=== PATIENT | male | born 1955 | race Caucasian/White ===

== ENCOUNTER 2021-04-20 19:16 | Observation (INO) ==
[2021-04-20] MEDS ORDERED: SODIUM CHLORIDE 0.9% 1000ML 1,000 ML IV ONE (20:37)
--- NOTE | 2021-04-20 20:42 | Emergency Department Note ---
History of Present Illness General Chief complaint: Fever Stated complaint: FEVER, COUGH, COVID + Time Seen by Provider: 04/20/21 20:06 Source: patient Mode of arrival: ambulatory Limitations: no limitations History of Present Illness Provider complaint: Cough, fever, Covid Onset (ago): week(s) 1 Maximum Pain Intensity: 4 Associated symptoms: + denies other symptoms Treatments prior to arrival: NSAID This is a 66-year-old male presents the emergency department with concern for fever in the setting of Covid. Patient states he was diagnosed with Covid 6 days ago. Patient states he came into contact with sick family members not so he acquired it. Patient states he has noticed a cough, some fatigue, intermittent headaches, nasal congestion. Patient states he knows he does feel short of breath with exertion. He denies nausea, vomiting, diarrhea, leg swelling, rash or sores. Patient states he has not lost his sense of taste or smell. He states he has had some fevers which she was concerned about and this is why he presented to the emergency department although he states he did not use any Tylenol or ibuprofen for this. No prior history of asthma or COPD. Patient was noticed to be 90% on room air. Pt seen during a time of high acuity and national emergency pandemic while wearing PPE. Home Medications Medication Instructions Recorded Confirmed Type No Known Home Medications 04/20/21 04/20/21 History Allergies Allergy/AdvReac Type Severity Reaction Status Date / Time No Known Allergies Allergy Unverified 04/20/21 22:40 Past Med/Surg History Medical History No significant past medical history Surgical History No significant past surgical history Family History Other No significant family history Social History Smoking Status: Never smoker Hx Alcohol Use: Yes Alcohol type: beer Alcohol Intake Frequency: Monthly or Less Hx Substance Use: No Feels Safe at Home: Yes Review of Systems A total of 10 systems reviewed and were otherwise negative All systems reviewed & are unremarkable except as noted in HPI & below Physical Exam Vital Signs Vital Signs - 24 hr 04/20/21 19:22 04/20/21 21:15 Temperature 36.4 C L Temperature Source Temporal Artery Scan Pulse Rate 72 Pulse Rate [Apical] 59 L Pulse Rhythm [Apical] Regular Pulse Strength [Apical] Normal Respiratory Rate 18 18 Respiratory Effort / Characteristics Non-Labored Spontaneous Non-Labored Spontaneous Respiratory Depth Normal Normal Respiratory Pattern Regular Regular Blood Pressure 116/76 Blood Pressure [Right Arm] 117/72 Blood Pressure Mean 89 Blood Pressure Mean [Right Arm] 87 Blood Pressure Position Sitting Pulse Oximetry 90 92 Oxygen Delivery Method Room Air Nasal Cannula Oxygen Flow Rate 2 Sepsis Recent Fever Within 48 Hours No Sepsis New/Unexplained Change in Mental Status No Sepsis Action Taken by Nursing No Action Required GENERAL: alert, well appearing, well nourished, no distress, non-toxic EYE EXAM: normal conjunctiva, PERRL and EOM's grossly intact OROPHARYNX: no exudate, no erythema, lips, buccal mucosa, and tongue normal and mucous membranes are moist NECK: supple, no nuchal rigidity, no adenopathy, non-tender LUNGS: Clear to auscultation. Normal chest wall mechanics, no w/r/r HEART: no murmurs, S1 normal and S2 normal ABDOMEN: abdomen soft, non-tender, normo-active bowel sounds, no masses, no rebound or guarding. BACK: Back is symmetrical on inspection and there is no deformity, no midline tenderness, no CVA tenderness. SKIN: no rashes and no bruising UPPER EXTREMITIES: upper extremities are grossly normal. FROM, nml pulses b/l. LOWER EXTREMITIES: No pitting edema. FROM, nml pulses b/l. NEURO EXAM: Normal sensorium, cranial nerves II-XII grossly intact, normal speech, no gross weakness of arms, no gross weakness of legs. Gross sensation intact. Course Course 2336: Discussed with patient, options for disposition. Discussed concern given relative hypoxia at rest of 90%. 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 2320: Case discussed with Dr. Gonzalez. Administered Medications Discontinued Medications Dexamethasone Sodium Phosphate (DexamethasonePf 10 Mg/Ml Vial) 6 mg IV NOW ONE Stop: 04/20/21 23:06 Last Admin: 04/20/21 23:20 Dose: 6 mg Documented by: [id number] Sodium Chloride (Nss 1000ml) 1,000 mls @ 999 mls/hr IV .Q1H1M ONE Stop: 04/20/21 21:37 Last Admin: 04/20/21 21:24 Dose: 999 mls/hr Documented by: [id number] Dexamethasone 6 mg/ Syringe 1.5 mls @ 1 mls/min IV ONE ONE Stop: 04/20/21 22:34 Last Admin: 04/20/21 23:23 Dose: Not Given Documented by: [id number] Potassium Chloride (Potassium Chloride Crtab 20 Meq Tabcr) 40 meq PO NOW STA Stop: 04/20/21 22:34 Last Admin: 04/20/21 23:20 Dose: 40 meq Documented by: [id number] Potassium Chloride (Potassium Chloride Crtab 20 Meq Tabcr) 40 meq PO NOW STA Stop: 04/20/21 23:46 Last Admin: 04/20/21 23:53 Dose: 40 meq Documented by: [id number] Medical Decision Making Differential Diagnosis Differential diagnosis: Etiologies such as viral syndrome, otitis, pharyngitis, pneumonia, influenza, meningitis, urinary tract infection, sepsis, bacteremia, as well as others were entertained. Medical Records Attestation: I reviewed the patient's medical records. Home Medications Current Medication List: was personally reviewed by me Laboratory Data Attestation: I reviewed the patient's lab results. Result diagrams: 04/20/21 21:26 04/20/21 21:26 Lab Results 04/20/21 04/20/21 Range/Units 21:26 21:26 WBC 5.93 (4.8-10.8) K/uL RBC 4.92 (4.7-6.1) M/uL Hgb 16.0 (14.0-18.0) g/dL Hct 45.6 (42-52) % MCV 92.7 (80-100) fL MCH 32.5 (25-34) pg MCHC 35.1 (32-36) g/dL RDW Std Deviation 44.3 (36.4-46.3) fL RDW Coeff of Elvin 12.9 (11.5-14.5) % Plt Count 110 L (130-400) K/uL MPV 10.3 (7.4-10.4) fL Immature Gran % (Auto) 0.2 % Neut % (Auto) 74.7 % Lymph % (Auto) 15.5 % [place] % (Auto) 9.4 % Eos % (Auto) 0.0 % Baso % (Auto) 0.2 % Neut # (Auto) 4.43 (1.4-6.5) K/uL Lymph # (Auto) 0.92 L (1.2-3.4) K/uL [place] # (Auto) 0.56 (0.11-0.59) K/uL Eos # (Auto) 0.00 (0-0.5) K/uL Baso # (Auto) 0.01 (0-0.2) K/uL Immature Gran # (Auto) 0.01 (0.00-0.02) K/uL Sodium 134 L (136-145) mmol/L Potassium 3.0 L (3.5-5.1) mmol/L Chloride 100 (98-107) mmol/L Carbon Dioxide 23 (21-32) mmol/L Anion Gap 12.0 H (3-11) BUN 25 H (7-18) mg/dl Creatinine 1.45 H (0.6-1.4) mg/dl Est Cr Clr Drug Dosing 52.6 ml/min Est GFR ( Amer) 57.7 ml/min Est GFR (Non-Af Amer) 49.8 ml/min BUN/Creatinine Ratio 17.2 (10-20) Glucose 116 H (70-99) mg/dl Calcium 7.9 L (8.5-10.1) mg/dl Magnesium 2.5 H (1.8-2.4) mg/dl Total Bilirubin 0.6 (0.2-1) mg/dl AST 44 H (15-37) U/L ALT 35 (12-78) U/L Alkaline Phosphatase 37 L (45-117) U/L Troponin I 0.032 (0-0.045) ng/ml NT-Pro-B Natriuret Pep 111 (0-900) pg/ml Total Protein 7.1 (6.4-8.2) gm/dl Albumin 3.2 L (3.4-5.0) gm/dl Globulin 3.9 (2.5-4.0) gm/dl Albumin/Globulin Ratio 0.8 L (0.9-2) TSH 0.917 (0.300-4.500) uIu/ml Imaging Data My Impression: X-ray: I interpreted the following studies. Chest: A single view study of the chest was reviewed and was negative for cardiomegaly, focal infiltr ate, effusion, pulmonary edema, or wide mediastinum. ECG Data Attestation: I personally reviewed and interpreted this ECG as follows: Indication: + other Rate (beats per minute): 59 Rhythm: + normal sinus ECG Intervals/blocks: + Normal QRS and + Normal QT ECG [place]: + Normal ECG ST segments: + Normal ST segments MDM Narrative This is a 66-year-old male presents emergency department with concern for fever in the setting of known coronavirus. Patient found to have mild hypoxia on room air at 90%. No other prior pulmonary history. Chest x-ray and labs reassuring. Due to holiday weekend and time of day, no ability to set up outpatient home oxygen and close follow-up. Case discussed with hospitalist for additional close observation and continued oxygen via nasal cannula. I do not suspect secondary bacterial infection or PE, pericarditis/myocarditis, meningitis/encephalitis, bacteremia or sepsis. An order was placed for continuous cardiac monitoring. The monitor shows a rate of _61__ with _normal sinus_ rhythm. Impression & Plan COVID-19, Hypokalemia, Hypoxia Discharge Plan Visit Data Chief Complaint: Fever Stated Complaint: FEVER, COUGH, COVID + ED Provider: Lolita Poe Discharge Problem: COVID-19, Hypokalemia, Hypoxia Patient Disposition: Being Evaluated by Hospitalist Condition: Good Discharge Instructions Interventions: ED Discharge Assessment Last Done: 04/21/21 00:30 Forms Stand Alone Forms: My [facility] Prescriptions Prescriptions: No Action No Known Home Medications RF: 0 Referrals Referrals: PCP,NO [Primary Care Provider] -
[2021-04-20 21:38] LABS: Basophils # (auto) 0.01 K/uL (0-0.2); Basophils % (auto) 0.2 %; Hematocrit (blood only) 45.6 % (42-52); Immature Granulocytes # (auto) 0.01 K/uL (0.00-0.02); Immature Granulocytes % (auto) 0.2 %; Lymphocytes # (auto) 0.92 K/uL (1.2-3.4); Lymphocytes % (auto) 15.5 %; Mean Corpuscular Hemoglobin 32.5 pg (25-34); Mean Corpuscular Hgb Conc 35.1 g/dL (32-36); Mean Corpuscular Volume 92.7 fL (80-100); Mean Platelet Volume 10.3 fL (7.4-10.4); Monocytes # (auto) 0.56 K/uL (0.11-0.59); Monocytes % (auto) 9.4 %; Neutrophils # (auto) 4.43 K/uL (1.4-6.5); Neutrophils % (auto) 74.7 %; Platelet Count 110 K/uL (130-400); RDW Coefficient of Variation 12.9 % (11.5-14.5); RDW Standard Deviation 44.3 fL (36.4-46.3); Red Blood Count 4.92 M/uL (4.7-6.1); White Blood Count 5.93 K/uL (4.8-10.8)
[2021-04-20 22:06] LABS: Albumin Level 3.2 gm/dl (3.4-5.0); BUN Creatinine Ratio 17.2 (10-20); Calcium 7.9 mg/dl (8.5-10.1); Creatinine Clr Calc Pharmacy 52.6 ml/min; Est GFR (African American) 57.7 ml/min; Est GFR (Non-African American) 49.8 ml/min; Magnesium 2.5 mg/dl (1.8-2.4)
[2021-04-20 22:17] LABS: Albumin Globulin Ratio 0.8 (0.9-2); Bilirubin,Total 0.6 mg/dl (0.2-1); Globulin 3.9 gm/dl (2.5-4.0); Thyroid Stimulating Hormone 0.917 uIu/ml (0.300-4.500); Total Protein 7.1 gm/dl (6.4-8.2); Troponin I 0.032 ng/ml (0-0.045)
[2021-04-20] MEDS ORDERED: dexAMETHasone 6 MG in SYRINGE 0 ML IV ONE (22:33)
[2021-04-20] MEDS ORDERED: POTASSIUM CHLORIDE CRTAB 20 MEQ TABCR PO STA ×2 (22:33→23:45)
[2021-04-20] MEDS ORDERED: dexAMETHasone**PF** 10 MG/ML VIAL IV ONE (23:05)
--- NOTE | 2021-04-21 00:02 | History & Physical Report ---
Date of Service April 20, 2021 Assessment & Plan (1) COVID-19: Plan: 66yo male with no significant past medical or surgical history presenting with known Covid-19 infection, worsening shortness of breath. Mild hypoxemia at 90% on room air in the ER at rest. Patient placed on supplemental O2 and administered Dexamethasone 6mg IV x 1 dose. Will need to have home O2 arranged prior to discharge, most likely tomorrow. Patient is afebrile, HD stable, no respiratory distress. Adequate oxygenation on 2L by NC. -Observation to medical -Continue supplemental O2 as needed -Dexamethasone 6mg IV daily -Lovenox 40mg IV BID for DVT prophylaxis -Detectable troponin with non-specific EKG changes. Patient denies chest pain, palpitations. No known cardiac history. Will repeat troponin with AM labs (2) Hypokalemia: Plan: K=3. He was administered 40mEq in the ER. Will give additional 40mEq. -Repeat chemistry in AM Plan: F/E/N - Heplock. K repletion as above. Regular diet as tolerated Ppx - Lovenox 40mg BID Code - DNR/DNI per discussion with patient Dispo - Observation to medical floor History of Present Illness Chief Complaint: Covid-19 infection Primary Care Provider: NO PCP Artur Luu is a 66yo male with no significant past medical or surgical history presenting with Covid-19 infection. Patient began developing slight cough, loss of taste and smell, headache and subjective fevers appx 8 days ago. He tested positive for Covid-19 in the outpatient setting 6 days ago. He is not vaccinated against Covid. He did have a positive family contact. Presently with no chest pain, shortness of breath, dizziness. He denies additional complaints at this time. Saturations in the ER 90% at rest ER Course: Dexamethasone 6mg IV, Potassium 40mEq, NSS x 1 L Allergies Allergy/AdvReac Type Severity Reaction Status Date / Time No Known Allergies Allergy Unverified 04/20/21 22:40 Home Medications Medication Instructions Recorded Confirmed Type No Known Home Medications 04/20/21 04/20/21 History Past Med/Surg History Medical History No significant past medical history Surgical History No significant past surgical history Family History (Updated 04/20/21 @ 23:53 by Natividad Gonzalez DO) Other No significant family history Social History (Updated 04/20/21 @ 23:53 by Natividad Gonzalez DO) Smoking Status: Never smoker Hx Alcohol Use: Yes Alcohol type: beer Alcohol Intake Frequency: Monthly or Less Hx Substance Use: No Feels Safe at Home: Yes Review of Systems Review of Systems: All systems reviewed & are unremarkable except as noted in HPI & below Physical Exam Physical Exam: General: patient resting comfortably, NAD, non-toxic in appearance, AA&O x 4 Skin: warm, dry, intact, no rashes or lesions HEENT: NC/AT, PERRL, EOMI, anicteric sclera, conjunctiva without injection, external ear normal to inspection and nontender, nares patent, moist mucus membranes, dentition intact, no oropharyngeal lesions, neck supple, trachea midline, no LAD, no thyromegaly, no JVD Heart: +S1/S2, regular, no m/r/g Lungs: equal air entry bilaterally, no rales/rhonchi/wheezes Abd: +BS, soft, NT/ND, no masses/organomegaly/ascites Ext: warm, 2+ pulses in UE/LE bilaterally, no clubbing/cyanosis or edema Neuro: nonfocal, patient AA&O x 4, speech intact, no facial droop, moving all extremities on command with equal strength 5/5 Results & Data Results & Data ([facility]) Vital Signs (Past 12 Hours) Vital Signs Temp Pulse Pulse Resp BP BP Pulse Ox 04/20/21 21:15 59 L 18 117/72 92 04/20/21 19:22 36.4 C L 72 18 116/76 90 Laboratory Results Laboratory Results WBC 5.93 K/uL (4.8-10.8) 04/20/21 21:26 RBC 4.92 M/uL (4.7-6.1) 04/20/21 21:26 Hgb 16.0 g/dL (14.0-18.0) 04/20/21 21:26 Hct 45.6 % (42-52) 04/20/21 21:26 MCV 92.7 fL (80-100) 04/20/21 21:26 MCH 32.5 pg (25-34) 04/20/21: MCHC 35.1 g/dL (32-36) 04/20/21: RDW Std Deviation 44.3 fL (36.4-46.3) 04/20/21 21: RDW Coeff of Elvin 12.9 % (11.5-14.5) 04/20/21: Plt Count 110 K/uL (130-400) L 04/20/21 21: MPV 10.3 fL (7.4-10.4) 04/20/21: Immature Gran % (Auto) 0.2 % 04/20/21 21: Neut % (Auto) 74.7 % 04/20/21: Lymph % (Auto) 15.5 % 04/20/21: [place] % (Auto) 9.4 % 04/20/21: Eos % (Auto) 0.0 % 04/20/21: Baso % (Auto) 0.2 % 04/20/21: Neut # (Auto) 4.43 K/uL (1.4-6.5) 04/20/21: Lymph # (Auto) 0.92 K/uL (1.2-3.4) L 04/20/21: [place] # (Auto) 0.56 K/uL (0.11-0.59) 04/20/21: Eos # (Auto) 0.00 K/uL (0-0.5) 04/20/21: Baso # (Auto) 0.01 K/uL (0-0.2) 04/20/21: Immature Gran # (Auto) 0.01 K/uL (0.00-0.02) 04/20/21: Sodium 134 mmol/L (136-145) L 04/20/21 21: Potassium 3.0 mmol/L (3.5-5.1) L 04/20/21: Chloride 100 mmol/L (98-107) 04/20/21: Carbon Dioxide 23 mmol/L (21-32) 04/20/21 21: Anion Gap 12.0 (3-11) H 04/20/21 21:26 BUN 25 mg/dl (7-18) H 04/20/21 21: Creatinine 1.45 mg/dl (0.6-1.4) H 04/20/21: Est Cr Clr Drug Dosing 52.6 ml/min 04/20/21 21: Est GFR ( Amer) 57.7 ml/min 04/20/21: Est GFR (Non-Af Amer) 49.8 ml/min 04/20/21 21: BUN/Creatinine Ratio 17.2 (10-20) 04/20/21 21: Glucose 116 mg/dl (70-99) H 04/20/21 21: Calcium 7.9 mg/dl (8.5-10.1) L 04/20/21: Magnesium 2.5 mg/dl (1.8-2.4) H 04/20/21: Total Bilirubin 0.6 mg/dl (0.2-1) 04/20/21: AST 44 U/L (15-37) H 04/20/21: ALT 35 U/L (12-78) 04/20/21: Alkaline Phosphatase 37 U/L (45-117) L 04/20/21: Troponin I 0.032 ng/ml (0-0.045) 04/20/21: NT-Pro-B Natriuret Pep 111 pg/ml (0-900) 04/20/21: Total Protein 7.1 gm/dl (6.4-8.2) 04/20/21: Albumin 3.2 gm/dl (3.4-5.0) L 04/20/21: Globulin 3.9 gm/dl (2.5-4.0) 04/20/21: Albumin/Globulin Ratio 0.8 (0.9-2) L 04/20/21: TSH 0.917 uIu/ml (0.300-4.500) 04/20/21 21:26 Diagnostic Findings CXR - by my interpretation - trachea midline, cardiac shadow within normal limits, no infiltrates, no prior study for comparison ECG Additional Comments: SB at 59, NM=596, QRS=86, RFb=515, nonspecific ST changes, no STEMI Code Status & VTE Plan VTE Prophylaxis Plan VTE Prophylaxis will be ordered: Yes PG Care Time/CCT Total # of Minutes Spent Total Time Spent with Patient: Total time spent is greater than 50% in coordination of care (as documented) at patient's floor/unit and/or counseling patient: Coding Level of Care Code 94352 Initial Inpt Care Lvl 2 Diagnoses COVID-19 U07.1 Hypokalemia E87.6
[2021-04-21] MEDS ORDERED: ACETAMINOPHEN 325 MG TAB PO PRN (00:59)
[2021-04-21] MEDS ORDERED: ONDANSETRON INJ 2 MG/ML 2 ML VIAL IV PRN (00:59)
[2021-04-21] MEDS: ENOXAPARIN INJ 40 MG/0.4 ML SYR SQ SCH ×2 (06:23→17:47)
[2021-04-21 07:11] LABS: Basophils # (auto) 0.01 K/uL (0-0.2); Basophils % (auto) 0.2 %; Hematocrit (blood only) 48.6 % (42-52); Hemoglobin 16.9 g/dL (14.0-18.0); Immature Granulocytes # (auto) 0.01 K/uL (0.00-0.02); Immature Granulocytes % (auto) 0.2 %; Lymphocytes # (auto) 0.99 K/uL (1.2-3.4); Lymphocytes % (auto) 21.6 %; Mean Corpuscular Hemoglobin 32.4 pg (25-34); Mean Corpuscular Hgb Conc 34.8 g/dL (32-36); Mean Corpuscular Volume 93.3 fL (80-100); Monocytes # (auto) 0.19 K/uL (0.11-0.59); Monocytes % (auto) 4.1 %; Neutrophils # (auto) 3.38 K/uL (1.4-6.5); Neutrophils % (auto) 73.9 %; Platelet Count 111 K/uL (130-400); RDW Coefficient of Variation 12.9 % (11.5-14.5); RDW Standard Deviation 44.7 fL (36.4-46.3); Red Blood Count 5.21 M/uL (4.7-6.1); White Blood Count 4.58 K/uL (4.8-10.8)
--- NOTE | 2021-04-21 07:18 | XRay Report ---
XR chest 1V portable CLINICAL HISTORY: cough, covid COMPARISON STUDY: No previous studies for comparison. FINDINGS: No pneumothorax. No pleural effusion. Reticular opacities are seen at bilateral lower lungs, most prominent at the left retrocardiac region where few air bronchograms are seen. Cardiomediastinal silhouette is within normal limits in size. Pulmonary vasculature is indistinct. Aorta is tortuous.. Osseous structures: unremarkable IMPRESSION: 1. Reticular opacities at bilateral lower lungs, most prominent on the left. Air bronchograms within left retrocardiac region likely represent atelectasis or infiltrates. 2. Possible pulmonary edema. ACT 112: Negative or not required by law. The above report was generated using voice recognition software. It may contain grammatical, syntax o r spelling errors. Electronically signed by: Lydia Jones DO 04/21/2021 7:16 AM
[2021-04-21 07:50] LABS: BUN Creatinine Ratio 16.9 (10-20); Calcium 8.4 mg/dl (8.5-10.1); Creatinine Clr Calc Pharmacy 54.2 ml/min; Est GFR (African American) 60.3 ml/min; Potassium 3.6 mmol/L (3.5-5.1); Troponin I 0.019 ng/ml (0-0.045)
--- NOTE | 2021-04-21 08:38 | Electrocardiogram Report ---
Test Reason : Blood Pressure : / mmHG Vent. Rate : 059 BPM Atrial Rate : 059 BPM P-R Int : 132 ms QRS Dur : 086 ms QT Int : 450 ms P-R-T Axes : 028 -06 -15 degrees QTc Int : 445 ms Sinus bradycardia Minimal voltage criteria for LVH, may be normal variant Nonspecific ST and T wave abnormality Abnormal ECG No previous ECGs available Confirmed by Mark Sherman ([id number]) on 04/21/2021 8:38:21 AM Referred By: REFERRED SELF Confirmed By:Mark Sherman
--- NOTE | 2021-04-21 08:44 | Hospitalist Progress Note ---
Date of Service April 21, 2021 Assessment & Plan (1) COVID-19: Plan: 66yo male with no significant past medical or surgical history presenting with known Covid-19 infection, worsening shortness of breath. Mild hypoxemia at 90% on room air in the ER at rest. Patient placed on supplemental O2 and administered Dexamethasone 6mg IV x 1 dose. Will need to have home O2 arranged prior to discharge, most likely tomorrow. Patient is afebrile, HD stable, no respiratory distress. Adequate oxygenation on 2L by NC. -Observation to medical -Continue supplemental O2 as needed -Dexamethasone 6mg IV daily -Lovenox 40mg IV BID for DVT prophylaxis -Detectable troponin with non-specific EKG changes. Patient denies chest pain, palpitations. No known cardiac history. Will repeat troponin with AM labs (2) Hypokalemia: Plan: K=3. He was administered 40mEq in the ER. Will give additional 40mEq. -Repeat chemistry in AM Plan: F/E/N - Heplock. K repletion as above. Regular diet as tolerated Ppx - Lovenox 40mg BID Code - DNR/DNI per discussion with patient Dispo - Observation to medical floor Admission and Anticipated Discharge Date Admission Date: April 20, 2021 Results & Data Results & Data ([facility]) Vital Signs (Past 12 Hours) Vital Signs Temp Pulse Pulse Resp BP Pulse Ox 04/21/21 00:50 99.3 F 64 16 133/80 92 04/20/21 21:15 59 L 18 117/72 92 PG Care Time/CCT Total # of Minutes Spent Total Time Spent with Patient: Total time spent is greater than 50% in coordination of care (as documented) at patient's floor/unit and/or counseling patient: Coding Diagnoses COVID-19 U07.1 Hypokalemia E87.6
[2021-04-21] MEDS ORDERED: dexAMETHasone 6 MG in SYRINGE 0 ML IV SCH (09:00)
--- NOTE | 2021-04-21 18:11 | Discharge Summary ---
Date of Service April 21, 2021 Admission HPI Per Admitting Provider Artur Luu is a 66yo male with no significant past medical or surgical history presenting with Covid-19 infection. Patient began developing slight cough, loss of taste and smell, headache and subjective fevers appx 8 days ago. He tested positive for Covid-19 in the outpatient setting 6 days ago. He is not vaccinated against Covid. He did have a positive family contact. Presently with no chest pain, shortness of breath, dizziness. He denies additional complaints at this time. Saturations in the ER 90% at rest ER Course: Dexamethasone 6mg IV, Potassium 40mEq, NSS x 1 L Principal Diagnosis covid pneumonia acute hypoxic respiratory failure Discharge Exam The patient appeared stable Vital signs as documented. Lungs are with scant basilar rales but effort appears unlabored Cardiac exam, Rhythm is regular.. No murmurs, rubs or gallops. Abdominal exam reveals normal bowel sounds, soft non tender, no masses Extremities are nonedematous and both pedal pulses are normal. Neurologic exam is alert and oriented, no focal loss of strength or sensation Skin is without bruises or rashes Psychologically is without concerns for anxiety or depression. Discharge Data Allergies Allergy/AdvReac Type Severity Reaction Status Date / Time No Known Allergies Allergy Unverified 04/20/21 22:40 Consultations 04/20/21 23:20 ED Decision to Admit Stat Hospital Course (1) COVID-19: 66yo male with no significant past medical or surgical history presenting with known Covid-19 infection, worsening shortness of breath. Mild hypoxemia at 90% on room air in the ER at rest. Patient placed on supplemental O2 and administered Dexamethasone 6mg IV x 1 dose. Will need to have home O2 arranged prior to discharge, most likely tomorrow. Patient is afebrile, HD stable, no respiratory distress. Adequate oxygenation on 2L by NC. -Continue supplemental O2 2 liters at home -Dexamethasone 6mg po daily We did veronica discussion about the possibility that the patient might return if Covid does worsen and likely has time would be over the next 4 to 5 days. He is willing to go home at this time -Detectable troponin with non-specific EKG changes. repeat not elevated Patient denies chest pain, palpitations. No known cardiac history. (2) Hypokalemia: replete Code - DNR/DNI per discussion with patient D Total Time Total Time Spent Total Time Spent (In Minutes): It required greater than 30 minutes to prepare this patient for discharge Discharge Plan Discharge Items Patient Disposition: Home - Self-Care Reason For Visit: COVID-19, HYPOXIA Discharge Diagnosis: covid pneumonia hypoxia Condition on Discharge: Good Activity: Per Instructions section Activity Comment: rest and recover Non-emergency contact: Primary Care Provider Call non-emergency contact if: your symptoms worsen and your rectal temperature is above 100.4 Follow-up/Referrals: Boone Taylor DO [Outside Practitioners] - 04/27/21 3:40 pm (virtual visit due to COVID; then will set up another appt to establish care as PCP) Diet: Regular Addtl Attending Provider Instructions: you have been diagnosed with covid pneumonia and wlll be sent home on oxygen, you will follow up with Handy Cody for a primary care visit to follow along your progress. Please finish all of your medicines and wear oxygen at all times until you are told not to by your doctor Expect to have symptoms of up to 10 additional days and stay on home isolation until you are free of symptoms, please wear a mask in your home if you are around other people who do not have covid infection. Home Isolation COVID-19 Instructions The following information about Home Isolation is from the CDC Website: https://www.cdc.gov/coronavirus/2019-ncov/hcp/lhjphaia-aadrmgo-xbtxtf.html Stay home except to get medical care People who are mildly ill with COVID-19 are able to isolate at home during their illness. You should restrict activities outside your home, except for getting medical care. Do not go to work, school, or public areas. Avoid using public transportation, ride-sharing, or taxis. Separate yourself from other people and animals in your home People: As much as possible, you should stay in a specific room and away from other people in your home. Also, you should use a separate bathroom, if available. Animals: You should restrict contact with pets and other animals while you are sick with COVID-19, just like you would around other people. Although there have not been reports of pets or other animals becoming sick with COVID-19, it is still recommended that people sick with COVID-19 limit contact with animals until more information is known about the virus. When possible, have another member of your household care for your animals while you are sick. If you are sick with COVID-19, avoid contact with your pet, including petting, snuggling, being kissed or licked, and sharing food. If you must care for your pet or be around animals while you are sick, wash your hands before and after you interact with pets and wear a face mask. Call ahead before visiting your doctor If you have a medical appointment, call the healthcare provider and tell them that you have or may have COVID-19. This will help the healthcare providers office take steps to keep other people from getting infected or exposed. Wear a face mask You should wear a face mask when you are around other people (e.g., sharing a room or vehicle) or pets and before you enter a healthcare providers office. If you are not able to wear a face mask (for example, because it causes trouble breathing), then people who live with you should not stay in the same room with you, or they should wear a face mask if they enter your room. Cover your coughs and sneezes Cover your mouth and nose with a tissue when you cough or sneeze. Throw used tissues in a lined trash can. Immediately wash your hands with soap and water for at least 20 seconds or, if soap and water are not available, clean your hands with an alcohol-based hand superior court clerk that contains at least 60% alcohol. Clean your hands often Wash your hands often with soap and water for at least 20 seconds, especially after blowing your nose, coughing, or sneezing; going to the bathroom; and before eating or preparing food. If soap and water are not readily available, use an alcohol-based hand superior court clerk with at least 60% alcohol, covering all surfaces of your hands and rubbing them together until they feel dry. Soap and water are the best option if hands are visibly dirty. Avoid touching your eyes, nose, and mouth with unwashed hands. Avoid sharing personal household items You should not share dishes, drinking glasses, cups, eating utensils, towels, or bedding with other people or pets in your home. After using these items, they should be washed thoroughly with soap and water. Clean all high-touch surfaces everyday High touch surfaces include counters, tabletops, doorknobs, bathroom fixtures, toilets, phones, keyboards, tablets, and bedside tables. Also, clean any surfaces that may have blood, stool, or body fluids on them. Use a household cleaning spray or wipe, according to the label instructions. Labels contain instructions for safe and effective use of the cleaning product including precautions you should take when applying the product, such as wearing gloves and making sure you have good ventilation during use of the product. Monitor your symptoms Seek prompt medical attention if your illness is worsening (e.g., difficulty breathing).Beforeseeking care, call your healthcare provider and tell them that you have, or are being evaluated for, COVID-19. Put on a face mask before you enter the facility. These steps will help the healthcare providers office to keep other people in the office or waiting room from getting infected or exposed. Ask your healthcare provider to call the local or [facility] health department. Persons who are placed under active monitoring or facilitated self- monitoring should follow instructions provided by their local health department or occupational health professionals, as appropriate. When working with your local health department check their available hours. If you have a medical emergency and need to call 911, notify the dispatch personnel that you have, or are being evaluated for COVID-19. If possible, put on a face mask before emergency medical services arrive. Discontinuing home isolation Patients with confirmed COVID-19 should remain under home isolation precautions until the risk of secondary transmission to others is thought to be low. The decision to discontinue home isolation precautions should be made on a [id number] basis, in consultation with healthcare providers and state and local health departments. Pending Studies at Discharge: No Stand-Alone Forms: My [facility] Medications and DC Order Prescriptions: New dexamethasone [Decadron] 6 mg tablet 6 mg PO DAILY Qty: 9 RF: 0 codeine-guaifenesin 10-100 mg/5 mL liquid 10 ml PO Q6H PRN (Reason: cough) Qty: 120 RF: 0 (DME) Oxygen Home Liters Per Minute See Rx Instructions .ROUTE Qty: 2 RF: 0 Discharge Orders: Discharge Order (Routine); Ordered 04/21/21 Ordered By: Conor Brandon/Other Patient Handouts: Disinfecting Your Home of COVID-19, COVID-19 Home Care, Using Oxygen Safely, Traveling with Oxygen, Using an Oxygen Tank at Home, If Oxygen Is Prescribed Admission Data Admit Date/Time: 04/20/21 23:45 Attending Provider: Conor Noel Admit Provider: Natividad Gonzalez Primary Care Provider: PCP,NO Other Providers: Natividad Gonzalez Other Interventions: Discharge Summary Assessment (RN) Last Done: 04/21/21 13:06 Coding Level of Care Code D/C DAY MANAGEMENT >30 MINS Diagnoses COVID-19 U07.1 Hypokalemia E87.6
== END 2021-04-21 19:30 | disposition home or self-care (01) ==
LOC: ED 19:16 → 3N 19:16 → SUATTDRO 23:45 → 3N 04-21 00:30

== ENCOUNTER 2021-04-22 23:33 | Inpatient (IN) ==
[2021-04-23] MEDS ORDERED: ACETAMINOPHEN 1,000 MG/100 ML VIAL IV STA (00:38)
[2021-04-23] MEDS ORDERED: SODIUM CHLORIDE 0.9% 1000ML 1,000 ML IV SCH (00:45)
[2021-04-23 01:11] LABS: Hematocrit (blood only) 42.5 % (42-52); Hemoglobin 15.1 g/dL (14.0-18.0); Immature Granulocytes # (auto) 0.03 K/uL (0.00-0.02); Immature Granulocytes % (auto) 0.3 %; Lymphocytes # (auto) 0.71 K/uL (1.2-3.4); Lymphocytes % (auto) 7.9 %; Mean Corpuscular Hemoglobin 32.3 pg (25-34); Mean Corpuscular Hgb Conc 35.5 g/dL (32-36); Mean Platelet Volume 10.2 fL (7.4-10.4); Monocytes % (auto) 8.9 %; Neutrophils # (auto) 7.43 K/uL (1.4-6.5); Neutrophils % (auto) 82.9 %; Platelet Count 148 K/uL (130-400); RDW Coefficient of Variation 13.1 % (11.5-14.5); Red Blood Count 4.67 M/uL (4.7-6.1); White Blood Count 8.97 K/uL (4.8-10.8)
[2021-04-23 01:22] LABS: Base Excess ABG -0.4 mEq/L (-9-1.8); HCO3 ABG 22 mmol/L (19-24); Oxygen Saturation ABG 96.6 % (90-95); PCO2 ABG 30 mmHg (35-46); PO2 ABG 78 mmHg (80-95); pH ABG 7.48 (7.35-7.45)
[2021-04-23 01:24] LABS: Allen Test Pos (Pos)
[2021-04-23 01:30] LABS: Albumin Level 2.8 gm/dl (3.4-5.0); BUN Creatinine Ratio 18.4 (10-20); Calcium 7.4 mg/dl (8.5-10.1); Creatinine Clr Calc Pharmacy 60.2 ml/min; Est GFR (African American) 66.5 ml/min; Est GFR (Non-African American) 57.4 ml/min; Magnesium 2.6 mg/dl (1.8-2.4); Potassium 3.4 mmol/L (3.5-5.1)
[2021-04-23 01:34] LABS: Albumin Globulin Ratio 0.7 (0.9-2); Bilirubin,Total 0.8 mg/dl (0.2-1); Total Protein 6.8 gm/dl (6.4-8.2); Troponin I 0.027 ng/ml (0-0.045)
--- NOTE | 2021-04-23 02:15 | Emergency Department Note ---
History of Present Illness General Chief complaint: Shortness of Breath/Dyspnea Stated complaint: +COVID - SHORT OF BREATH (SPO2 82%15LNRB) Time Seen by Provider: 04/23/21 00:32 Source: patient Mode of arrival: ambulatory Limitations: no limitations History of Present Illness Provider complaint: shortness of breath Associated symptoms: + cough, + fever/chills, + headaches, + loss of appetite, + malaise and + shortness of breath Treatments prior to arrival: other This is a 66-year-old male presents emergency department due to worsening shortness of breath and COVID-19. Patient states he has had symptoms now for a total of approximately 9 days, was diagnosed with Covid about 6 days ago. Patient was hospitalized and just discharged 2 days ago with home oxygen. Patient has been taking dexamethasone, and using other OTC meds to treat his symptoms. Patient states his cough is intermittently productive, denies headaches, chest pain, abdominal pain. Patient states he has had accompanying diarrhea. He denies rash, swelling, or vomiting. Patient states he has had a decreased appetite, has not lost his sense of taste or smell. Patient states he 2 L/min of nasal cannula he was wearing at home did not seem to be helping him when he was spot checking with his pulse oximeter he noticed he was still in the 80s. Given he continued to feel worse, patient presented to the emergency room. Patient was found to be hypoxic on initial presentation, nursing staff began to slowly titrate up his oxygen, patient was then converted to a nonrebreather mask at 15 L/min and was still hypoxic at 80 to 89%. I was contacted at this point to immediately come and see the patient due to concern for his abnormal vitals. Pt seen during a time of high acuity and national emergency pandemic while wearing PPE. Home Medications Medication Instructions Recorded Confirmed Type Oxygen Home #2 ea 04/21/21 Rx codeine 10 mg-guaifenesin 100 mg/5 10 ml PO Q6H PRN #120 ml 04/21/21 04/23/21 Rx mL oral liquid dexamethasone 2 mg tablet 4 mg PO DAILY 04/23/21 04/23/21 History Allergies Allergy/AdvReac Type Severity Reaction Status Date / Time No Known Allergies Allergy Verified 04/23/21 00:29 Past Med/Surg History Medical History No significant past medical history Surgical History No significant past surgical history Family History Other No significant family history Social History Smoking Status: Never smoker Second Hand Exposure: No; Hx Alcohol Use: Yes Alcohol type: beer Alcohol Intake Frequency: Monthly or Less Hx Substance Use: No Preferred Language: Croatian Communication Ability: Effective Neurology Stroke Physician Required: No Beliefs That Will Affect Care: None marital status: Current Living Situation: Spouse and Family Current Living Situation Comment: Pt lives with spouse, daughter, and son-in-law, grandchildrean Feels Safe at Home: Yes Assistive Devices: Glasses Review of Systems A total of 10 systems reviewed and were otherwise negative All systems reviewed & are unremarkable except as noted in HPI & below Physical Exam Vital Signs Vital Signs - 24 hr 04/22/21 23:42 04/22/21 23:52 04/22/21 23:56 Temperature 38.1 C H Temperature Source Oral Pulse Rate 74 Pulse Rate [Finger] 66 Respiratory Rate 20 20 Respiratory Effort / Characteristics Short of Breath Short of Breath Respiratory Depth Normal Blood Pressure 139/79 Blood Pressure [Right Arm] 139/79 Blood Pressure Mean 99 Blood Pressure Mean [Right Arm] 99 Pulse Oximetry 86 L 91 Oxygen Delivery Method Non-rebreather Non-rebreather Non-rebreather Oxygen Flow Rate 15 15 15 Fraction of Inspired Oxygen Sepsis Recent Fever Within 48 Hours No Sepsis New/Unexplained Change in Mental Status No Sepsis Action Taken by Nursing No Action Required 04/23/21 00:55 04/23/21 01:36 Temperature 37.0 C Temperature Source Oral Pulse Rate Pulse Rate [Finger] 72 66 Respiratory Rate 28 H 18 Respiratory Effort / Characteristics Spontaneous Labored Short of Breath Non-Labored Spontaneous Respiratory Depth Normal Blood Pressure Blood Pressure [Right Arm] 121/73 Blood Pressure Mean Blood Pressure Mean [Right Arm] 89 Pulse Oximetry 92 94 Oxygen Delivery Method High Flow Nasal Cannula High Flow Nasal Cannula Oxygen Flow Rate 40 40 Fraction of Inspired Oxygen 100 Sepsis Recent Fever Within 48 Hours Sepsis New/Unexplained Change in Mental Status Sepsis Action Taken by Nursing GENERAL: alert, ill appearing, well nourished, no distress, non-toxic EYE EXAM: normal conjunctiva, PERRL and EOM's grossly intact OROPHARYNX: no exudate, no erythema, lips, buccal mucosa, and tongue normal and mucous membranes are moist NECK: supple, no nuchal rigidity, no adenopathy, non-tender LUNGS: Diminished bilaterally to auscultation. Normal chest wall mechanics, no w/r/r HEART: no murmurs, S1 normal and S2 normal ABDOMEN: abdomen soft, non-tender, normo-active bowel sounds, no masses, no rebound or guarding. BACK: Back is symmetrical on inspection and there is no deformity, no midline tenderness, no CVA tenderness. SKIN: no rashes and no bruising UPPER EXTREMITIES: upper extremities are grossly normal. FROM, nml pulses b/l. LOWER EXTREMITIES: No pitting edema. FROM, nml pulses b/l. NEURO EXAM: Normal sensorium, cranial nerves II-XII grossly intact, normal speech, no gross weakness of arms, no gross weakness of legs. Gross sensation intact. Course Administered Medications Enoxaparin Sodium (Enoxaparin 100 Mg/1ml Syr) 90 mg SQ Q12 SHIRLEY Stop: 05/23/21 20:59 Last Admin: 04/24/21 08:13 Dose: 90 mg Documented by: [id number] Admin: 04/23/21 20:06 Dose: 90 mg Documented by: [id number] Guaifenesin/Codeine Phosphate (Guaifenesin/Codeine 200mg/20mg 10ml Udc) 10 ml PO Q6H PRN PRN Reason: cough Stop: 05/23/21 06:24 Last Admin: 04/23/21 10:21 Dose: 10 ml Documented by: [id number] Dexamethasone 6 mg/ Syringe 1.5 mls @ 1 mls/min IV DAILY SHIRLEY Stop: 05/23/21 06:44 Last Admin: 04/24/21 08:13 Dose: 1 mls/min Documented by: [id number] Admin: 04/23/21 07:50 Dose: 1 mls/min Documented by: [id number] Lorazepam (Ativan) 0.5 mg in 1 mls @ 1 mls/min IV Q4H PRN PRN Reason: Agitation Stop: 05/23/21 08:53 Last Admin: 04/23/21 20:24 Dose: 1 mls/min Documented by: [id number] Admin: 04/23/21 10:22 Dose: 1 mls/min Documented by: [id number] Potassium Chloride (K Maximiliano / Wtr) 10 meq in 100 mls @ 100 mls/hr IV Q1H SHIRLEY Stop: 04/24/21 09:29 Last Admin: 04/24/21 08:13 Dose: 100 mls/hr Documented by: [id number] Infusion: 04/24/21 08:12 Dose: 0 mls/hr Documented by: [id number] Admin: 04/24/21 06:28 Dose: 100 mls/hr Documented by: [id number] Discontinued Medications Enoxaparin Sodium (Enoxaparin Inj 40 Mg/0.4 Ml Syr) 40 mg SQ Q12 SHIRLEY Stop: 05/23/21 06:44 Last Admin: 04/23/21 07:50 Dose: 40 mg Documented by: [id number] Sodium Chloride (Nss 1000ml) 1,000 mls @ 125 mls/hr IV .Q8H SHIRLEY Stop: 05/23/21 00:44 Last Infusion: 04/23/21 06:39 Dose: 0 mls/hr Documented by: [id number] Admin: 04/23/21 00:51 Dose: 125 mls/hr Documented by: [id number] Acetaminophen (Ofirmev) 1,000 mg in 100 mls @ 400 mls/hr IV NOW STA Stop: 04/23/21 00:52 Last Infusion: 04/23/21 01:36 Dose: 0 mls/hr Documented by: [id number] Admin: 04/23/21 00:54 Dose: 400 mls/hr Documented by: [id number] Azithromycin 500 mg/ Dextrose 255 mls @ 127.5 mls/hr IV NOW STA Stop: 04/23/21 06:12 Last Infusion: 04/23/21 06:39 Dose: 0 mls/hr Documented by: [id number] Admin: 04/23/21 04:39 Dose: 127.5 mls/hr Documented by: [id number] Furosemide 40 mg/ Syringe 4 mls @ 4 mls/min IV ONE ONE Stop: 04/23/21 09:16 Last Admin: 04/23/21 09:57 Dose: 4 mls/min Documented by: [id number] Potassium Chloride (K Maximiliano / Wtr) 10 meq in 100 mls @ 100 mls/hr IV Q1H SHIRLEY Stop: 04/23/21 18:29 Last Admin: 04/23/21 18:33 Dose: Not Given Documented by: [id number] Infusion: 04/23/21 18:33 Dose: 0 mls/hr Documented by: [id number] Admin: 04/23/21 17:21 Dose: 100 mls/hr Documented by: [id number] Infusion: 04/23/21 17:20 Dose: 0 mls/hr Documented by: [id number] Admin: 04/23/21 15:40 Dose: 100 mls/hr Documented by: [id number] Infusion: 04/23/21 15:34 Dose: 0 mls/hr Documented by: [id number] Admin: 04/23/21 15:33 Dose: 100 mls/hr Documented by: [id number] Tocilizumab 400 mg/Tocilizumab 200 mg/Tocilizumab 80 mg/ Sodium Chloride 100 mls @ 100 mls/hr IV NOW ONE Stop: 04/23/21 16:59 Last Infusion: 04/23/21 17:00 Dose: 0 mls/hr Documented by: [id number] Cosigned by: [id number] Admin: 04/23/21 16:34 Dose: 100 mls/hr Documented by: [id number] Cosigned by: [id number] Tocilizumab 400 mg/ Sodium (Chloride) 100 mls @ 100 mls/hr IV NOW ONE Stop: 04/23/21 18:44 Last Infusion: 04/23/21 21:48 Dose: 0 mls/hr Documented by: [id number] Admin: 04/23/21 18:05 Dose: 100 mls/hr Documented by: [id number] Pneumococcal Polyvalent Vaccine (Pneumococcal Polysaccharides 25 Mcg/0.5 Ml Vial/Syr) 25 mcg IM .ONCE ONE Stop: 04/23/21 06:39 Last Admin: 04/23/21 07:55 Dose: Not Given Documented by: [id number] Medical Decision Making Differential Diagnosis Differential diagnoses includes but is not limited to pneumonia, bronchitis, COPD/Asthma exacerbation, pneumothorax, pulmonary embolism, congestive heart failure, acute coronary syndrome Medical Records Attestation: I reviewed the patient's medical records. Home Medications Current Medication List: was personally reviewed by me Laboratory Data Attestation: I reviewed the patient's lab results. Result diagrams: 04/24/21 05:11 04/24/21 05:11 Lab Results 04/23/21 04/23/21 04/23/21 Range/Units 00:20 00:20 01:13 WBC 8.97 (4.8-10.8) K/uL RBC 4.67 L (4.7-6.1) M/uL Hgb 15.1 (14.0-18.0) g/dL Hct 42.5 (42-52) % MCV 91.0 (80-100) fL MCH 32.3 (25-34) pg MCHC 35.5 (32-36) g/dL RDW Std Deviation 43.0 (36.4-46.3) fL RDW Coeff of Elvin 13.1 (11.5-14.5) % Plt Count 148 (130-400) K/uL MPV 10.2 (7.4-10.4) fL Immature Gran % (Auto) 0.3 % Neut % (Auto) 82.9 % Lymph % (Auto) 7.9 % [place] % (Auto) 8.9 % Eos % (Auto) 0.0 % Baso % (Auto) 0.0 % Neut # (Auto) 7.43 H (1.4-6.5) K/uL Lymph # (Auto) 0.71 L (1.2-3.4) K/uL [place] # (Auto) 0.80 H (0.11-0.59) K/uL Eos # (Auto) 0.00 (0-0.5) K/uL Baso # (Auto) 0.00 (0-0.2) K/uL Immature Gran # (Auto) 0.03 H (0.00-0.02) K/uL ABG pH 7.48 H (7.35-7.45) ABG pCO2 30 L (35-46) mmHg ABG pO2 78 L (80-95) mmHg ABG HCO3 22 (19-24) mmol/L ABG O2 Saturation 96.6 H (90-95) % ABG Base Excess -0.4 (-9-1.8) mEq/L Nikolas Test Pos (Pos) Oxygen Given 15L Sodium 132 L (136-145) mmol/L Potassium 3.4 L (3.5-5.1) mmol/L Chloride 102 (98-107) mmol/L Carbon Dioxide 24 (21-32) mmol/L Anion Gap 6.0 (3-11) BUN 24 H (7-18) mg/dl Creatinine 1.29 (0.6-1.4) mg/dl Est Cr Clr Drug Dosing 60.2 ml/min Est GFR ( Amer) 66.5 ml/min Est GFR (Non-Af Amer) 57.4 ml/min BUN/Creatinine Ratio 18.4 (10-20) Glucose 122 H (70-99) mg/dl Calcium 7.4 L (8.5-10.1) mg/dl Magnesium 2.6 H (1.8-2.4) mg/dl Total Bilirubin 0.8 (0.2-1) mg/dl AST 57 H (15-37) U/L ALT 35 (12-78) U/L Alkaline Phosphatase 38 L (45-117) U/L Troponin I 0.027 (0-0.045) ng/ml Total Protein 6.8 (6.4-8.2) gm/dl Albumin 2.8 L (3.4-5.0) gm/dl Globulin 4.0 (2.5-4.0) gm/dl Albumin/Globulin Ratio 0.7 L (0.9-2) Imaging Data My Impression: X-ray: I interpreted the following studies. Chest: A single view study of the chest was reviewed and was negative for cardiomegaly, or wide mediastinum. Chest x-ray appears worse compared to prior with increased bilateral infiltrates and edema. No obvious pleural effusion. ECG Data Attestation: I personally reviewed and interpreted this ECG as follows: Indication: + SOB/dyspnea Rate (beats per minute): 74 Rhythm: + normal sinus ECG Intervals/blocks: + Normal QRS and + Normal QT ECG [place]: + Normal ECG ST segments: + Normal ST segments MDM Narrative This is an ill-appearing 66-year-old male presents due to worsening shortness of breath and hypoxia despite home oxygen therapy. Patient with known coronavirus, recently admitted, and discharged with supplemental oxygen. Patient returns today increased sense of dyspnea and hypoxia on home pulse oximeter. Patient found to be hypoxic here on arrival, placed on a nonrebreather which was turned up to 15 L/min and was still hypoxic. I was called to the room and while patie nt did not appear significantly tachypneic or working to breathe, his oxygen levels remain low despite the nonrebreather. I called for RT to start the patient on high flow nasal cannula with possible need for BiPAP therapy. Patient did feel improved and sats came up with the high flow nasal cannula. Chest x-ray did appear slightly worse compared to prior. Labs otherwise reassuring. Case discussed with hospitalist for additional evaluation and management. Patient already taking dexamethasone. An order was placed for continuous cardiac monitoring. The monitor shows a rate of _62__ with __normal sinus_ rhythm. Impression & Plan Acute respiratory failure with hypoxia, COVID-19 Discharge Plan Visit Data Chief Complaint: Shortness of Breath/Dyspnea Stated Complaint: +COVID - SHORT OF BREATH (SPO2 82%15LNRB) ED Provider: Lolita Poe Discharge Problem: Acute respiratory failure with hypoxia, COVID-19 Patient Disposition: Admitted As Inpatient Condition: Fair Discharge Instructions Interventions: ED Discharge Assessment Last Done: 04/23/21 05:37
--- NOTE | 2021-04-23 02:54 | History & Physical Report ---
Date of Service April 23, 2021 Assessment & Plan (1) COVID-19: Plan: 66yo C male presenting with worsening Covid-19 PNA. He was recently admitted for the same and discharged [place] on 04/22/21 with PO Dexamethasone and home O2. Returns with worsening hypoxia - SpO2 at home reported to be 75%. Presently he is on HFNC 100% FiO2 at 40L/min. Appears comfortable. -Admit to medical, Covid unit -Maintain isolation precautions -Check BNP and Procalcitonin -Continue Dexamethasone 6mg IV daily -Encourage proning -Supplemental O2 as needed to maintain saturation goal of 94% -Azithromycin -Codeine-Guaifenesin, Tylenol, Albuterol PRN -Lovenox 40mg BID F/E/N- [place]. Electrolytes WNL. Regular diet as tolerated Ppx - Lovenox 40mg BID Code - DNR/DNI Dispo - Admit to medical/Covid unit History of Present Illness Chief Complaint: Worsening hypoxia in setting of Covid-19 infection Primary Care Provider: NO PCP Artur Luu is a 66-year-old male with no significant past medical or surgical history presenting with worsening COVID-19 infection. Patient was admitted to [facility] from 04/20 through 04/21/2021 with complaints of shortness of breath and hypoxia, saturations of 90% on room air at that time. He was admitted to the Covid unit and treated with dexamethasone IV. He was discharged home on 04/21/2021 with oral dexamethasone and supplemental oxygen, 2 L by nasal cannula to be worn at home. Patient states that he has been monitoring his oxygen with a home monitor. He has been wearing his oxygen as prescribed. He reports that his oxygen level got as low as 75% today. He reports persistent shortness of breath. No additional complaints at this time. Patient hypoxic on arrival. Was placed on 15 L nonrebreather and still saturating 86 to 91%. He was started on high flow nasal cannula and is now saturating 92% on 40 L/min, FiO2 =100% Allergies Allergy/AdvReac Type Severity Reaction Status Date / Time No Known Allergies Allergy Verified 04/23/21 00:29 Home Medications Medication Instructions Recorded Confirmed Type Oxygen Home #2 ea 04/21/21 Rx codeine 10 mg-guaifenesin 100 mg/5 10 ml PO Q6H PRN #120 ml 04/21/21 04/23/21 Rx mL oral liquid dexamethasone 2 mg tablet 4 mg PO DAILY 04/23/21 04/23/21 History Past Med/Surg History Medical History No significant past medical history Surgical History No significant past surgical history Family History Other No significant family history Social History Smoking Status: Never smoker Second Hand Exposure: No; Hx Alcohol Use: Yes Alcohol type: beer Alcohol Intake Frequency: Monthly or Less Hx Substance Use: No Preferred Language: Mohawk Communication Ability: Effective Milling/Polishing Operator Required: No Beliefs That Will Affect Care: None marital status: Current Living Situation: Spouse Feels Safe at Home: Yes Assistive Devices: None Review of Systems Review of Systems: All systems reviewed & are unremarkable except as noted in HPI & below Physical Exam Physical Exam: General: patient resting comfortably, NAD, non-toxic in appearance, AA&O x 4 Skin: warm, dry, intact, no rashes or lesions HEENT: NC/AT, PERRL, EOMI, anicteric sclera, conjunctiva without injection, external ear normal to inspection and nontender, nares patent, moist mucus membranes, dentition intact, no oropharyngeal lesions, neck supple, trachea midline, no LAD, no thyromegaly, no JVD Heart: +S1/S2, regular, no m/r/g Lungs: equal air entry bilaterally, no rales/rhonchi/wheezes Abd: +BS, soft, NT/ND, no masses/organomegaly/ascites Ext: warm, 2+ pulses in UE/LE bilaterally, no clubbing/cyanosis or edema Neuro: nonfocal, patient AA&O x 4, speech intact, no facial droop, moving all extremities on command with equal strength 5/5 Results & Data Results & Data ([facility]) Vital Signs (Past 12 Hours) Vital Signs Temp Pulse Pulse Resp BP BP Pulse Ox 04/23/21 02:00 67 18 116/72 92 04/23/21 01:38 37.0 C 04/23/21 01:36 37.0 C 66 18 121/73 94 04/23/21 01:00 70 18 131/76 92 04/23/21 00:55 72 28 H 92 04/23/21 00:00 81 20 131/78 90 04/22/21 23:56 66 20 139/79 91 04/22/21 23:42 38.1 C H 74 20 139/79 86 L 04/22/21 23:40 72 20 139/79 87 L Laboratory Results Laboratory Results WBC 8.97 K/uL (4.8-10.8) 04/23/21 00:20 RBC 4.67 M/uL (4.7-6.1) L 04/23/21 00:20 Hgb 15.1 g/dL (14.0-18.0) 04/23/21 00:20 Hct 42.5 % (42-52) 04/23/21 00:20 MCV 91.0 fL (80-100) 04/23/21 00:20 MCH 32.3 pg (25-34) 04/23/21 00:20 MCHC 35.5 g/dL (32-36) 04/23/21 00:20 RDW Std Deviation 43.0 fL (36.4-46.3) 04/23/21 00:20 RDW Coeff of Elvin 13.1 % (11.5-14.5) 04/23/21 00:20 Plt Count 148 K/uL (130-400) 04/23/21 00:20 MPV 10.2 fL (7.4-10.4) 04/23/21 00:20 Immature Gran % (Auto) 0.3 % 04/23/21 00:20 Neut % (Auto) 82.9 % 04/23/21 00:20 Lymph % (Auto) 7.9 % 04/23/21 00:20 [place] % (Auto) 8.9 % 04/23/21 00:20 Eos % (Auto) 0.0 % 04/23/21 00:20 Baso % (Auto) 0.0 % 04/23/21 00:20 Neut # (Auto) 7.43 K/uL (1.4-6.5) H 04/23/21 00:20 Lymph # (Auto) 0.71 K/uL (1.2-3.4) L 04/23/21 00:20 [place] # (Auto) 0.80 K/uL (0.11-0.59) H 04/23/21 00:20 Eos # (Auto) 0.00 K/uL (0-0.5) 04/23/21 00:20 Baso # (Auto) 0.00 K/uL (0-0.2) 04/23/21 00:20 Immature Gran # (Auto) 0.03 K/uL (0.00-0.02) H 04/23/21 00:20 ABG pH 7.48 (7.35-7.45) H 04/23/21 01:13 ABG pCO2 30 mmHg (35-46) L 04/23/21 01:13 ABG pO2 78 mmHg (80-95) L 04/23/21 01:13 ABG HCO3 22 mmol/L (19-24) 04/23/21 01:13 ABG O2 Saturation 96.6 % (90-95) H 04/23/21 01:13 ABG Base Excess -0.4 mEq/L (-9-1.8) 04/23/21 01:13 Nikolas Test Pos (Pos) 04/23/21 01:13 Oxygen Given 15L 04/23/21 01:13 Sodium 132 mmol/L (136-145) L 04/23/21 00:20 Potassium 3.4 mmol/L (3.5-5.1) L 04/23/21 00:20 Chloride 102 mmol/L (98-107) 04/23/21 00:20 Carbon Dioxide 24 mmol/L (21-32) 04/23/21 00:20 Anion Gap 6.0 (3-11) 04/23/21 00:20 BUN 24 mg/dl (7-18) H 04/23/21 00:20 Creatinine 1.29 mg/dl (0.6-1.4) 04/23/21 00:20 Est Cr Clr Drug Dosing 60.2 ml/min 04/23/21 00:20 Est GFR ( Amer) 66.5 ml/min 04/23/21 00:20 Est GFR (Non-Af Amer) 57.4 ml/min 04/23/21 00:20 BUN/Creatinine Ratio 18.4 (10-20) 04/23/21 00:20 Glucose 122 mg/dl (70-99) H 04/23/21 00:20 Calcium 7.4 mg/dl (8.5-10.1) L 04/23/21 00:20 Magnesium 2.6 mg/dl (1.8-2.4) H 04/23/21 00:20 Total Bilirubin 0.8 mg/dl (0.2-1) 04/23/21 00:20 AST 57 U/L (15-37) H 04/23/21 00:20 ALT 35 U/L (12-78) 04/23/21 00:20 Alkaline Phosphatase 38 U/L (45-117) L 04/23/21 00:20 Troponin I 0.027 ng/ml (0-0.045) 04/23/21 00:20 Total Protein 6.8 gm/dl (6.4-8.2) 04/23/21 00:20 Albumin 2.8 gm/dl (3.4-5.0) L 04/23/21 00:20 Globulin 4.0 gm/dl (2.5-4.0) 04/23/21 00:20 Albumin/Globulin Ratio 0.7 (0.9-2) L 04/23/21 00:20 Diagnostic Findings EKG - worsening bilateral airspace disease when compared with prior Code Status & VTE Plan VTE Prophylaxis Plan VTE Prophylaxis will be ordered: Yes PG Care Time/CCT Total # of Minutes Spent Total Time Spent with Patient: Total time spent is greater than 50% in coordination of care (as documented) at patient's floor/unit and/or counseling patient: Coding Level of Care Code 98500 Initial Inpt Care Lvl 2 Diagnoses COVID-19 U07.1
[2021-04-23] MEDS ORDERED: AZITHROMYCIN 500 MG in DEXTROSE 5% 250 ML IV STA (04:13)
[2021-04-23] MEDS ORDERED: ONDANSETRON INJ 2 MG/ML 2 ML VIAL IV PRN (06:25)
[2021-04-23] MEDS ORDERED: ALBUTEROL HFA 8 GM INHALER INH PRN (06:25)
[2021-04-23] MEDS ORDERED: PNEUMOCOCCAL POLYSACCHARIDES 25 MCG/0.5 ML VIAL/SYR IM ONE (06:38)
[2021-04-23] MEDS ORDERED: ENOXAPARIN INJ 40 MG/0.4 ML SYR SQ SCH ×2 (06:45→21:00)
[2021-04-23] MEDS: dexAMETHasone 6 MG in SYRINGE 0 ML IV SCH (07:50)
--- NOTE | 2021-04-23 08:47 | XRay Report ---
SINGLE VIEW CHEST CLINICAL HISTORY: Dyspnea. Covid pneumonia FINDINGS: An AP, portable, upright chest radiograph is compared to study dated 04/20/2021. The examinat ion is degraded by portable technique and patient rotation. The heart appears enlarged. Multifocal a irspace consolidation is seen throughout both lungs. This has significantly progressed as compared to 04/20/2021. No large pleural effusion or pneumothorax is seen. The bony thorax is grossly intact. IMPRESSION: Multifocal airspace consolidation is consistent with the reported history of a viral pneu monia. This has significantly progressed as compared to 04/20/2021. Radiographic follow-up to resolutio n is recommended. ACT 112: Negative or not required by law. Electronically signed by: Peter Quiroga M.D. 04/23/2021 8:46 AM
[2021-04-23] MEDS ORDERED: LORazepam 1 MG/2 ML VIAL IV PRN (08:55)
[2021-04-23] MEDS ORDERED: HALOPERIDOL LACTATE 5 MG/ML 1 ML VIAL IV PRN (08:56)
[2021-04-23] MEDS ORDERED: FUROSEMIDE 40 MG in SYRINGE 0 ML IV ONE (09:15)
[2021-04-23] MEDS: LORazepam 0.5 MG/1 ML VIAL IV PRN ×2 (10:22→20:24)
[2021-04-23 11:26] LABS: BUN Creatinine Ratio 16.8 (10-20); C Reactive Protein 11.2 mg/dl (0-0.29); Calcium 7.6 mg/dl (8.5-10.1); Creatinine Clr Calc Pharmacy 59.4 ml/min; Est GFR (African American) 67.1 ml/min; Est GFR (Non-African American) 57.9 ml/min; Magnesium 2.9 mg/dl (1.8-2.4); Potassium 3.1 mmol/L (3.5-5.1)
[2021-04-23] MEDS ORDERED: POTASSIUM CHLORIDE 10 MEQ / 100ML WTR IV STA (14:57)
[2021-04-23] MEDS: POTASSIUM CHLORIDE / WTR 10 MEQ/100 ML PLCT IV SCH ×4 (15:33→18:33)
[2021-04-23] MEDS ORDERED: TOCILIZUMAB 400 MG, TOCILIZUMAB 200 MG, TOCILIZUMAB 80 MG in 0.9 % SODIUM CHLORIDE 66 ML IV ONE (16:00)
--- NOTE | 2021-04-23 16:23 | Hospitalist Progress Note ---
Date of Service April 23, 2021 Assessment & Plan (1) COVID-19: Plan: 66yo C male presenting with worsening Covid-19 PNA. He was recently admitted for the same and discharged [place] on 04/22/21 with PO Dexamethasone and home O2. Returns with worsening hypoxia - SpO2 at home reported to be 75%. Presently he is on BiPAP with 90% FiO2 and ventilation 14 L with hypoxia 88 to 90% Transfer to ICU CODE STATUS now full code Covid airborne precautions Significantly elevated CRP. Patient will be given tocilizumab 600 mg. -Continue Dexamethasone 6mg IV daily -Encourage proning -Supplemental O2 as needed to maintain saturation goal of 94% -Azithromycin -Codeine-Guaifenesin, Tylenol, Albuterol PRN Because of profound decline over the last 18 hours with significant hypoxia and patient's condition not stable enough to proceed with CT angiography patient will be given Lovenox 1 mg/kg subcu every 12 Hypokalemia is once again present this will be repleted intravenously Patient's CODE STATUS is changed to full code after discussion with Dr. Noel in the afternoon of 04/23/2021 As for level of care to ICU airborne precaution Patient did give permission to speak to his daughter Leia Villarreal her numbers [phone] (2) Acute respiratory failure with hypoxia: Admission and Anticipated Discharge Date Admission Date: April 23, 2021 Subjective this pt is intermittently hypoxic, he is now changing his mind to want to be a full code, he is tachypneic and has non productive coughing paroxysms. He does not have diarrhea. He was given iv lasix with robust urine output. Review of Systems Review of Systems: moderate to severe distress and fatigue no headache, no visual changes no speech or swallowing issues no chest pain, pressure or palpitations shortness of breath and non productive cough no abdominal pain, nausea or vomiting, diarrhea or constipation no dysuria, hematuria or frequency no focal joint pain or swelling no back pain, CVA tenderness or radicular pain no bruising, bleeding or rashes no focal signs of weakness or numbness lethargic Physical Exam Physical Exam: The patient appeared in mild to moderate distress Vital signs as documented. slighlty hypoxic on 90% Fio2 via bipap Head exam is normocephalic atraumatic Neck is without JVD, thyromegaly, or carotid bruits. Lungs are coarse b/l Cardiac exam, Rhythm is regular.. No murmurs, rubs or gallops. Abdominal exam reveals normal bowel sounds, soft non tender, no masses Extremities are nonedematous and both pedal pulses are present Neurologic exam is alert and oriented, can be alert and discuss his decisions Skin is without bruises or rashes Results & Data Results & Data ([facility]) Vital Signs (Past 12 Hours) Vital Signs Temp Pulse Pulse Resp BP BP Pulse Ox 04/23/21 15:59 99.1 F 67 34 H 138/76 88 L 04/23/21 15:38 65 40 H 90 04/23/21 11:41 65 39 H 93 04/23/21 08:24 97.3 F L 70 40 H 149/87 H 91 04/23/21 07:44 73 40 H 98 04/23/21 06:55 80 38 H 91 04/23/21 06:25 99.1 F 67 30 H 126/86 88 L 04/23/21 06:15 76 28 H 87 L 04/23/21 04:24 58 L 28 H 104/73 92 PG Care Time/CCT Total # of Minutes Spent Total Time Spent with Patient: Total time spent is greater than 50% in coordination of care (as documented) at patient's floor/unit and/or counseling patient: Coding Level of Care Code None Diagnoses COVID-19 U07.1 Acute respiratory failure with hypoxia J96.01 Time Spent (min) 65 Comment This patient was admitted after midnight additional time was spent during today coordinati
[2021-04-23] MEDS ORDERED: ICU PROTOCOL FOR HYPERGLYCEMIA PRN (16:54)
[2021-04-23] MEDS ORDERED: TOCILIZUMAB 400 MG in 0.9 % SODIUM CHLORIDE 80 ML IV ONE (17:45)
--- NOTE | 2021-04-23 18:02 | Critical Care Consultation ---
Date of Consultation April 23, 2021 Assessment & Plan (1) COVID-19: Reason critically ill: 66 yo M with no significant PMHx admitted with acute respiratory failure with hypoxia secondary to COVID-19 pneumonia admitted to ICU requiring close monitoring given tenuous respiratory status. NEURO: Awake and alert. No current concerns. CARDIAC/VASCULAR: No history of cardiac disease. Monitor on telemetry. RESPIRATORY: Acute hypoxic respiratory distress secondary to COVID-19 pneumonia - Patient received IV dexamethasone while admitted 04/20-04/21 and was discharged home on dexamethasone 4mg po daily - Received 1 dose of Azithromycin on admission - Continue dexamethasone IV 6mg daily while admitted - Currently requiring BiPAP. - Patient is anxious and did receive 0.5 mg Ativan - Encourage to prone - IS and flutter valve as able - Continue with noninvasive ventilatory techniques -- currently on BiPAP 15/5, 100% FiO2 - If symptoms worsen, intubation may be necessary - Receiving tocilizumab therapy - CRP significantly elevated at 11.2 GI/NUTRITION: Diet as tolerated. NPO while on BiPAP/CPAP. RENAL/LYTES: Hypokalemia - K of 3.1 - Replete per ICU electrolyte replacement protocol - Monitor closely and replace appropriately GENITOURINARY: No acute concerns. Strict Is/Os. ENDO: No history of diabetes or thyroid disease. - TSH wnl at 0.917 BSGs per unit protocol: ISS --> gtt per unit policy. HEME: Stable H&H ID: COVID-19 pneumonia - Received initial dose of azithromycin - Procalcitonin wnl at 0.48 -- defer continued abx therapy at this time Lines/IV Access: PIV DVT Prophylaxis: Lovenox 90mg SQ q12h GI Prophylaxis: Pantoprazole CODE STATUS: FULL CODE (2) Admitted to intensive care unit: (3) Acute respiratory failure with hypoxia: (4) Hypokalemia: Supervising Physician Co-Signing Physician Notes Dr. Serrano was resident physician during care of patient. I separately evaluated patient for gonzales portions of the history and the exam. I was present during the critical portion of medical decision making, and I discussed the case with the resident. I generally agree with the findings and plan. Patient critically ill due to acute hypoxic respiratory failure secondary to COVID-19 pneumonia. Continue noninvasive ventilation will proceed with intubation should he worsen he is certainly at risk for endotracheal intubation mechanical ventilation. I have personally spent 45 minutes of critical care time in the direct management of this patient. This is a life/limb threatening event. This includes time spent evaluating patient, direct bedside care, chart review, placing orders, interpretation of diagnostic studies, discussion with consultants, patient, and/or family members regarding treatment decisions, as well as other required patient management activities. This time is exclusive of all separately billable procedures, and teaching time and separate from and in addition to any other critical care service time. History of Present Illness Reason for Consultation: COVID-19 Pneumonia, hypoxia Requesting Physician: Conor Noel MD Attending Physician: Conor Noel MD History of Present Illness Artur Luu is a 66 yo male with no reported significant PMHx who was recently admitted 04/20 04/21 due to diagnosis of COVID-19 pneumonia. He was initially diagnosed with COVID 6 days prior to initial presentation to the hospital on 04/20. He was discharged home on 04/21 with po dexamethasone and home oxygen, 2L NC. Per records, patient returned to the ER early this morning due to worsening hypoxia (reported to be as low as 75% at home) and worsening/persistent shortness of breath. Patient was ultimately titrated up to high flow nasal cannula, 40 L/min with an FiO2 of 100% and saturating 92%. He was admitted to the COVID unit. Throughout the day today, patient has had a continued decline with significant hypoxia. His CODE STATUS is changed to full code after discussion with Dr. Noel, hospitalist, this afternoon (04/23). For that reason, he was transferred to the ICU for further monitoring and intubation if needed. At time of arrival to the ICU, patient is on BiPAP with settings 15/5, FiO2 100%. Allergies Allergy/AdvReac Type Severity Reaction Status Date / Time No Known Allergies Allergy Verified 04/23/21 00:29 Home Medications Medication Instructions Recorded Confirmed Type Oxygen Home #2 ea 04/21/21 Rx codeine 10 mg-guaifenesin 100 mg/5 10 ml PO Q6H PRN #120 ml 04/21/21 04/23/21 Rx mL oral liquid dexamethasone 2 mg tablet 4 mg PO DAILY 04/23/21 04/23/21 History Patient History Medical History No significant past medical history Surgical History No significant past surgical history Family History Other No significant family history Social History Smoking Status: Never smoker Second Hand Exposure: No; Hx Alcohol Use: Yes Alcohol type: beer Alcohol Intake Frequency: Monthly or Less Hx Substance Use: No Preferred Language: Yi Communication Ability: Effective Wagon Washer Required: No Beliefs That Will Affect Care: None marital status: Current Living Situation: Spouse and Family Current Living Situation Comment: Pt lives with spouse, daughter, and son-in-law, grandchildrean Feels Safe at Home: Yes Assistive Devices: Glasses Review of Systems 2 Review of Systems: Unobtainable due to clinical condition Physical Exam Physical Exam: Patient observed through window due to COVID-19 precautions. Please see attending attestation. Awake and alert. On BiPAP. Results & Data Results & Data ([facility]) Vital Signs (Past 12 Hours) Vital Signs Temp Pulse Pulse Resp BP BP Pulse Ox 04/23/21 17:01 37.3 C 81 38 H 130/82 92 04/23/21 17:00 74 36 H 91 04/23/21 15:59 37.3 C 67 34 H 138/76 88 L 04/23/21 15:38 65 40 H 90 04/23/21 11:41 65 39 H 93 04/23/21 08:24 36.3 C L 70 40 H 149/87 H 91 04/23/21 07:44 73 40 H 98 04/23/21 06:55 80 38 H 91 04/23/21 06:25 37.3 C 67 30 H 126/86 88 L 04/23/21 06:15 76 28 H 87 L Laboratory Results 04/23/21 04/23/21 04/23/21 Range/Units 17:17 10:49 07:24 WBC (4.8-10.8) K/uL RBC (4.7-6.1) M/uL Hgb (14.0-18.0) g/dL Hct (42-52) % MCV (80-100) fL MCH (25-34) pg MCHC (32-36) g/dL RDW Std Deviation (36.4-46.3) fL RDW Coeff of Elvin (11.5-14.5) % Plt Count (130-400) K/uL MPV (7.4-10.4) fL Immature Gran % (Auto) % Neut % (Auto) % Lymph % (Auto) % [place] % (Auto) % Eos % (Auto) % Baso % (Auto) % Neut # (Auto) (1.4-6.5) K/uL Lymph # (Auto) (1.2-3.4) K/uL [place] # (Auto) (0.11-0.59) K/uL Eos # (Auto) (0-0.5) K/uL Baso # (Auto) (0-0.2) K/uL Immature Gran # (Auto) (0.00-0.02) K/uL ABG pH (7.35-7.45) ABG pCO2 (35-46) mmHg ABG pO2 (80-95) mmHg ABG HCO3 (19-24) mmol/L ABG O2 Saturation (90-95) % ABG Base Excess (-9-1.8) mEq/L Nikolas Test (Pos) Oxygen Given Sodium 135 L (136-145) mmol/L Potassium 3.1 L (3.5-5.1) mmol/L Chloride 102 (98-107) mmol/L Carbon Dioxide 25 (21-32) mmol/L Anion Gap 8.0 (3-11) BUN 22 H (7-18) mg/dl Creatinine 1.28 (0.6-1.4) mg/dl Est Cr Clr Drug Dosing 59.4 ml/min Est GFR ( Amer) 67.1 ml/min Est GFR (Non-Af Amer) 57.9 ml/min BUN/Creatinine Ratio 16.8 (10-20) Glucose 138 H (70-99) mg/dl POC Glucose 151 H (70-99) mg/dl Calcium 7.6 L (8.5-10.1) mg/dl Magnesium 2.9 H (1.8-2.4) mg/dl Total Bilirubin (0.2-1) mg/dl AST (15-37) U/L ALT (12-78) U/L Alkaline Phosphatase (45-117) U/L Troponin I (0-0.045) ng/ml C-Reactive Protein 11.20 H (0-0.29) mg/dl NT-Pro-B Natriuret Pep (0-900) pg/ml Total Protein (6.4-8.2) gm/dl Albumin (3.4-5.0) gm/dl Globulin (2.5-4.0) gm/dl Albumin/Globulin Ratio (0.9-2) Procalcitonin 0.48 (0-0.5) ng/ml 04/23/21 04/23/21 04/23/21 Range/Units 07:24 01:13 00:20 WBC (4.8-10.8) K/uL RBC (4.7-6.1) M/uL Hgb (14.0-18.0) g/dL Hct (42-52) % MCV (80-100) fL MCH (25-34) pg MCHC (32-36) g/dL RDW Std Deviation (36.4-46.3) fL RDW Coeff of Elvin (11.5-14.5) % Plt Count (130-400) K/uL MPV (7.4-10.4) fL Immature Gran % (Auto) % Neut % (Auto) % Lymph % (Auto) % [place] % (Auto) % Eos % (Auto) % Baso % (Auto) % Neut # (Auto) (1.4-6.5) K/uL Lymph # (Auto) (1.2-3.4) K/uL [place] # (Auto) (0.11-0.59) K/uL Eos # (Auto) (0-0.5) K/uL Baso # (Auto) (0-0.2) K/uL Immature Gran # (Auto) (0.00-0.02) K/uL ABG pH 7.48 H (7.35-7.45) ABG pCO2 30 L (35-46) mmHg ABG pO2 78 L (80-95) mmHg ABG HCO3 22 (19-24) mmol/L ABG O2 Saturation 96.6 H (90-95) % ABG Base Excess -0.4 (-9-1.8) mEq/L Nikolas Test Pos (Pos) Oxygen Given 15L Sodium 132 L (136-145) mmol/L Potassium 3.4 L (3.5-5.1) mmol/L Chloride 102 (98-107) mmol/L Carbon Dioxide 24 (21-32) mmol/L Anion Gap 6.0 (3-11) BUN 24 H (7-18) mg/dl Creatinine 1.29 (0.6-1.4) mg/dl Est Cr Clr Drug Dosing 60.2 ml/min Est GFR ( Amer) 66.5 ml/min Est GFR (Non-Af Amer) 57.4 ml/min BUN/Creatinine Ratio 18.4 (10-20) Glucose 122 H (70-99) mg/dl POC Glucose (70-99) mg/dl Calcium 7.4 L (8.5-10.1) mg/dl Magnesium 2.6 H (1.8-2.4) mg/dl Total Bilirubin 0.8 (0.2-1) mg/dl AST 57 H (15-37) U/L ALT 35 (12-78) U/L Alkaline Phosphatase 38 L (45-117) U/L Troponin I 0.027 (0-0.045) ng/ml C-Reactive Protein (0-0.29) mg/dl NT-Pro-B Natriuret Pep 572 (0-900) pg/ml Total Protein 6.8 (6.4-8.2) gm/dl Albumin 2.8 L (3.4-5.0) gm/dl Globulin 4.0 (2.5-4.0) gm/dl Albumin/Globulin Ratio 0.7 L (0.9-2) Procalcitonin (0-0.5) ng/ml 04/23/21 Range/Units 00:20 WBC 8.97 (4.8-10.8) K/uL RBC 4.67 L (4.7-6.1) M/uL Hgb 15.1 (14.0-18.0) g/dL Hct 42.5 (42-52) % MCV 91.0 (80-100) fL MCH 32.3 (25-34) pg MCHC 35.5 (32-36) g/dL RDW Std Deviation 43.0 (36.4-46.3) fL RDW Coeff of Elvin 13.1 (11.5-14.5) % Plt Count 148 (130-400) K/uL MPV 10.2 (7.4-10.4) fL Immature Gran % (Auto) 0.3 % Neut % (Auto) 82.9 % Lymph % (Auto) 7.9 % [place] % (Auto) 8.9 % Eos % (Auto) 0.0 % Baso % (Auto) 0.0 % Neut # (Auto) 7.43 H (1.4-6.5) K/uL Lymph # (Auto) 0.71 L (1.2-3.4) K/uL [place] # (Auto) 0.80 H (0.11-0.59) K/uL Eos # (Auto) 0.00 (0-0.5) K/uL Baso # (Auto) 0.00 (0-0.2) K/uL Immature Gran # (Auto) 0.03 H (0.00-0.02) K/uL ABG pH (7.35-7.45) ABG pCO2 (35-46) mmHg ABG pO2 (80-95) mmHg ABG HCO3 (19-24) mmol/L ABG O2 Saturation (90-95) % ABG Base Excess (-9-1.8) mEq/L Nikolas Test (Pos) Oxygen Given Sodium (136-145) mmol/L Potassium (3.5-5.1) mmol/L Chloride (98-107) mmol/L Carbon Dioxide (21-32) mmol/L Anion Gap (3-11) BUN (7-18) mg/dl Creatinine (0.6-1.4) mg/dl Est Cr Clr Drug Dosing ml/min Est GFR ( Amer) ml/min Est GFR (Non-Af Amer) ml/min BUN/Creatinine Ratio (10-20) Glucose (70-99) mg/dl POC Glucose (70-99) mg/dl Calcium (8.5-10.1) mg/dl Magnesium (1.8-2.4) mg/dl Total Bilirubin (0.2-1) mg/dl AST (15-37) U/L ALT (12-78) U/L Alkaline Phosphatase (45-117) U/L Troponin I (0-0.045) ng/ml C-Reactive Protein (0-0.29) mg/dl NT-Pro-B Natriuret Pep (0-900) pg/ml Total Protein (6.4-8.2) gm/dl Albumin (3.4-5.0) gm/dl Globulin (2.5-4.0) gm/dl Albumin/Globulin Ratio (0.9-2) Procalcitonin (0-0.5) ng/ml Diagnostic Findings Chest XR 04/23/21 SINGLE VIEW CHEST CLINICAL HISTORY: Dyspnea. Covid pneumonia FINDINGS: An AP, portable, upright chest radiograph is compared to study dated 04/20/2021. The examination is degraded by portable technique and patient rotation. The heart appears enlarged. Multifocal airspace consolidation is seen throughout both lungs. This has significantly progressed as compared to 04/20/2021 . No large pleural effusion or pneumothorax is seen. The bony thorax is grossly intact. IMPRESSION: Multifocal airspace consolidation is consistent with the reported history of a viral pneumonia. This has significantly progressed as compared to 04/20/2021. Radiographic follow-up to resolution is recommended. ACT 112: Negative or not required by law. Electronically signed by: Peter Quiroga M.D. 04/23/2021 8:46 AM Dictated: 04/[id number]/[id number]: [id number] Resident Activity Tracking Resident Involvement: Resident Care Provided Care Provided: Adult Hospital Medicine
--- NOTE | 2021-04-23 18:26 | Electrocardiogram Report ---
Test Reason : Blood Pressure : / mmHG Vent. Rate : 074 BPM Atrial Rate : 074 BPM P-R Int : 122 ms QRS Dur : 084 ms QT Int : 374 ms P-R-T Axes : 032 -01 -02 degrees QTc Int : 415 ms Normal sinus rhythm Possible Left atrial enlargement Nonspecific ST abnormality Abnormal ECG When compared with ECG of 20-APR-2021 21:15, Nonspecific T wave abnormality no longer evident in Anterolateral leads Confirmed by Daniele Escamilla ([id number]) on 04/23/2021 6:25:51 PM Referred By: REFERRED SELF Confirmed By:Yimi Escamilla
[2021-04-23] MEDS: ENOXAPARIN 100 MG/1ML SYR SQ SCH (20:06)
[2021-04-24 05:28] LABS: Hematocrit (blood only) 41.1 % (42-52); Hemoglobin 14.7 g/dL (14.0-18.0); Immature Granulocytes # (auto) 0.02 K/uL (0.00-0.02); Immature Granulocytes % (auto) 0.3 %; Mean Corpuscular Hemoglobin 32.7 pg (25-34); Mean Corpuscular Hgb Conc 35.8 g/dL (32-36); Mean Corpuscular Volume 91.3 fL (80-100); Mean Platelet Volume 9.7 fL (7.4-10.4); Monocytes # (auto) 0.38 K/uL (0.11-0.59); Neutrophils # (auto) 5.28 K/uL (1.4-6.5); Neutrophils % (auto) 82.7 %; Platelet Count 181 K/uL (130-400); RDW Coefficient of Variation 12.9 % (11.5-14.5); RDW Standard Deviation 43.5 fL (36.4-46.3); White Blood Count 6.38 K/uL (4.8-10.8)
[2021-04-24 06:02] LABS: BUN Creatinine Ratio 26.4 (10-20); Calcium 7.9 mg/dl (8.5-10.1); Creatinine Clr Calc Pharmacy 78.1 ml/min; Est GFR (African American) 93.9 ml/min; Magnesium 3.2 mg/dl (1.8-2.4); Phosphorus 3.2 mg/dl (2.5-4.9); Potassium 3.5 mmol/L (3.5-5.1)
[2021-04-24] MEDS: POTASSIUM CHLORIDE / WTR 10 MEQ/100 ML PLCT IV SCH ×3 (06:28→09:23)
--- NOTE | 2021-04-24 06:43 | Critical Care Progress Note ---
Date of Service April 24, 2021 Assessment & Plan (1) COVID-19: Plan: Reason critically ill: 66 yo M with no significant PMHx admitted with acute respiratory failure with hypoxia secondary to COVID-19 pneumonia admitted to ICU requiring close monitoring given tenuous respiratory status. NEURO: CAM ICU Negative CARDIAC/VASCULAR: No history of cardiac disease. Monitor on telemetry. RESPIRATORY: Acute hypoxic respiratory distress secondary to COVID-19 pneumonia - Patient received IV dexamethasone while admitted 04/20-04/21 and was discharged home on dexamethasone 4mg po daily - Received 1 dose of Azithromycin on admission - Continue dexamethasone IV 6mg daily while admitted -- last dose to stop 04/30 (total of 10 days of treatment) - Due to continued ventilatory failure, patient intubated 04/24 (see associated procedure notes) - S/p tocilizumab therapy 04/23 - Will consider to prone as indicated GI/NUTRITION: - Start tube feeds - Nutrition consulted RENAL/LYTES: Hypokalemia, resolved Continue to replete electrolytes per ICU electrolyte replacement protocol - Monitor closely and replace appropriately GENITOURINARY: Valadez placed. Strict Is/Os. ENDO: No history of diabetes or thyroid disease. - TSH wnl at 0.917 BSGs per unit protocol: ISS --> gtt per unit policy. HEME: Stable H&H ID: COVID-19 pneumonia - Received initial dose of azithromycin - Procalcitonin wnl at 0.48 -- defer continued abx therapy at this time Lines/IV Access: PIV DVT Prophylaxis: Lovenox 90mg SQ q12h GI Prophylaxis: Pantoprazole CODE STATUS: FULL CODE (2) Admitted to intensive care unit: (3) Acute respiratory failure with hypoxia: (4) Hypokalemia: Admission and Anticipated Discharge Date Admission Date: April 23, 2021 Supervising Physician Co-Signing Physician Notes Dr. Serrano was resident physician during care of patient. I separately evaluated patient for gonzales portions of the history and the exam. I was present during the critical portion of medical decision making, and I discussed the case with the resident. I generally agree with the findings and plan. Patient desaturated into the low to mid 80s requiring intubation please refer to those procedures. Subsequently patient improved without proning, will strongly consider neuromuscular brayden for 24 to 48 hours if the patient decompensates operate on high PEEP low FiO2 table. Patient critically ill due to acute hyp oxic respiratory failure in the setting of COVID-19 pneumonia. Holding antibiotics at this time pro-Asad elevated but suspect that this is secondary to Covid white count is within normal limits. Subjective Continued on BiPap throughout the night and reportedly maintained O2 sats > 88%. However, today, patient has had continued difficulty with BiPap and he did have sats down into the 70s; maintaining O2 desaturation in low to mid 80s. He reported difficulty with proning. Review of Systems Review of Systems: Unobtainable due to clinical condition Physical Exam Physical Exam: See attending attestation. Results & Data Results & Data ([facility]) Vital Signs (Past 12 Hours) Vital Signs Temp Pulse Resp BP Pulse Ox 04/24/21 06:10 56 L 34 H 120/82 89 L 04/24/21 05:11 60 36 H 122/106 H 90 04/24/21 04:10 54 L 28 H 124/80 91 04/24/21 03:10 57 L 32 H 144/92 H 91 04/24/21 02:58 55 L 35 H 91 04/24/21 02:12 63 19 92 04/24/21 01:11 56 L 33 H 90 04/24/21 00:20 57 L 04/24/21 00:18 36.7 C 04/24/21 00:10 57 L 36 H 141/87 H 87 L 04/24/21 00:00 65 04/23/21 23:11 64 20 129/78 95 04/23/21 22:10 66 37 H 134/88 95 04/23/21 21:54 37.1 C 04/23/21 21:11 65 26 H 133/93 97 04/23/21 20:10 66 26 H 132/87 91 04/23/21 20:09 68 35 H 88 L 04/23/21 19:12 65 43 H 91 Laboratory Results 04/24/21 04/24/21 04/24/21 Range/Units 05:17 05:11 05:11 WBC 6.38 (4.8-10.8) K/uL RBC 4.50 L (4.7-6.1) M/uL Hgb 14.7 (14.0-18.0) g/dL Hct 41.1 L (42-52) % MCV 91.3 (80-100) fL MCH 32.7 (25-34) pg MCHC 35.8 (32-36) g/dL RDW Std Deviation 43.5 (36.4-46.3) fL RDW Coeff of Elvin 12.9 (11.5-14.5) % Plt Count 181 (130-400) K/uL MPV 9.7 (7.4-10.4) fL Immature Gran % (Auto) 0.3 % Neut % (Auto) 82.7 % Lymph % (Auto) 11.0 % [place] % (Auto) 6.0 % Eos % (Auto) 0.0 % Baso % (Auto) 0.0 % Neut # (Auto) 5.28 (1.4-6.5) K/uL Lymph # (Auto) 0.70 L (1.2-3.4) K/uL [place] # (Auto) 0.38 (0.11-0.59) K/uL Eos # (Auto) 0.00 (0-0.5) K/uL Baso # (Auto) 0.00 (0-0.2) K/uL Immature Gran # (Auto) 0.02 (0.00-0.02) K/uL Sodium 135 L (136-145) mmol/L Potassium 3.5 (3.5-5.1) mmol/L Chloride 104 (98-107) mmol/L Carbon Dioxide 25 (21-32) mmol/L Anion Gap 6.0 (3-11) BUN 25 H (7-18) mg/dl Creatinine 0.97 D (0.6-1.4) mg/dl Est Cr Clr Drug Dosing 78.1 ml/min Est GFR ( Amer) 93.9 ml/min Est GFR (Non-Af Amer) 81.0 ml/min BUN/Creatinine Ratio 26.4 H (10-20) Glucose 122 H (70-99) mg/dl POC Glucose 118 H (70-99) mg/dl Calcium 7.9 L (8.5-10.1) mg/dl Phosphorus 3.2 (2.5-4.9) mg/dl Magnesium 3.2 H (1.8-2.4) mg/dl Nasal Screen MRSA (PCR) (Negative) 04/24/21 04/23/21 04/23/21 Range/Units 00:28 17:17 17:07 WBC (4.8-10.8) K/uL RBC (4.7-6.1) M/uL Hgb (14.0-18.0) g/dL Hct (42-52) % MCV (80-100) fL MCH (25-34) pg MCHC (32-36) g/dL RDW Std Deviation (36.4-46.3) fL RDW Coeff of Elvin (11.5-14.5) % Plt Count (130-400) K/uL MPV (7.4-10.4) fL Immature Gran % (Auto) % Neut % (Auto) % Lymph % (Auto) % [place] % (Auto) % Eos % (Auto) % Baso % (Auto) % Neut # (Auto) (1.4-6.5) K/uL Lymph # (Auto) (1.2-3.4) K/uL [place] # (Auto) (0.11-0.59) K/uL Eos # (Auto) (0-0.5) K/uL Baso # (Auto) (0-0.2) K/uL Immature Gran # (Auto) (0.00-0.02) K/uL Sodium (136-145) mmol/L Potassium (3.5-5.1) mmol/L Chloride (98-107) mmol/L Carbon Dioxide (21-32) mmol/L Anion Gap (3-11) BUN (7-18) mg/dl Creatinine (0.6-1.4) mg/dl Est Cr Clr Drug Dosing ml/min Est GFR ( Amer) ml/min Est GFR (Non-Af Amer) ml/min BUN/Creatinine Ratio (10-20) Glucose (70-99) mg/dl POC Glucose 125 H 151 H (70-99) mg/dl Calcium (8.5-10.1) mg/dl Phosphorus (2.5-4.9) mg/dl Magnesium (1.8-2.4) mg/dl Nasal Screen MRSA (PCR) Negative (Negative) Diagnostic Findings XR chest 1V portable 04/24/21 at 0700 INDICATION: MN ^ADS ^Resp failure . TECHNIQUE: Single frontal radiograph of the chest was obtained. Comparison: Comparison is made to Chest 1 view 04/23/2021 FINDINGS: No lines and tubes are seen. The cardiomediastinal silhouette is normal. Interval increase in prominence and indistinctness of the vasculature with suggestion of Chanell B lines noted and worsened bilateral central predominant airspace opacities concerning for alveolar edema. No evidence of pleural effusion or pneumothorax. IMPRESSION: Likely pulmonary edema, increased from prior exam. Superimposed airspace disease such as aspiration, atelectasis, and/or pneumonia cannot be excluded in this patient with history of viral pneumonia. ACT 112: Negative or not required by law. Electronically signed by: Tyrone Johnson M.D. 04/24/2021 7:06 AM Dictated: 04/24/21 0703Transcribed: 04/24/21 0703 XR chest 1V portable 04/24/21 at 1022 HISTORY: 66 years-old Male s/p intubation acute respiratory failure COMPARISON: Chest radiograph of same day at 6:31 AM TECHNIQUE: Portable AP supine view the chest FINDINGS: Sagittal post placement of an endotracheal tube which terminates 7 mm superior to the smitha. A right subclavian Pxrriy-x-Xasy catheter has also been placed with distal tip terminating in the expected location of the inferior SVC. An enteric tube is present with distal tip overlying the gastric fundus. No pneumothorax. Cardiac mediastinal and hilar silhouettes are unchanged. Unchanged extensive bilateral mixed interstitial and alveolar opacities with probable trace right pleural effusion. IMPRESSION: 1. Lines and tubes as above. No pneumothorax. 2. Extensive bilateral pulmonary opacities are unchanged. 3. Probable trace right pleural effusion. ACT 112: Negative or not required by law. The above report was generated using voice recognition software. It may contain grammatical, syntax or spelling errors. Electronically signed by: Jamal Cowart M.D. 04/24/2021 10:58 AM Dictated: 04/24/21 1057Transcribed: 04/24/21 105 Critical Care Time I have personally spent 55 minutes of critical care time in the direct managem ent of this patient. This is a life/limb threatening event. This includes time spent evaluating patient, direct bedside care, chart review, placing orders, interpretation of diagnostic studies, discussion with consultants, patient, and/or family members regarding treatment decisions, as well as other required patient management activities. This time is exclusive of all separately billable procedures, and teaching time and separate from and in addition to any other critical care service time. Resident Activity Tracking Resident Involvement: Resident Care Provided Care Provided: Adult [facility]
[2021-04-24] MEDS ORDERED: AZITHROMYCIN 250 MG in DEXTROSE 5% 250 ML IV SCH (07:00)
--- NOTE | 2021-04-24 07:07 | XRay Report ---
XR chest 1V portable INDICATION: MN ^ADS ^Resp failure . TECHNIQUE: Single frontal radiograph of the chest was obtained. Comparison: Comparison is made to Chest 1 view 04/23/2021 FINDINGS: No lines and tubes are seen. The cardiomediastinal silhouette is normal. Interval increase in promine nce and indistinctness of the vasculature with suggestion of Chanell B lines noted and worsened bilate ral central predominant airspace opacities concerning for alveolar edema. No evidence of pleural effu gian or pneumothorax. IMPRESSION: Likely pulmonary edema, increased from prior exam. Superimposed airspace disease such as aspiration, atelectasis, and/or pneumonia cannot be excluded in this patient with history of viral pneumonia. ACT 112: Negative or not required by law. Electronically signed by: Tyrone Johnson M.D. 04/24/2021 7:06 AM
[2021-04-24] MEDS: ENOXAPARIN 100 MG/1ML SYR SQ SCH ×2 (08:13→20:10)
[2021-04-24] MEDS: dexAMETHasone 6 MG in SYRINGE 0 ML IV SCH (08:13)
--- NOTE | 2021-04-24 08:31 | Billing Data ---
Date of Service April 23, 2021 Coding Level of Care Code Critical Care 1st - mins
[2021-04-24] MEDS ORDERED: STAT IV Infusion **Titration per Protocol STA ×2 (08:54→11:21)
[2021-04-24] MEDS ORDERED: DEXMEDETOMIDINE HCL 200 MCG in SODIUM CHLORIDE 0.9% 48 ML IV SCH (09:00)
--- NOTE | 2021-04-24 09:10 | Billing Data ---
Date of Service April 24, 2021 Coding Level of Care Code Critical Care 1st - mins
[2021-04-24] MEDS ORDERED: RAPID SEQUENCE INDUCTION BAG ONE (09:42)
[2021-04-24] MEDS ORDERED: VECURONIUM BROMIDE 10 MG VIAL IV ONE ×2 (09:43→14:32)
[2021-04-24] MEDS ORDERED: PROPOFOL IV EMULSION 10 MG/ML 100 ML VIAL IV ONE (09:49)
[2021-04-24] MEDS ORDERED: MIDAZOLAM HCL 125MG/250ML D5W ONE (09:50)
[2021-04-24] MEDS: MIDAZOLAM HCL 125 MG/250 ML BAG IV SCH (10:30)
[2021-04-24] MEDS: fentaNYL DRIP 1,250 MCG/250 ML BAG IV SCH ×2 (10:30→18:29)
--- NOTE | 2021-04-24 10:44 | Hospitalist Progress Note ---
Date of Service April 24, 2021 Assessment & Plan (1) COVID-19: Plan: 66yo C male presenting with worsening Covid-19 PNA. He was recently admitted for the same and discharged home on 04/22/21 with PO Dexamethasone and home O2. Returns with worsening hypoxia - SpO2 at home reported to be 75%. Was placed on BiPAP and maxed out settings Pulse ox could not be maintained above mid 70s on the morning of 04/24 and he was intubated, sedated, paralyzed and proned Significantly elevated CRP. 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 -Azithromycin given upon admission was now discontinued -Because of profound decline over the last 18 hours prior to admission with significant hypoxia and patient's condition not stable enough to proceed with CT angiography patient will be given Lovenox 1 mg/kg subcu every 12 hours -Sedation with Versed and pain control with fentanyl -Follow chest x-ray -Follow CBC, CMP, CRP, magnesium, phosphorus (2) Acute respiratory failure with hypoxia: Plan: As above Secondary to COVID-19 pneumonia (3) Hyperglycemia: Plan: With some hyperglycemia likely secondary to corticosteroids Follow and start supplemental insulin if has persistent glucose greater than 180 (4) Hyponatremia: Plan: This borderline low sodium at 135 Follow BMP (5) Hypokalemia: Plan: Replaced on admission and now improved Follow BMP (6) Pneumonia due to COVID-19 virus: Plan: As above (7) Transaminitis: Plan: Mildly elevated AST Likely secondary to Covid-19 Follow LFTs Plan: DVT prophylaxis-therapeutic Lovenox GI prophylaxis-IV Protonix FEN-starting trickle tube feeds, giving multivitamin via NG tube Disposition-continued stay in the ICU Admission and Anticipated Discharge Date Admission Date: April 23, 2021 Subjective Currently being intubated and getting central line when I came to see him this AM for worsening resp failure. Was on BiPAP since yesterday and sats in the 70s as per nursing this AM. Review of Systems Review of Systems: Unobtainable due to cognitive status Physical Exam Physical Exam: Could not assess through window with surgical/sterile drapes in place during procedures Results & Data Results & Data ([facility]) Vital Signs (Past 12 Hours) Vital Signs Temp Pulse Resp BP Pulse Ox 04/24/21 06:10 56 L 34 H 120/82 89 L 04/24/21 05:11 60 36 H 122/106 H 90 04/24/21 04:10 54 L 28 H 124/80 91 04/24/21 03:10 57 L 32 H 144/92 H 91 04/24/21 02:58 55 L 35 H 91 04/24/21 02:12 63 19 92 04/24/21 01:11 56 L 33 H 90 04/24/21 00:20 57 L 04/24/21 00:18 36.7 C 04/24/21 00:10 57 L 36 H 141/87 H 87 L 04/24/21 00:00 65 04/23/21 23:11 64 20 129/78 95 Laboratory Results 04/24/21 04/24/21 04/24/21 Range/Units 18:06 17:53 13:32 WBC (4.8-10.8) K/uL RBC (4.7-6.1) M/uL Hgb (14.0-18.0) g/dL Hct (42-52) % MCV (80-100) fL MCH (25-34) pg MCHC (32-36) g/dL RDW Std Deviation (36.4-46.3) fL RDW Coeff of Elvin (11.5-14.5) % Plt Count (130-400) K/uL MPV (7.4-10.4) fL Immature Gran % (Auto) % Neut % (Auto) % Lymph % (Auto) % Morris % (Auto) % Eos % (Auto) % Baso % (Auto) % Neut # (Auto) (1.4-6.5) K/uL Lymph # (Auto) (1.2-3.4) K/uL Morris # (Auto) (0.11-0.59) K/uL Eos # (Auto) (0-0.5) K/uL Baso # (Auto) (0-0.2) K/uL Immature Gran # (Auto) (0.00-0.02) K/uL Sample Site Art Line POC pH 7.36 (7.35-7.45) POC pCO2 47 H (35-46) mmHg POC pO2 84 (80-95) mmHg POC HCO3 27 H (19-24) adrianne/L POC Total CO2 28 (24-31) mmol/L POC Base Excess 1.0 (-9-1.8) adrianne/L POC ABG O2 Sat 96.0 H (90-95) % Nikolas Test NA O2 Delivery Device Ventilator POC O2 Rate 15 POC FiO2 50 % Tidal Volume 500 PEEP 18 Sodium (136-145) mmol/L Potassium (3.5-5.1) mmol/L Chloride (98-107) mmol/L Carbon Dioxide (21-32) mmol/L Anion Gap (3-11) BUN (7-18) mg/dl Creatinine (0.6-1.4) mg/dl Est Cr Clr Drug Dosing ml/min Est GFR ( Amer) ml/min Est GFR (Non-Af Amer) ml/min BUN/Creatinine Ratio (10-20) Glucose (70-99) mg/dl POC Glucose 137 H 166 H (70-99) mg/dl Calcium (8.5-10.1) mg/dl Phosphorus (2.5-4.9) mg/dl Magnesium (1.8-2.4) mg/dl Nasal Screen MRSA (PCR) (Negative) 04/24/21 04/24/21 04/24/21 Range/Units 05:17 05:11 05:11 WBC 6.38 (4.8-10.8) K/uL RBC 4.50 L (4.7-6.1) M/uL Hgb 14.7 (14.0-18.0) g/dL Hct 41.1 L (42-52) % MCV 91.3 (80-100) fL MCH 32.7 (25-34) pg MCHC 35.8 (32-36) g/dL RDW Std Deviation 43.5 (36.4-46.3) fL RDW Coeff of Elvin 12.9 (11.5-14.5) % Plt Count 181 (130-400) K/uL MPV 9.7 (7.4-10.4) fL Immature Gran % (Auto) 0.3 % Neut % (Auto) 82.7 % Lymph % (Auto) 11.0 % Morris % (Auto) 6.0 % Eos % (Auto) 0.0 % Baso % (Auto) 0.0 % Neut # (Auto) 5.28 (1.4-6.5) K/uL Lymph # (Auto) 0.70 L (1.2-3.4) K/uL Morris # (Auto) 0.38 (0.11-0.59) K/uL Eos # (Auto) 0.00 (0-0.5) K/uL Baso # (Auto) 0.00 (0-0.2) K/uL Immature Gran # (Auto) 0.02 (0.00-0.02) K/uL Sample Site POC pH (7.35-7.45) POC pCO2 (35-46) mmHg POC pO2 (80-95) mmHg POC HCO3 (19-24) adrianne/L POC Total CO2 (24-31) mmol/L POC Base Excess (-9-1.8) adrianne/L POC ABG O2 Sat (90-95) % Nikolas Test O2 Delivery Device POC O2 Rate POC FiO2 % Tidal Volume PEEP Sodium 135 L (136-145) mmol/L Potassium 3.5 (3.5-5.1) mmol/L Chloride 104 (98-107) mmol/L Carbon Dioxide 25 (21-32) mmol/L Anion Gap 6.0 (3-11) BUN 25 H (7-18) mg/dl Creatinine 0.97 D (0.6-1.4) mg/dl Est Cr Clr Drug Dosing 78.1 ml/min Est GFR ( Amer) 93.9 ml/min Est GFR (Non-Af Amer) 81.0 ml/min BUN/Creatinine Ratio 26.4 H (10-20) Glucose 122 H (70-99) mg/dl POC Glucose 118 H (70-99) mg/dl Calcium 7.9 L (8.5-10.1) mg/dl Phosphorus 3.2 (2.5-4.9) mg/dl Magnesium 3.2 H (1.8-2.4) mg/dl Nasal Screen MRSA (PCR) (Negative) 04/24/21 04/23/21 Range/Units 00:28 17:07 WBC (4.8-10.8) K/uL RBC (4.7-6.1) M/uL Hgb (14.0-18.0) g/dL Hct (42-52) % MCV (80-100) fL MCH (25-34) pg MCHC (32-36) g/dL RDW Std Deviation (36.4-46.3) fL RDW Coeff of Elvin (11.5-14.5) % Plt Count (130-400) K/uL MPV (7.4-10.4) fL Immature Gran % (Auto) % Neut % (Auto) % Lymph % (Auto) % Morris % (Auto) % Eos % (Auto) % Baso % (Auto) % Neut # (Auto) (1.4-6.5) K/uL Lymph # (Auto) (1.2-3.4) K/uL Morris # (Auto) (0.11-0.59) K/uL Eos # (Auto) (0-0.5) K/uL Baso # (Auto) (0-0.2) K/uL Immature Gran # (Auto) (0.00-0.02) K/uL Sample Site POC pH (7.35-7.45) POC pCO2 (35-46) mmHg POC pO2 (80-95) mmHg POC HCO3 (19-24) adrianne/L POC Total CO2 (24-31) mmol/L POC Base Excess (-9-1.8) adrianne/L POC ABG O2 Sat (90-95) % Nikolas Test O2 Delivery Device POC O2 Rate POC FiO2 % Tidal Volume PEEP Sodium (136-145) mmol/L Potassium (3.5-5.1) mmol/L Chloride (98-107) mmol/L Carbon Dioxide (21-32) mmol/L Anion Gap (3-11) BUN (7-18) mg/dl Creatinine (0.6-1.4) mg/dl Est Cr Clr Drug Dosing ml/min Est GFR ( Amer) ml/min Est GFR (Non-Af Amer) ml/min BUN/Creatinine Ratio (10-20) Glucose (70-99) mg/dl POC Glucose 125 H (70-99) mg/dl Calcium (8.5-10.1) mg/dl Phosphorus (2.5-4.9) mg/dl Magnesium (1.8-2.4) mg/dl Nasal Screen MRSA (PCR) Negative (Negative) PG Care Time/CCT Total # of Minutes Spent Total Time Spent with Patient: Total time spent is greater than 50% in coordination of care (as documented) at patient's floor/unit and/or counseling patient: Coding Level of Care Code 76724 Subseq Hosp Care Lvl 2 Diagnoses COVID-19 U07.1 Acute respiratory failure with hypoxia J96.01 Hyperglycemia R73.9 Hyponatremia E87.1 Hypokalemia E87.6 Pneumonia due to COVID-19 virus U07.1; J12.82 Transaminitis R74.01
--- NOTE | 2021-04-24 11:00 | XRay Report ---
XR chest 1V portable HISTORY: 66 years-old Male s/p intubation acute respiratory failure COMPARISON: Chest radiograph of same day at 6:31 AM TECHNIQUE: Portable AP supine view the chest FINDINGS: Sagittal post placement of an endotracheal tube which terminates 7 mm superior to the smitha. A right subclavian Rkxbdi-m-Booj catheter has also been placed with distal tip terminating in the expected l ocation of the inferior SVC. An enteric tube is present with distal tip overlying the gastric fundus. No pneumothorax. Cardiac mediastinal and hilar silhouettes are unchanged. Unchanged extensive bilateral mixed intersti tial and alveolar opacities with probable trace right pleural effusion. IMPRESSION: 1. Lines and tubes as above. No pneumothorax. 2. Extensive bilateral pulmonary opacities are unchanged. 3. Probable trace right pleural effusion. ACT 112: Negative or not required by law. The above report was generated using voice recognition software. It may contain grammatical, syntax o r spelling errors. Electronically signed by: Jamal Cowart M.D. 04/24/2021 10:58 AM
[2021-04-24] MEDS: PANTOprazole 40 MG in SYRINGE 0 ML IV SCH (11:03)
--- NOTE | 2021-04-24 11:15 | Procedure Note ---
Procedure Note Date of Service April 24, 2021 Note Procedure Date: Noted above Procedure: Endotracheal intubation Pre-procedure Diagnosis: Acute hypoxic respiratory failure secondary to COVID-19 pneumonia Post-procedure Diagnosis: same as above Prior to Procedure: Informed Consent: emergent Attending Staff: Rena Cabrera DO The identity of the patient was confirmed and a bedside time out was performed. Description of Procedure: Patient was evaluated and required intubation for impending respiratory failure. The patient was prepared in the usual fashion. A Noriega 2 laryngoscope was used. A 8 mm inner diameter endotrachial tube was placed endotracheally to 23 cm at the teeth. A grade 1 view was obtained. The endotracheal tube was noted to pass through the vocal cords. Chest rise was bilateral. Bilateral breath sounds were heard without air sounds in the abdomen. Mist was noted in the endotracheal tube. End-tidal CO2 measurement was positive. Chest x-ray shows proper endotracheal tube placement. Complications: None Findings: Not applicable Specimens: Not applicable Estimated blood loss: Zero Coding CPT Codes Resuscitation - Resuscitation: 84020 Endotracheal Intubation, emergency ([id number]) [facility] Procedure Codes (Charges) Resuscitation Resuscitation: 18525 Endotracheal Intubation, emergency
--- NOTE | 2021-04-24 11:16 | Procedure Note ---
Procedure Note Date of Service April 24, 2021 Note Procedure date: Noted above Procedure: Central venous access Pre-procedure indication: Need for vasoactive medication administration Post-procedure Diagnosis: same as above Prior to Procedure: Informed Consent: The risks, benefits, indications, potential complications, and alternatives were explained to the patient and informed consent obtained verbally due to COVID-19 restrictions. Attending Staff: Rena Cabrera DO Resident/APC: Not applicable Skin Prep: Chlorhexidine Anesthesia: 4 mL 1% lidocaine without epinephrine The identity of the patient was confirmed and a bedside time out was performed. Description of Procedure: After sterile prep and sterile drape utilizing standard sterile technique the superficial skin of the right subclavian area was anesthetized. The target vessel was identified and entered with an 18-gauge needle. Dark venous blood return was noted. A guidewire was inserted through the needle and into the vessel. The needle was withdrawn and a skin juana was made. A tissue dilator was advanced via Seldinger technique and removed. A triple lumen catheter was inserted via Seldinger technique and the guidewire removed. All ports jose and flushed easily. A Biopatch was placed, and the cat heter was secured via silk suture. A sterile dressing was then applied. Complications: None Estimated blood loss: Trace Patient tolerated the procedure well. Coding CPT Codes Tubes, Drains, and Vasc Access - Tubes, Drains, and Vasc Access: [id number] Insertion Of Non-tunneled Catheter Age 5 Yrs> ([id number]) [facility] [place] Procedure Codes (Charges) Tubes, Drains, and Vasc Access Procedure 1: Tubes, Drains, and Vasc Access: [id number] Insertion Of Non-tunneled Catheter Age 5 Yrs>
--- NOTE | 2021-04-24 11:18 | Procedure Note ---
Procedure Note Date of Service April 24, 2021 Note Procedure date: Noted above Procedure: Radial artery cannulation Pre-procedure Diagnosis: Need for invasive monitoring frequent blood draws Post-procedure Diagnosis: same as above Prior to Procedure: Informed Consent: The risks, benefits, indications, potential complications, and alternatives were explained to the patient and informed consent obtained verbally. Attending Staff: Rena Cabrera DO Skin Prep: Chlorhexidine Anesthesia: 3 mL 1% lidocaine without epinephrine The identity of the patient was confirmed and a bedside time out was performed. Description of Procedure: After sterile prep and sterile drape utilizing s tandard sterile technique the superficial skin of the right radial artery was anesthetized. The target artery was identified via dynamic ultrasound guidance and entered with a 20-gauge arrow Angiocath. Pulsatile bright red blood return was noted. Via modified Seldinger technique the self-contained guidewire was advanced and the Angiocath advanced over the guidewire. The guidewire was removed and brisk arterial blood return was noted. The pressure monitor was connected, and the arterial line was secured via commercial securement device. A sterile dressing was then applied. Complications: None Estimated blood loss: Trace Patient tolerated the procedure well. Coding CPT Codes Tubes, Drains, and Vasc Access - Tubes, Drains, and Vasc Access: [id number] Place Catheter In Artery ([id number]) [facility] [place] Procedure Codes (Charges) Tubes, Drains, and Vasc Access Procedure 1: Tubes, Drains, and Vasc Access: [id number] Place Catheter In Artery
[2021-04-24] MEDS: MIDAZOLAM BOLUS FROM BAG IV PRN ×2 (12:03→13:04)
[2021-04-24] MEDS: CISATRACURIUM BESYLATE 40 MG in 0.9 % SODIUM CHLORIDE 80 ML IV SCH ×2 (13:00→18:32)
[2021-04-24] MEDS ORDERED: fentaNYL citrate 100 MCG/2 ML VIAL IV ONE (14:32)
[2021-04-24] MEDS ORDERED: ETOMIDATE 2 MG/ML 20 ML VIAL IV ONE (14:32)
[2021-04-24] MEDS: TUBE FEEDING WATER FLUSH OG SCH ×3 (15:34→22:11)
[2021-04-24] MEDS: PEPTAMEN INTENSE VHP 1.0 CAL 1,000 ML BAG OG SCH (17:36)
[2021-04-24 18:21] LABS: iSTAT Arterial Blood Gas HCO3 27 meg/L (19-24); iSTAT Arterial Blood Gas pCO2 47 mmHg (35-46); iSTAT Arterial Blood Gas pH 7.36 (7.35-7.45); iSTAT Arterial Blood Gas pO2 84 mmHg (80-95); iSTAT Carbon Dioxide 28 mmol/L (24-31); iSTAT FiO2 50 %; iSTAT Site Art Line
[2021-04-24] MEDS ORDERED: NURSING DECISION MEDICATION ONE (18:22)
[2021-04-24] MEDS ORDERED: ARTIFICIAL TEARS OP OINT 3.5 GM TUBE OP PRN (18:27)
[2021-04-25] MEDS: CISATRACURIUM BESYLATE 40 MG in 0.9 % SODIUM CHLORIDE 80 ML IV SCH ×9 (01:43→23:58)
[2021-04-25] MEDS: fentaNYL DRIP 1,250 MCG/250 ML BAG IV SCH ×3 (03:46→23:57)
[2021-04-25 05:25] LABS: iSTAT Arterial Blood Gas HCO3 28 meg/L (19-24); iSTAT Arterial Blood Gas pCO2 49 mmHg (35-46); iSTAT Arterial Blood Gas pH 7.36 (7.35-7.45); iSTAT Arterial Blood Gas pO2 88 mmHg (80-95); iSTAT Carbon Dioxide 29 mmol/L (24-31); iSTAT FiO2 50 %; iSTAT Site Art Line
[2021-04-25 05:31] LABS: Basophils # (auto) 0.01 K/uL (0-0.2); Basophils % (auto) 0.1 %; Hemoglobin 14.6 g/dL (14.0-18.0); Immature Granulocytes # (auto) 0.04 K/uL (0.00-0.02); Immature Granulocytes % (auto) 0.4 %; Lymphocytes # (auto) 0.64 K/uL (1.2-3.4); Lymphocytes % (auto) 7.1 %; Mean Corpuscular Hemoglobin 32.2 pg (25-34); Mean Corpuscular Hgb Conc 34.8 g/dL (32-36); Mean Corpuscular Volume 92.7 fL (80-100); Mean Platelet Volume 9.7 fL (7.4-10.4); Monocytes # (auto) 0.34 K/uL (0.11-0.59); Monocytes % (auto) 3.8 %; Neutrophils # (auto) 7.99 K/uL (1.4-6.5); Neutrophils % (auto) 88.6 %; Platelet Count 236 K/uL (130-400); RDW Coefficient of Variation 13.1 % (11.5-14.5); RDW Standard Deviation 44.5 fL (36.4-46.3); Red Blood Count 4.53 M/uL (4.7-6.1); White Blood Count 9.02 K/uL (4.8-10.8)
[2021-04-25 05:52] LABS: BUN Creatinine Ratio 29.5 (10-20); Calcium 7.9 mg/dl (8.5-10.1); Est GFR (African American) 103.7 ml/min; Est GFR (Non-African American) 89.5 ml/min; Magnesium 3.3 mg/dl (1.8-2.4); Potassium 3.9 mmol/L (3.5-5.1)
[2021-04-25 05:54] LABS: Phosphorus 4.1 mg/dl (2.5-4.9)
[2021-04-25] MEDS ORDERED: POTASSIUM CHLORIDE / WTR 10 MEQ/100 ML PLCT IV ONE (06:09)
[2021-04-25] MEDS: TUBE FEEDING WATER FLUSH OG SCH ×6 (06:17→23:59)
--- NOTE | 2021-04-25 07:34 | Critical Care Progress Note ---
Date of Service April 25, 2021 Assessment & Plan (1) COVID-19: Plan: Reason critically ill: 66 yo M with no significant PMHx admitted with acute respiratory failure with hypoxia secondary to COVID-19 pneumonia admitted to ICU requiring close monitoring given tenuous respiratory status. NEURO: Undergoing neuromuscular blockade -Versed and fentanyl for sedation CARDIAC/VASCULAR: No history of cardiac disease. Monitor on telemetry. RESPIRATORY: Acute hypoxic respiratory distress secondary to COVID-19 pneumonia - Patient received IV dexamethasone while admitted 04/20-04/21 and was discharged home on dexamethasone 4mg po daily - Continue dexamethasone IV 6mg daily while admitted -Intubated 04/24: Day 2 -High PEEP low FiO2 table - Receiving tocilizumab therapy - CRP significantly elevated at 11.2 GI/NUTRITION: -Tube feedings RENAL/LYTES: Hypokalemia: Resolved - Replete per ICU electrolyte replacement protocol GENITOURINARY: No acute concerns. Strict Is/Os. ENDO: No history of diabetes or thyroid disease. - TSH wnl at 0.917 BSGs per unit protocol: ISS --> gtt per unit policy. HEME: Stable H&H ID: COVID-19 pneumonia Lines/IV Access: PIV DVT Prophylaxis: Lovenox 90mg SQ q12h GI Prophylaxis: Pantoprazole CODE STATUS: FULL CODE Patient remains critically ill (2) Admitted to intensive care unit: (3) Acute respiratory failure with hypoxia: (4) Hypokalemia: Admission and Anticipated Discharge Date Admission Date: April 23, 2021 Supervising Physician Co-Signing Physician Notes I have personally spent 45 minutes of critical care time in the direct management of this patient. This is a life/limb threatening event. This includes time spent evaluating patient, direct bedside care, chart review, placing orders, interpretation of diagnostic studies, discussion with consul tants, patient, and/or family members regarding treatment decisions, as well as other required patient management activities. This time is exclusive of all separately billable procedures, and teaching time and separate from and in addition to any other critical care service time. Subjective No overnight events patient was returned to supine position at 5 AM Physical Exam Physical Exam: General: GCS: 3 TP. Skin: Warm, dry, Head: Atraumatic Ears, nose, mouth and throat: airway obscured by endotracheal tube Cardiovascular: Normal peripheral perfusion Respiratory: Coarse breath sounds Gastrointestinal: Non distended Musculoskeletal: No deformity Results & Data Results & Data ([facility]) Vital Signs (Past 12 Hours) Vital Signs Temp Pulse Resp BP Pulse Ox 04/25/21 05:18 52 L 15 91 04/25/21 05:11 36.2 C L 55 L 137/85 89 L 04/25/21 04:20 36.2 C L 50 L 110/72 95 04/25/21 04:00 52 L 04/25/21 03:20 36.2 C L 51 L 115/73 95 04/25/21 02:20 36.2 C L 52 L 122/73 95 04/25/21 01:20 36.3 C L 51 L 112/72 94 04/25/21 00:35 51 L 15 93 04/25/21 00:20 36.4 C L 51 L 104/70 96 04/25/21 00:00 52 L 04/24/21 23:20 36.4 C L 52 L 112/69 96 04/24/21 22:20 36.3 C L 51 L 111/71 96 04/24/21 21:20 36.1 C L 48 L 108/70 96 04/24/21 21:04 46 L 15 96 04/24/21 20:20 36.0 C L 46 L 109/63 96 04/24/21 20:00 51 L Laboratory Results 04/25/21 04/25/21 04/25/21 Range/Units 05:17 05:17 05:17 WBC 9.02 (4.8-10.8) K/uL RBC 4.53 L (4.7-6.1) M/uL Hgb 14.6 (14.0-18.0) g/dL Hct 42.0 (42-52) % MCV 92.7 (80-100) fL MCH 32.2 (25-34) pg MCHC 34.8 (32-36) g/dL RDW Std Deviation 44.5 (36.4-46.3) fL RDW Coeff of Elvin 13.1 (11.5-14.5) % Plt Count 236 (130-400) K/uL MPV 9.7 (7.4-10.4) fL Immature Gran % (Auto) 0.4 % Neut % (Auto) 88.6 % Lymph % (Auto) 7.1 % Grundy % (Auto) 3.8 % Eos % (Auto) 0.0 % Baso % (Auto) 0.1 % Neut # (Auto) 7.99 H (1.4-6.5) K/uL Lymph # (Auto) 0.64 L (1.2-3.4) K/uL Grundy # (Auto) 0.34 (0.11-0.59) K/uL Eos # (Auto) 0.00 (0-0.5) K/uL Baso # (Auto) 0.01 (0-0.2) K/uL Immature Gran # (Auto) 0.04 H (0.00-0.02) K/uL Sample Site POC pH (7.35-7.45) POC pCO2 (35-46) mmHg POC pO2 (80-95) mmHg POC HCO3 (19-24) adrianne/L POC Total CO2 (24-31) mmol/L POC Base Excess (-9-1.8) adrianne/L POC ABG O2 Sat (90-95) % Nikolas Test O2 Delivery Device POC O2 Rate POC FiO2 % Tidal Volume PEEP Sodium 139 (136-145) mmol/L Potassium 3.9 (3.5-5.1) mmol/L Chloride 107 (98-107) mmol/L Carbon Dioxide 26 (21-32) mmol/L Anion Gap 6.0 (3-11) BUN 26 H (7-18) mg/dl Creatinine 0.88 (0.6-1.4) mg/dl Est Cr Clr Drug Dosing 86.0 ml/min Est GFR ( Amer) 103.7 ml/min Est GFR (Non-Af Amer) 89.5 ml/min BUN/Creatinine Ratio 29.5 H (10-20) Glucose 123 H (70-99) mg/dl POC Glucose 108 H (70-99) mg/dl Calcium 7.9 L (8.5-10.1) mg/dl Phosphorus 4.1 (2.5-4.9) mg/dl Magnesium 3.3 H (1.8-2.4) mg/dl 04/25/21 04/24/21 04/24/21 Range/Units 04:57 23:59 18:06 WBC (4.8-10.8) K/uL RBC (4.7-6.1) M/uL Hgb (14.0-18.0) g/dL Hct (42-52) % MCV (80-100) fL MCH (25-34) pg MCHC (32-36) g/dL RDW Std Deviation (36.4-46.3) fL RDW Coeff of Elvin (11.5-14.5) % Plt Count (130-400) K/uL MPV (7.4-10.4) fL Immature Gran % (Auto) % Neut % (Auto) % Lymph % (Auto) % Grundy % (Auto) % Eos % (Auto) % Baso % (Auto) % Neut # (Auto) (1.4-6.5) K/uL Lymph # (Auto) (1.2-3.4) K/uL Grundy # (Auto) (0.11-0.59) K/uL Eos # (Auto) (0-0.5) K/uL Baso # (Auto) (0-0.2) K/uL Immature Gran # (Auto) (0.00-0.02) K/uL Sample Site Art Line Art Line POC pH 7.36 7.36 (7.35-7.45) POC pCO2 49 H 47 H (35-46) mmHg POC pO2 88 84 (80-95) mmHg POC HCO3 28 H 27 H (19-24) adrianne/L POC Total CO2 29 28 (24-31) mmol/L POC Base Excess 2.0 H 1.0 (-9-1.8) adrianne/L POC ABG O2 Sat 96.0 H 96.0 H (90-95) % Nikolas Test NA NA O2 Delivery Device Ventilator Ventilator POC O2 Rate 15 15 POC FiO2 50 50 % Tidal Volume 500 500 PEEP 14 18 Sodium (136-145) mmol/L Potassium (3.5-5.1) mmol/L Chloride (98-107) mmol/L Carbon Dioxide (21-32) mmol/L Anion Gap (3-11) BUN (7-18) mg/dl Creatinine (0.6-1.4) mg/dl Est Cr Clr Drug Dosing ml/min Est GFR ( Amer) ml/min Est GFR (Non-Af Amer) ml/min BUN/Creatinine Ratio (10-20) Glucose (70-99) mg/dl POC Glucose 127 H (70-99) mg/dl Calcium (8.5-10.1) mg/dl Phosphorus (2.5-4.9) mg/dl Magnesium (1.8-2.4) mg/dl 04/24/21 04/24/21 Range/Units 17:53 13:32 WBC (4.8-10.8) K/uL RBC (4.7-6.1) M/uL Hgb (14.0-18.0) g/dL Hct (42-52) % MCV (80-100) fL MCH (25-34) pg MCHC (32-36) g/dL RDW Std Deviation (36.4-46.3) fL RDW Coeff of Elvin (11.5-14.5) % Plt Count (130-400) K/uL MPV (7.4-10.4) fL Immature Gran % (Auto) % Neut % (Auto) % Lymph % (Auto) % Grundy % (Auto) % Eos % (Auto) % Baso % (Auto) % Neut # (Auto) (1.4-6.5) K/uL Lymph # (Auto) (1.2-3.4) K/uL Grundy # (Auto) (0.11-0.59) K/uL Eos # (Auto) (0-0.5) K/uL Baso # (Auto) (0-0.2) K/uL Immature Gran # (Auto) (0.00-0.02) K/uL Sample Site POC pH (7.35-7.45) POC pCO2 (35-46) mmHg POC pO2 (80-95) mmHg POC HCO3 (19-24) adrianne/L POC Total CO2 (24-31) mmol/L POC Base Excess (-9-1.8) adrianne/L POC ABG O2 Sat (90-95) % Nikolas Test O2 Delivery Device POC O2 Rate POC FiO2 % Tidal Volume PEEP Sodium (136-145) mmol/L Potassium (3.5-5.1) mmol/L Chloride (98-107) mmol/L Carbon Dioxide (21-32) mmol/L Anion Gap (3-11) BUN (7-18) mg/dl Creatinine (0.6-1.4) mg/dl Est Cr Clr Drug Dosing ml/min Est GFR ( Amer) ml/min Est GFR (Non-Af Amer) ml/min BUN/Creatinine Ratio (10-20) Glucose (70-99) mg/dl POC Glucose 137 H 166 H (70-99) mg/dl Calcium (8.5-10.1) mg/dl Phosphorus (2.5-4.9) mg/dl Magnesium (1.8-2.4) mg/dl Coding Level of Care Code Critical Care 1st 30-74 mins Diagnoses COVID-19 U07.1 Admitted to intensive care unit Z78.9 Acute respiratory failure with hypoxia J96.01 Hypokalemia E87.6
[2021-04-25] MEDS: ENOXAPARIN 100 MG/1ML SYR SQ SCH ×2 (08:25→20:33)
[2021-04-25] MEDS: MULTI VIT W/MINERALS LIQUID 15 ML UDP NG SCH (08:25)
[2021-04-25] MEDS: dexAMETHasone 6 MG in SYRINGE 0 ML IV SCH (08:28)
[2021-04-25] MEDS ORDERED: LACTATED RINGER'S 500 ML IV ONE (08:45)
[2021-04-25] MEDS ORDERED: LACTATED RINGER'S 1,000 ML IV SCH (11:15)
[2021-04-25] MEDS ORDERED: STAT IV Infusion **Titration per Protocol STA (11:56)
[2021-04-25] MEDS: MIDAZOLAM HCL 125 MG/250 ML BAG IV SCH (12:08)
[2021-04-25] MEDS: NOREPINEPHRINE/D5W 8 MG/508 ML BAG IV SCH (12:08)
[2021-04-25] MEDS: PANTOprazole 40 MG in SYRINGE 0 ML IV SCH ×2 (12:14→12:50)
--- NOTE | 2021-04-25 16:48 | Hospitalist Progress Note ---
Date of Service April 25, 2021 Assessment & Plan (1) COVID-19: Plan: 66yo C male presenting with worsening Covid-19 PNA. He was recently admitted for the same and discharged home on 04/22/21 with PO Dexamethasone and home O2. Returns with worsening hypoxia - SpO2 at home reported to be 75%. Was placed on BiPAP and maxed out settings Pulse ox could not be maintained above mid 70s on the morning of 04/24 and he was intubated, sedated, paralyzed and proned Significantly elevated CRP. He was given tocilizumab 600 mg x1 dose on 04/24 Oxygenation requirement is improving today, remains on AC rate 15, TV 500, PEEP 12, FiO2 50 -Continue Dexamethasone 6mg IV daily x10-day course -Appreciate composite layup worker management of ventilator -Azithromycin given upon admission x1 dose was now discontinued -Because of profound decline over the last 18 hours prior to admission with significant hypoxia and patient's condition not stable enough to proceed with CT angiography patient will be given Lovenox 1 mg/kg subcu every 12 hours -Sedation with Versed and pain control with fentanyl -Follow chest x-ray -Follow CBC, CMP, CRP, magnesium, phosphorus, ABG -Continue sedation, Levophed for sedation related hypotension (2) Acute respiratory failure with hypoxia: Plan: As above Secondary to COVID-19 pneumonia (3) Hyperglycemia: Plan: With some hyperglycemia likely secondary to corticosteroids Follow and start supplemental insulin if has persistent glucose greater than 180 (4) Hyponatremia: Plan: borderline low sodium at 135 now improved to 139 Follow BMP (5) Hypokalemia: Plan: Replaced on admission and now improved Follow BMP (6) Pneumonia due to COVID-19 virus: Plan: As above (7) Transaminitis: Plan: Mildly elevated AST Likely secondary to Covid-19 Follow LFTs Plan: DVT prophylaxis-therapeutic Lovenox GI prophylaxis-IV Protonix FEN-continue tube feeds at 10 mL's per hour, giving multivitamin via NG tube Disposition-continued stay in the ICU Updated his by phone Admission and Anticipated Discharge Date Admission Date: April 23, 2021 Subjective Pt remains intubated and sedated, paralyzed. Now on low dose levophed for hypotension likely from sedation. Is supine today and O2 requirement is going down. Having some bradycardia related to paralytic and this was turned down a bit Review of Systems Review of Systems: Unobtainable due to cognitive status and Unobtainable due to endotracheal tube Physical Exam Constitutional: well developed and + mechanically ventilated Results & Data Results & Data ([facility]) Vital Signs (Past 12 Hours) Vital Signs Temp Pulse Resp BP Pulse Ox 04/25/21 15:38 46 L 15 94 04/25/21 14:11 36.3 C L 56 L 152/83 H 93 04/25/21 13:11 36.2 C L 45 L 135/71 94 04/25/21 12:11 36.3 C L 42 L 91/56 L 93 04/25/21 11:30 42 L 15 93 04/25/21 11:11 36.3 C L 42 L 90/57 L 93 04/25/21 10:11 36.2 C L 44 L 90/56 L 94 04/25/21 09:11 36.1 C L 43 L 83/55 L 96 04/25/21 08:11 36.2 C L 42 L 83/56 L 95 04/25/21 07:40 45 L 15 92 04/25/21 07:11 36.2 C L 43 L 91/64 L 93 04/25/21 05:18 52 L 15 91 04/25/21 05:11 36.2 C L 55 L 137/85 89 L Laboratory Results 04/25/21 04/25/21 04/25/21 Range/Units 12:38 05:17 05:17 WBC (4.8-10.8) K/uL RBC (4.7-6.1) M/uL Hgb (14.0-18.0) g/dL Hct (42-52) % MCV (80-100) fL MCH (25-34) pg MCHC (32-36) g/dL RDW Std Deviation (36.4-46.3) fL RDW Coeff of Elvin (11.5-14.5) % Plt Count (130-400) K/uL MPV (7.4-10.4) fL Immature Gran % (Auto) % Neut % (Auto) % Lymph % (Auto) % Yell % (Auto) % Eos % (Auto) % Baso % (Auto) % Neut # (Auto) (1.4-6.5) K/uL Lymph # (Auto) (1.2-3.4) K/uL Yell # (Auto) (0.11-0.59) K/uL Eos # (Auto) (0-0.5) K/uL Baso # (Auto) (0-0.2) K/uL Immature Gran # (Auto) (0.00-0.02) K/uL Sample Site POC pH (7.35-7.45) POC pCO2 (35-46) mmHg POC pO2 (80-95) mmHg POC HCO3 (19-24) adrianne/L POC Total CO2 (24-31) mmol/L POC Base Excess (-9-1.8) adrianne/L POC ABG O2 Sat (90-95) % Nikolas Test O2 Delivery Device POC O2 Rate POC FiO2 % Tidal Volume PEEP Sodium 139 (136-145) mmol/L Potassium 3.9 (3.5-5.1) mmol/L Chloride 107 (98-107) mmol/L Carbon Dioxide 26 (21-32) mmol/L Anion Gap 6.0 (3-11) BUN 26 H (7-18) mg/dl Creatinine 0.88 (0.6-1.4) mg/dl Est Cr Clr Drug Dosing 86.0 ml/min Est GFR ( Amer) 103.7 ml/min Est GFR (Non-Af Amer) 89.5 ml/min BUN/Creatinine Ratio 29.5 H (10-20) Glucose 123 H (70-99) mg/dl POC Glucose 133 H 108 H (70-99) mg/dl Calcium 7.9 L (8.5-10.1) mg/dl Phosphorus 4.1 (2.5-4.9) mg/dl Magnesium 3.3 H (1.8-2.4) mg/dl 04/25/21 04/25/21 04/24/21 Range/Units 05:17 04:57 23:59 WBC 9.02 (4.8-10.8) K/uL RBC 4.53 L (4.7-6.1) M/uL Hgb 14.6 (14.0-18.0) g/dL Hct 42.0 (42-52) % MCV 92.7 (80-100) fL MCH 32.2 (25-34) pg MCHC 34.8 (32-36) g/dL RDW Std Deviation 44.5 (36.4-46.3) fL RDW Coeff of Elvin 13.1 (11.5-14.5) % Plt Count 236 (130-400) K/uL MPV 9.7 (7.4-10.4) fL Immature Gran % (Auto) 0.4 % Neut % (Auto) 88.6 % Lymph % (Auto) 7.1 % Yell % (Auto) 3.8 % Eos % (Auto) 0.0 % Baso % (Auto) 0.1 % Neut # (Auto) 7.99 H (1.4-6.5) K/uL Lymph # (Auto) 0.64 L (1.2-3.4) K/uL Yell # (Auto) 0.34 (0.11-0.59) K/uL Eos # (Auto) 0.00 (0-0.5) K/uL Baso # (Auto) 0.01 (0-0.2) K/uL Immature Gran # (Auto) 0.04 H (0.00-0.02) K/uL Sample Site Art Line POC pH 7.36 (7.35-7.45) POC pCO2 49 H (35-46) mmHg POC pO2 88 (80-95) mmHg POC HCO3 28 H (19-24) adrianne/L POC Total CO2 29 (24-31) mmol/L POC Base Excess 2.0 H (-9-1.8) adrianne/L POC ABG O2 Sat 96.0 H (90-95) % Nikolas Test NA O2 Delivery Device Ventilator POC O2 Rate 15 POC FiO2 50 % Tidal Volume 500 PEEP 14 Sodium (136-145) mmol/L Potassium (3.5-5.1) mmol/L Chloride (98-107) mmol/L Carbon Dioxide (21-32) mmol/L Anion Gap (3-11) BUN (7-18) mg/dl Creatinine (0.6-1.4) mg/dl Est Cr Clr Drug Dosing ml/min Est GFR ( Amer) ml/min Est GFR (Non-Af Amer) ml/min BUN/Creatinine Ratio (10-20) Glucose (70-99) mg/dl POC Glucose 127 H (70-99) mg/dl Calcium (8.5-10.1) mg/dl Phosphorus (2.5-4.9) mg/dl Magnesium (1.8-2.4) mg/dl PG Care Time/CCT Total # of Minutes Spent Total Time Spent with Patient: Total time spent is greater than 50% in coordination of care (as documented) at patient's floor/unit and/or counseling patient: Coding Level of Care Code 57327 Subseq Hosp Care Lvl 2 Diagnoses COVID-19 U07.1 Acute respiratory failure with hypoxia J96.01 Hyperglycemia R73.9 Hyponatremia E87.1 Hypokalemia E87.6 Pneumonia due to COVID-19 virus U07.1; J12.82 Transaminitis R74.01
[2021-04-26] MEDS: NOREPINEPHRINE/D5W 8 MG/508 ML BAG IV SCH ×2 (00:29→23:07)
[2021-04-26] MEDS: TUBE FEEDING WATER FLUSH OG SCH ×6 (01:33→23:09)
[2021-04-26 05:01] LABS: iSTAT Art Bld Gas pCO2 Correct 44 mmHg (35-46); iSTAT Art Bld Gas pH Corrected 7.393 (7.35-7.45); iSTAT Arterial Blood Gas HCO3 27 meg/L (19-24); iSTAT Arterial Blood Gas pCO2 44 mmHg (35-46); iSTAT Arterial Blood Gas pH 7.39 (7.35-7.45); iSTAT Arterial Blood Gas pO2 72 mmHg (80-95); iSTAT Arterial Blood Gas pO2 C 72; iSTAT Carbon Dioxide 28 mmol/L (24-31); iSTAT FiO2 50 %; iSTAT Hematocrit 41 % (42-52); iSTAT Hemoglobin 13.9 g/dl (14.0-18.0); iSTAT Potassium 3.8 mmol/L (3.3-5.0); iSTAT Site Art Line; iSTAT Sodium 141 mmol/L (135-144)
[2021-04-26 05:37] LABS: Basophils # (auto) 0.01 K/uL (0-0.2); Basophils % (auto) 0.1 %; Eosinophils # (auto) 0.01 K/uL (0-0.5); Eosinophils % (auto) 0.1 %; Hematocrit (blood only) 41.8 % (42-52); Hemoglobin 14.3 g/dL (14.0-18.0); Immature Granulocytes # (auto) 0.05 K/uL (0.00-0.02); Immature Granulocytes % (auto) 0.5 %; Lymphocytes # (auto) 0.74 K/uL (1.2-3.4); Lymphocytes % (auto) 7.8 %; Mean Corpuscular Hemoglobin 31.8 pg (25-34); Mean Corpuscular Hgb Conc 34.2 g/dL (32-36); Mean Corpuscular Volume 93.1 fL (80-100); Mean Platelet Volume 9.5 fL (7.4-10.4); Monocytes # (auto) 0.64 K/uL (0.11-0.59); Monocytes % (auto) 6.7 %; Neutrophils # (auto) 8.06 K/uL (1.4-6.5); Neutrophils % (auto) 84.8 %; Platelet Count 311 K/uL (130-400); RDW Coefficient of Variation 13.1 % (11.5-14.5); RDW Standard Deviation 44.3 fL (36.4-46.3); Red Blood Count 4.49 M/uL (4.7-6.1); White Blood Count 9.51 K/uL (4.8-10.8)
[2021-04-26 06:05] LABS: BUN Creatinine Ratio 28.1 (10-20); Calcium 7.6 mg/dl (8.5-10.1); Creatinine Clr Calc Pharmacy 88.4 ml/min; Est GFR (African American) 105.2 ml/min; Est GFR (Non-African American) 90.8 ml/min; Magnesium 2.7 mg/dl (1.8-2.4); Potassium 3.7 mmol/L (3.5-5.1)
[2021-04-26] MEDS ORDERED: POTASSIUM CHLORIDE / WTR 20 MEQ/100 ML PLCT IV ONE (06:45)
--- NOTE | 2021-04-26 07:09 | Critical Care Progress Note ---
Date of Service April 26, 2021 Assessment & Plan (1) COVID-19: Plan: Reason critically ill: 66 yo M with no significant PMHx admitted with acute respiratory failure with hypoxia secondary to COVID-19 pneumonia admitted to ICU requiring close monitoring given tenuous respiratory status. NEURO: Undergoing neuromuscular blockade -Versed and fentanyl for sedation CARDIAC/VASCULAR: No history of cardiac disease. Hypotension -Improved on Levophed -Trend troponins -Complete echocardiogram -On dexamethasone no role of random cortisol Bradycardia -Asymptomatic RESPIRATORY: Acute hypoxic respiratory distress secondary to COVID-19 pneumonia - Patient received IV dexamethasone while admitted 04/20-04/21 and was discharged home on dexamethasone 4mg po daily - Continue dexamethasone IV 6mg daily while admitted -Intubated 04/24: Day 3 -High PEEP low FiO2 table PEEP 12 FiO2 50% - Received tocilizumab therapy GI/NUTRITION: -Tube feedings RENAL/LYTES: Hypokalemia: Resolved - Replete per ICU electrolyte replacement protocol -Volume expansion with 50 g albumin GENITOURINARY: No acute concerns. Strict Is/Os. ENDO: No history of diabetes or thyroid disease. - TSH wnl at 0.917 BSGs per unit protocol: ISS --> gtt per unit policy. HEME: Stable H&H ID: COVID-19 pneumonia Lines/IV Access: PIV DVT Prophylaxis: Lovenox 90mg SQ q12h GI Prophylaxis: Pantoprazole CODE STATUS: FULL CODE Patient remains critically ill (2) Admitted to intensive care unit: (3) Acute respiratory failure with hypoxia: (4) Hypokalemia: Admission and Anticipated Discharge Date Admission Date: April 23, 2021 Subjective No overnight events, decreasing ventilator requirements Physical Exam Physical Exam: General: Sedated. nontoxic. Skin: Warm, dry, Head: Atraumatic Ears, nose, mouth and throat: airway obscured by endotracheal tube Cardiovascular: Normal peripheral perfusion Respiratory: Coarse sounds, ventilator settings reviewed Gastrointestinal: Non distended Musculoskeletal: No deformity Results & Data Results & Data ([facility]) Vital Signs (Past 12 Hours) Vital Signs Temp Pulse Resp BP Pulse Ox 04/26/21 05:38 43 L 126/58 L 04/26/21 05:11 36.3 C L 41 L 131/70 92 04/26/21 04:53 43 L 15 90 04/26/21 04:11 36.4 C L 40 L 133/71 94 04/26/21 04:00 43 L 04/26/21 03:11 36.5 C 41 L 119/67 93 04/26/21 02:11 36.4 C L 65 149/83 H 88 L 04/26/21 02:00 45 L 99/62 L 04/26/21 01:11 36.4 C L 41 L 127/73 93 04/26/21 00:11 36.5 C 45 L 99/62 L 92 04/26/21 00:00 45 L 99/62 L 04/25/21 23:37 42 L 15 91 04/25/21 23:11 36.3 C L 45 L 114/68 93 04/25/21 22:11 36.3 C L 42 L 114/68 93 04/25/21 22:00 43 L 04/25/21 21:11 36.2 C L 41 L 115/66 93 04/25/21 20:41 43 L 15 92 04/25/21 20:11 36.1 C L 48 L 126/79 91 04/25/21 20:00 43 L 120/55 L 04/25/21 19:11 36.2 C L 42 L 122/67 94 Laboratory Results 04/26/21 04/26/21 04/26/21 Range/Units 05:15 05:15 04:35 WBC 9.51 (4.8-10.8) K/uL RBC 4.49 L (4.7-6.1) M/uL Hgb 14.3 (14.0-18.0) g/dL POC Hgb 13.9 L (14.0-18.0) g/dl Hct 41.8 L (42-52) % POC Hct 41 L (42-52) % MCV 93.1 (80-100) fL MCH 31.8 (25-34) pg MCHC 34.2 (32-36) g/dL RDW Std Deviation 44.3 (36.4-46.3) fL RDW Coeff of Elvin 13.1 (11.5-14.5) % Plt Count 311 (130-400) K/uL MPV 9.5 (7.4-10.4) fL Immature Gran % (Auto) 0.5 % Neut % (Auto) 84.8 % Lymph % (Auto) 7.8 % Ballard % (Auto) 6.7 % Eos % (Auto) 0.1 % Baso % (Auto) 0.1 % Neut # (Auto) 8.06 H (1.4-6.5) K/uL Lymph # (Auto) 0.74 L (1.2-3.4) K/uL Ballard # (Auto) 0.64 H (0.11-0.59) K/uL Eos # (Auto) 0.01 (0-0.5) K/uL Baso # (Auto) 0.01 (0-0.2) K/uL Immature Gran # (Auto) 0.05 H (0.00-0.02) K/uL Sample Site Art Line POC pH 7.39 (7.35-7.45) POC pCO2 44 (35-46) mmHg POC pO2 72 L (80-95) mmHg POC HCO3 27 H (19-24) adrianne/L POC Total CO2 28 (24-31) mmol/L POC Base Excess 2.0 H (-9-1.8) adrianne/L ABG pH (Temp Correct) 7.393 (7.35-7.45) ABG pCO2 (Temp Corrct 44 (35-46) mmHg POC ABG pO2 at Pt Temp 72 POC ABG O2 Sat 94.0 (90-95) % Nikolas Test NA O2 Delivery Device Ventilator POC O2 Rate 15 POC FiO2 50 % Tidal Volume 500 PEEP 12 POC Sodium 141 (135-144) mmol/L Sodium 140 (136-145) mmol/L POC Potassium 3.8 (3.3-5.0) mmol/L Potassium 3.7 (3.5-5.1) mmol/L Chloride 108 H (98-107) mmol/L Carbon Dioxide 27 (21-32) mmol/L Anion Gap 5.0 (3-11) BUN 24 H (7-18) mg/dl Creatinine 0.85 (0.6-1.4) mg/dl Est Cr Clr Drug Dosing 88.4 ml/min Est GFR ( Amer) 105.2 ml/min Est GFR (Non-Af Amer) 90.8 ml/min BUN/Creatinine Ratio 28.1 H (10-20) Glucose 123 H (70-99) mg/dl POC Glucose (70-99) mg/dl POC Glucose (other) (70-99) mg/dl Calcium 7.6 L (8.5-10.1) mg/dl Phosphorus 3.0 D (2.5-4.9) mg/dl Magnesium 2.7 H (1.8-2.4) mg/dl 04/25/21 04/25/21 04/25/21 Range/Units 23:55 18:21 12:38 WBC (4.8-10.8) K/uL RBC (4.7-6.1) M/uL Hgb (14.0-18.0) g/dL POC Hgb (14.0-18.0) g/dl Hct (42-52) % POC Hct (42-52) % MCV (80-100) fL MCH (25-34) pg MCHC (32-36) g/dL RDW Std Deviation (36.4-46.3) fL RDW Coeff of Elvin (11.5-14.5) % Plt Count (130-400) K/uL MPV (7.4-10.4) fL Immature Gran % (Auto) % Neut % (Auto) % Lymph % (Auto) % Ballard % (Auto) % Eos % (Auto) % Baso % (Auto) % Neut # (Auto) (1.4-6.5) K/uL Lymph # (Auto) (1.2-3.4) K/uL Ballard # (Auto) (0.11-0.59) K/uL Eos # (Auto) (0-0.5) K/uL Baso # (Auto) (0-0.2) K/uL Immature Gran # (Auto) (0.00-0.02) K/uL Sample Site POC pH (7.35-7.45) POC pCO2 (35-46) mmHg POC pO2 (80-95) mmHg POC HCO3 (19-24) adrianne/L POC Total CO2 (24-31) mmol/L POC Base Excess (-9-1.8) adrianne/L ABG pH (Temp Correct) (7.35-7.45) ABG pCO2 (Temp Corrct (35-46) mmHg POC ABG pO2 at Pt Temp POC ABG O2 Sat (90-95) % Nikolas Test O2 Delivery Device POC O2 Rate POC FiO2 % Tidal Volume PEEP POC Sodium (135-144) mmol/L Sodium (136-145) mmol/L POC Potassium (3.3-5.0) mmol/L Potassium (3.5-5.1) mmol/L Chloride (98-107) mmol/L Carbon Dioxide (21-32) mmol/L Anion Gap (3-11) BUN (7-18) mg/dl Creatinine (0.6-1.4) mg/dl Est Cr Clr Drug Dosing ml/min Est GFR ( Amer) ml/min Est GFR (Non-Af Amer) ml/min BUN/Creatinine Ratio (10-20) Glucose (70-99) mg/dl POC Glucose 123 H 133 H (70-99) mg/dl POC Glucose (other) 170 H (70-99) mg/dl Calcium (8.5-10.1) mg/dl Phosphorus (2.5-4.9) mg/dl Magnesium (1.8-2.4) mg/dl Coding Level of Care Code Critical Care 1st 30-74 mins Diagnoses COVID-19 U07.1 Admitted to intensive care unit Z78.9 Acute respiratory failure with hypoxia J96.01 Hypokalemia E87.6
[2021-04-26] MEDS: ENOXAPARIN 100 MG/1ML SYR SQ SCH ×2 (08:34→21:04)
[2021-04-26] MEDS: dexAMETHasone 6 MG in SYRINGE 0 ML IV SCH (08:34)
[2021-04-26] MEDS: ALBUMIN 25% 12.5 GM/50 ML VIAL IV SCH ×4 (08:34→11:26)
[2021-04-26] MEDS: MULTI VIT W/MINERALS LIQUID 15 ML UDP NG SCH (08:35)
[2021-04-26] MEDS: CISATRACURIUM BESYLATE 40 MG in 0.9 % SODIUM CHLORIDE 80 ML IV SCH ×2 (08:43→23:54)
[2021-04-26] MEDS: fentaNYL DRIP 1,250 MCG/250 ML BAG IV SCH ×2 (09:39→23:06)
--- NOTE | 2021-04-26 09:43 | XRay Report ---
XR chest 1V portable HISTORY: Respiratory failure. COMPARISON: Chest 04/24/2021. FINDINGS: The endotracheal tube is been pulled back and now resides approximately 5.8 cm from the car rina. This should be advanced by approximately 2 cm. Nasogastric tube terminates in the stomach. Right subclavian central venous catheter terminates at the distal SVC. Bilateral airspace opacities have s lightly improved. There is a trace right pleural effusion, unchanged. The heart remains mildly enlarg ed. IMPRESSION: 1. Slight improvement in the bilateral airspace opacities consistent with a pneumonia. 2. The endotracheal tube terminates 5.8 cm from the smitha. This should be advanced by approximately 2 cm. ACT 112: Negative or not required by law. Electronically signed by: Anuj Chavira M.D. 04/26/2021 9:42 AM
--- NOTE | 2021-04-26 16:26 | Hospitalist Progress Note ---
Date of Service April 26, 2021 Assessment & Plan (1) COVID-19: Plan: 66yo C male presenting with worsening Covid-19 PNA. He was recently admitted for the same and discharged home on 04/22/21 with PO Dexamethasone and home O2. Returns with worsening hypoxia - SpO2 at home reported to be 75%. Was placed on BiPAP and maxed out settings Pulse ox could not be maintained above mid 70s on the morning of 04/24 and he was intubated, sedated, paralyzed and proned Significantly elevated CRP. He was given tocilizumab 600 mg x1 dose on 04/24 Oxygenation requirement is stable today, remains on AC rate 15, TV 500, PEEP 12, FiO2 50 but increased to 70% later in the day -Remains on low-dose of Nimbex -Continue Dexamethasone 6mg IV daily x10-day course -Appreciate summons server management of ventilator -Azithromycin given upon admission x1 dose was now discontinued -Because of profound decline over the last 18 hours prior to admission with significant hypoxia and patient's condition not stable enough to proceed with CT angiography patient will be given Lovenox 1 mg/kg subcu every 12 hours -Sedation with Versed and pain control with fentanyl-causing some bradycardia, but asymptomatic and blood pressure stable-could consider decreasing fentanyl dose -Follow chest x-ray-with ET tube tip 5.7 cm above smitha today-defer to summons server as to whether to advance ET tube or not -Follow CBC, CMP, CRP, magnesium, phosphorus, ABG and replace electrolytes as needed -Continue sedation, low-dose Levophed for sedation related hypotension (2) Acute respiratory failure with hypoxia: Plan: As above Secondary to COVID-19 pneumonia (3) Hyperglycemia: Plan: With some hyperglycemia likely secondary to corticosteroids Follow and start supplemental insulin if has persistent glucose greater than 180 (4) Hyponatremia: Plan: borderline low sodium at 135 now back to normal Follow BMP (5) Hypokalemia: Plan: Replaced again today with 20 mEq potassium chloride IV Follow BMP, magnesium (6) Pneumonia due to COVID-19 virus: Plan: As above (7) Transaminitis: Plan: Mildly elevated AST Likely secondary to Covid-19 Follow LFTs periodically Plan: DVT prophylaxis-therapeutic Lovenox GI prophylaxis-IV Protonix FEN-continue tube feeds at 10 mL's per hour, giving multivitamin via NG tube Disposition-continued stay in the ICU Admission and Anticipated Discharge Date Admission Date: April 23, 2021 Subjective Patient with persistent bradycardia in the 30s and 40s, blood pressure stable on low-dose of Levophed. Was requiring 50% FiO2 earlier in the day but has been bumped up to 70% for some occasional hypoxia this afternoon. Review of Systems Review of Systems: Unobtainable due to cognitive status and Unobtainable due to endotracheal tube Physical Exam Constitutional: well developed and + mechanically ventilated Results & Data Results & Data ([facility]) Vital Signs (Past 12 Hours) Vital Signs Temp Pulse Resp BP Pulse Ox 04/26/21 16:00 44 L 04/26/21 15:36 38 L 15 95 04/26/21 11:11 36.4 C L 51 L 123/75 87 L 04/26/21 10:24 55 L 17 90 04/26/21 10:11 36.4 C L 56 L 135/81 89 L 04/26/21 09:11 36.4 C L 41 L 112/69 92 04/26/21 08:11 36.4 C L 42 L 125/69 93 04/26/21 07:35 42 L 15 92 04/26/21 07:11 36.3 C L 41 L 120/69 93 04/26/21 05:38 43 L 126/58 L 04/26/21 05:11 36.3 C L 41 L 131/70 92 04/26/21 04:53 43 L 15 90 Laboratory Results 04/26/21 04/26/21 04/26/21 Range/Units 13:54 05:15 05:15 WBC 9.51 (4.8-10.8) K/uL RBC 4.49 L (4.7-6.1) M/uL Hgb 14.3 (14.0-18.0) g/dL POC Hgb (14.0-18.0) g/dl Hct 41.8 L (42-52) % POC Hct (42-52) % MCV 93.1 (80-100) fL MCH 31.8 (25-34) pg MCHC 34.2 (32-36) g/dL RDW Std Deviation 44.3 (36.4-46.3) fL RDW Coeff of Elvin 13.1 (11.5-14.5) % Plt Count 311 (130-400) K/uL MPV 9.5 (7.4-10.4) fL Immature Gran % (Auto) 0.5 % Neut % (Auto) 84.8 % Lymph % (Auto) 7.8 % Carson % (Auto) 6.7 % Eos % (Auto) 0.1 % Baso % (Auto) 0.1 % Neut # (Auto) 8.06 H (1.4-6.5) K/uL Lymph # (Auto) 0.74 L (1.2-3.4) K/uL Carson # (Auto) 0.64 H (0.11-0.59) K/uL Eos # (Auto) 0.01 (0-0.5) K/uL Baso # (Auto) 0.01 (0-0.2) K/uL Immature Gran # (Auto) 0.05 H (0.00-0.02) K/uL Sample Site POC pH (7.35-7.45) POC pCO2 (35-46) mmHg POC pO2 (80-95) mmHg POC HCO3 (19-24) adrianne/L POC Total CO2 (24-31) mmol/L POC Base Excess (-9-1.8) adrianne/L ABG pH (Temp Correct) (7.35-7.45) ABG pCO2 (Temp Corrct (35-46) mmHg POC ABG pO2 at Pt Temp POC ABG O2 Sat (90-95) % Nikolas Test O2 Delivery Device POC O2 Rate POC FiO2 % Tidal Volume PEEP POC Sodium (135-144) mmol/L Sodium 140 (136-145) mmol/L POC Potassium (3.3-5.0) mmol/L Potassium 3.7 (3.5-5.1) mmol/L Chloride 108 H (98-107) mmol/L Carbon Dioxide 27 (21-32) mmol/L Anion Gap 5.0 (3-11) BUN 24 H (7-18) mg/dl Creatinine 0.85 (0.6-1.4) mg/dl Est Cr Clr Drug Dosing 88.4 ml/min Est GFR ( Amer) 105.2 ml/min Est GFR (Non-Af Amer) 90.8 ml/min BUN/Creatinine Ratio 28.1 H (10-20) Glucose 123 H (70-99) mg/dl POC Glucose 148 H (70-99) mg/dl POC Glucose (other) (70-99) mg/dl Calcium 7.6 L (8.5-10.1) mg/dl Phosphorus 3.0 D (2.5-4.9) mg/dl Magnesium 2.7 H (1.8-2.4) mg/dl 04/26/21 04/25/21 04/25/21 Range/Units 04:35 23:55 18:21 WBC (4.8-10.8) K/uL RBC (4.7-6.1) M/uL Hgb (14.0-18.0) g/dL POC Hgb 13.9 L (14.0-18.0) g/dl Hct (42-52) % POC Hct 41 L (42-52) % MCV (80-100) fL MCH (25-34) pg MCHC (32-36) g/dL RDW Std Deviation (36.4-46.3) fL RDW Coeff of Elvin (11.5-14.5) % Plt Count (130-400) K/uL MPV (7.4-10.4) fL Immature Gran % (Auto) % Neut % (Auto) % Lymph % (Auto) % Carson % (Auto) % Eos % (Auto) % Baso % (Auto) % Neut # (Auto) (1.4-6.5) K/uL Lymph # (Auto) (1.2-3.4) K/uL Carson # (Auto) (0.11-0.59) K/uL Eos # (Auto) (0-0.5) K/uL Baso # (Auto) (0-0.2) K/uL Immature Gran # (Auto) (0.00-0.02) K/uL Sample Site Art Line POC pH 7.39 (7.35-7.45) POC pCO2 44 (35-46) mmHg POC pO2 72 L (80-95) mmHg POC HCO3 27 H (19-24) adrianne/L POC Total CO2 28 (24-31) mmol/L POC Base Excess 2.0 H (-9-1.8) adrianne/L ABG pH (Temp Correct) 7.393 (7.35-7.45) ABG pCO2 (Temp Corrct 44 (35-46) mmHg POC ABG pO2 at Pt Temp 72 POC ABG O2 Sat 94.0 (90-95) % Nikolas Test NA O2 Delivery Device Ventilator POC O2 Rate 15 POC FiO2 50 % Tidal Volume 500 PEEP 12 POC Sodium 141 (135-144) mmol/L Sodium (136-145) mmol/L POC Potassium 3.8 (3.3-5.0) mmol/L Potassium (3.5-5.1) mmol/L Chloride (98-107) mmol/L Carbon Dioxide (21-32) mmol/L Anion Gap (3-11) BUN (7-18) mg/dl Creatinine (0.6-1.4) mg/dl Est Cr Clr Drug Dosing ml/min Est GFR ( Amer) ml/min Est GFR (Non-Af Amer) ml/min BUN/Creatinine Ratio (10-20) Glucose (70-99) mg/dl POC Glucose 123 H (70-99) mg/dl POC Glucose (other) 170 H (70-99) mg/dl Calcium (8.5-10.1) mg/dl Phosphorus (2.5-4.9) mg/dl Magnesium (1.8-2.4) mg/dl Diagnostic Findings Chest X-Ray 04/26/21 07:00 XR chest 1V portable HISTORY: Respiratory failure. COMPARISON: Chest 04/24/2021. FINDINGS: The endotracheal tube is been pulled back and now resides approximately 5.8 cm from the smitha. This should be advanced by approximately 2 cm. Nasogastric tube terminates in the stomach. Right subclavian central venous catheter terminates at the distal SVC. Bilateral airspace opacities have slightly improved. There is a trace right pleural effusion, unchanged. The heart remains mildly enlarged. IMPRESSION: 1. Slight improvement in the bilateral airspace opacities consistent with a pneumonia. 2. The endotracheal tube terminates 5.8 cm from the smitha. This should be advanced by approximately 2 cm. ACT 112: Negative or not required by law. Electronically signed by: Anuj Chavira M.D. 04/26/2021 9:42 AM PG Care Time/CCT Total # of Minutes Spent Total Time Spent with Patient: Total time spent is greater than 50% in coordination of care (as documented) at patient's floor/unit and/or counseling patient: Coding Level of Care Code 13513 Subseq Hosp Care Lvl 2 Diagnoses COVID-19 U07.1 Acute respiratory failure with hypoxia J96.01 Hyperglycemia R73.9 Hyponatremia E87.1 Hypokalemia E87.6 Pneumonia due to COVID-19 virus U07.1; J12.82 Transaminitis R74.01
[2021-04-26] MEDS ORDERED: VECURONIUM BROMIDE 10 MG VIAL IV ONE (19:26)
[2021-04-26] MEDS ORDERED: VECURONIUM BROMIDE 10 MG VIAL IV STA ×3 (19:33→23:33)
[2021-04-26] MEDS: MIDAZOLAM HCL 125 MG/250 ML BAG IV SCH (22:26)
[2021-04-26] MEDS ORDERED: FUROSEMIDE 40 MG in SYRINGE 0 ML IV ONE (23:34)
[2021-04-26] MEDS ORDERED: STAT IV Infusion **Titration per Protocol STA (23:38)
[2021-04-26] MEDS ORDERED: FUROSEMIDE 40 MG/4 ML VIAL IV ONE (23:45)
[2021-04-26] MEDS: ARTIFICIAL TEARS OP OINT 3.5 GM TUBE OP SCH (23:57)
[2021-04-27] MEDS: TUBE FEEDING WATER FLUSH OG SCH ×6 (01:50→23:12)
[2021-04-27 04:38] LABS: iSTAT Art Bld Gas pCO2 Correct 43 mmHg (35-46); iSTAT Art Bld Gas pH Corrected 7.414 (7.35-7.45); iSTAT Arterial Blood Gas HCO3 28 meg/L (19-24); iSTAT Arterial Blood Gas pCO2 45 mmHg (35-46); iSTAT Arterial Blood Gas pO2 76 mmHg (80-95); iSTAT Arterial Blood Gas pO2 C 71; iSTAT Carbon Dioxide 29 mmol/L (24-31); iSTAT FiO2 40 %; iSTAT Hematocrit 35 % (42-52); iSTAT Hemoglobin 11.9 g/dl (14.0-18.0); iSTAT Potassium 4.1 mmol/L (3.3-5.0); iSTAT Site Art Line; iSTAT Sodium 141 mmol/L (135-144)
[2021-04-27] MEDS: CISATRACURIUM BESYLATE 40 MG in 0.9 % SODIUM CHLORIDE 80 ML IV SCH ×3 (05:09→23:13)
[2021-04-27 05:27] LABS: Eosinophils # (auto) 0.02 K/uL (0-0.5); Eosinophils % (auto) 0.3 %; Hematocrit (blood only) 38.9 % (42-52); Hemoglobin 13.1 g/dL (14.0-18.0); Immature Granulocytes # (auto) 0.09 K/uL (0.00-0.02); Immature Granulocytes % (auto) 1.2 %; Lymphocytes # (auto) 0.84 K/uL (1.2-3.4); Lymphocytes % (auto) 11.2 %; Mean Corpuscular Hemoglobin 31.8 pg (25-34); Mean Corpuscular Hgb Conc 33.7 g/dL (32-36); Mean Corpuscular Volume 94.4 fL (80-100); Mean Platelet Volume 9.4 fL (7.4-10.4); Monocytes # (auto) 0.41 K/uL (0.11-0.59); Monocytes % (auto) 5.5 %; Neutrophils # (auto) 6.13 K/uL (1.4-6.5); Neutrophils % (auto) 81.8 %; Platelet Count 259 K/uL (130-400); RDW Coefficient of Variation 13.1 % (11.5-14.5); RDW Standard Deviation 45.3 fL (36.4-46.3); Red Blood Count 4.12 M/uL (4.7-6.1); White Blood Count 7.49 K/uL (4.8-10.8)
[2021-04-27] MEDS: ARTIFICIAL TEARS OP OINT 3.5 GM TUBE OP SCH ×6 (05:30→23:13)
[2021-04-27 05:51] LABS: Albumin Level 2.8 gm/dl (3.4-5.0); Calcium 7.9 mg/dl (8.5-10.1); Creatinine Clr Calc Pharmacy 107.3 ml/min; Est GFR (Non-African American) 98.3 ml/min; Magnesium 2.7 mg/dl (1.8-2.4); Potassium 3.9 mmol/L (3.5-5.1)
[2021-04-27 05:53] LABS: Albumin Globulin Ratio 0.9 (0.9-2); Bilirubin,Total 0.7 mg/dl (0.2-1); C Reactive Protein 1.42 mg/dl (0-0.29); Globulin 3.1 gm/dl (2.5-4.0); Phosphorus 2.8 mg/dl (2.5-4.9); Total Protein 5.9 gm/dl (6.4-8.2)
[2021-04-27] MEDS: fentaNYL DRIP 1,250 MCG/250 ML BAG IV SCH ×3 (06:19→21:48)
[2021-04-27] MEDS: dexAMETHasone 6 MG in SYRINGE 0 ML IV SCH (08:45)
[2021-04-27] MEDS: MULTI VIT W/MINERALS LIQUID 15 ML UDP NG SCH (08:46)
[2021-04-27] MEDS: ENOXAPARIN 100 MG/1ML SYR SQ SCH ×2 (08:46→20:13)
--- NOTE | 2021-04-27 09:30 | XRay Report ---
XR chest 1V portable CLINICAL HISTORY: Respiratory failure. COMPARISON STUDY: Chest radiograph April 26, 2021. FINDINGS: Tip of endotracheal tube is 4.5 cm above the smitha. Tip of nasogastric tube is within the gastric fundus. Right subclavian central line is in place. There is no pneumothorax. No pleural effus ion is identified. Moderate bilateral airspace opacities persist. IMPRESSION: 1. Satisfactory positioning of lines and tubes. 2. Persistent bilateral airspace opacities which favor an infectious process. Pulmonary edema could a ppear similar although is considered less likely. ACT 112: Negative or not required by law. Electronically signed by: Jesse Enrique M.D. 04/27/2021 9:29 AM
--- NOTE | 2021-04-27 11:43 | Critical Care Progress Note ---
Date of Service April 27, 2021 Assessment & Plan (1) COVID-19: Plan: Reason critically ill: 66 yo M with no significant PMHx admitted with acute respiratory failure with hypoxia secondary to COVID-19 pneumonia admitted to ICU requiring close monitoring given tenuous respiratory status. NEURO: Undergoing neuromuscular blockade. Wean neuromuscular blockade to maintain ventilator synchrony. -Versed and fentanyl for sedation -Wean sedation as able CARDIAC/VASCULAR: No history of cardiac disease. Hypotension secondary to sedation. Continue Levophed to maintain mean arterial pressures above 65. Bradycardia -Asymptomatic RESPIRATORY: Acute hypoxic respiratory distress secondary to COVID-19 pneumonia - Patient received IV dexamethasone while admitted 04/20-04/21 and was discharged home on dexamethasone 4mg po daily - Continue dexamethasone IV 6mg daily while admitted -Intubated 04/24. Continue lung protective ventilation strategy. - Received tocilizumab therapy GI/NUTRITION: -Tube feedings RENAL/LYTES: No significant issues. Replace electrolytes per protocol. GENITOURINARY: No acute concerns. Strict Is/Os. ENDO: ICU hyperglycemia protocol. HEME: No significant issues at this time. Hemoglobin trended down slightly. We will continue to monitor. ID: COVID-19 pneumonia Lines/IV Access: PIV DVT Prophylaxis: Lovenox 90mg SQ q12h GI Prophylaxis: Pantoprazole CODE STATUS: FULL CODE CRITICAL CARE TIME - I have personally spent 35 minutes of critical care time in the direct management of this patient. This is a life/limb threatening event. This includes time spent evaluating patient, direct bedside care, chart review, placing orders, interpretation of diagnostic studies, discussion with consultants, patient, and family members, as well as other required patient management activities. This time is exclusive of all separately billable procedures, and teaching time and separate from and in addition to any other critical care service time. (2) Admitted to intensive care unit: (3) Acute respiratory failure with hypoxia: (4) Hypokalemia: (5) Bradycardia: Admission and Anticipated Discharge Date Admission Date: April 23, 2021 Subjective Patient seen and examined. Currently heavily sedated and on neuromuscular blockade. Continues with bradycardia and intermittent use of low-dose vasopressors. No significant events this morning. Review of Systems Review of Systems: Review of systems limited as patient currently intubated and on mechanical ventilation. Physical Exam Physical Exam: General: Sedated. nontoxic. Skin: Warm, dry, Head: Atraumatic Ears, nose, mouth and throat: airway obscured by endotracheal tube Cardiovascular: Normal peripheral perfusion Respiratory: Coarse sounds, ventilator settings reviewed Gastrointestinal: Non distended Musculoskeletal: No deformity Results & Data Results & Data ([facility]) Vital Signs (Past 12 Hours) Vital Signs Temp Pulse Resp BP Pulse Ox 04/27/21 10:11 98.6 F 45 L 115/62 90 04/27/21 09:11 99.0 F 49 L 104/57 L 89 L 04/27/21 08:11 98.8 F 48 L 104/56 L 91 04/27/21 07:36 47 L 15 91 04/27/21 07:11 98.2 F 46 L 107/61 92 04/27/21 04:09 15 04/27/21 04:00 48 L 112/51 L 04/27/21 00:00 48 L 112/51 L Vital signs, labs and improved reviewed Coding Level of Care Code Critical Care 1st 30-74 mins Diagnoses COVID-19 U07.1 Admitted to intensive care unit Z78.9 Acute respiratory failure with hypoxia J96.01 Hypokalemia E87.6 Bradycardia R00.1 Time Spent (min) 35
[2021-04-27] MEDS: PANTOprazole 40 MG in SYRINGE 0 ML IV SCH (12:21)
[2021-04-27] MEDS: DOCUSATE SODIUM/SENNA 50/8.6MG TAB PO SCH (12:21)
[2021-04-27] MEDS: POLYETHYLENE (MIRALAX) 17 GM PACK PO SCH (12:21)
--- NOTE | 2021-04-27 15:35 | Hospitalist Progress Note ---
Date of Service April 27, 2021 Assessment & Plan (1) COVID-19: Plan: 66yo C male presenting with worsening Covid-19 PNA Pulse ox could not be maintained above mid 70s on the morning of 04/24 and he was intubated, sedated, paralyzed and proned stable on ventilator, supine, on Fentanyl and Versed for sedation -Continue Dexamethasone 6mg IV daily x10-day course tocilizumab 600 mg x1 dose on 04/24 -Appreciate bioinformatics scientist management of ventilator follow [employer] protocol, try to wean PEEP and FiO2 (2) Acute respiratory failure with hypoxia: Plan: As above Secondary to COVID-19 pneumonia (3) Hyperglycemia: Plan: With some hyperglycemia likely secondary to corticosteroids following glucose closely, use Novolog PRN (4) Hyponatremia: Plan: borderline low sodium at 135 now back to normal Follow BMP (5) Hypokalemia: Plan: Replaced again today with 20 mEq potassium chloride IV Follow BMP, magnesium (6) Pneumonia due to COVID-19 virus: Plan: As above (7) Transaminitis: Plan: Mildly elevated AST Likely secondary to Covid-19 Follow LFTs periodically Plan: DVT prophylaxis-therapeutic Lovenox GI prophylaxis-IV Protonix FEN- tube feeds per ICU Disposition-continued stay in the ICU Admission and Anticipated Discharge Date Admission Date: April 23, 2021 Subjective reviewed chart and labs discussed with Dr. Paulino on Versed and Fentanyl for sedation Review of Systems Review of Systems: Unobtainable due to cognitive status and Unobtainable due to endotracheal tube Physical Exam Constitutional: well developed, well nourished, + ill appearing, + obese and + mechanically ventilated Neck: trachea midline, no thyromegaly Respiratory: symmetric chest movement Auscultation: lungs clear to auscultation bilaterally Cardiovascular: RRR, no murmur, no edema Gastrointestinal (Abdomen): normal bowel sounds, soft, nontender, no hepatosplenomegaly Skin: no rashes, warm and dry Neurologic: CN's II-XI intact bilaterally and + obtunded; no focal motor deficits Results & Data Results & Data ([facility]) Vital Signs (Past 12 Hours) Vital Signs Temp Pulse Resp BP Pulse Ox 04/27/21 12:11 36.6 C 52 L 128/68 83 L 04/27/21 11:25 44 L 17 90 04/27/21 11:11 36.8 C 45 L 113/63 91 04/27/21 10:11 37.0 C 45 L 115/62 90 04/27/21 09:11 37.2 C 49 L 104/57 L 89 L 04/27/21 08:11 37.1 C 48 L 104/56 L 91 04/27/21 07:36 47 L 15 04/27/21 07:11 36.8 C 46 L 107/61 92 04/27/21 04:09 15 04/27/21 04:00 48 L 112/51 L Laboratory Results Laboratory Results - last 24 hr 04/27/21 04/27/21 04/27/21 00:01 04:25 05:00 WBC 7.49 RBC 4.12 L Hgb 13.1 L POC Hgb 11.9 L Hct 38.9 L POC Hct 35 L MCV 94.4 MCH 31.8 MCHC 33.7 RDW Std Deviation 45.3 RDW Coeff of Elvin 13.1 Plt Count 259 MPV 9.4 Immature Gran % (Auto) 1.2 Neut % (Auto) 81.8 Lymph % (Auto) 11.2 Hill % (Auto) 5.5 Eos % (Auto) 0.3 Baso % (Auto) 0.0 Neut # (Auto) 6.13 Lymph # (Auto) 0.84 L Hill # (Auto) 0.41 Eos # (Auto) 0.02 Baso # (Auto) 0.00 Immature Gran # (Auto) 0.09 H Sample Site Art Line POC pH 7.40 POC pCO2 45 POC pO2 76 L POC HCO3 28 H POC Total CO2 29 POC Base Excess 3.0 H ABG pH (Temp Correct) 7.414 ABG pCO2 (Temp Corrct 43 POC ABG pO2 at Pt Temp 71 POC ABG O2 Sat 95.0 Nikolas Test NA O2 Delivery Device Ventilator POC O2 Rate 15 POC FiO2 40 Tidal Volume 500 PEEP 14 POC Sodium 141 Sodium POC Potassium 4.1 Potassium Chloride Carbon Dioxide Anion Gap BUN Creatinine Est Cr Clr Drug Dosing Est GFR ( Amer) Est GFR (Non-Af Amer) BUN/Creatinine Ratio Glucose POC Glucose 100 H Calcium Phosphorus Magnesium Total Bilirubin AST ALT Alkaline Phosphatase C-Reactive Protein Total Protein Albumin Globulin Albumin/Globulin Ratio 04/27/21 05:00 WBC RBC Hgb POC Hgb Hct POC Hct MCV MCH MCHC RDW Std Deviation RDW Coeff of Elvin Plt Count MPV Immature Gran % (Auto) Neut % (Auto) Lymph % (Auto) Hill % (Auto) Eos % (Auto) Baso % (Auto) Neut # (Auto) Lymph # (Auto) Hill # (Auto) Eos # (Auto) Baso # (Auto) Immature Gran # (Auto) Sample Site POC pH POC pCO2 POC pO2 POC HCO3 POC Total CO2 POC Base Excess ABG pH (Temp Correct) ABG pCO2 (Temp Corrct POC ABG pO2 at Pt Temp POC ABG O2 Sat Nikolas Test O2 Delivery Device POC O2 Rate POC FiO2 Tidal Volume PEEP POC Sodium Sodium 141 POC Potassium Potassium 3.9 Chloride 108 H Carbon Dioxide 27 Anion Gap 6.0 BUN 20 H Creatinine 0.70 Est Cr Clr Drug Dosing 107.3 Est GFR ( Amer) 114.0 Est GFR (Non-Af Amer) 98.3 BUN/Creatinine Ratio 28.0 H Glucose 107 H POC Glucose Calcium 7.9 L Phosphorus 2.8 Magnesium 2.7 H Total Bilirubin 0.7 AST 74 H ALT 85 H Alkaline Phosphatase 36 L C-Reactive Protein 1.42 H Total Protein 5.9 L Albumin 2.8 L Globulin 3.1 Albumin/Globulin Ratio 0.9 Medications Administered Current Inpatient Medications Acetaminophen (Acetaminophen 325 Mg Tab) 650 mg PO Q4H PRN PRN Reason: pain/fever Stop: 05/23/21 06:24 Albuterol (Albuterol Hfa 8 Gm Inhaler) 2 puffs INH Q4R PRN PRN Reason: sob Stop: 05/23/21 06:24 Enoxaparin Sodium (Enoxaparin 100 Mg/1ml Syr) 90 mg SQ Q12 SHIRLEY Stop: 05/23/21 20:59 Last Admin: 04/27/21 08:46 Dose: 90 mg Documented by: Fentanyl Citrate (Fentanyl Bolus From Bag) 50 mcg IV Q60M PRN PRN Reason: Pain or Agitation Stop: 05/08/21 11:20 Last Admin: 04/26/21 00:30 Dose: 50 mcg Documented by: Dexamethasone 6 mg/ Syringe 1.5 mls @ 1 mls/min IV DAILY SHIRLEY Stop: 04/30/21 23:59 Last Admin: 04/27/21 08:45 Dose: 1 mls/min Documented by: Pantoprazole Sodium 40 mg/ (Syringe) 10 mls @ 5 mls/min IV DAILY@1100 SHIRLEY Stop: 05/24/21 10:59 Last Admin: 04/27/21 12:21 Dose: 5 mls/min Documented by: Midazolam HCl (Versed) 125 mg in 250 mls @ 10 mls/hr IV .Q25H [facility]; Protocol Stop: 05/24/21 11:29 Last Titration: 04/27/21 12:22 Dose: 5 mg/hr, 10 mls/hr Documented by: Fentanyl Citrate (Fentanyl Drip) 1,250 mcg in 250 mls @ 25 mls/hr IV .Q10H [facility]; Protocol Stop: 05/08/21 11:29 Last Titration: 04/27/21 13:00 Dose: 125 mcg/hr, 25 mls/hr Documented by: Lactated Ringer's (Lr) 1,000 mls @ 0 mls/hr IV .Q0M [facility] Stop: 05/25/21 11:14 Last Infusion: 04/27/21 00:25 Dose: Infused Documented by: Norepinephrine Bitartrate (Levophed/D5w) 8 mg in 508 mls @ 0 mls/hr IV .Q0M [facility]; Protocol Stop: 05/25/21 11:59 Last Titration: 04/27/21 13:00 Dose: 0 mcg/kg/min, 0 mls/hr Documented by: Cisatracurium Besylate 40 mg/ (Sodium Chloride) 100 mls @ 6.93 mls/hr IV .[id number] [facility]; Protocol Stop: 05/26/21 23:44 Last Titration: 04/27/21 13:00 Dose: 0.7 mcg/kg/min, 6.9 mls/hr Documented by: Midazolam HCl (Midazolam Bolus From Bag) 2 mg IV Q60M PRN PRN Reason: Sedation Stop: 05/24/21 11:20 Last Admin: 04/24/21 13:04 Dose: 2 mg Documented by: Multi-Ingredient Cream (Artificial Tears Op Oint 3.5 Gm Tube) 1 appln OP UD PRN PRN Reason: DRY EYES Stop: 05/24/21 18:26 Last Admin: 04/25/21 08:26 Dose: 1 appln Documented by: Multi-Ingredient Cream (Artificial Tears Op Oint 3.5 Gm Tube) 1 appln OP Q4H [facility] Stop: 05/26/21 23:44 Last Admin: 04/27/21 12:22 Dose: 1 appln Documented by: Multivitamins/Minerals (Multi Vit W/Minerals Liquid 15 Ml Udp) 15 ml NG QAM [facility]LEY Stop: 05/25/21 08:59 Last Admin: 04/27/21 08:46 Dose: 15 ml Documented by: Nutritional Formula (Peptamen Intense Vhp 1.0 Asad 1,000 Ml Bag) 1,000 ml OG UD [facility]; Protocol Stop: 05/24/21 13:14 Last Admin: 04/24/21 17:36 Dose: 1,000 ml Documented by: Ondansetron HCl (Ondansetron Inj 2 Mg/Ml 2 Ml Vial) 4 mg IV Q6H PRN PRN Reason: Nausea Stop: 05/23/21 06:24 Polyethylene Glycol (Polyethylene (Miralax) 17 Gm Pack) 17 gm PO DAILY SHIRLEY Stop: 05/27/21 09:44 Last Admin: 04/27/21 12:21 Dose: 17 gm Documented by: Senna/Docusate Sodium (Docusate Sodium/Senna 50/8.6mg Tab) 1 tab PO QAM SHIRLEY Stop: 05/27/21 09:44 Last Admin: 04/27/21 12:21 Dose: 1 tab Documented by: Sterile Water (Tube Feeding Water Flush) 30 ml OG Q4H [facility]LEY Stop: 05/24/21 13:14 Last Admin: 04/27/21 12:22 Dose: 30 ml Documented by: PG Care Time/CCT Total # of Minutes Spent Total Time Spent with Patient: Total time spent is greater than 50% in coordination of care (as documented) at patient's floor/unit and/or counseling patient: Coding Level of Care Code 05479 Subseq Hosp Care Lvl 2 Diagnoses COVID-19 U07.1 Acute respiratory failure with hypoxia J96.01 Hyperglycemia R73.9 Hyponatremia E87.1 Hypokalemia E87.6 Pneumonia due to COVID-19 virus U07.1; J12.82 Transaminitis R74.01
[2021-04-27] MEDS: MIDAZOLAM HCL 125 MG/250 ML BAG IV SCH (15:38)
[2021-04-27] MEDS: PEPTAMEN INTENSE VHP 1.0 CAL 1,000 ML BAG OG SCH (15:39)
[2021-04-27] MEDS ORDERED: OPTIRAY 320 125ml IV ONE (16:39)
[2021-04-27] MEDS: MIDAZOLAM BOLUS FROM BAG IV PRN (17:05)
[2021-04-27] MEDS ORDERED: VECURONIUM BROMIDE 10 MG VIAL IV ONE (17:12)
--- NOTE | 2021-04-27 17:53 | CT Scan Report ---
CT ANGIOGRAM OF THE CHEST CLINICAL HISTORY: PE COMPARISON STUDY: No previous studies for comparison. TECHNIQUE: Following the IV administration of mL of Optiray, CT angiogram of the thorax was performed from the thoracic inlet to the lung bases utilizing the pulmonary embolus protocol. Images are revie wed in the axial, sagittal, and coronal planes. IV contrast was administered without complication. PA P imaging was performed. A dose lowering technique was utilized adhering to the principles of ALARA. CT DOSE: 853.78 mGy.cm FINDINGS: There is adequate opacification within main pulmonary artery. No pulmonary embolus is seen. Main pulmonary artery is normal in caliber. No evidence of right heart strain. Mild four-chamber cardiomegaly. No pericardial effusion. Minimal coronary calcifications are seen. Visualized portion of thyroid gland shows no evidence of focal lesions. Mild hiatal hernia. Gastric t ube is seen within its distal aspect below level of left hemidiaphragm which is partially outside of [id number]. There is no axillary, supra clavicle or internal mammary lymphadenopathy seen. Slightly prominent med iastinal and subcarinal lymph nodes measuring up to 1.4 cm in short axis, likely reactive. There was no evidence of thoracic aortic dilatation. Tracheobronchial tree is patent. Endotracheal tube is terminating within lumen of intrathoracic trach ea. Diffuse groundglass opacities with superimposed patchy infiltrative component are seen throughout tamia ateral lungs, most prominent within bilateral lower lobes. Patent bronchial structures are seen withi n consolidated lung parenchyma. Few patchy areas of normally aerated lung parenchyma are seen. No pleural effusion is seen. Limited evaluation of upper abdominal viscera shows no evidence of acute abnormalities. Osseous structures: Minimal degenerative changes of the spine. IMPRESSION: No evidence of pulmonary embolus. No secondary signs of pulmonary embolus. Diffuse groundglass and infiltrative opacities involving bilateral lungs representing pneumonia. The rest of findings as above. ACT 112: Negative or not required by law. The above report was generated using voice recognition software. It may contain grammatical, syntax o r spelling errors. Electronically signed by: Lydia Jones DO 04/27/2021 5:52 PM
[2021-04-27 18:25] LABS: iSTAT Art Bld Gas pCO2 Correct 70 mmHg (35-46); iSTAT Art Bld Gas pH Corrected 7.238 (7.35-7.45); iSTAT Arterial Blood Gas HCO3 30 meg/L (19-24); iSTAT Arterial Blood Gas pCO2 72 mmHg (35-46); iSTAT Arterial Blood Gas pH 7.23 (7.35-7.45); iSTAT Arterial Blood Gas pO2 146 mmHg (80-95); iSTAT Arterial Blood Gas pO2 C 140; iSTAT Carbon Dioxide 32 mmol/L (24-31); iSTAT FiO2 80 %; iSTAT Hematocrit 40 % (42-52); iSTAT Hemoglobin 13.6 g/dl (14.0-18.0); iSTAT Potassium 4.7 mmol/L (3.3-5.0); iSTAT Site Art Line; iSTAT Sodium 141 mmol/L (135-144)
[2021-04-28] MEDS: TUBE FEEDING WATER FLUSH OG SCH ×6 (03:31→23:50)
[2021-04-28] MEDS: ARTIFICIAL TEARS OP OINT 3.5 GM TUBE OP SCH ×5 (03:32→23:50)
[2021-04-28] MEDS: fentaNYL DRIP 1,250 MCG/250 ML BAG IV SCH ×3 (04:47→21:09)
[2021-04-28 05:01] LABS: iSTAT Art Bld Gas pCO2 Correct 72 mmHg (35-46); iSTAT Art Bld Gas pH Corrected 7.264 (7.35-7.45); iSTAT Arterial Blood Gas HCO3 33 meg/L (19-24); iSTAT Arterial Blood Gas pCO2 74 mmHg (35-46); iSTAT Arterial Blood Gas pH 7.26 (7.35-7.45); iSTAT Arterial Blood Gas pO2 92 mmHg (80-95); iSTAT Arterial Blood Gas pO2 C 90; iSTAT Carbon Dioxide 35 mmol/L (24-31); iSTAT FiO2 45 %; iSTAT Hematocrit 40 % (42-52); iSTAT Hemoglobin 13.6 g/dl (14.0-18.0); iSTAT Potassium 4.8 mmol/L (3.3-5.0); iSTAT Site Art Line; iSTAT Sodium 141 mmol/L (135-144)
[2021-04-28] MEDS: CISATRACURIUM BESYLATE 40 MG in 0.9 % SODIUM CHLORIDE 80 ML IV SCH ×3 (05:27→20:07)
[2021-04-28 06:02] LABS: BUN Creatinine Ratio 27.2 (10-20); Calcium 7.9 mg/dl (8.5-10.1); Creatinine Clr Calc Pharmacy 101.7 ml/min; Est GFR (African American) 110.8 ml/min; Est GFR (Non-African American) 95.6 ml/min; Magnesium 2.6 mg/dl (1.8-2.4); Potassium 4.7 mmol/L (3.5-5.1)
[2021-04-28 06:06] LABS: Phosphorus 4.1 mg/dl (2.5-4.9)
[2021-04-28 06:21] LABS: Basophils # (auto) 0.02 K/uL (0-0.2); Basophils % (auto) 0.2 %; Eosinophils # (auto) 0.01 K/uL (0-0.5); Eosinophils % (auto) 0.1 %; Hematocrit (blood only) 42.4 % (42-52); Hemoglobin 13.8 g/dL (14.0-18.0); Immature Granulocytes # (auto) 0.34 K/uL (0.00-0.02); Immature Granulocytes % (auto) 3.2 %; Lymphocytes # (auto) 0.75 K/uL (1.2-3.4); Lymphocytes % (auto) 7.1 %; Mean Corpuscular Hemoglobin 32.4 pg (25-34); Mean Corpuscular Hgb Conc 32.5 g/dL (32-36); Mean Corpuscular Volume 99.5 fL (80-100); Mean Platelet Volume 9.3 fL (7.4-10.4); Monocytes # (auto) 0.62 K/uL (0.11-0.59); Monocytes % (auto) 5.9 %; Neutrophils # (auto) 8.75 K/uL (1.4-6.5); Neutrophils % (auto) 83.5 %; Platelet Count 310 K/uL (130-400); RDW Coefficient of Variation 13.3 % (11.5-14.5); RDW Standard Deviation 48.5 fL (36.4-46.3); Red Blood Count 4.26 M/uL (4.7-6.1); White Blood Count 10.49 K/uL (4.8-10.8)
[2021-04-28] MEDS: dexAMETHasone 6 MG in SYRINGE 0 ML IV SCH (08:07)
[2021-04-28] MEDS: ENOXAPARIN 100 MG/1ML SYR SQ SCH (08:09)
[2021-04-28] MEDS: MULTI VIT W/MINERALS LIQUID 15 ML UDP NG SCH (08:09)
[2021-04-28] MEDS: DOCUSATE SODIUM/SENNA 50/8.6MG TAB PO SCH (08:09)
[2021-04-28] MEDS: POLYETHYLENE (MIRALAX) 17 GM PACK PO SCH (08:10)
--- NOTE | 2021-04-28 09:39 | Critical Care Progress Note ---
Date of Service April 28, 2021 Assessment & Plan (1) COVID-19: Plan: Reason critically ill: 66 yo M with no significant PMHx admitted with acute respiratory failure with hypoxia secondary to COVID-19 pneumonia admitted to ICU requiring close monitoring given tenuous respiratory status. NEURO: Continue to wean sedation as able. Goal RASS of -2. Currently on neuromuscular blockade to promote ventilator synchrony. CARDIAC/VASCULAR: No history of cardiac disease. Hypotension secondary to sedation. Continue Levophed to maintain mean arterial pressures above 65. Bradycardia -Asymptomatic RESPIRATORY: Acute hypoxic respiratory distress secondary to COVID-19 pneumonia - Continue dexamethasone IV 6mg daily while admitted -Intubated 04/24. Continue lung protective ventilation strategy. - Received tocilizumab therapy -Chest CTA completed 04/27/2021 with diffuse groundglass opacities and dense bibasilar atelectasis. Oxygenation is improved with pronation. GI/NUTRITION: -Tube feedings - Continue docusate and senna and MiraLAX. RENAL/LYTES: No significant issues. Replace electrolytes per protocol. Approximately 3 L positive since admission. We will give a dose of 20 mg IV Lasix. GENITOURINARY: No acute concerns. Strict Is/Os. ENDO: ICU hyperglycemia protocol. HEME: No significant issues at this time. ID: COVID-19 pneumonia Lines/IV Access: PIV DVT Prophylaxis: Lovenox 90mg SQ q12h GI Prophylaxis: Pantoprazole CODE STATUS: FULL CODE Overall prognosis very guarded. Palliative care has been consulted. CRITICAL CARE TIME - I have personally spent 39 minutes of critical care time in the direct management of this patient. This is a life/limb threatening event. This includes time spent evaluating patient, direct bedside care, chart review, placing orders, interpretation of diagnostic studies, discussion with consultants, patient, and family members, as well as other required patient management activities. This time is exclusive of all separately billable procedures, and teaching time and separate from and in addition to any other critical care service time. (2) Admitted to intensive care unit: (3) Acute respiratory failure with hypoxia: (4) Hypokalemia: (5) Bradycardia: Admission and Anticipated Discharge Date Admission Date: April 23, 2021 Subjective Patient seen and examined this morning. Remains prominent since approximately 5 PM last night. He is currently on neuromuscular blockade and high doses of continuous sedatives. Review of systems limited. Currently on 45% FiO2 and a PEEP of 18. No significant overnight events. Review of Systems Review of Systems: Unobtainable due to cognitive status and Unobtainable due to endotracheal tube Physical Exam Physical Exam: Constitutional: Patient is currently proned and on neuromuscular blockade. Eyes: Difficult to assess given his pronation status. Ears nose, mouth and throat: Endotracheal tube is in place. Neck: Trachea is midline. Visual inspection is normal. Respiratory: Diminished bilaterally. Synchronous with the ventilator. Cardiovascular: Regular rate and rhythm. No murmurs. No edema. Gastrointestinal: Normal bowel sounds, soft, nontender and nondistended. No hepatosplenomegaly noted. Musculoskeletal: Currently on neuromuscular blockade and thus difficult to assess. Skin: No rashes, warm dry and intact. Neurologic: Currently on neuromuscular blockade and difficult to assess. Psychiatric: Unable to assess. Results & Data Results & Data ([facility]) Vital Signs (Past 12 Hours) Vital Signs Temp Pulse Resp BP Pulse Ox 04/28/21 08:20 64 28 H 92 04/28/21 05:16 97.9 F 66 144/80 H 92 04/28/21 05:01 28 H 04/28/21 04:31 24 04/28/21 04:16 97.9 F 67 141/79 H 93 04/28/21 04:00 78 131/70 04/28/21 03:16 98.1 F 74 136/74 92 04/28/21 02:16 98.2 F 74 137/73 92 04/28/21 01:16 98.2 F 77 132/70 91 04/28/21 00:16 98.1 F 78 131/70 91 04/28/21 00:15 24 04/28/21 00:00 78 131/71 04/27/21 23:16 97.9 F 79 138/75 90 04/27/21 22:16 97.3 F L 78 141/73 H 91 Vital signs, labs and imaging reviewed Coding Level of Care Code Critical Care 1st 30-74 mins Diagnoses COVID-19 U07.1 Admitted to intensive care unit Z78.9 Acute respiratory failure with hypoxia J96.01 Hypokalemia E87.6 Bradycardia R00.1 Time Spent (min) 39
[2021-04-28] MEDS ORDERED: FUROSEMIDE 20 MG in SYRINGE 0 ML IV ONE (09:45)
[2021-04-28] MEDS: MIDAZOLAM HCL 125 MG/250 ML BAG IV SCH (10:17)
--- NOTE | 2021-04-28 11:51 | Palliative Care Consultation ---
Date of Consultation April 28, 2021 Assessment & Plan (1) Palliative care encounter: I spoke with Mrs. Luu, who in addition to dealing with Covid infection, has Stage IV cancer and is receiving palliative treatment. She lives in an apartment in the same house as her daughter and son in law. She has another daughter, Leia Villarreal, who recently returned to the area from [place] and has been a major support to her. Mrs. Luu is very anxious about her 's prognosis and is praying for recovery. She does understand that he is quite ill. She has asked that I talk with Leia because she forgets information. I did call Leia as well. I gave her an update on her father's status. She tells me that he has not really talked about the care that he would want if he were very ill. She is certain that he would want full treatment at this time and Mrs. Luu has requested full treatment as well. Leia does understand that if he were to become vent dependent or was not able to survive, she would not want him to be uncomfortable or have his life unnecessarily prolonged. She is grateful for updates and agreeable to ongoing f/u with palliative care. We will follow. (2) Hypoxia: (3) Pneumonia due to COVID-19 virus: (4) Bradycardia: History of Present Illness Reason for Consultation: goals of care Requesting Physician: Dr. Paulino Attending Physician: Tyrone Perdomo DO History of Present Illness 66 yo gentleman with no significant past medical history who was admitted from 04/20-04/22 for treatment of covid pneumonia. He was discharged to home with home O2 but readmitted on 04/23 with hypoxia and shortness of breath. He was subsequently intubated on 04/24 and remains on vent support with sedation at this time. He has also had bradycardia and intermittent hypotension requiring pressors. His daughter is also hospitalized with covid but improving and his is quarantined at home with covid. He is unable to provide any history or discuss goals of care. Allergies Allergy/AdvReac Type Severity Reaction Status Date / Time No Known Allergies Allergy Verified 04/23/21 00:29 Home Medications Medication Instructions Recorded Confirmed Type Oxygen Home #2 ea 04/21/21 Rx codeine 10 mg-guaifenesin 100 mg/5 10 ml PO Q6H PRN #120 ml 04/21/21 04/23/21 Rx mL oral liquid dexamethasone 2 mg tablet 4 mg PO DAILY 04/23/21 04/23/21 History Patient History Medical History Bradycardia No significant past medical history Surgical History No significant past surgical history Family History Other No significant family history Social History Smoking Status: Never smoker Second Hand Exposure: No; Hx Alcohol Use: Yes Alcohol type: beer Alcohol Intake Frequency: Monthly or Less Hx Substance Use: No Preferred Language: Citizen Of [place] Communication Ability: Unable Gill Tender Required: No Beliefs That Will Affect Care: None marital status: Current Living Situation: Spouse and Family Current Living Situation Comment: Pt lives with spouse, daughter, and son-in-law, grandchildrean Feels Safe at Home: Yes Assistive Devices: Oxygen - Continuous Review of Systems Review of Systems: Unobtainable due to endotracheal tube and Unobtainable due to reduced consciousness [place] Symptom Assessment Score Pain 0/3 Palliative Performance Score 10% Physical Exam Constitutional: + ill appearing and + mechanically ventilated prone Respiratory: AC setting on vent with PEEP 18 and FiO2 40 Cardiovascular: Rate/Rhythm: regular rate and regular rhythm Neurologic: + obtunded Genitourinary: Valadez catheter. Results & Data ([facility]) Vital Signs (Past 12 Hours) Vital Signs Temp Pulse Resp BP Pulse Ox 04/28/21 10:49 66 28 H 97 04/28/21 08:20 64 28 H 92 04/28/21 05:16 97.9 F 66 144/80 H 92 04/28/21 05:01 28 H 04/28/21 04:31 24 04/28/21 04:16 97.9 F 67 141/79 H 93 04/28/21 04:00 78 131/70 04/28/21 03:16 98.1 F 74 136/74 92 04/28/21 02:16 98.2 F 74 137/73 92 04/28/21 01:16 98.2 F 77 132/70 91 04/28/21 00:16 98.1 F 78 131/70 91 04/28/21 00:15 24 04/28/21 00:00 78 131/71 PG Care Time/CCT Total # of Minutes Spent Total Time Spent: 75 Total Time Spent with Patient: Total time spent is greater than 50% in coordination of care (as documented) at patient's floor/unit and/or counseling patient: family education and support, goals of care Coding Level of Care Code 39289 Initial Inpt Care Lvl 3 Diagnoses Hypoxia R09.02 Pneumonia due to COVID-19 virus U07.1; J12.82 Bradycardia R00.1 Palliative care encounter Z51.5
[2021-04-28] MEDS: PANTOprazole 40 MG in SYRINGE 0 ML IV SCH (12:46)
--- NOTE | 2021-04-28 13:52 | XRay Report ---
XR chest 1V portable INDICATION: MN ^Resp failure ^PT PRONE, TO BE TURNED AROUND 11 - ICU TO CALL. TECHNIQUE: Single frontal radiograph of the chest was obtained. Comparison: Comparison is made to chest one view 04/26/2021 FINDINGS: Lines and tubes are stable. The cardiomediastinal silhouette is stable. Persistent airspace opacities are seen, slightly improved from prior exam. No evidence of pleural effusion or pneumothorax. IMPRESSION: Persistent airspace opacities favored to represent pneumonia, slightly improved from prior exam. ACT 112: Negative or not required by law. Electronically signed by: Tyrone Johnson M.D. 04/28/2021 1:51 PM
--- NOTE | 2021-04-28 16:08 | XCELERA ---
[id number] \\[id number]
--- NOTE | 2021-04-28 17:14 | Hospitalist Progress Note ---
Date of Service April 28, 2021 Assessment & Plan (1) COVID-19: Plan: 66yo C male presenting with worsening Covid-19 PNA Pulse ox could not be maintained above mid 70s on the morning of 04/24 and he was intubated, sedated, paralyzed and proned stable on ventilator, supine, on Fentanyl and Versed for sedation -Continue Dexamethasone 6mg IV daily x10-day course tocilizumab 600 mg x1 dose on 04/24 -Appreciate peer educator management of ventilator follow [employer] protocol, try to wean PEEP and FiO2, still on high PEEP of 18 today paralyze to allow for ventilator synchrony labs in the morning palliative consulted to have ongoing discussion about goals of care (2) Acute respiratory failure with hypoxia: Plan: As above Secondary to COVID-19 pneumonia (3) Hyperglycemia: Plan: With some hyperglycemia likely secondary to corticosteroids following glucose closely, use Novolog PRN (4) Hyponatremia: Plan: borderline low sodium at 135 now back to normal Follow BMP (5) Hypokalemia: Plan: replace per ICU protocol (6) Pneumonia due to COVID-19 virus: Plan: As above (7) Transaminitis: Plan: Mildly elevated AST Likely secondary to Covid-19 Follow LFTs periodically Plan: DVT prophylaxis-therapeutic Lovenox GI prophylaxis-IV Protonix FEN- tube feeds per ICU Disposition-continued stay in the ICU Admission and Anticipated Discharge Date Admission Date: April 23, 2021 Subjective patient intubated, PEEP 18, FiO2 45% reviewed labs Dr. Paulino has asked palliative care to follow patient, speak with family about goals of care as we proceed Review of Systems Review of Systems: Unobtainable due to endotracheal tube Physical Exam Constitutional: well developed, well nourished, + ill appearing and + m echanically ventilated Neck: trachea midline, no thyromegaly Respiratory: symmetric chest movement Auscultation: lungs clear to auscultation bilaterally Cardiovascular: RRR, no murmur, no edema Gastrointestinal (Abdomen): normal bowel sounds, soft, nontender, no hepatosplenomegaly Skin: no rashes, warm and dry Neurologic: CN's II-XI intact bilaterally and + obtunded; no focal motor deficits Results & Data Results & Data ([facility]) Vital Signs (Past 12 Hours) Vital Signs Temp Pulse Resp BP Pulse Ox 04/28/21 15:58 36.6 C 47 L 94/61 L 93 04/28/21 15:15 47 L 28 H 93 04/28/21 14:58 36.7 C 48 L 97/67 L 92 04/28/21 13:58 36.6 C 55 L 116/75 94 04/28/21 12:58 36.6 C 57 L 119/76 94 04/28/21 12:05 36.6 C 58 L 167/89 H 94 04/28/21 11:58 36.6 C 58 L 147/85 H 92 04/28/21 10:58 36.6 C 59 L 144/77 H 91 04/28/21 10:49 66 28 H 97 04/28/21 10:16 36.7 C 62 136/79 92 04/28/21 09:16 36.7 C 62 134/75 92 04/28/21 08:20 64 28 H 92 04/28/21 08:16 36.7 C 62 133/73 92 04/28/21 07:16 36.7 C 62 131/75 92 04/28/21 05:16 36.6 C 66 144/80 H 92 Laboratory Results Laboratory Results - last 24 hr 04/27/21 04/28/21 04/28/21 18:11 04:47 04:49 WBC RBC Hgb POC Hgb 13.6 L 13.6 L Hct POC Hct 40 L 40 L MCV MCH MCHC RDW Std Deviation RDW Coeff of Elvin Plt Count MPV Immature Gran % (Auto) Neut % (Auto) Lymph % (Auto) [place] % (Auto) Eos % (Auto) Baso % (Auto) Neut # (Auto) Lymph # (Auto) [place] # (Auto) Eos # (Auto) Baso # (Auto) Immature Gran # (Auto) Sample Site Art Line Art Line POC pH 7.23 L 7.26 L POC pCO2 72 H 74 H POC pO2 146 H 92 POC HCO3 30 H 33 H POC Total CO2 32 H 35 H POC Base Excess 2.0 H 6.0 H ABG pH (Temp Correct) 7.238 L 7.264 L ABG pCO2 (Temp Corrct 70 H 72 H POC ABG pO2 at Pt Temp 140 90 POC ABG O2 Sat 99.0 H 95.0 Nikolas Test NA NA O2 Delivery Device Ventilator Ventilator POC O2 Rate 22 24 POC FiO2 80 45 Tidal Volume 320 320 PEEP 18 18 POC Sodium 141 141 Sodium POC Potassium 4.7 4.8 Potassium Chloride Carbon Dioxide Anion Gap BUN Creatinine Est Cr Clr Drug Dosing Est GFR ( Amer) Est GFR (Non-Af Amer) BUN/Creatinine Ratio Glucose POC Glucose 90 Calcium Phosphorus Magnesium 04/28/21 04/28/21 04/28/21 05:10 05:10 12:01 WBC 10.49 RBC 4.26 L Hgb 13.8 L POC Hgb Hct 42.4 POC Hct MCV 99.5 D MCH 32.4 MCHC 32.5 RDW Std Deviation 48.5 H RDW Coeff of Elvin 13.3 Plt Count 310 MPV 9.3 Immature Gran % (Auto) 3.2 Neut % (Auto) 83.5 Lymph % (Auto) 7.1 [place] % (Auto) 5.9 Eos % (Auto) 0.1 Baso % (Auto) 0.2 Neut # (Auto) 8.75 H Lymph # (Auto) 0.75 L [place] # (Auto) 0.62 H Eos # (Auto) 0.01 Baso # (Auto) 0.02 Immature Gran # (Auto) 0.34 H Sample Site POC pH POC pCO2 POC pO2 POC HCO3 POC Total CO2 POC Base Excess ABG pH (Temp Correct) ABG pCO2 (Temp Corrct POC ABG pO2 at Pt Temp POC ABG O2 Sat Nikolas Test O2 Delivery Device POC O2 Rate POC FiO2 Tidal Volume PEEP POC Sodium Sodium 140 POC Potassium Potassium 4.7 D Chloride 108 H Carbon Dioxide 30 Anion Gap 2.0 L BUN 20 H Creatinine 0.75 Est Cr Clr Drug Dosing 101.7 Est GFR ( Amer) 110.8 Est GFR (Non-Af Amer) 95.6 BUN/Creatinine Ratio 27.2 H Glucose 104 H POC Glucose 143 H Calcium 7.9 L Phosphorus 4.1 D Magnesium 2.6 H 04/28/21 17:00 WBC RBC Hgb POC Hgb Hct POC Hct MCV MCH MCHC RDW Std Deviation RDW Coeff of Elvin Plt Count MPV Immature Gran % (Auto) Neut % (Auto) Lymph % (Auto) [place] % (Auto) Eos % (Auto) Baso % (Auto) Neut # (Auto) Lymph # (Auto) [place] # (Auto) Eos # (Auto) Baso # (Auto) Immature Gran # (Auto) Sample Site POC pH POC pCO2 POC pO2 POC HCO3 POC Total CO2 POC Base Excess ABG pH (Temp Correct) ABG pCO2 (Temp Corrct POC ABG pO2 at Pt Temp POC ABG O2 Sat Nikolas Test O2 Delivery Device POC O2 Rate POC FiO2 Tidal Volume PEEP POC Sodium Sodium POC Potassium Potassium Chloride Carbon Dioxide Anion Gap BUN Creatinine Est Cr Clr Drug Dosing Est GFR ( Amer) Est GFR (Non-Af Amer) BUN/Creatinine Ratio Glucose POC Glucose 134 H Calcium Phosphorus Magnesium Medications Administered Current Inpatient Medications Acetaminophen (Acetaminophen 325 Mg Tab) 650 mg PO Q4H PRN PRN Reason: pain/fever Stop: 05/23/21 06:24 Albuterol (Albuterol Hfa 8 Gm Inhaler) 2 puffs INH Q4R PRN PRN Reason: sob Stop: 05/23/21 06:24 Enoxaparin Sodium (Enoxaparin Inj 40 Mg/0.4 Ml Syr) 40 mg SQ QAM [facility] Stop: 05/29/21 08:59 Fentanyl Citrate (Fentanyl Bolus From Bag) 50 mcg IV Q60M PRN PRN Reason: Pain or Agitation Stop: 05/08/21 11:20 Last Admin: 04/27/21 17:05 Dose: 50 mcg Documented by: Dexamethasone 6 mg/ Syringe 1.5 mls @ 1 mls/min IV DAILY [facility] Stop: 04/30/21 23:59 Last Admin: 04/28/21 08:07 Dose: 1 mls/min Documented by: Pantoprazole Sodium 40 mg/ (Syringe) 10 mls @ 5 mls/min IV DAILY@1100 [facility] Stop: 05/24/21 10:59 Last Admin: 04/28/21 12:46 Dose: 5 mls/min Documented by: Midazolam HCl (Versed) 125 mg in 250 mls @ 12 mls/hr IV .[id number] [facility]; Protocol Stop: 05/24/21 11:29 Last Admin: 04/28/21 10:17 Dose: 6 mg/hr, 12 mls/hr Documented by: Fentanyl Citrate (Fentanyl Drip) 1,250 mcg in 250 mls @ 35 mls/hr IV .Q7H9M [facility]; Protocol Stop: 05/08/21 11:29 Last Admin: 04/28/21 13:17 Dose: 175 mcg/hr, 35 mls/hr Documented by: Cisatracurium Besylate 40 mg/ (Sodium Chloride) 100 mls @ 6.93 mls/hr IV .[id number] [facility]; Protocol Stop: 05/26/21 23:44 Last Admin: 04/28/21 12:44 Dose: 1.5 mcg/kg/min, 14.9 mls/hr Documented by: Midazolam HCl (Midazolam Bolus From Bag) 2 mg IV Q60M PRN PRN Reason: Sedation Stop: 05/24/21 11:20 Last Admin: 04/27/21 17:05 Dose: 2 mg Documented by: Multi-Ingredient Cream (Artificial Tears Op Oint 3.5 Gm Tube) 1 appln OP Q4H [facility] Stop: 05/26/21 23:44 Last Admin: 04/28/21 12:46 Dose: 1 appln Documented by: Multivitamins/Minerals (Multi Vit W/Minerals Liquid 15 Ml Udp) 15 ml NG QAM [facility] Stop: 05/25/21 08:59 Last Admin: 04/28/21 08:09 Dose: 15 ml Documented by: Nutritional Formula (Peptamen Intense Vhp 1.0 Asad 1,000 Ml Bag) 1,000 ml OG UD [facility]; Protocol Stop: 05/24/21 13:14 Last Admin: 04/27/21 15:39 Dose: 1,000 ml Documented by: Ondansetron HCl (Ondansetron Inj 2 Mg/Ml 2 Ml Vial) 4 mg IV Q6H PRN PRN Reason: Nausea Stop: 05/23/21 06:24 Polyethylene Glycol (Polyethylene (Miralax) 17 Gm Pack) 17 gm PO DAILY [facility] Stop: 05/27/21 09:44 Last Admin: 04/28/21 08:10 Dose: 17 gm Documented by: Senna/Docusate Sodium (Docusate Sodium/Senna 50/8.6mg Tab) 1 tab PO QAM [facility] Stop: 05/27/21 09:44 Last Admin: 04/28/21 08:09 Dose: 1 tab Documented by: Sterile Water (Tube Feeding Water Flush) 30 ml OG Q4H [facility] Stop: 05/24/21 13:14 Last Admin: 04/28/21 13:17 Dose: 30 ml Documented by: PG Care Time/CCT Total # of Minutes Spent Total Time Spent with Patient: Total time spent is greater than 50% in coordination of care (as documented) at patient's floor/unit and/or counseling patient: Coding Level of Care Code 61510 Subseq Hosp Care Lvl 2 Diagnoses COVID-19 U07.1 Acute respiratory failure with hypoxia J96.01 Hyperglycemia R73.9 Hyponatremia E87.1 Hypokalemia E87.6 Pneumonia due to COVID-19 virus U07.1; J12.82 Transaminitis R74.01
[2021-04-28] MEDS: PEPTAMEN INTENSE VHP 1.0 CAL 1,000 ML BAG OG SCH (17:33)
[2021-04-29] MEDS: CISATRACURIUM BESYLATE 40 MG in 0.9 % SODIUM CHLORIDE 80 ML IV SCH ×4 (02:29→23:40)
[2021-04-29] MEDS: TUBE FEEDING WATER FLUSH OG SCH ×6 (03:48→21:44)
[2021-04-29] MEDS: ARTIFICIAL TEARS OP OINT 3.5 GM TUBE OP SCH ×5 (03:49→20:55)
[2021-04-29 04:14] LABS: iSTAT Art Bld Gas pCO2 Correct 54 mmHg (35-46); iSTAT Art Bld Gas pH Corrected 7.387 (7.35-7.45); iSTAT Arterial Blood Gas HCO3 32 meg/L (19-24); iSTAT Arterial Blood Gas pCO2 55 mmHg (35-46); iSTAT Arterial Blood Gas pH 7.38 (7.35-7.45); iSTAT Arterial Blood Gas pO2 95 mmHg (80-95); iSTAT Arterial Blood Gas pO2 C 92; iSTAT Carbon Dioxide 34 mmol/L (24-31); iSTAT FiO2 50 %; iSTAT Hematocrit 39 % (42-52); iSTAT Hemoglobin 13.3 g/dl (14.0-18.0); iSTAT Potassium 4.1 mmol/L (3.3-5.0); iSTAT Site Art Line; iSTAT Sodium 139 mmol/L (135-144)
[2021-04-29] MEDS: fentaNYL DRIP 1,250 MCG/250 ML BAG IV SCH ×3 (04:19→17:39)
[2021-04-29] MEDS: MIDAZOLAM HCL 125 MG/250 ML BAG IV SCH ×2 (05:09→22:23)
[2021-04-29 05:48] LABS: Basophils # (auto) 0.01 K/uL (0-0.2); Basophils % (auto) 0.1 %; Eosinophils # (auto) 0.17 K/uL (0-0.5); Eosinophils % (auto) 1.8 %; Hematocrit (blood only) 40.2 % (42-52); Hemoglobin 13.4 g/dL (14.0-18.0); Immature Granulocytes # (auto) 0.39 K/uL (0.00-0.02); Immature Granulocytes % (auto) 4.1 %; Lymphocytes # (auto) 0.98 K/uL (1.2-3.4); Lymphocytes % (auto) 10.2 %; Mean Corpuscular Hemoglobin 32.5 pg (25-34); Mean Corpuscular Hgb Conc 33.3 g/dL (32-36); Mean Corpuscular Volume 97.6 fL (80-100); Mean Platelet Volume 9.2 fL (7.4-10.4); Monocytes # (auto) 0.57 K/uL (0.11-0.59); Monocytes % (auto) 5.9 %; Neutrophils # (auto) 7.47 K/uL (1.4-6.5); Neutrophils % (auto) 77.9 %; Platelet Count 274 K/uL (130-400); RDW Coefficient of Variation 12.9 % (11.5-14.5); Red Blood Count 4.12 M/uL (4.7-6.1); White Blood Count 9.59 K/uL (4.8-10.8)
[2021-04-29 06:29] LABS: BUN Creatinine Ratio 37.8 (10-20); Calcium 7.8 mg/dl (8.5-10.1); Creatinine Clr Calc Pharmacy 116.9 ml/min; Est GFR (African American) 117.5 ml/min; Est GFR (Non-African American) 101.4 ml/min; Magnesium 2.4 mg/dl (1.8-2.4); Potassium 3.9 mmol/L (3.5-5.1)
[2021-04-29] MEDS: MULTI VIT W/MINERALS LIQUID 15 ML UDP NG SCH (07:47)
[2021-04-29] MEDS: ENOXAPARIN INJ 40 MG/0.4 ML SYR SQ SCH (07:47)
[2021-04-29] MEDS: DOCUSATE SODIUM/SENNA 50/8.6MG TAB PO SCH (07:47)
[2021-04-29] MEDS: POLYETHYLENE (MIRALAX) 17 GM PACK PO SCH (07:48)
[2021-04-29] MEDS: dexAMETHasone 6 MG in SYRINGE 0 ML IV SCH (07:49)
[2021-04-29] MEDS: PANTOprazole 40 MG in SYRINGE 0 ML IV SCH (10:23)
--- NOTE | 2021-04-29 10:53 | Critical Care Progress Note ---
Date of Service April 29, 2021 Assessment & Plan (1) COVID-19: Plan: Reason critically ill: 66 yo M with no significant PMHx admitted with acute respiratory failure with hypoxia secondary to COVID-19 pneumonia admitted to ICU requiring close monitoring given tenuous respiratory status. NEURO: Continue to wean sedation as able. Goal RASS of -2. Currently on neuromuscular blockade to promote ventilator synchrony. CARDIAC/VASCULAR: Patient with ongoing hypertension likely related to pain and agitation. Bradycardia -Asymptomatic RESPIRATORY: Acute hypoxic respiratory distress secondary to COVID-19 pneumonia - Continue dexamethasone IV 6mg daily while admitted -Intubated 04/24. Continue lung protective ventilation strategy. - Received tocilizumab therapy -Chest CTA completed 04/27/2021 with diffuse groundglass opacities and dense bibasilar atelectasis. Oxygenation is improved with pronation. -We will place the patient in the supine position this time given the patient's worsening hypertension. GI/NUTRITION: -Tube feedings - Continue docusate and senna and MiraLAX. RENAL/LYTES: - No significant issues. Replace electrolytes per protocol. -Remains approximately 3.3 L positive. GENITOURINARY: No acute concerns. Strict Is/Os. ENDO: ICU hyperglycemia protocol. HEME: No significant issues at this time. ID: COVID-19 pneumonia Lines/IV Access: PIV DVT Prophylaxis: 40 mg early. GI Prophylaxis: Pantoprazole CODE STATUS: FULL CODE Appreciate palliative care input. Prognosis very guarded at this time. CRITICAL CARE TIME - I have personally spent 37 minutes of critical care time in the direct management of this patient. This is a life/limb threatening event. This includes time spent evaluating patient, direct bedside care, chart review, placing orders, interpretation of diagnostic studies, discussion with consultants, patient, and family members, as well as other required patient management activities. This time is exclusive of all separately billable procedures, and teaching time and separate from and in addition to any other critical care service time. (2) Admitted to intensive care unit: (3) Acute respiratory failure with hypoxia: (4) Hypokalemia: (5) Bradycardia: Admission and Anticipated Discharge Date Admission Date: April 23, 2021 Subjective Patient seen and examined. He has remained pronated overnight due to severe hypoxemia. He has been requiring escalating amounts of Versed and fentanyl due to increasing hypertension and concerns for pain. He is currently on neuromuscular blockade with Nimbex. Review of systems is unable to be obtained given the patient's status. Physical Exam Physical Exam: Constitutional: Patient is currently proned and on neuromuscular blockade. Eyes: Difficult to assess given his pronation status. Ears nose, mouth and throat: Endotracheal tube is in place. Neck: Trachea is midline. Visual inspection is normal. Respiratory: Diminished bilaterally. Synchronous with the ventilator. Cardiovascular: Regular rate and rhythm. No murmurs. No edema. Gastrointestinal: Normal bowel sounds, soft, nontender and nondistended. No hepatosplenomegaly noted. Musculoskeletal: Currently on neuromuscular blockade and thus difficult to assess. Skin: No rashes, warm dry and intact. Neurologic: Currently on neuromuscular blockade and difficult to assess. Psychiatric: Unable to assess. Results & Data Results & Data ([facility]) Vital Signs (Past 12 Hours) Vital Signs Temp Pulse Resp BP Pulse Ox 04/29/21 07:35 65 28 H 92 04/29/21 04:05 87 29 H 95 04/29/21 04:00 87 04/29/21 00:58 97.5 F L 55 L 127/76 96 04/29/21 00:08 97.5 F L 55 L 136/71 96 04/29/21 00:00 55 L 126/76 04/28/21 23:58 97.5 F L 67 96 04/28/21 22:58 97.7 F 50 L 123/72 94 vital signs, labs and imaging reviewed Coding Level of Care Code Critical Care 1st 30-74 mins Diagnoses COVID-19 U07.1 Admitted to intensive care unit Z78.9 Acute respiratory failure with hypoxia J96.01 Hypokalemia E87.6 Bradycardia R00.1 Time Spent (min) 37
--- NOTE | 2021-04-29 11:25 | Palliative Care Progress Note ---
Date of Service April 29, 2021 Assessment & Plan (1) Palliative care encounter: Plan: I talked with Mrs. Luu and with daughter, Leia, by phone today to update them. Leia asked if it was possible that he would not get better. We discussed being hopeful that he would improve, but preparing for the possibility that he may not. For now, we will continue current level of care. Both family members are having a difficult time with not being able to see or talk to him. Discussed zoom visit. Leia is not covid positive. Mrs. Luu is 14 days out from positive covid test and asymptomatic for three days. Discussed with Dr. Perdomo. Window visit arranged for Mrs. Luu to see her this afternoon. Notified front counter clerk and RN. (2) Pneumonia due to COVID-19 virus: (3) Acute respiratory failure with hypoxia: (4) Bradycardia: Admission and Anticipated Discharge Date Admission Date: April 23, 2021 Subjective Bradycardia at times. Hypertensive when prone. No significant change. Remains sedated. Review of Systems Review of Systems: Unobtainable due to endotracheal tube and Unobtainable due to reduced consciousness Palliative Performance Score 10% Physical Exam Constitutional: + ill appearing and + mechanically ventilated Respiratory: + uses accessory muscles Cardiovascular: regular rhythm Neurologic: + obtunded Results & Data ([facility]) Vital Signs (Past 12 Hours) Vital Signs Temp Pulse Resp BP Pulse Ox 04/29/21 07:35 65 28 H 92 04/29/21 04:05 87 29 H 95 04/29/21 04:00 87 04/29/21 00:58 97.5 F L 55 L 127/76 96 04/29/21 00:08 97.5 F L 55 L 136/71 96 04/29/21 00:00 55 L 126/76 04/28/21 23:58 97.5 F L 67 96 PG Care Time/CCT Total # of Minutes Spent Total Time Spent: 45 Total Time Spent with Patient: Total time spent is greater than 50% in co ordination of care (as documented) at patient's floor/unit and/or counseling patient: Coding Level of Care Code 57644 Subseq Hosp Care Lvl 3 Diagnoses Palliative care encounter Z51.5 Pneumonia due to COVID-19 virus U07.1; J12.82 Acute respiratory failure with hypoxia J96.01 Bradycardia R00.1
--- NOTE | 2021-04-29 13:51 | Hospitalist Progress Note ---
Date of Service April 29, 2021 Assessment & Plan (1) COVID-19: Plan: 66yo C male presenting with worsening Covid-19 PNA Pulse ox could not be maintained above mid 70s on the morning of 04/24 and he was intubated, sedated, paralyzed and proned stable on ventilator, supine, on Fentanyl and Versed for sedation -Continue Dexamethasone 6mg IV daily x10-day course tocilizumab 600 mg x1 dose on 04/24 -Appreciate visual aid expert management of ventilator follow [employer] protocol, try to wean PEEP and FiO2, PEEP is 16, FiO2 is 50% was prone overnight, now supine again palliative consulted to have ongoing discussion about goals of care (2) Acute respiratory failure with hypoxia: Plan: As above Secondary to COVID-19 pneumonia (3) Hyperglycemia: Plan: With some hyperglycemia likely secondary to corticosteroids following glucose closely, use Novolog PRN (4) Hyponatremia: Plan: borderline low sodium at 135 now back to normal Follow BMP (5) Hypokalemia: Plan: replace per ICU protocol normal today (6) Pneumonia due to COVID-19 virus: Plan: As above (7) Transaminitis: Plan: Mildly elevated AST Likely secondary to Covid-19 Follow LFTs periodically Plan: DVT prophylaxis-therapeutic Lovenox GI prophylaxis-IV Protonix FEN- tube feeds per ICU Disposition-continued stay in the ICU Admission and Anticipated Discharge Date Admission Date: April 23, 2021 Subjective patient was prone last night, flipped supine this morning due to rising BP, increased need for sedation ICU managing ventilator, PEEP 16 and FiO2 50% labs reviewed, Cr and electrolytes stable, WBC stable, PaO2 90 on ABG palliative care is continuing discussions with and daughter Review of Systems Review of Systems: Unobtainable due to cognitive status and Unobtainable due to endotracheal tube Physical Exam Constitutional: well developed, well nourished, + ill appearing and + mechanically ventilated Neck: trachea midline, no thyromegaly Respiratory: symmetric chest movement Auscultation: lungs clear to auscultation bilaterally Cardiovascular: RRR, no murmur, no edema Gastrointestinal (Abdomen): normal bowel sounds, soft, nontender, no hepatosplenomegaly Skin: no rashes, warm and dry Neurologic: CN's II-XI intact bilaterally and + obtunded; no focal motor deficits Results & Data Results & Data ([facility]) Vital Signs (Past 12 Hours) Vital Signs Temp Pulse Resp BP Pulse Ox 04/29/21 13:21 36.4 C L 61 105/72 92 04/29/21 13:06 36.3 C L 63 116/77 93 04/29/21 12:51 36.4 C L 66 127/79 93 04/29/21 12:36 36.4 C L 64 130/83 93 04/29/21 12:21 36.4 C L 66 135/81 92 04/29/21 12:06 36.5 C 67 144/85 H 92 04/29/21 11:52 36.5 C 68 142/89 H 91 04/29/21 11:37 36.6 C 83 199/112 H 90 04/29/21 11:32 95 H 30 H 90 04/29/21 10:58 36.7 C 75 178/93 H 90 04/29/21 09:59 36.7 C 103 H 177/112 H 90 04/29/21 09:18 36.7 C 71 154/88 H 90 04/29/21 09:13 36.7 C 75 213/112 H 91 04/29/21 08:59 36.8 C 96 H 206/100 H 92 04/29/21 07:58 37.0 C 66 119/63 91 04/29/21 07:35 65 28 H 92 04/29/21 04:05 87 29 H 95 04/29/21 04:00 87 Laboratory Results Laboratory Results - last 24 hr 04/28/21 04/28/21 04/29/21 17:00 23:59 03:59 WBC RBC Hgb POC Hgb 13.3 L Hct POC Hct 39 L MCV MCH MCHC RDW Std Deviation RDW Coeff of Elvin Plt Count MPV Immature Gran % (Auto) Neut % (Auto) Lymph % (Auto) [place] % (Auto) Eos % (Auto) Baso % (Auto) Neut # (Auto) Lymph # (Auto) [place] # (Auto) Eos # (Auto) Baso # (Auto) Immature Gran # (Auto) Sample Site Art Line POC pH 7.38 POC pCO2 55 H POC pO2 95 POC HCO3 32 H POC Total CO2 34 H POC Base Excess 7.0 H ABG pH (Temp Correct) 7.387 ABG pCO2 (Temp Corrct 54 H POC ABG pO2 at Pt Temp 92 POC ABG O2 Sat 97.0 H Nikolas Test NA O2 Delivery Device Ventilator POC O2 Rate 28 POC FiO2 50 Tidal Volume 320 PEEP 18 POC Sodium 139 Sodium POC Potassium 4.1 Potassium Chloride Carbon Dioxide Anion Gap BUN Creatinine Est Cr Clr Drug Dosing Est GFR ( Amer) Est GFR (Non-Af Amer) BUN/Creatinine Ratio Glucose POC Glucose 134 H 109 H Calcium Phosphorus Magnesium 04/29/21 04/29/21 04/29/21 05:38 05:38 05:53 WBC 9.59 RBC 4.12 L Hgb 13.4 L POC Hgb Hct 40.2 L POC Hct MCV 97.6 MCH 32.5 MCHC 33.3 RDW Std Deviation 46.0 RDW Coeff of Elvin 12.9 Plt Count 274 MPV 9.2 Immature Gran % (Auto) 4.1 Neut % (Auto) 77.9 Lymph % (Auto) 10.2 [place] % (Auto) 5.9 Eos % (Auto) 1.8 Baso % (Auto) 0.1 Neut # (Auto) 7.47 H Lymph # (Auto) 0.98 L [place] # (Auto) 0.57 Eos # (Auto) 0.17 Baso # (Auto) 0.01 Immature Gran # (Auto) 0.39 H Sample Site POC pH POC pCO2 POC pO2 POC HCO3 POC Total CO2 POC Base Excess ABG pH (Temp Correct) ABG pCO2 (Temp Corrct POC ABG pO2 at Pt Temp POC ABG O2 Sat Nikolas Test O2 Delivery Device POC O2 Rate POC FiO2 Tidal Volume PEEP POC Sodium Sodium 138 POC Potassium Potassium 3.9 D Chloride 105 Carbon Dioxide 32 Anion Gap 1.0 L BUN 25 H Creatinine 0.65 Est Cr Clr Drug Dosing 116.9 Est GFR ( Amer) 117.5 Est GFR (Non-Af Amer) 101.4 BUN/Creatinine Ratio 37.8 H Glucose 97 POC Glucose 85 Calcium 7.8 L Phosphorus 3.0 D Magnesium 2.4 04/29/21 11:46 WBC RBC Hgb POC Hgb Hct POC Hct MCV MCH MCHC RDW Std Deviation RDW Coeff of Elvin Plt Count MPV Immature Gran % (Auto) Neut % (Auto) Lymph % (Auto) [place] % (Auto) Eos % (Auto) Baso % (Auto) Neut # (Auto) Lymph # (Auto) [place] # (Auto) Eos # (Auto) Baso # (Auto) Immature Gran # (Auto) Sample Site POC pH POC pCO2 POC pO2 POC HCO3 POC Total CO2 POC Base Excess ABG pH (Temp Correct) ABG pCO2 (Temp Corrct POC ABG pO2 at Pt Temp POC ABG O2 Sat Nikolas Test O2 Delivery Device POC O2 Rate POC FiO2 Tidal Volume PEEP POC Sodium Sodium POC Potassium Potassium Chloride Carbon Dioxide Anion Gap BUN Creatinine Est Cr Clr Drug Dosing Est GFR ( Amer) Est GFR (Non-Af Amer) BUN/Creatinine Ratio Glucose POC Glucose 161 H Calcium Phosphorus Magnesium Medications Administered Current Inpatient Medications Acetaminophen (Acetaminophen 325 Mg Tab) 650 mg PO Q4H PRN PRN Reason: pain/fever Stop: 05/23/21 06:24 Albuterol (Albuterol Hfa 8 Gm Inhaler) 2 puffs INH Q4R PRN PRN Reason: sob Stop: 05/23/21 06:24 Enoxaparin Sodium (Enoxaparin Inj 40 Mg/0.4 Ml Syr) 40 mg SQ QAM [facility] Stop: 05/29/21 08:59 Last Admin: 04/29/21 07:47 Dose: 40 mg Documented by: Fentanyl Citrate (Fentanyl Bolus From Bag) 50 mcg IV Q60M PRN PRN Reason: Pain or Agitation Stop: 05/08/21 11:20 Last Admin: 04/27/21 17:05 Dose: 50 mcg Documented by: Dexamethasone 6 mg/ Syringe 1.5 mls @ 1 mls/min IV DAILY [facility] Stop: 04/30/21 23:59 Last Admin: 04/29/21 07:49 Dose: 1 mls/min Documented by: Pantoprazole Sodium 40 mg/ (Syringe) 10 mls @ 5 mls/min IV DAILY@1100 [facility] Stop: 05/24/21 10:59 Last Admin: 04/29/21 10:23 Dose: 5 mls/min Documented by: Midazolam HCl (Versed) 125 mg in 250 mls @ 16 mls/hr IV .Q15H77Y [facility]; Protocol Stop: 05/24/21 11:29 Last Titration: 04/29/21 07:10 Dose: 8 mg/hr, 16 mls/hr Documented by: Fentanyl Citrate (Fentanyl Drip) 1,250 mcg in 250 mls @ 35 mls/hr IV .Q7H9M [facility]; Protocol Stop: 05/08/21 11:29 Last Admin: 04/29/21 10:22 Dose: 175 mcg/hr, 35 mls/hr Documented by: Cisatracurium Besylate 40 mg/ (Sodium Chloride) 100 mls @ 15.84 mls/hr IV .Q6H19M [facility]; Protocol Stop: 05/26/21 23:44 Last Admin: 04/29/21 09:49 Dose: 1.6 mcg/kg/min, 15.8 mls/hr Documented by: Lactulose (Lactulose Syrup 20 Gm/30 Ml Udc) 10 gm PO TID [facility] Stop: 05/29/21 13:59 Midazolam HCl (Midazolam Bolus From Bag) 2 mg IV Q60M PRN PRN Reason: Sedation Stop: 05/24/21 11:20 Last Admin: 04/27/21 17:05 Dose: 2 mg Documented by: Multi-Ingredient Cream (Artificial Tears Op Oint 3.5 Gm Tube) 1 appln OP Q4H [facility] Stop: 05/26/21 23:44 Last Admin: 04/29/21 13:16 Dose: 1 appln Documented by: Multivitamins/Minerals (Multi Vit W/Minerals Liquid 15 Ml Udp) 15 ml NG QAM [facility] Stop: 05/25/21 08:59 Last Admin: 04/29/21 07:47 Dose: 15 ml Documented by: Nutritional Formula (Peptamen Intense Vhp 1.0 Asad 1,000 Ml Bag) 1,000 ml OG UD [facility]; Protocol Stop: 05/24/21 13:14 Last Admin: 04/28/21 17:33 Dose: 1,000 ml Documented by: Ondansetron HCl (Ondansetron Inj 2 Mg/Ml 2 Ml Vial) 4 mg IV Q6H PRN PRN Reason: Nausea Stop: 05/23/21 06:24 Polyethylene Glycol (Polyethylene (Miralax) 17 Gm Pack) 17 gm PO DAILY [facility] Stop: 05/27/21 09:44 Last Admin: 04/29/21 07:48 Dose: 17 gm Documented by: Senna/Docusate Sodium (Docusate Sodium/Senna 50/8.6mg Tab) 1 tab PO QAM [facility] Stop: 05/27/21 09:44 Last Admin: 04/29/21 07:47 Dose: 1 tab Documented by: Sterile Water (Tube Feeding Water Flush) 30 ml OG Q4H [facility] Stop: 05/24/21 13:14 Last Admin: 04/29/21 13:16 Dose: 30 ml Documented by: PG Care Time/CCT Total # of Minutes Spent Total Time Spent with Patient: Total time spent is greater than 50% in coordination of care (as documented) at patient's floor/unit and/or counseling patient: Coding Level of Care Code 63612 Subseq Hosp Care Lvl 2 Diagnoses COVID-19 U07.1 Acute respiratory failure with hypoxia J96.01 Hyperglycemia R73.9 Hyponatremia E87.1 Hypokalemia E87.6 Pneumonia due to COVID-19 virus U07.1; J12.82 Transaminitis R74.01
--- NOTE | 2021-04-29 15:31 | XRay Report ---
XR chest 1V portable INDICATION: MN ^Resp failure ^PT PRONE-WILL BE FLIPPED@1500. TECHNIQUE: Single frontal radiograph of the chest was obtained. Comparison: Comparison is made to chest one view 04/28/2021 FINDINGS: Lines and tubes are stable. The cardiomediastinal silhouette is normal. Airspace opacities are again noted, minimally improved from prior exam. No evidence of pleural effusion or pneumothorax. IMPRESSION: Interval slight improvement in diffuse airspace opacities compatible with pneumonia. ACT 112: Negative or not required by law. Electronically signed by: Tyrone Johnson M.D. 04/29/2021 3:30 PM
[2021-04-29] MEDS: LACTULOSE SYRUP 20 GM/30 ML UDC PO SCH ×2 (16:07→21:45)
[2021-04-29] MEDS: MIDAZOLAM BOLUS FROM BAG IV PRN ×2 (21:10→22:19)
[2021-04-29] MEDS ORDERED: HYDROmorphone INJ 2 MG/ML SYR/VIAL IV STA (22:40)
[2021-04-29] MEDS ORDERED: HYDROmorphone INJ 2 MG/ML SYR/VIAL ONE (22:45)
[2021-04-29] MEDS: PEPTAMEN INTENSE VHP 1.0 CAL 1,000 ML BAG OG SCH (23:02)
[2021-04-29] MEDS ORDERED: hydrALAZINE HCL 20 MG/ML VIAL ONE (23:27)
[2021-04-29] MEDS ORDERED: hydrALAZINE HCL 20 MG/ML VIAL IV STA (23:43)
[2021-04-30] MEDS: fentaNYL DRIP 1,250 MCG/250 ML BAG IV SCH ×8 (00:49→22:52)
[2021-04-30] MEDS: ARTIFICIAL TEARS OP OINT 3.5 GM TUBE OP SCH ×7 (00:50→22:52)
[2021-04-30] MEDS: TUBE FEEDING WATER FLUSH OG SCH ×6 (03:35→21:36)
[2021-04-30] MEDS: MIDAZOLAM BOLUS FROM BAG IV PRN ×3 (04:09→06:28)
[2021-04-30 04:13] LABS: iSTAT Allen Test Pass; iSTAT Art Bld Gas pCO2 Correct 58 mmHg (35-46); iSTAT Art Bld Gas pH Corrected 7.383 (7.35-7.45); iSTAT Arterial Blood Gas HCO3 35 meg/L (19-24); iSTAT Arterial Blood Gas pCO2 60 mmHg (35-46); iSTAT Arterial Blood Gas pH 7.37 (7.35-7.45); iSTAT Arterial Blood Gas pO2 69 mmHg (80-95); iSTAT Arterial Blood Gas pO2 C 65; iSTAT Carbon Dioxide 37 mmol/L (24-31); iSTAT FiO2 50 %; iSTAT Hematocrit 41 % (42-52); iSTAT Hemoglobin 13.9 g/dl (14.0-18.0); iSTAT Potassium 4.4 mmol/L (3.3-5.0); iSTAT Site L Radial; iSTAT Sodium 137 mmol/L (135-144)
[2021-04-30] MEDS: CISATRACURIUM BESYLATE 40 MG in 0.9 % SODIUM CHLORIDE 80 ML IV SCH ×7 (05:49→22:52)
[2021-04-30 06:13] LABS: Hematocrit (blood only) 43.7 % (42-52); Hemoglobin 14.6 g/dL (14.0-18.0); Mean Corpuscular Hemoglobin 32.1 pg (25-34); Mean Corpuscular Hgb Conc 33.4 g/dL (32-36); Mean Platelet Volume 9.5 fL (7.4-10.4); Platelet Count 332 K/uL (130-400); RDW Standard Deviation 45.3 fL (36.4-46.3); Red Blood Count 4.55 M/uL (4.7-6.1); White Blood Count 11.93 K/uL (4.8-10.8)
[2021-04-30 06:36] LABS: BUN Creatinine Ratio 42.1 (10-20); Calcium 8.2 mg/dl (8.5-10.1); Creatinine Clr Calc Pharmacy 120.3 ml/min; Est GFR (African American) 118.3 ml/min; Magnesium 2.3 mg/dl (1.8-2.4); Phosphorus 2.8 mg/dl (2.5-4.9); Potassium 3.9 mmol/L (3.5-5.1)
[2021-04-30 06:49] LABS: Basophils # (auto) 0.03 K/uL (0-0.2); Basophils % (auto) 0.3 %; Eosinophils # (auto) 0.14 K/uL (0-0.5); Eosinophils % (auto) 1.2 %; Immature Granulocytes # (auto) 0.64 K/uL (0.00-0.02); Immature Granulocytes % (auto) 5.4 %; Lymphocytes # (auto) 1.21 K/uL (1.2-3.4); Lymphocytes % (auto) 10.1 %; Monocytes # (auto) 0.88 K/uL (0.11-0.59); Monocytes % (auto) 7.4 %; Neutrophils # (auto) 9.03 K/uL (1.4-6.5); Neutrophils % (auto) 75.6 %; RBC Morphology Unremarkable
--- NOTE | 2021-04-30 07:31 | XRay Report ---
XR chest 1V portable HISTORY: 66 years-old Male Resp failure acute respiratory failure COMPARISON: Chest radiograph 04/29/2021 TECHNIQUE: Portable AP view of the chest FINDINGS: Cardiac silhouette is enlarged. Endotracheal tube overlies the midline 5.2 cm superior to the smitha. Right subclavian central venous catheter distal tip terminates in the expected location of the mid S VC. Trace pleural effusions. Bilateral mixed interstitial and alveolar opacities appear stable from c omparison redemonstrated and have mildly worsened within the lung bases. No pneumothorax. Bones appea r grossly intact. Enteric tube distal tip overlies the abdominal left upper quadrant. IMPRESSION: 1. Lines and tubes as above. 2. Extensive bilateral pulmonary opacities are redemonstrated, mildly progressed within the lung base s. 3. No pneumothorax. ACT 112: Negative or not required by law. The above report was generated using voice recognition software. It may contain grammatical, syntax o r spelling errors. Electronically signed by: Jamal Cowart M.D. 04/30/2021 7:29 AM
[2021-04-30] MEDS: dexAMETHasone 6 MG in SYRINGE 0 ML IV SCH (08:53)
[2021-04-30] MEDS: MULTI VIT W/MINERALS LIQUID 15 ML UDP NG SCH (08:54)
[2021-04-30] MEDS: LACTULOSE SYRUP 20 GM/30 ML UDC PO SCH ×2 (08:54→19:54)
[2021-04-30] MEDS: ENOXAPARIN INJ 40 MG/0.4 ML SYR SQ SCH (08:54)
[2021-04-30] MEDS: DOCUSATE SODIUM/SENNA 50/8.6MG TAB PO SCH (08:55)
[2021-04-30] MEDS: POLYETHYLENE (MIRALAX) 17 GM PACK PO SCH (08:55)
--- NOTE | 2021-04-30 10:34 | Critical Care Progress Note ---
Date of Service April 30, 2021 Assessment & Plan (1) COVID-19: Plan: Reason critically ill: 66 yo M with no significant PMHx admitted with acute respiratory failure with hypoxia secondary to COVID-19 pneumonia admitted to ICU requiring close monitoring given tenuous respiratory status. NEURO: Continue to wean sedation as able. Goal RASS of -2. Currently on neuromuscular blockade to promote ventilator synchrony. CARDIAC/VASCULAR: No significant issues at present. Occasional bradycardia likely due to high vagal tone. RESPIRATORY: Acute hypoxic respiratory distress secondary to COVID-19 pneumonia - Continue dexamethasone IV 6mg daily while admitted -Intubated 04/24. Continue lung protective ventilation strategy. - Received tocilizumab therapy -Chest CTA completed 04/27/2021 with diffuse groundglass opacities and dense bibasilar atelectasis. -Requiring high amounts of ventilator support and neuromuscular blockade to promote ventilator synchrony. GI/NUTRITION: -Tube feedings - Continue docusate and senna and MiraLAX. RENAL/LYTES: - No significant issues. Replace electrolytes per protocol. -We will give 40 mg IV Lasix. GENITOURINARY: No acute concerns. Strict Is/Os. ENDO: ICU hyperglycemia protocol. HEME: No significant issues at this time. ID: COVID-19 pneumonia Lines/IV Access: PIV DVT Prophylaxis: 40 mg early. GI Prophylaxis: Pantoprazole CODE STATUS: FULL CODE Appreciate palliative care input. Prognosis very guarded at this time. (2) Admitted to intensive care unit: (3) Acute respiratory failure with hypoxia: (4) Hypokalemia: (5) Bradycardia: Admission and Anticipated Discharge Date Admission Date: April 23, 2021 Subjective Patient seen and examined this morning. He is currently on neuromuscular blockade and high doses of Versed and fentanyl. Unable to obtain review of systems due to the patient's sedation and intubation status. Physical Exam Physical Exam: Constitutional: Patient is supine. Currently under neuromuscular blockade. Eyes: Pupils are pinpoint and reactive to light. Ears nose, mouth and throat: Endotracheal tube is in place. Neck: Trachea is midline. Respiratory: Diminished bilaterally. Synchronous with the ventilator. Cardiovascular: Regular rate and rhythm. No murmurs. No edema. Gastrointestinal: Normal bowel sounds, soft, nontender and nondistended. No hepatosplenomegaly noted. Musculoskeletal: Currently on neuromuscular blockade and thus difficult to assess. Skin: No rashes, warm dry and intact. Neurologic: Currently on neuromuscular blockade and difficult to assess. Psychiatric: Unable to assess. Results & Data Results & Data ([facility]) Vital Signs (Past 12 Hours) Vital Signs Temp Pulse Resp BP Pulse Ox 04/30/21 07:28 66 28 H 92 04/30/21 07:07 97.5 F L 67 132/76 90 04/30/21 06:52 97.5 F L 68 140/79 90 04/30/21 06:37 97.7 F 68 137/77 87 L 04/30/21 06:19 97.5 F L 78 178/116 H 88 L 04/30/21 06:03 97.5 F L 74 142/101 H 90 04/30/21 05:57 97.5 F L 76 185/100 H 87 L 04/30/21 05:37 97.3 F L 94 H 220/118 H 91 04/30/21 05:22 97.3 F L 87 173/97 H 92 04/30/21 05:06 97.3 F L 68 211/130 H 91 04/30/21 04:52 97.3 F L 94 H 207/121 H 94 04/30/21 04:37 97.2 F L 75 200/113 H 94 04/30/21 04:22 97.2 F L 64 145/80 H 91 04/30/21 04:07 97.0 F L 63 149/86 H 93 04/30/21 04:00 28 H 04/30/21 03:52 97.0 F L 83 189/106 H 92 04/30/21 03:37 96.8 F L 59 L 109/68 91 04/30/21 03:22 96.8 F L 60 129/80 92 04/30/21 03:07 97.0 F L 60 153/85 H 88 L 04/30/21 02:31 97.2 F L 52 L 91/56 L 91 04/30/21 02:22 97.2 F L 49 L 90/57 L 91 04/30/21 02:07 97.2 F L 49 L 88/58 L 91 04/30/21 01:52 97.3 F L 51 L 92/56 L 91 04/30/21 01:37 97.5 F L 51 L 90/60 L 91 04/30/21 01:22 97.5 F L 54 L 95/59 L 92 04/30/21 01:07 97.5 F L 55 L 94/59 L 92 04/30/21 00:52 97.5 F L 60 93/59 L 94 04/30/21 00:37 97.5 F L 55 L 99/63 L 91 04/30/21 00:21 97.5 F L 58 L 112/65 90 04/30/21 00:06 97.7 F 61 111/65 89 L 04/29/21 23:51 97.7 F 63 116/70 89 L 04/29/21 23:32 97.7 F 64 133/71 90 04/29/21 23:22 97.9 F 67 136/74 90 04/29/21 23:16 68 28 H 90 04/29/21 23:07 97.9 F 69 190/98 H 91 04/29/21 22:52 97.9 F 79 218/116 H 90 04/29/21 22:37 97.7 F 79 186/94 H 92 vital signs, labs and imaging were personally reviewed. Dense infiltrates noted bilaterally. Coding Level of Care Code 71964 Subseq Hosp Care Lvl 3 Diagnoses COVID-19 U07.1 Admitted to intensive care unit Z78.9 Acute respiratory failure with hypoxia J96.01 Hypokalemia E87.6 Bradycardia R00.1
[2021-04-30] MEDS ORDERED: POTASSIUM CHLORIDE / WTR 20 MEQ/100 ML PLCT IV ONE (11:00)
[2021-04-30] MEDS: FUROSEMIDE 40 MG/4 ML VIAL IV SCH (12:56)
[2021-04-30] MEDS: PANTOprazole 40 MG in SYRINGE 0 ML IV SCH (12:56)
[2021-04-30 16:17] LABS: iSTAT Allen Test Pass; iSTAT Art Bld Gas pCO2 Correct 78 mmHg (35-46); iSTAT Art Bld Gas pH Corrected 7.273 (7.35-7.45); iSTAT Arterial Blood Gas HCO3 36 meg/L (19-24); iSTAT Arterial Blood Gas pCO2 80 mmHg (35-46); iSTAT Arterial Blood Gas pH 7.26 (7.35-7.45); iSTAT Arterial Blood Gas pO2 71 mmHg (80-95); iSTAT Arterial Blood Gas pO2 C 67; iSTAT Carbon Dioxide 39 mmol/L (24-31); iSTAT FiO2 50 %; iSTAT Hematocrit 48 % (42-52); iSTAT Hemoglobin 16.3 g/dl (14.0-18.0); iSTAT Potassium 4.5 mmol/L (3.3-5.0); iSTAT Site R Radial; iSTAT Sodium 135 mmol/L (135-144)
[2021-04-30] MEDS: PEPTAMEN INTENSE VHP 1.0 CAL 1,000 ML BAG OG SCH (16:23)
[2021-04-30] MEDS: MIDAZOLAM HCL 125 MG/250 ML BAG IV SCH ×4 (16:42→22:52)
--- NOTE | 2021-04-30 23:02 | Hospitalist Progress Note ---
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 management of ventilator follow [employer] protocol, PEEP remains at 16, FiO2 is 50% remains supine palliative consulted to have ongoing discussion about goals of care (2) Acute respiratory failure with hypoxia: Plan: As above Secondary to COVID-19 pneumonia (3) Hyperglycemia: Plan: With some hyperglycemia likely secondary to corticosteroids following glucose closely, use Novolog PRN (4) Hyponatremia: Plan: borderline low sodium at 135 now back to normal Follow BMP (5) Hypokalemia: Plan: replace per ICU protocol normal today (6) Pneumonia due to COVID-19 virus: Plan: As above (7) Transaminitis: Plan: Mildly elevated AST Likely secondary to Covid-19 Plan: DVT prophylaxis-therapeutic Lovenox GI prophylaxis-IV Protonix FEN- tube feeds per ICU Disposition-continued stay in the ICU Admission and Anticipated Discharge Date Admission Date: April 23, 2021 Subjective patient remains intubated, requiring Versed, Fentanyl and neuromuscular blockade PEEP 16 and FiO2 50% his daughter was able to visit with him by wheelchair today, spoke with him and held his hand Review of Systems Review of Systems: Unobtainable due to cognitive status and Unobtainable due to endotracheal tube Physical Exam Constitutional: well developed, well nourished, + ill appearing and + mechanically ventilated Neck: trachea midline, no thyromegaly Respiratory: symmetric chest movement Auscultation: lungs clear to auscultation bilaterally Cardiovascular: RRR, no murmur, no edema Gastrointestinal (Abdomen): normal bowel sounds, soft, nontender, no hepatosplenomegaly Skin: no rashes, warm and dry Neurologic: CN's II-XI intact bilaterally and + obtunded; no focal motor deficits Results & Data Results & Data ([facility]) Vital Signs (Past 12 Hours) Vital Signs Temp Pulse Resp BP Pulse Ox 04/30/21 22:18 67 30 H 93 04/30/21 21:07 36.5 C 69 141/84 H 93 04/30/21 20:37 36.5 C 69 138/79 93 04/30/21 20:07 36.5 C 68 140/84 94 04/30/21 19:45 72 04/30/21 19:38 67 30 H 95 04/30/21 19:37 36.4 C L 71 155/86 H 96 04/30/21 19:07 36.4 C L 72 126/80 94 04/30/21 17:37 36.2 C L 74 129/80 92 04/30/21 17:07 36.2 C L 74 129/80 91 04/30/21 16:37 36.3 C L 82 147/84 H 92 04/30/21 16:07 36.3 C L 76 139/80 90 04/30/21 15:37 36.4 C L 70 146/82 H 90 04/30/21 15:15 68 30 H 90 04/30/21 15:01 36.4 C L 72 175/99 H 89 L 04/30/21 14:37 36.4 C L 69 167/95 H 89 L 04/30/21 14:07 36.4 C L 69 201/109 H 89 L 04/30/21 13:37 36.4 C L 90 194/115 H 91 04/30/21 13:07 36.2 C L 93 H 200/121 H 92 04/30/21 12:37 36.2 C L 62 134/77 93 04/30/21 12:07 36.2 C L 61 125/77 92 04/30/21 11:37 36.2 C L 61 122/71 91 04/30/21 11:07 36.1 C L 61 118/71 91 Laboratory Results Laboratory Results - last 24 hr 04/30/21 04/30/21 04/30/21 00:21 03:56 05:32 WBC 11.93 H RBC 4.55 L Hgb 14.6 POC Hgb 13.9 L Hct 43.7 POC Hct 41 L MCV 96.0 MCH 32.1 MCHC 33.4 RDW Std Deviation 45.3 RDW Coeff of Elvin 13.0 Plt Count 332 MPV 9.5 Immature Gran % (Auto) 5.4 Neut % (Auto) 75.6 Lymph % (Auto) 10.1 Mobile % (Auto) 7.4 Eos % (Auto) 1.2 Baso % (Auto) 0.3 Neut # (Auto) 9.03 H Lymph # (Auto) 1.21 Mobile # (Auto) 0.88 H Eos # (Auto) 0.14 Baso # (Auto) 0.03 Immature Gran # (Auto) 0.64 H RBC Morphology Unremarkable Sample Site L Radial POC pH 7.37 POC pCO2 60 H POC pO2 69 L POC HCO3 35 H POC Total CO2 37 H POC Base Excess 9.0 H ABG pH (Temp Correct) 7.383 ABG pCO2 (Temp Corrct 58 H POC ABG pO2 at Pt Temp 65 POC ABG O2 Sat 92.0 Nikolas Test Pass O2 Delivery Device Ventilator POC O2 Rate 28 POC FiO2 50 Tidal Volume 320 PEEP 14 POC Sodium 137 Sodium POC Potassium 4.4 Potassium Chloride Carbon Dioxide Anion Gap BUN Creatinine Est Cr Clr Drug Dosing Est GFR ( Amer) Est GFR (Non-Af Amer) BUN/Creatinine Ratio Glucose POC Glucose 116 H Calcium Phosphorus Magnesium 04/30/21 04/30/21 04/30/21 05:32 06:17 13:04 WBC RBC Hgb POC Hgb Hct POC Hct MCV MCH MCHC RDW Std Deviation RDW Coeff of Elvin Plt Count MPV Immature Gran % (Auto) Neut % (Auto) Lymph % (Auto) Mobile % (Auto) Eos % (Auto) Baso % (Auto) Neut # (Auto) Lymph # (Auto) Mobile # (Auto) Eos # (Auto) Baso # (Auto) Immature Gran # (Auto) RBC Morphology Sample Site POC pH POC pCO2 POC pO2 POC HCO3 POC Total CO2 POC Base Excess ABG pH (Temp Correct) ABG pCO2 (Temp Corrct POC ABG pO2 at Pt Temp POC ABG O2 Sat Nikolas Test O2 Delivery Device POC O2 Rate POC FiO2 Tidal Volume PEEP POC Sodium Sodium 137 POC Potassium Potassium 3.9 Chloride 103 Carbon Dioxide 31 Anion Gap 3.0 BUN 27 H Creatinine 0.64 Est Cr Clr Drug Dosing 120.3 Est GFR ( Amer) 118.3 Est GFR (Non-Af Amer) 102.0 BUN/Creatinine Ratio 42.1 H Glucose 120 H POC Glucose 110 H 138 H Calcium 8.2 L Phosphorus 2.8 Magnesium 2.3 04/30/21 04/30/21 15:57 16:34 WBC RBC Hgb POC Hgb 16.3 Hct POC Hct 48 MCV MCH MCHC RDW Std Deviation RDW Coeff of Elvin Plt Count MPV Immature Gran % (Auto) Neut % (Auto) Lymph % (Auto) Mobile % (Auto) Eos % (Auto) Baso % (Auto) Neut # (Auto) Lymph # (Auto) Mobile # (Auto) Eos # (Auto) Baso # (Auto) Immature Gran # (Auto) RBC Morphology Sample Site R Radial POC pH 7.26 L POC pCO2 80 H POC pO2 71 L POC HCO3 36 H POC Total CO2 39 H POC Base Excess 9.0 H ABG pH (Temp Correct) 7.273 L ABG pCO2 (Temp Corrct 78 H POC ABG pO2 at Pt Temp 67 POC ABG O2 Sat 90.0 Nikolas Test Pass O2 Delivery Device Ventilator POC O2 Rate 30 POC FiO2 50 Tidal Volume 290 PEEP 16 POC Sodium 135 Sodium POC Potassium 4.5 Potassium Chloride Carbon Dioxide Anion Gap BUN Creatinine Est Cr Clr Drug Dosing Est GFR ( Amer) Est GFR (Non-Af Amer) BUN/Creatinine Ratio Glucose POC Glucose 166 H Calcium Phosphorus Magnesium Medications Administered Current Inpatient Medications Acetaminophen (Acetaminophen 325 Mg Tab) 650 mg PO Q4H PRN PRN Reason: pain/fever Stop: 05/23/21 06:24 Albuterol (Albuterol Hfa 8 Gm Inhaler) 2 puffs INH Q4R PRN PRN Reason: sob Stop: 05/23/21 06:24 Enoxaparin Sodium (Enoxaparin Inj 40 Mg/0.4 Ml Syr) 40 mg SQ QAM SHIRLEY Stop: 05/29/21 08:59 Last Admin: 04/30/21 08:54 Dose: 40 mg Documented by: Fentanyl Citrate (Fentanyl Bolus From Bag) 50 mcg IV Q60M PRN PRN Reason: Pain or Agitation Stop: 05/08/21 11:20 Last Admin: 04/30/21 05:40 Dose: 50 mcg Documented by: Furosemide (Furosemide 40 Mg/4 Ml Vial) 40 mg IV DAILY SHIRLEY Stop: 05/30/21 09:59 Last Admin: 04/30/21 12:56 Dose: 40 mg Documented by: Dexamethasone 6 mg/ Syringe 1.5 mls @ 1 mls/min IV DAILY SHIRLEY Stop: 04/30/21 23:59 Last Admin: 04/30/21 08:53 Dose: 1 mls/min Documented by: Pantoprazole Sodium 40 mg/ (Syringe) 10 mls @ 5 mls/min IV DAILY@1100 [facility] Stop: 05/24/21 10:59 Last Admin: 04/30/21 12:56 Dose: 5 mls/min Documented by: Midazolam HCl (Versed) 125 mg in 250 mls @ 14 mls/hr IV .[id number] [facility]; Protocol Stop: 05/24/21 11:29 Last Admin: 04/30/21 22:52 Dose: 7 mg/hr, 14 mls/hr Documented by: Fentanyl Citrate (Fentanyl Drip) 1,250 mcg in 250 mls @ 45 mls/hr IV .Q5H34M [facility]; Protocol Stop: 05/08/21 11:29 Last Admin: 04/30/21 22:52 Dose: 225 mcg/hr, 45 mls/hr Documented by: Cisatracurium Besylate 40 mg/ (Sodium Chloride) 100 mls @ 14.85 mls/hr IV .Q6H45M [facility]; Protocol Stop: 05/26/21 23:44 Last Admin: 04/30/21 22:52 Dose: 1.5 mcg/kg/min, 14.9 mls/hr Documented by: Midazolam HCl (Midazolam Bolus From Bag) 2 mg IV Q60M PRN PRN Reason: Sedation Stop: 05/24/21 11:20 Last Admin: 04/30/21 06:28 Dose: 2 mg Documented by: Multi-Ingredient Cream (Artificial Tears Op Oint 3.5 Gm Tube) 1 appln OP Q4H [facility] Stop: 05/26/21 23:44 Last Admin: 04/30/21 22:52 Dose: 1 appln Documented by: Multivitamins/Minerals (Multi Vit W/Minerals Liquid 15 Ml Udp) 15 ml NG QAM [facility] Stop: 05/25/21 08:59 Last Admin: 04/30/21 08:54 Dose: 15 ml Documented by: Nutritional Formula (Peptamen Intense Vhp 1.0 Asad 1,000 Ml Bag) 1,000 ml OG UD [facility]; Protocol Stop: 05/24/21 13:14 Last Admin: 04/30/21 16:23 Dose: 1,000 ml Documented by: Ondansetron HCl (Ondansetron Inj 2 Mg/Ml 2 Ml Vial) 4 mg IV Q6H PRN PRN Reason: Nausea Stop: 05/23/21 06:24 Polyethylene Glycol (Polyethylene (Miralax) 17 Gm Pack) 17 gm PO DAILY SHIRLEY Stop: 05/27/21 09:44 Last Admin: 04/30/21 08:55 Dose: 17 gm Documented by: Senna/Docusate Sodium (Docusate Sodium/Senna 50/8.6mg Tab) 1 tab PO QAM SHIRLEY Stop: 05/27/21 09:44 Last Admin: 04/30/21 08:55 Dose: 1 tab Documented by: Sterile Water (Tube Feeding Water Flush) 30 ml OG Q4H [facility] Stop: 05/24/21 13:14 Last Admin: 04/30/21 21:36 Dose: 30 ml Documented by: PG Care Time/CCT Total # of Minutes Spent Total Time Spent with Patient: Total time spent is greater than 50% in coordination of care (as documented) at patient's floor/unit and/or counseling patient: Coding Level of Care Code 51348 Subseq Hosp Care Lvl 2 Diagnoses COVID-19 U07.1 Acute respiratory failure with hypoxia J96.01 Hyperglycemia R73.9 Hyponatremia E87.1 Hypokalemia E87.6 Pneumonia due to COVID-19 virus U07.1; J12.82 Transaminitis R74.01
[2021-05-01] MEDS: MIDAZOLAM BOLUS FROM BAG IV PRN (00:40)
[2021-05-01] MEDS: TUBE FEEDING WATER FLUSH OG SCH ×6 (02:51→20:38)
[2021-05-01] MEDS: CISATRACURIUM BESYLATE 40 MG in 0.9 % SODIUM CHLORIDE 80 ML IV SCH ×9 (02:51→20:53)
[2021-05-01] MEDS: MIDAZOLAM HCL 125 MG/250 ML BAG IV SCH ×4 (02:52→20:06)
[2021-05-01] MEDS: fentaNYL DRIP 1,250 MCG/250 ML BAG IV SCH ×2 (02:52→05:01)
[2021-05-01] MEDS: ARTIFICIAL TEARS OP OINT 3.5 GM TUBE OP SCH ×6 (04:10→23:25)
[2021-05-01 05:16] LABS: Basophils # (auto) 0.03 K/uL (0-0.2); Basophils % (auto) 0.2 %; Eosinophils # (auto) 0.09 K/uL (0-0.5); Eosinophils % (auto) 0.6 %; Hematocrit (blood only) 44.3 % (42-52); Hemoglobin 14.5 g/dL (14.0-18.0); Immature Granulocytes # (auto) 0.38 K/uL (0.00-0.02); Immature Granulocytes % (auto) 2.7 %; Lymphocytes # (auto) 1.01 K/uL (1.2-3.4); Lymphocytes % (auto) 7.2 %; Mean Corpuscular Hemoglobin 31.9 pg (25-34); Mean Corpuscular Hgb Conc 32.7 g/dL (32-36); Mean Corpuscular Volume 97.6 fL (80-100); Mean Platelet Volume 9.3 fL (7.4-10.4); Monocytes # (auto) 0.86 K/uL (0.11-0.59); Monocytes % (auto) 6.1 %; Neutrophils # (auto) 11.71 K/uL (1.4-6.5); Neutrophils % (auto) 83.2 %; Platelet Count 316 K/uL (130-400); RDW Coefficient of Variation 13.3 % (11.5-14.5); RDW Standard Deviation 47.1 fL (36.4-46.3); Red Blood Count 4.54 M/uL (4.7-6.1); White Blood Count 14.08 K/uL (4.8-10.8)
[2021-05-01 05:21] LABS: iSTAT Allen Test Pass; iSTAT Arterial Blood Gas HCO3 36 meg/L (19-24); iSTAT Arterial Blood Gas pCO2 77 mmHg (35-46); iSTAT Arterial Blood Gas pH 7.28 (7.35-7.45); iSTAT Arterial Blood Gas pO2 81 mmHg (80-95); iSTAT Carbon Dioxide 38 mmol/L (24-31); iSTAT FiO2 50 %; iSTAT Site R Radial
[2021-05-01 05:38] LABS: BUN Creatinine Ratio 41.4 (10-20); Calcium 8.1 mg/dl (8.5-10.1); Creatinine Clr Calc Pharmacy 120.8 ml/min; Est GFR (African American) 118.3 ml/min; Magnesium 2.4 mg/dl (1.8-2.4); Phosphorus 3.3 mg/dl (2.5-4.9); Potassium 4.3 mmol/L (3.5-5.1)
--- NOTE | 2021-05-01 07:47 | XRay Report ---
XR chest 1V portable HISTORY: Respiratory failure. COMPARISON: Chest 04/30/2021. FINDINGS: The endotracheal tube terminates 5.3 cm from the smitha. Nasogastric tube terminates in the stomach. Right subclavian central venous catheter terminates in the distal SVC. No pneumothorax. No pleural effusions. The heart is top normal in size. Bilateral airspace opacities persist. IMPRESSION: 1. Satisfactory support line placement. 2. No change in the bilateral airspace opacities consistent with a viral pneumonia. ACT 112: Negative or not required by law. Electronically signed by: Anuj Chavira M.D. 05/01/2021 7:46 AM
[2021-05-01] MEDS ORDERED: FUROSEMIDE 40 MG in SYRINGE 0 ML IV ONE (08:02)
--- NOTE | 2021-05-01 09:15 | Critical Care Progress Note ---
Date of Service May 01, 2021 Assessment & Plan (1) ARDS (adult respiratory distress syndrome): (2) COVID-19: Plan: Reason critically ill: 66 yo M with no significant PMHx admitted with acute respiratory failure with hypoxia secondary to COVID-19 pneumonia admitted to ICU requiring close monitoring given tenuous respiratory status. NEURO: Continue to wean sedation as able. Goal RASS of -2. Currently on neuromuscular blockade to promote ventilator synchrony. 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 He is currently on Versed and fentanyl for pain control. CARDIAC/VASCULAR: No significant issues at present. RESPIRATORY: Acute hypoxic respiratory distress secondary to COVID-19 pneumonia - Continue dexamethasone IV 6mg daily while admitted -Intubated 04/24. Continue lung protective ventilation strategy. - Received tocilizumab therapy -Chest CTA completed 04/27/2021 with diffuse groundglass opacities and dense bibasilar atelectasis. -Requiring high amounts of ventilator support and neuromuscular blockade to promote ventilator synchrony. -We will likely need to proceed with tracheostomy next week if unable to wean off the ventilator. -Unfortunately continues to require high doses of neuromuscular blockade and sedation to promote ventilator synchrony. -Continue lung protective ventilation strategy to prevent ventilator induced lung injury. GI/NUTRITION: -Tube feedings - Continue docusate and senna and MiraLAX. RENAL/LYTES: - No significant issues. Replace electrolytes per protocol. -Starting 40 mg twice daily of Lasix 05/01/2021. Goal to achieve a negative fluid balance. GENITOURINARY: No acute concerns. Strict Is/Os. ENDO: ICU hyperglycemia protocol. HEME: No significant issues at this time. ID: COVID-19 pneumonia Lines/IV Access: PIV DVT Prophylaxis: 40 mg Lovenox. GI Prophylaxis: Pantoprazole CODE STATUS: FULL CODE Appreciate palliative care input. Prognosis very guarded at this time. (3) Admitted to intensive care unit: (4) Acute respiratory failure with hypoxia: (5) Hypokalemia: (6) Bradycardia: Admission and Anticipated Discharge Date Admission Date: April 23, 2021 Subjective Patient seen and examined. Continues on neuromuscular blockade. Unable to obtain review of systems secondary to intubation status. Oxygenation remains poor. Currently on 50% FiO2 and a PEEP of 16. Physical Exam Physical Exam: Constitutional: Patient is supine. Currently under neuromuscular blockade. Eyes: Pupils are pinpoint and reactive to light. Ears nose, mouth and throat: Endotracheal tube is in place. Neck: Trachea is midline. Respiratory: Diminished bilaterally. Synchronous with the ventilator. Cardiovascular: Regular rate and rhythm. No murmurs. No edema. Gastrointestinal: Normal bowel sounds, soft, nontender and nondistended. No hepatosplenomegaly noted. Musculoskeletal: Currently on neuromuscular blockade and thus difficult to assess. Skin: No rashes, warm dry and intact. Neurologic: Currently on neuromuscular blockade and difficult to assess. Psychiatric: Unable to assess. Results & Data Results & Data ([facility]) Vital Signs (Past 12 Hours) Vital Signs Temp Pulse Resp BP Pulse Ox 05/01/21 07:58 69 34 H 90 05/01/21 05:52 97.5 F L 71 132/79 90 05/01/21 05:32 97.3 F L 70 146/82 H 91 05/01/21 05:22 97.3 F L 75 192/98 H 92 05/01/21 05:07 97.3 F L 69 164/91 H 94 05/01/21 04:57 75 30 H 94 05/01/21 04:52 97.3 F L 68 170/92 H 94 05/01/21 04:37 97.3 F L 72 180/108 H 94 05/01/21 04:22 97.3 F L 67 160/83 H 92 05/01/21 04:07 97.3 F L 65 144/81 H 89 L 05/01/21 03:52 97.5 F L 71 155/85 H 93 05/01/21 03:37 97.5 F L 66 127/78 93 05/01/21 03:22 97.7 F 69 126/77 93 05/01/21 03:07 97.7 F 68 129/77 92 05/01/21 02:52 97.7 F 68 126/80 92 05/01/21 02:37 97.7 F 68 122/75 93 05/01/21 02:22 97.9 F 71 133/81 92 05/01/21 02:07 97.9 F 74 133/83 92 05/01/21 01:52 97.9 F 72 137/82 05/01/21 01:37 98.1 F 70 134/82 92 05/01/21 01:22 98.1 F 71 140/88 92 05/01/21 01:17 72 30 H 92 05/01/21 01:07 98.1 F 70 203/109 H 93 05/01/21 00:38 97.9 F 83 193/108 H 93 05/01/21 00:07 97.9 F 70 161/96 H 93 05/01/21 00:00 67 04/30/21 23:37 97.9 F 78 186/106 H 94 04/30/21 23:07 97.7 F 83 174/94 H 94 04/30/21 22:18 67 30 H 93 04/30/21 22:07 97.7 F 68 139/77 93 Vital signs, labs and imaging personally reviewed Coding Level of Care Code 37959 Subseq Hosp Care l 3 Diagnoses COVID-19 U07.1 Admitted to intensive care unit Z78.9 Acute respiratory failure with hypoxia J96.01 Hypokalemia E87.6 Bradycardia R00.1 ARDS (adult respiratory distress syndrome) J80
[2021-05-01] MEDS: MULTI VIT W/MINERALS LIQUID 15 ML UDP NG SCH (09:26)
[2021-05-01] MEDS: DOCUSATE SODIUM/SENNA 50/8.6MG TAB PO SCH (09:26)
[2021-05-01] MEDS: POLYETHYLENE (MIRALAX) 17 GM PACK PO SCH (09:26)
[2021-05-01] MEDS: ENOXAPARIN INJ 40 MG/0.4 ML SYR SQ SCH (09:26)
[2021-05-01] MEDS: FUROSEMIDE 40 MG/4 ML VIAL IV SCH ×3 (09:28→20:07)
[2021-05-01] MEDS ORDERED: STAT IV Infusion **Titration per Protocol STA (10:00)
[2021-05-01] MEDS: propofoL 1,000 MG/100 ML VIAL IV SCH ×2 (11:13→20:06)
[2021-05-01] MEDS: fentaNYL citrate 2,500 MCG/250 ML BAG IV SCH (11:13)
[2021-05-01] MEDS: PANTOprazole 40 MG in SYRINGE 0 ML IV SCH (11:16)
[2021-05-01] MEDS ORDERED: ATROPINE SULFATE 0.1 MG/ML 10ML SYR IV PRN (11:20)
[2021-05-01] MEDS: PROPOFOL BOLUS FROM BAG IV PRN (11:30)
--- NOTE | 2021-05-01 12:29 | Hospitalist Progress Note ---
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 follow ARDSnet protocol, PEEP remains at 16, FiO2 is 50% (no change for 4 days now) remains supine palliative consulted to have ongoing discussion about goals of care long talk today with and daughter, will meet again on 05/03 to discuss code status (2) Acute respiratory failure with hypoxia: Plan: As above Secondary to COVID-19 pneumonia severe ARDS (3) Hyperglycemia: Plan: With some hyperglycemia likely secondary to corticosteroids following glucose closely, use Novolog PRN (4) Hyponatremia: Plan: normalized (5) Hypokalemia: Plan: replace per ICU protocol normal today (6) Pneumonia due to COVID-19 virus: Plan: As above (7) Transaminitis: Plan: Mildly elevated AST Likely secondary to Covid-19 Plan: DVT prophylaxis-therapeutic Lovenox GI prophylaxis-IV Protonix FEN- tube feeds per ICU Disposition-continued stay in the ICU Admission and Anticipated Discharge Date Admission Date: April 23, 2021 Subjective patient remains intubated, heavy amounts of sedation with Versed and Fentanyl, neuromuscular blockade still on PEEP of 16 and FiO2 50% discussed plan with Dr. Paulino, he says he has severe ARDS, prognosis is very bad spoke with patient's and daughter at the bedside, discussed that he is not improving, cannot reduce PEEP, needs neuromuscular blockade discussed that he will likely not be weaned from ventilator, that tracheostomy would be in his future if they would choose to continue with ventilation asked them to discuss with family about code status, would he want shocked, CPR if his heart would stop explained that if his heart would stop it would be a result of how bad his lungs are, which we cannot fix at this time and daughter very tearful explained that I can only be honest with them, his prognosis is not good he has told them he would not want to be hooked up to machines long-term, explained that is where he is headed will meet again on Tuesday to discuss 25 minutes spent with family at the bedside Review of Systems Review of Systems: Unobtainable due to cognitive status and Unobtainable due to endotracheal tube Physical Exam Constitutional: well developed, well nourished, + ill appearing and + mechanically ventilated Neck: trachea midline, no thyromegaly Respiratory: symmetric chest movement Auscultation: lungs clear to auscultation bilaterally Cardiovascular: RRR, no murmur, no edema Gastrointestinal (Abdomen): normal bowel sounds, soft, nontender, no hepatosplenomegaly Skin: no rashes, warm and dry Neurologic: CN's II-XI intact bilaterally and + obtunded; no focal motor deficits Results & Data Results & Data ([facility]) Vital Signs (Past 12 Hours) Vital Signs Temp Pulse Resp BP Pulse Ox 05/01/21 11:37 37.0 C 95 H 98/69 L 87 L 05/01/21 11:22 36.9 C 86 180/97 H 88 L 05/01/21 11:11 84 34 H 89 L 05/01/21 11:07 36.9 C 84 189/106 H 89 L 05/01/21 10:52 37.0 C 88 196/112 H 90 05/01/21 10:37 37.0 C 82 192/98 H 90 05/01/21 10:22 37.0 C 82 129/77 89 L 05/01/21 10:07 37.0 C 80 125/76 89 L 05/01/21 09:52 36.9 C 72 120/72 89 L 05/01/21 09:37 36.8 C 68 112/67 90 05/01/21 09:22 36.7 C 69 113/67 89 L 05/01/21 09:07 36.6 C 70 106/66 89 L 05/01/21 08:52 36.7 C 68 110/68 90 05/01/21 08:37 36.7 C 70 108/69 90 05/01/21 08:22 36.6 C 68 114/71 90 05/01/21 08:07 36.6 C 68 117/73 90 05/01/21 07:58 69 34 H 90 05/01/21 07:52 36.5 C 68 116/70 90 05/01/21 07:37 36.5 C 67 124/74 90 05/01/21 07:22 36.5 C 68 123/74 91 05/01/21 07:07 36.5 C 73 126/76 91 05/01/21 05:52 36.4 C L 71 132/79 90 05/01/21 05:32 36.3 C L 70 146/82 H 91 05/01/21 05:22 36.3 C L 75 192/98 H 92 05/01/21 05:07 36.3 C L 69 164/91 H 94 05/01/21 04:57 75 30 H 94 05/01/21 04:52 36.3 C L 68 170/92 H 94 05/01/21 04:37 36.3 C L 72 180/108 H 94 05/01/21 04:22 36.3 C L 67 160/83 H 92 05/01/21 04:07 36.3 C L 65 144/81 H 89 L 05/01/21 03:52 36.4 C L 71 155/85 H 93 05/01/21 03:37 36.4 C L 66 127/78 93 05/01/21 03:22 36.5 C 69 126/77 93 05/01/21 03:07 36.5 C 68 129/77 92 05/01/21 02:52 36.5 C 68 126/80 92 05/01/21 02:37 36.5 C 68 122/75 93 05/01/21 02:22 36.6 C 71 133/81 92 05/01/21 02:07 36.6 C 74 133/83 92 05/01/21 01:52 36.6 C 72 137/82 92 05/01/21 01:37 36.7 C 70 134/82 92 05/01/21 01:22 36.7 C 71 140/88 92 05/01/21 01:17 72 30 H 92 05/01/21 01:07 36.7 C 70 203/109 H 93 05/01/21 00:38 36.6 C 83 193/108 H 93 Laboratory Results Laboratory Results - last 24 hr 04/30/21 04/30/21 04/30/21 13:04 15:57 16:34 WBC RBC Hgb POC Hgb 16.3 Hct POC Hct 48 MCV MCH MCHC RDW Std Deviation RDW Coeff of Elvin Plt Count MPV Immature Gran % (Auto) Neut % (Auto) Lymph % (Auto) [place] % (Auto) Eos % (Auto) Baso % (Auto) Neut # (Auto) Lymph # (Auto) [place] # (Auto) Eos # (Auto) Baso # (Auto) Immature Gran # (Auto) Sample Site R Radial POC pH 7.26 L POC pCO2 80 H POC pO2 71 L POC HCO3 36 H POC Total CO2 39 H POC Base Excess 9.0 H ABG pH (Temp Correct) 7.273 L ABG pCO2 (Temp Corrct 78 H POC ABG pO2 at Pt Temp 67 POC ABG O2 Sat 90.0 Nikolas Test Pass O2 Delivery Device Ventilator POC O2 Rate 30 Minute Ventilation POC FiO2 50 Tidal Volume 290 PEEP 16 POC Sodium 135 Sodium POC Potassium 4.5 Potassium Chloride Carbon Dioxide Anion Gap BUN Creatinine Est Cr Clr Drug Dosing Est GFR ( Amer) Est GFR (Non-Af Amer) BUN/Creatinine Ratio Glucose POC Glucose 138 H 166 H Calcium Phosphorus Magnesium 04/30/21 05/01/21 05/01/21 22:56 05:02 05:02 WBC 14.08 H RBC 4.54 L Hgb 14.5 POC Hgb Hct 44.3 POC Hct MCV 97.6 MCH 31.9 MCHC 32.7 RDW Std Deviation 47.1 H RDW Coeff of Elvin 13.3 Plt Count 316 MPV 9.3 Immature Gran % (Auto) 2.7 Neut % (Auto) 83.2 Lymph % (Auto) 7.2 [place] % (Auto) 6.1 Eos % (Auto) 0.6 Baso % (Auto) 0.2 Neut # (Auto) 11.71 H Lymph # (Auto) 1.01 L [place] # (Auto) 0.86 H Eos # (Auto) 0.09 Baso # (Auto) 0.03 Immature Gran # (Auto) 0.38 H Sample Site POC pH POC pCO2 POC pO2 POC HCO3 POC Total CO2 POC Base Excess ABG pH (Temp Correct) ABG pCO2 (Temp Corrct POC ABG pO2 at Pt Temp POC ABG O2 Sat Nikolas Test O2 Delivery Device POC O2 Rate Minute Ventilation POC FiO2 Tidal Volume PEEP POC Sodium Sodium 135 L POC Potassium Potassium 4.3 Chloride 100 Carbon Dioxide 33 H Anion Gap 2.0 L BUN 27 H Creatinine 0.64 Est Cr Clr Drug Dosing 120.8 Est GFR ( Amer) 118.3 Est GFR (Non-Af Amer) 102.0 BUN/Creatinine Ratio 41.4 H Glucose 130 H POC Glucose 105 H Calcium 8.1 L Phosphorus 3.3 Magnesium 2.4 05/01/21 05:07 WBC RBC Hgb POC Hgb Hct POC Hct MCV MCH MCHC RDW Std Deviation RDW Coeff of Elvin Plt Count MPV Immature Gran % (Auto) Neut % (Auto) Lymph % (Auto) [place] % (Auto) Eos % (Auto) Baso % (Auto) Neut # (Auto) Lymph # (Auto) [place] # (Auto) Eos # (Auto) Baso # (Auto) Immature Gran # (Auto) Sample Site R Radial POC pH 7.28 L POC pCO2 77 H POC pO2 81 POC HCO3 36 H POC Total CO2 38 H POC Base Excess 9.0 H ABG pH (Temp Correct) ABG pCO2 (Temp Corrct POC ABG pO2 at Pt Temp POC ABG O2 Sat 93.0 Nikolas Test Pass O2 Delivery Device Ventilator POC O2 Rate 30 Minute Ventilation 8.4 POC FiO2 50 Tidal Volume 290 PEEP 16 POC Sodium Sodium POC Potassium Potassium Chloride Carbon Dioxide Anion Gap BUN Creatinine Est Cr Clr Drug Dosing Est GFR ( Amer) Est GFR (Non-Af Amer) BUN/Creatinine Ratio Glucose POC Glucose Calcium Phosphorus Magnesium Medications Administered Current Inpatient Medications Acetaminophen (Acetaminophen 325 Mg Tab) 650 mg PO Q4H PRN PRN Reason: pain/fever Stop: 05/23/21 06:24 Albuterol (Albuterol Hfa 8 Gm Inhaler) 2 puffs INH Q4R PRN PRN Reason: sob Stop: 05/23/21 06:24 Atropine Sulfate (Atropine Sulfate 0.1 Mg/Ml 10ml Syr) 1 mg IV .AT BEDSIDE PRN PRN Reason: symptomatic bradycardia Enoxaparin Sodium (Enoxaparin Inj 40 Mg/0.4 Ml Syr) 40 mg SQ QAM SHIRLEY Stop: 05/29/21 08:59 Last Admin: 05/01/21 09:26 Dose: 40 mg Documented by: Fentanyl Citrate (Fentanyl Bolus From Bag) 50 mcg IV Q60M PRN PRN Reason: Pain or Agitation Stop: 05/08/21 11:20 Last Admin: 05/01/21 01:00 Dose: 50 mcg Documented by: Furosemide (Furosemide 40 Mg/4 Ml Vial) 40 mg IV BID [facility] Stop: 05/31/21 09:29 Last Admin: 05/01/21 09:28 Dose: 40 mg Documented by: Pantoprazole Sodium 40 mg/ (Syringe) 10 mls @ 5 mls/min IV DAILY@1100 [facility] Stop: 05/24/21 10:59 Last Admin: 05/01/21 11:16 Dose: 5 mls/min Documented by: Midazolam HCl (Versed) 125 mg in 250 mls @ 18 mls/hr IV .[id number] [facility]; Protocol Stop: 05/24/21 11:29 Last Titration: 05/01/21 07:02 Dose: 9 mg/hr, 18 mls/hr Documented by: Cisatracurium Besylate 40 mg/ (Sodium Chloride) 100 mls @ 19.8 mls/hr IV .Q5H4M [facility]; Protocol Stop: 05/26/21 23:44 Last Admin: 05/01/21 09:27 Dose: 2 mcg/kg/min, 19.8 mls/hr Documented by: Propofol (Diprivan) 1,000 mg in 100 mls @ 10.668 mls/hr IV .Q9H23M [facility]; Protocol Stop: 05/04/21 09:59 Last Admin: 05/01/21 11:13 Dose: 20 mcg/kg/min, 10.7 mls/hr Documented by: Fentanyl Citrate (Fentanyl Citrate) 2,500 mcg in 250 mls @ 22.5 mls/hr IV .Q11H7M [facility]; Protocol Stop: 05/15/21 11:14 Last Admin: 05/01/21 11:13 Dose: 225 mcg/hr, 22.5 mls/hr Documented by: Midazolam HCl (Midazolam Bolus From Bag) 2 mg IV Q60M PRN PRN Reason: Sedation Stop: 05/24/21 11:20 Last Admin: 05/01/21 00:40 Dose: 2 mg Documented by: Multi-Ingredient Cream (Artificial Tears Op Oint 3.5 Gm Tube) 1 appln OP Q4H [facility] Stop: 05/26/21 23:44 Last Admin: 05/01/21 11:16 Dose: 1 appln Documented by: Multivitamins/Minerals (Multi Vit W/Minerals Liquid 15 Ml Udp) 15 ml NG QAM SHIRLEY Stop: 05/25/21 08:59 Last Admin: 05/01/21 09:26 Dose: 15 ml Documented by: Nutritional Formula (Peptamen Intense Vhp 1.0 Asad 1,000 Ml Bag) 1,000 ml OG UD SHIRLEY; Protocol Stop: 05/24/21 13:14 Last Admin: 04/30/21 16:23 Dose: 1,000 ml Documented by: Ondansetron HCl (Ondansetron Inj 2 Mg/Ml 2 Ml Vial) 4 mg IV Q6H PRN PRN Reason: Nausea Stop: 05/23/21 06:24 Polyethylene Glycol (Polyethylene (Miralax) 17 Gm Pack) 17 gm PO DAILY SHIRLEY Stop: 05/27/21 09:44 Last Admin: 05/01/21 09:26 Dose: 17 gm Documented by: Propofol (Propofol Bolus From Bag) 20 mg IV Q5M PRN PRN Reason: Sedation Stop: 05/04/21 09:59 Senna/Docusate Sodium (Docusate Sodium/Senna 50/8.6mg Tab) 1 tab PO QAM SHIRLEY Stop: 05/27/21 09:44 Last Admin: 05/01/21 09:26 Dose: 1 tab Documented by: Sterile Water (Tube Feeding Water Flush) 30 ml OG Q4H SHIRLEY Stop: 05/24/21 13:14 Last Admin: 05/01/21 09:27 Dose: 30 ml Documented by: PG Care Time/CCT Total # of Minutes Spent Total Time Spent: 35 Total Time Spent with Patient: Total time spent is greater than 50% in coordination of care (as documented) at patient's floor/unit and/or counseling patient: Coding Level of Care Code 68672 Subseq Hosp Care Lvl 3 (25 - SIGNIFICANT, SEPARATELY IDENTIFIABLE ) Diagnoses COVID-19 U07.1 Acute respiratory failure with hypoxia J96.01 Hyperglycemia R73.9 Hyponatremia E87.1 Hypokalemia E87.6 Pneumonia due to COVID-19 virus U07.1; J12.82 Transaminitis R74.01
--- NOTE | 2021-05-01 14:50 | Palliative Care Progress Note ---
Date of Service May 01, 2021 Assessment & Plan (1) Palliative care encounter: Plan: I spoke with Leia on the phone and updated her. She and her mother are tearful and worried about his prognosis. We discussed that possibility that he may have cardiac emergency and require CPR. They are not ready to consider withdrawing care at this time but understand that CPR in his current situation will not be effective. They are considering change of code status. They are also struggling with his illness and not being able to see them. They were able to see him this afternoon and are currently visiting with him at bedside. (2) ARDS (adult respiratory distress syndrome): (3) Pneumonia due to COVID-19 virus: (4) Bradycardia: (5) Transaminitis: Admission and Anticipated Discharge Date Admission Date: April 23, 2021 Subjective Remains on vent. Oxygenation poor. Sedated. Continues to have episodes of bradycardia. Review of Systems Review of Systems: Unobtainable due to endotracheal tube and Unobtainable due to reduced consciousness Physical Exam Constitutional: + mechanically ventilated; no acute distress Cardiovascular: Rate/Rhythm: regular rate and regular rhythm Gastrointestinal (Abdomen): Inspection/Auscultation: abdomen not distended Neurologic: + obtunded Results & Data ([facility]) Vital Signs (Past 12 Hours) Vital Signs Temp Pulse Resp BP Pulse Ox 05/01/21 11:37 98.6 F 95 H 98/69 L 87 L 05/01/21 11:22 98.4 F 86 180/97 H 88 L 05/01/21 11:11 84 34 H 89 L 05/01/21 11:07 98.4 F 84 189/106 H 89 L 05/01/21 10:52 98.6 F 88 196/112 H 90 05/01/21 10:37 98.6 F 82 192/98 H 90 05/01/21 10:22 98.6 F 82 129/77 89 L 05/01/21 10:07 98.6 F 80 125/76 89 L 05/01/21 09:52 98.4 F 72 120/72 89 L 05/01/21 09:37 98.2 F 68 112/67 90 05/01/21 09:22 98.1 F 69 113/67 89 L 05/01/21 09:07 97.9 F 70 106/66 89 L 05/01/21 08:52 98.1 F 68 110/68 90 05/01/21 08:37 98.1 F 70 108/69 90 05/01/21 08:22 97.9 F 68 114/71 90 05/01/21 08:07 97.9 F 68 117/73 90 05/01/21 07:58 69 34 H 90 05/01/21 07:52 97.7 F 68 116/70 90 05/01/21 07:37 97.7 F 67 124/74 90 05/01/21 07:22 97.7 F 68 123/74 91 05/01/21 07:07 97.7 F 73 126/76 91 05/01/21 05:52 97.5 F L 71 132/79 90 05/01/21 05:32 97.3 F L 70 146/82 H 91 05/01/21 05:22 97.3 F L 75 192/98 H 92 05/01/21 05:07 97.3 F L 69 164/91 H 94 05/01/21 04:57 75 30 H 94 05/01/21 04:52 97.3 F L 68 170/92 H 94 05/01/21 04:37 97.3 F L 72 180/108 H 94 05/01/21 04:22 97.3 F L 67 160/83 H 92 05/01/21 04:07 97.3 F L 65 144/81 H 89 L 05/01/21 03:52 97.5 F L 71 155/85 H 93 05/01/21 03:37 97.5 F L 66 127/78 93 05/01/21 03:22 97.7 F 69 126/77 93 05/01/21 03:07 97.7 F 68 129/77 92 05/01/21 02:52 97.7 F 68 126/80 92 PG Care Time/CCT Total # of Minutes Spent Total Time Spent: 35 Total Time Spent with Patient: Total time spent is greater than 50% in coordination of care (as documented) at patient's floor/unit and/or counseling patient: goals of care, family education and support. Coding Level of Care Code 97935 Subseq Hosp Care Lvl 3 Diagnoses Palliative care encounter Z51.5 ARDS (adult respiratory distress syndrome) J80 Pneumonia due to COVID-19 virus U07.1; J12.82 Bradycardia R00.1 Transaminitis R74.01
--- NOTE | 2021-05-01 16:14 | Electrocardiogram Report ---
Test Reason : Blood Pressure : / mmHG Vent. Rate : 087 BPM Atrial Rate : 087 BPM P-R Int : 118 ms QRS Dur : 086 ms QT Int : 360 ms P-R-T Axes : 059 054 037 degrees QTc Int : 433 ms Normal sinus rhythm Nonspecific ST abnormality Abnormal ECG When compared with ECG of 23-APR-2021 00:04, ST now depressed in Lateral leads T wave inversion no longer evident in Inferior leads T wave amplitude has increased in Anterolateral leads Confirmed by Wesley Gutierres ([id number]) on 05/01/2021 4:14:48 PM Referred By: REFERRED SELF Confirmed By:Wesley Gutierres
[2021-05-01] MEDS: PEPTAMEN INTENSE VHP 1.0 CAL 1,000 ML BAG OG SCH (20:38)
[2021-05-02] MEDS: CISATRACURIUM BESYLATE 40 MG in 0.9 % SODIUM CHLORIDE 80 ML IV SCH ×10 (00:26→14:46)
[2021-05-02] MEDS: fentaNYL citrate 2,500 MCG/250 ML BAG IV SCH ×3 (01:49→18:07)
[2021-05-02] MEDS: TUBE FEEDING WATER FLUSH OG SCH ×6 (01:49→21:25)
[2021-05-02] MEDS: ARTIFICIAL TEARS OP OINT 3.5 GM TUBE OP SCH ×5 (03:25→19:13)
[2021-05-02 04:57] LABS: iSTAT Allen Test Pass; iSTAT Arterial Blood Gas HCO3 40 meg/L (19-24); iSTAT Arterial Blood Gas pCO2 72 mmHg (35-46); iSTAT Arterial Blood Gas pH 7.35 (7.35-7.45); iSTAT Arterial Blood Gas pO2 72 mmHg (80-95); iSTAT Carbon Dioxide > 40 mmol/L (24-31); iSTAT FiO2 50 %; iSTAT Site R Radial
[2021-05-02 05:28] LABS: Basophils # (auto) 0.01 K/uL (0-0.2); Basophils % (auto) 0.1 %; Eosinophils # (auto) 0.27 K/uL (0-0.5); Eosinophils % (auto) 1.5 %; Hematocrit (blood only) 45.4 % (42-52); Hemoglobin 14.5 g/dL (14.0-18.0); Immature Granulocytes # (auto) 0.25 K/uL (0.00-0.02); Immature Granulocytes % (auto) 1.4 %; Lymphocytes # (auto) 1.17 K/uL (1.2-3.4); Lymphocytes % (auto) 6.6 %; Mean Corpuscular Hgb Conc 31.9 g/dL (32-36); Mean Corpuscular Volume 100.2 fL (80-100); Mean Platelet Volume 9.6 fL (7.4-10.4); Monocytes # (auto) 1.06 K/uL (0.11-0.59); Neutrophils # (auto) 15.01 K/uL (1.4-6.5); Neutrophils % (auto) 84.4 %; Platelet Count 308 K/uL (130-400); RDW Coefficient of Variation 13.3 % (11.5-14.5); Red Blood Count 4.53 M/uL (4.7-6.1); White Blood Count 17.77 K/uL (4.8-10.8)
[2021-05-02 05:58] LABS: Calcium 8.5 mg/dl (8.5-10.1); Creatinine Clr Calc Pharmacy 105.3 ml/min; Est GFR (Non-African American) 96.7 ml/min; Magnesium 2.6 mg/dl (1.8-2.4); Phosphorus 3.3 mg/dl (2.5-4.9)
[2021-05-02] MEDS: propofoL 1,000 MG/100 ML VIAL IV SCH ×5 (06:18→18:07)
--- NOTE | 2021-05-02 07:31 | XRay Report ---
XR chest 1V portable CLINICAL HISTORY: f/u COMPARISON STUDY: Chest CT April 27, 2021. Chest radiograph May 01, 2021. FINDINGS: Tip of endotracheal tube is 5.5 cm above the smitha. Nasogastric tube tip is within the gas tric fundus. Right central line remains in place. There is no pneumothorax. There is no pleural effus ion. Extensive bilateral airspace opacities are similar to prior exam. There is no radiographic evide nce for pneumomediastinum. IMPRESSION: 1. Satisfactory positioning of lines and tubes. 2. No significant change in extensive bilateral airspace opacities which favor viral pneumonia. ACT 112: Negative or not required by law. Electronically signed by: Jesse Enrique M.D. 05/02/2021 7:29 AM
[2021-05-02] MEDS: PROPOFOL BOLUS FROM BAG IV PRN ×2 (07:40→08:01)
[2021-05-02] MEDS: MIDAZOLAM BOLUS FROM BAG IV PRN ×2 (08:00→22:41)
[2021-05-02] MEDS: ENOXAPARIN INJ 40 MG/0.4 ML SYR SQ SCH (09:45)
[2021-05-02] MEDS: FUROSEMIDE 40 MG/4 ML VIAL IV SCH ×2 (09:45→21:25)
[2021-05-02] MEDS: DOCUSATE SODIUM/SENNA 50/8.6MG TAB PO SCH (09:46)
[2021-05-02] MEDS: POLYETHYLENE (MIRALAX) 17 GM PACK PO SCH (09:46)
[2021-05-02] MEDS: MULTI VIT W/MINERALS LIQUID 15 ML UDP NG SCH (09:46)
[2021-05-02] MEDS: MIDAZOLAM HCL 125 MG/250 ML BAG IV SCH ×2 (09:46→12:28)
[2021-05-02] MEDS: PANTOprazole 40 MG in SYRINGE 0 ML IV SCH (11:30)
[2021-05-02 12:08] LABS: iSTAT Art Bld Gas pCO2 Correct 54 mmHg (35-46); iSTAT Art Bld Gas pH Corrected 7.459 (7.35-7.45); iSTAT Arterial Blood Gas HCO3 39 meg/L (19-24); iSTAT Arterial Blood Gas pCO2 55 mmHg (35-46); iSTAT Arterial Blood Gas pH 7.46 (7.35-7.45); iSTAT Arterial Blood Gas pO2 54 mmHg (80-95); iSTAT Arterial Blood Gas pO2 C 53; iSTAT Carbon Dioxide > 40 mmol/L (24-31); iSTAT FiO2 60 %; iSTAT Hematocrit 41 % (42-52); iSTAT Hemoglobin 13.9 g/dl (14.0-18.0); iSTAT Potassium 3.5 mmol/L (3.3-5.0); iSTAT Site Art Line; iSTAT Sodium 136 mmol/L (135-144)
[2021-05-02] MEDS: CISATRACURIUM BESYLATE 100 MG in SODIUM CHLORIDE 0.9% 200 ML IV SCH ×2 (14:09→19:12)
--- NOTE | 2021-05-02 14:31 | Critical Care Progress Note ---
Date of Service May 02, 2021 Assessment & Plan (1) ARDS (adult respiratory distress syndrome): (2) COVID-19: (3) Admitted to intensive care unit: (4) Acute respiratory failure with hypoxia: (5) Bradycardia: Plan: Reason critically ill: 66 yo M with no significant PMHx admitted with acute respiratory failure with hypoxia secondary to COVID-19 pneumonia admitted to ICU requiring close monitoring given tenuous respiratory status. NEURO: Continue to wean sedation as able. Goal RASS of -1. Currently on neuromuscular blockade to promote ventilator synchrony. 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 He is currently on propofol, Versed and fentanyl for pain control. CARDIAC/VASCULAR: --Episodes of bradycardia in the past Likely sedation related Propofol has been restarted continue to monitor --Episode of hypertension Continue with sedation and analgesia As needed hydralazine RESPIRATORY: Acute hypoxic respiratory distress secondary to COVID-19 pneumonia - Continue dexamethasone IV 6mg daily while admitted -Intubated 04/24. Continue lung protective ventilation strategy. - Received tocilizumab therapy -Chest CTA completed 04/27/2021 with diffuse groundglass opacities and dense bibasilar atelectasis. -Unfortunately requiring high amounts of ventilator support and neuromuscular blockade to promote ventilator synchrony. -We will likely need to proceed with tracheostomy next week if unable to wean off the ventilator. -Continue lung protective ventilation strategy to prevent ventilator induced lung injury. GI/NUTRITION: -Tube feedings - Continue docusate and senna and MiraLAX. RENAL/LYTES: - No significant issues. Replace electrolytes per protocol. -Starting 40 mg twice daily of Lasix 05/01/2021. Goal to achieve a negative fluid balance. GENITOURINARY: No acute concerns. Strict Is/Os. ENDO: ICU hyperglycemia protocol. HEME: No significant issues at this time. ID: COVID-19 pneumonia --Prophylaxis VTE: Lovenox GI: Protonix Overall prognosis is guarded Lines: Right subclavian, right radial, positive Valadez Diet: Trophic tube feeds Plan: In/out: -1 Liter, urine output 3.8L AB.35/72/72 Patient having bouts of hypertension on and off. We will start the patient on hydralazine 10 mg every 6 hours as needed systolic blood pressure greater than 160 Can consider metoprolol pushes as well as the patient is not bradycardic. WBC count went up today. Chest x-ray did not show any significant change compared to before. Afebrile. I went down on PEEP to 10 and increase the tidal volume to 350. Patient was still maintaining saturation around 89-90% Goal will be to keep O2 saturation greater than 88% Patient is still needing a lot of sedation as well as paralytics the moment we take the paralytics off patient gets acutely dyssynchronous with the vent and desaturates in the 60s. I have personally spent 38 minutes of critical care time in the direct management of this patient. This is a life/limb threatening event. This includes time spent evaluating patient, direct bedside care, chart review, placing orders, interpretation of diagnostic studies, discussion with consultants, patient, and family members, as well as other required patient management activities. This time is exclusive of all separately billable procedures, and teaching time and separate from and in addition to any other critical care service time. Please note the above document was generated using voice recognition software. It may contain grammatical, syntax or spelling errors. Admission and Anticipated Discharge Date Admission Date: April 23, 2021 Subjective Patient seen and examined at bedside. No acute distress. Patient is currently paralyzed with Nimbex Under propofol 25, midazolam 6, fentanyl 150 Patient was on PEEP of 14, 60% saturating 92% Review of Systems Review of Systems: Unobtainable due to endotracheal tube Physical Exam Physical Exam: Constitutional: No acute distress HEENT: EOMI, PERRLA Respiratory system: Decreased air entry bilaterally, no wheeze, rhonchi, positive crackles bilateral lower lobes CVS: S1-S2 positive, no murmurs or gallops Abdomen: Soft, nontender, nondistended, positive bowel sounds x4 Extremities: +2 pulses bilaterally radialis/ dorsalis pedis, no cyanosis, +1 pitting edema bilateral lower extremity Neuro: Paralyzed and sedated Psych: Unable to assess G/U: Positive Valadez Skin: no rashes, warm and dry Lymphatic: no cervical or axillary lymphadenopathy Results & Data Results & Data ([facility]) Vital Signs (Past 12 Hours) Vital Signs Temp Pulse Resp BP Pulse Ox 05/02/21 12:03 36.9 C 67 138/76 91 05/02/21 11:58 26 H 05/02/21 11:44 36.9 C 69 105/68 88 L 05/02/21 11:14 36.8 C 72 102/63 88 L 05/02/21 11:00 71 30 H 89 L 05/02/21 10:44 36.8 C 68 116/71 92 05/02/21 10:14 36.7 C 68 110/69 92 05/02/21 09:44 36.7 C 69 101/64 92 05/02/21 09:14 36.7 C 71 92/62 L 89 L 05/02/21 08:44 36.7 C 72 103/65 89 L 05/02/21 08:14 36.6 C 75 118/75 89 L 05/02/21 07:46 84 40 H 90 05/02/21 07:45 36.1 C L 91 H 151/94 H 92 05/02/21 07:15 36.4 C L 81 194/107 H 93 05/02/21 06:44 36.3 C L 74 149/80 H 90 05/02/21 06:25 36.2 C L 79 139/80 89 L 05/02/21 06:14 36.2 C L 81 206/106 H 91 05/02/21 05:36 36.2 C L 74 141/79 H 87 L 05/02/21 05:25 36.2 C L 81 194/109 H 92 05/02/21 05:14 36.2 C L 80 196/99 H 87 L 05/02/21 04:45 36.4 C L 74 207/108 H 90 05/02/21 04:40 63 34 H 94 05/02/21 04:14 36.7 C 69 143/84 H 95 05/02/21 03:46 36.8 C 66 180/96 H 94 05/02/21 03:14 36.9 C 69 113/73 93 05/02/21 02:44 36.9 C 71 112/72 92 05/02/21 04:45 05/02/21 04:45 Coding Level of Care Code Critical Care 1st 30-74 mins Diagnoses ARDS (adult respiratory distress syndrome) J80 COVID-19 U07.1 Admitted to intensive care unit Z78.9 Acute respiratory failure with hypoxia J96.01 Bradycardia R00.1 Time Spent (min) 38
[2021-05-02] MEDS ORDERED: Nursing to Pharmacy Communication SCH (15:15)
--- NOTE | 2021-05-02 15:27 | Procedure Note ---
Procedure Note Date of Service May 02, 2021 Note ARTERIAL LINE PROCEDURE NOTE: Procedure: Right arterial Line Placement Attending: Dr. Ade White MD Indication: ARDS with frequent ABGs need Anesthesia: General anesthesia Emergent consent was applied A time-out was completed verifying correct patient, procedure, site, positioning, and implant(s) or special equipment if applicable. Allens test was performed to ensure adequate perfusion. Patients right wrist was prepped and draped in the usual sterile fashion. Ultrasound guidance was used to aid needle placement. A 20g Arrow arterial line was introduced into the right artery. Catheter was threaded, and the needle was removed with appropriate pulsatile blood return. Good waveform was observed on the monitor. The patient tolerated the procedure well. Confirmation of placement with ultrasound. Images saved to medical record. Complications: None Blood Loss: None Coding CPT Codes Tubes, Drains, and Vasc Access - Tubes, Drains, and Vasc Access: [id number] Place Catheter In Artery ([id number]) Tubes, Drains, and Vasc Access - Tubes, Drains, and Vasc Access: [id number] Ultrasound Guidance For Vascular ([id number]) [facility] Procedure Codes (Charges) Tubes, Drains, and Vasc Access Procedure 1: Tubes, Drains, and Vasc Access: [id number] Place Catheter In Artery Procedure 2: Tubes, Drains, and Vasc Access: [id number] Ultrasound Guidance For Vascular
[2021-05-02] MEDS: hydrALAZINE HCL 20 MG/ML VIAL IV PRN ×2 (15:45→22:32)
--- NOTE | 2021-05-02 15:59 | Hospitalist Progress Note ---
Date of Service May 02, 2021 Assessment & Plan (1) COVID-19: Plan: 66yo C male presenting with worsening Covid-19 PNA Pulse ox could not be maintained above mid 70s on the morning of 04/24 and he was intubated, sedated, paralyzed and proned stable on ventilator, requiring high doses of Fentanyl and Versed for sedation on neuromuscular blockade -Continue Dexamethasone 6mg IV daily x10-day course, day 9 today tocilizumab 600 mg x1 dose on 04/24 -Appreciate drosser management of ventilator follow ARDSnet protocol, PEEP down to 12 but FiO2 up to 70% remains supine palliative consulted to have ongoing discussion about goals of care long talk today with and daughter on 05/01 plan to meet again tomorrow, discuss goals of care, code status (2) Acute respiratory failure with hypoxia: Plan: As above Secondary to COVID-19 pneumonia severe ARDS (3) Hyperglycemia: Plan: With some hyperglycemia likely secondary to corticosteroids following glucose closely, use Novolog PRN (4) Hyponatremia: Plan: normalized (5) Hypokalemia: Plan: replace per ICU protocol normal today (6) Pneumonia due to COVID-19 virus: Plan: As above (7) Transaminitis: Plan: Mildly elevated AST Likely secondary to Covid-19 Plan: DVT prophylaxis-therapeutic Lovenox GI prophylaxis-IV Protonix FEN- tube feeds per ICU Disposition-continued stay in the ICU Admission and Anticipated Discharge Date Admission Date: April 23, 2021 Subjective patient still requiring full neuromuscular blockade down to 12 on PEEP, increased FiO2 to 70% when he was titrated down on sedation and blockade his sats dropped to 80% needed heavy boluses of sedation to stabilize, he is very frail spoke with his Genna over the phone, will call tomorrow AM, determine a time to meet in his room plan to discuss goals of care Review of Systems Review of Systems: Unobtainable due to cognitive status and Unobtainable due to endotracheal tube Physical Exam Constitutional: well developed, well nourished, + ill appearing and + mechanically ventilated Neck: trachea midline, no thyromegaly Respiratory: symmetric chest movement Auscultation: lungs clear to auscultation bilaterally Cardiovascular: RRR, no murmur, no edema Gastrointestinal (Abdomen): normal bowel sounds, soft, nontender, no hepatosplenomegaly Skin: no rashes, warm and dry Neurologic: CN's II-XI intact bilaterally and + obtunded; + does not move all extremities (neuromuscular blockade) Results & Data Results & Data ([facility]) Vital Signs (Past 12 Hours) Vital Signs Temp Pulse Resp BP Pulse Ox 05/02/21 15:06 83 28 H 91 05/02/21 15:02 36.6 C 78 186/87 H 90 05/02/21 14:56 36.6 C 86 207/98 H 92 05/02/21 14:33 36.8 C 77 185/91 H 90 05/02/21 14:02 37.0 C 69 132/72 91 05/02/21 13:32 37.0 C 70 128/67 91 05/02/21 13:02 37.0 C 71 124/65 91 05/02/21 12:32 37.0 C 71 128/73 91 05/02/21 12:03 36.9 C 67 138/76 91 05/02/21 11:58 26 H 05/02/21 11:44 36.9 C 69 105/68 88 L 05/02/21 11:14 36.8 C 72 102/63 88 L 05/02/21 11:00 71 30 H 89 L 05/02/21 10:44 36.8 C 68 116/71 92 05/02/21 10:14 36.7 C 68 110/69 92 05/02/21 09:44 36.7 C 69 101/64 92 05/02/21 09:14 36.7 C 71 92/62 L 89 L 05/02/21 08:44 36.7 C 72 103/65 89 L 05/02/21 08:14 36.6 C 75 118/75 89 L 05/02/21 07:46 84 40 H 90 05/02/21 07:45 36.1 C L 91 H 151/94 H 92 05/02/21 07:15 36.4 C L 81 194/107 H 93 05/02/21 06:44 36.3 C L 74 149/80 H 90 05/02/21 06:25 36.2 C L 79 139/80 89 L 05/02/21 06:14 36.2 C L 81 206/106 H 91 05/02/21 05:36 36.2 C L 74 141/79 H 87 L 05/02/21 05:25 36.2 C L 81 194/109 H 92 05/02/21 05:14 36.2 C L 80 196/99 H 87 L 05/02/21 04:45 36.4 C L 74 207/108 H 90 05/02/21 04:40 63 34 H 94 05/02/21 04:14 36.7 C 69 143/84 H 95 Laboratory Results Laboratory Results - last 24 hr 05/02/21 05/02/21 05/02/21 04:41 04:45 04:45 WBC 17.77 H RBC 4.53 L Hgb 14.5 POC Hgb Hct 45.4 POC Hct MCV 100.2 H MCH 32.0 MCHC 31.9 L RDW Std Deviation 49.0 H RDW Coeff of Elvin 13.3 Plt Count 308 MPV 9.6 Immature Gran % (Auto) 1.4 Neut % (Auto) 84.4 Lymph % (Auto) 6.6 [facility] % (Auto) 6.0 Eos % (Auto) 1.5 Baso % (Auto) 0.1 Neut # (Auto) 15.01 H Lymph # (Auto) 1.[address] [facility] # (Auto) 1.06 H Eos # (Auto) 0.27 Baso # (Auto) 0.01 Immature Gran # (Auto) 0.25 H Sample Site R Radial POC pH 7.35 POC pCO2 72 H POC pO2 72 L POC HCO3 40 H POC Total CO2 > 40 H* POC Base Excess 14.0 H ABG pH (Temp Correct) ABG pCO2 (Temp Corrct POC ABG pO2 at Pt Temp POC ABG O2 Sat 92.0 Nikolas Test Pass O2 Delivery Device Ventilator POC O2 Rate 34 Minute Ventilation 9.6 POC FiO2 50 Tidal Volume 290 PEEP 14 POC Sodium Sodium 135 L POC Potassium Potassium 4.0 Chloride 96 L Carbon Dioxide 38 H Anion Gap 1.0 L BUN 34 H Creatinine 0.73 Est Cr Clr Drug Dosing 105.3 Est GFR ( Amer) 112.0 Est GFR (Non-Af Amer) 96.7 BUN/Creatinine Ratio 47.0 H Glucose 113 H Calcium 8.5 Phosphorus 3.3 Magnesium 2.6 H 05/02/21 11:51 WBC RBC Hgb POC Hgb 13.9 L Hct POC Hct 41 L MCV MCH MCHC RDW Std Deviation RDW Coeff of Elvin Plt Count MPV Immature Gran % (Auto) Neut % (Auto) Lymph % (Auto) [facility] % (Auto) Eos % (Auto) Baso % (Auto) Neut # (Auto) Lymph # (Auto) [facility] # (Auto) Eos # (Auto) Baso # (Auto) Immature Gran # (Auto) Sample Site Art Line POC pH 7.46 H POC pCO2 55 H POC pO2 54 L POC HCO3 39 H POC Total CO2 > 40 H* POC Base Excess 15.0 H ABG pH (Temp Correct) 7.459 H ABG pCO2 (Temp Corrct 54 H POC ABG pO2 at Pt Temp 53 POC ABG O2 Sat 88.0 L Nikolas Test NA O2 Delivery Device Ventilator POC O2 Rate 30 Minute Ventilation POC FiO2 60 Tidal Volume 350 PEEP 10 POC Sodium 136 Sodium POC Potassium 3.5 Potassium Chloride Carbon Dioxide Anion Gap BUN Creatinine Est Cr Clr Drug Dosing Est GFR ( Amer) Est GFR (Non-Af Amer) BUN/Creatinine Ratio Glucose Calcium Phosphorus Magnesium Medications Administered Current Inpatient Medications Acetaminophen (Acetaminophen 325 Mg Tab) 650 mg PO Q4H PRN PRN Reason: pain/fever Stop: 05/23/21 06:24 Albuterol (Albuterol Hfa 8 Gm Inhaler) 2 puffs INH Q4R PRN PRN Reason: sob Stop: 05/23/21 06:24 Atropine Sulfate (Atropine Sulfate 0.1 Mg/Ml 10ml Syr) 1 mg IV .AT BEDSIDE PRN PRN Reason: symptomatic bradycardia Enoxaparin Sodium (Enoxaparin Inj 40 Mg/0.4 Ml Syr) 40 mg SQ QAM [facility] Stop: 05/29/21 08:59 Last Admin: 05/02/21 09:45 Dose: 40 mg Documented by: Fentanyl Citrate (Fentanyl Bolus From Bag) 50 mcg IV Q60M PRN PRN Reason: Pain or Agitation Stop: 05/08/21 11:20 Last Admin: 05/02/21 07:59 Dose: 50 mcg Documented by: Furosemide (Furosemide 40 Mg/4 Ml Vial) 40 mg IV BID [facility] Stop: 05/31/21 09:29 Last Admin: 05/02/21 09:45 Dose: 40 mg Documented by: Hydralazine HCl (Hydralazine Hcl 20 Mg/Ml Vial) 10 mg IV Q6 PRN PRN Reason: SBP>160 Stop: 06/01/21 15:19 Last Admin: 05/02/21 15:45 Dose: 10 mg Documented by: Pantoprazole Sodium 40 mg/ (Syringe) 10 mls @ 5 mls/min IV DAILY@1100 [facility] Stop: 05/24/21 10:59 Last Admin: 05/02/21 11:30 Dose: 5 mls/min Documented by: Midazolam HCl (Versed) 125 mg in 250 mls @ 10 mls/hr IV .Q25H [facility]; Protocol Stop: 05/24/21 11:29 Last Admin: 05/02/21 12:28 Dose: Not Given Documented by: Propofol (Diprivan) 1,000 mg in 100 mls @ 13.335 mls/hr IV .Q7H30M [facility]; Protocol Stop: 05/04/21 09:59 Last Admin: 05/02/21 11:30 Dose: 25 mcg/kg/min, 13.3 mls/hr Documented by: Fentanyl Citrate (Fentanyl Citrate) 2,500 mcg in 250 mls @ 22.5 mls/hr IV .Q11H7M [facility]; Protocol Stop: 05/15/21 11:14 Last Admin: 05/02/21 12:27 Dose: Not Given Documented by: Cisatracurium Besylate 100 mg/ (Sodium Chloride) 250 mls @ 39.6 mls/hr IV .Q6H19M [facility]; Protocol Stop: 06/01/21 13:29 Last Titration: 05/02/21 14:30 Dose: 4 mcg/kg/min, 39.6 mls/hr Documented by: Midazolam HCl (Midazolam Bolus From Bag) 2 mg IV Q60M PRN PRN Reason: Sedation Stop: 05/24/21 11:20 Last Admin: 05/02/21 08:00 Dose: 2 mg Documented by: Multi-Ingredient Cream (Artificial Tears Op Oint 3.5 Gm Tube) 1 appln OP Q4H [facility] Stop: 05/26/21 23:44 Last Admin: 05/02/21 15:45 Dose: 1 appln Documented by: Multivitamins/Minerals (Multi Vit W/Minerals Liquid 15 Ml Udp) 15 ml NG QAM [facility] Stop: 05/25/21 08:59 Last Admin: 05/02/21 09:46 Dose: 15 ml Documented by: Nutritional Formula (Peptamen Intense Vhp 1.0 Asad 1,000 Ml Bag) 1,000 ml OG UD [facility]; Protocol Stop: 05/24/21 13:14 Last Admin: 05/01/21 20:38 Dose: 1,000 ml Documented by: Ondansetron HCl (Ondansetron Inj 2 Mg/Ml 2 Ml Vial) 4 mg IV Q6H PRN PRN Reason: Nausea Stop: 05/23/21 06:24 Polyethylene Glycol (Polyethylene (Miralax) 17 Gm Pack) 17 gm PO DAILY [facility] Stop: 05/27/21 09:44 Last Admin: 05/02/21 09:46 Dose: 17 gm Documented by: Propofol (Propofol Bolus From Bag) 20 mg IV Q5M PRN PRN Reason: Sedation Stop: 05/04/21 09:59 Last Admin: 05/02/21 08:01 Dose: 20 mg Documented by: Senna/Docusate Sodium (Docusate Sodium/Senna 50/8.6mg Tab) 1 tab PO QAM [facility] Stop: 05/27/21 09:44 Last Admin: 05/02/21 09:46 Dose: 1 tab Documented by: Sterile Water (Tube Feeding Water Flush) 30 ml OG Q4H [facility] Stop: 05/24/21 13:14 Last Admin: 05/02/21 14:09 Dose: 30 ml Documented by: PG Care Time/CCT Total # of Minutes Spent Total Time Spent with Patient: Total time spent is greater than 50% in coordination of care (as documented) at patient's floor/unit and/or counseling patient: Coding Level of Care Code 54694 Subseq Hosp Care Lvl 2 Diagnoses COVID-19 U07.1 Acute respiratory failure with hypoxia J96.01 Hyperglycemia R73.9 Hyponatremia E87.1 Hypokalemia E87.6 Pneumonia due to COVID-19 virus U07.1; J12.82 Transaminitis R74.01
[2021-05-02] MEDS ORDERED: METOPROLOL TARTRATE 1 MG/ML VIAL IV ONE (16:20)
[2021-05-02] MEDS ORDERED: METOPROLOL TARTRATE 1 MG/ML VIAL IV STA (16:38)
[2021-05-02] MEDS: PEPTAMEN INTENSE VHP 1.0 CAL 1,000 ML BAG OG SCH (19:12)
[2021-05-02] MEDS ORDERED: amLODIPine BESYLATE 5 MG TAB PO STA (23:18)
[2021-05-03] MEDS: propofoL 1,000 MG/100 ML VIAL IV SCH ×4 (00:05→19:13)
[2021-05-03] MEDS: CISATRACURIUM BESYLATE 100 MG in SODIUM CHLORIDE 0.9% 200 ML IV SCH ×6 (00:05→19:48)
[2021-05-03] MEDS: ARTIFICIAL TEARS OP OINT 3.5 GM TUBE OP SCH ×7 (00:06→23:25)
[2021-05-03] MEDS: TUBE FEEDING WATER FLUSH OG SCH ×6 (01:15→21:26)
[2021-05-03 05:38] LABS: iSTAT Art Bld Gas pCO2 Correct 65 mmHg (35-46); iSTAT Art Bld Gas pH Corrected 7.396 (7.35-7.45); iSTAT Arterial Blood Gas HCO3 40 meg/L (19-24); iSTAT Arterial Blood Gas pCO2 66 mmHg (35-46); iSTAT Arterial Blood Gas pH 7.39 (7.35-7.45); iSTAT Arterial Blood Gas pO2 65 mmHg (80-95); iSTAT Arterial Blood Gas pO2 C 64; iSTAT Carbon Dioxide > 40 mmol/L (24-31); iSTAT FiO2 70 %; iSTAT Hematocrit 42 % (42-52); iSTAT Hemoglobin 14.3 g/dl (14.0-18.0); iSTAT Potassium 4.2 mmol/L (3.3-5.0); iSTAT Site Art Line; iSTAT Sodium 135 mmol/L (135-144)
[2021-05-03 05:47] LABS: Basophils # (auto) 0.01 K/uL (0-0.2); Basophils % (auto) 0.1 %; Eosinophils # (auto) 0.17 K/uL (0-0.5); Eosinophils % (auto) 0.9 %; Hematocrit (blood only) 42.6 % (42-52); Hemoglobin 13.9 g/dL (14.0-18.0); Immature Granulocytes # (auto) 0.15 K/uL (0.00-0.02); Immature Granulocytes % (auto) 0.8 %; Lymphocytes # (auto) 1.47 K/uL (1.2-3.4); Lymphocytes % (auto) 7.6 %; Mean Corpuscular Hemoglobin 32.5 pg (25-34); Mean Corpuscular Hgb Conc 32.6 g/dL (32-36); Mean Corpuscular Volume 99.5 fL (80-100); Mean Platelet Volume 9.5 fL (7.4-10.4); Monocytes # (auto) 0.05 K/uL (0.11-0.59); Monocytes % (auto) 0.3 %; Neutrophils # (auto) 17.59 K/uL (1.4-6.5); Neutrophils % (auto) 90.3 %; Platelet Count 254 K/uL (130-400); RDW Coefficient of Variation 13.5 % (11.5-14.5); RDW Standard Deviation 48.5 fL (36.4-46.3); Red Blood Count 4.28 M/uL (4.7-6.1); White Blood Count 19.44 K/uL (4.8-10.8)
[2021-05-03 06:32] LABS: BUN Creatinine Ratio 46.7 (10-20); Calcium 8.3 mg/dl (8.5-10.1); Creatinine Clr Calc Pharmacy 94.6 ml/min; Est GFR (African American) 107.3 ml/min; Est GFR (Non-African American) 92.6 ml/min; Magnesium 2.8 mg/dl (1.8-2.4); Potassium 4.2 mmol/L (3.5-5.1)
[2021-05-03 06:41] LABS: Phosphorus 4.5 mg/dl (2.5-4.9)
--- NOTE | 2021-05-03 07:14 | XRay Report ---
XR chest 1V portable CLINICAL HISTORY: f/u COMPARISON STUDY: Chest radiograph May 02, 2021. FINDINGS: Tip of endotracheal tube is 5.4 cm above the smitha. Right subclavian central line remains in place. Nasogastric tube tip is within the gastric fundus. Cardiomediastinal silhouette is stable. There is no pneumothorax. There is a suspected small right pleural effusion. Right basilar opacity is increased. There are extensive bilateral airspace opacities with interstitial thickening. IMPRESSION: 1. Satisfactory positioning of lines and tubes. 2. Increase in right basilar opacity. Persistent extensive bilateral airspace opacities which favor a n infectious process. 3. Increase in interstitial thickening which may reflect superimposed pulmonary edema. Small right pl eural effusion. ACT 112: Negative or not required by law. Electronically signed by: Jesse Enrique M.D. 05/03/2021 7:13 AM
[2021-05-03] MEDS: POLYETHYLENE (MIRALAX) 17 GM PACK PO SCH (08:07)
[2021-05-03] MEDS: DOCUSATE SODIUM/SENNA 50/8.6MG TAB PO SCH (08:08)
[2021-05-03] MEDS: ENOXAPARIN INJ 40 MG/0.4 ML SYR SQ SCH (08:08)
[2021-05-03] MEDS: MULTI VIT W/MINERALS LIQUID 15 ML UDP NG SCH (08:09)
[2021-05-03] MEDS: FUROSEMIDE 40 MG/4 ML VIAL IV SCH ×2 (08:11→21:26)
--- NOTE | 2021-05-03 09:31 | Critical Care Progress Note ---
Date of Service May 03, 2021 Assessment & Plan (1) ARDS (adult respiratory distress syndrome): (2) COVID-19: (3) Admitted to intensive care unit: (4) Acute respiratory failure with hypoxia: (5) Bradycardia: Plan: Reason critically ill: 66 yo M with no significant PMHx admitted with acute respiratory failure with hypoxia secondary to COVID-19 pneumonia admitted to ICU requiring close monitoring given tenuous respiratory status. NEURO: Continue to wean sedation as able. Goal RASS of -1. Currently on neuromuscular blockade to promote ventilator synchrony. 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 He is currently on propofol, Versed and fentanyl for pain control. CARDIAC/VASCULAR: --Episodes of bradycardia in the past Likely sedation related Propofol has been restarted continue to monitor --Hypertension Continue with sedation and analgesia Amlodipine added Continue with as needed metoprolol as well as hydralazine for systolic blood pressure greater than 160 RESPIRATORY: Acute hypoxic respiratory distress secondary to COVID-19 pneumonia - Continue dexamethasone IV 6mg daily while admitted -Intubated 04/24. Continue lung protective ventilation strategy. - Received tocilizumab therapy -Chest CTA completed 04/27/2021 with diffuse groundglass opacities and dense bibasilar atelectasis. -Unfortunately requiring high amounts of ventilator support and neuromuscular blockade to promote ventilator synchrony. -We will likely need to proceed with tracheostomy next week if unable to wean of f the ventilator. -Continue lung protective ventilation strategy to prevent ventilator induced lung injury. GI/NUTRITION: -Tube feedings - Continue docusate and senna and MiraLAX. RENAL/LYTES: - No significant issues. Replace electrolytes per protocol. -Starting 40 mg twice daily of Lasix 05/01/2021. Goal to achieve a negative flui d balance. GENITOURINARY: No acute concerns. Strict Is/Os. ENDO: ICU hyperglycemia protocol. HEME: No significant issues at this time. ID: COVID-19 pneumonia --Prophylaxis VTE: Lovenox GI: Protonix Overall prognosis is guarded Lines: Right subclavian, right radial, positive Valadez Diet: Trophic tube feeds Plan: In/out: -552, urine output 3500 AB.39/66/65 Chest x-ray from today shows worsening of the right-sided infiltrate Patient is negative balance and diuresing well Continue with the same regimen. Sputum culture ordered Patient is still needing a lot of sedation as well as paralytics the moment we take the paralytics off patient gets acutely dyssynchronous with the vent and desaturates in the 60s. I have personally spent 36 minutes of critical care time in the direct management of this patient. This is a life/limb threatening event. This includes time spent evaluating patient, direct bedside care, chart review, placing orders, interpretation of diagnostic studies, discussion with consultants, patient, and family members, as well as other required patient management activities. This time is exclusive of all separately billable procedures, and teaching time and separate from and in addition to any other critical care service time. Please note the above document was generated using voice recognition software. It may contain grammatical, syntax or spelling errors. Admission and Anticipated Discharge Date Admission Date: April 23, 2021 Subjective Patient seen and examined at bedside. No acute distress, no adverse events overnight. Patient was on propofol, fentanyl as well as midazolam He has been started on amlodipine because of hypertension Saturating 88-89% on 65% FiO2 and 10 of PEEP Review of Systems Review of Systems: Unobtainable due to endotracheal tube and Other (Paralyzed) Physical Exam Physical Exam: Constitutional: No acute distress HEENT: EOMI, PERRLA Respiratory system: Decreased air entry bilaterally, no wheeze, rhonchi, positive crackles bilateral lower lobes CVS: S1-S2 positive, no murmurs or gallops Abdomen: Soft, nontender, nondistended, positive bowel sounds x4 Extremities: +2 pulses bilaterally radialis/ dorsalis pedis, no cyanosis, +1 pi tting edema bilateral lower extremity Neuro: Paralyzed and sedated Psych: Unable to assess G/U: Positive Valadez Skin: no rashes, warm and dry Lymphatic: no cervical or axillary lymphadenopathy Results & Data Results & Data ([facility]) Vital Signs (Past 12 Hours) Vital Signs Temp Pulse Resp BP Pulse Ox 05/03/21 07:51 86 28 H 89 L 05/03/21 06:32 36.9 C 84 164/79 H 91 05/03/21 06:02 36.8 C 83 151/71 H 90 05/03/21 05:32 36.8 C 79 157/76 H 90 05/03/21 05:02 36.7 C 80 147/72 H 89 L 05/03/21 04:32 36.7 C 83 150/75 H 89 L 05/03/21 04:02 36.7 C 86 145/73 H 89 L 05/03/21 03:32 36.7 C 90 115/65 89 L 05/03/21 03:10 90 27 H 89 L 05/03/21 03:03 36.8 C 92 H 182/84 H 89 L 05/03/21 02:33 36.8 C 94 H 183/83 H 90 05/03/21 02:03 36.8 C 93 H 182/82 H 90 05/03/21 01:33 36.8 C 94 H 185/85 H 90 05/03/21 01:19 36.8 C 95 H 184/83 H 90 05/03/21 01:03 36.8 C 93 H 196/86 H 90 05/03/21 00:33 36.9 C 92 H 182/81 H 90 05/03/21 00:05 94 H 05/03/21 00:03 36.8 C 93 H 188/81 H 89 L 05/02/21 23:33 36.8 C 93 H 195/90 H 89 L 05/02/21 23:03 36.7 C 93 H 192/91 H 90 05/02/21 23:01 91 H 28 H 90 05/02/21 22:33 36.7 C 82 210/91 H 91 05/02/21 22:02 36.7 C 75 161/77 H 89 L 05/02/21 21:32 36.8 C 73 154/74 H 91 05/03/21 05:34 05/03/21 05:34 Coding Level of Care Code Critical Care 1st mins Diagnoses ARDS (adult respiratory distress syndrome) J80 COVID-19 U07.1 Admitted to intensive care unit Z78.9 Acute respiratory failure with hypoxia J96.01 Bradycardia R00.1 Time Spent (min) 36
[2021-05-03] MEDS: PANTOprazole 40 MG in SYRINGE 0 ML IV SCH (10:47)
[2021-05-03] MEDS: MIDAZOLAM HCL 125 MG/250 ML BAG IV SCH (10:47)
[2021-05-03] MEDS: fentaNYL citrate 2,500 MCG/250 ML BAG IV SCH ×2 (13:11→19:34)
--- NOTE | 2021-05-03 14:54 | Hospitalist Progress Note ---
Date of Service May 03, 2021 Assessment & Plan (1) COVID-19: Plan: 66yo C male presenting with worsening Covid-19 PNA Pulse ox could not be maintained above mid 70s on the morning of 04/24 and he was intubated, sedated, paralyzed and proned ventilator dependent respiratory failure, day 10 on ventilator requiring high doses of Fentanyl and Versed, Propofol on neuromuscular blockade for days now -Continue Dexamethasone 6mg IV daily x10-day course, day 10 today tocilizumab 600 mg x1 dose on 04/24 -Appreciate [facility] management of ventilator follow ARDSnet protocol, lowering PEEP but FiO2 up remains supine palliative consulted to have ongoing discussion about goals of care discussed goals of care with and daughter 05/03 changed to DNR they would not want tracheostomy and PEG and LTACH not quite ready to withdraw care but understand that the time to make that decision is approaching I discussed with Dr. Mccullough, she will be taking over as hospitalist tomorrow as she had the patient the prior week (2) Acute respiratory failure with hypoxia: Plan: As above Secondary to COVID-19 pneumonia severe ARDS, day 10 on ventilator, no much improvement (3) ARDS (adult respiratory distress syndrome): (4) Leukocytosis: Plan: WBC 19k, trending up, sputum culture sent, no fever defer antibiotics to [facility] discussed with family that if he is developing bacterial pneumonia that it is a set back, makes prognosis even worse (5) Hyperglycemia: Plan: With some hyperglycemia likely secondary to corticosteroids following glucose closely, use Novolog PRN (6) Hyponatremia: Plan: normalized (7) Hypokalemia: Plan: replace per ICU protocol normal today (8) Pneumonia due to COVID-19 virus: Plan: As above (9) Transaminitis: Plan: Mildly elevated AST Likely secondary to Covid-19 Plan: DVT prophylaxis-therapeutic Lovenox GI prophylaxis-IV Protonix FEN- tube feeds per ICU Disposition-continued stay in the ICU Admission and Anticipated Discharge Date Admission Date: April 23, 2021 Subjective patient is down to 12 PEEP, FiO2 70% still requiring high doses of sedation WBC going up, more sputum production, sent for culture appreciate management by Dr. Christopher pratt discussion with patients and daughter discussed poor prognosis, that he is not making improvements on the ventilator they discussed last night with family, if his heart would stop or he would have a fatal arrhythmia they would accept that God was taking him they wish him to be a DNR, would not want him to go through CPR, shocks in the event of a code they also discussed as a family whether or not the patient would want a tracheostomy I explained to them that if he would get a tracheostomy and PEG tube he would have a very long road to recovery he would be in an LTACH, profoundly weak, on ventilator support, tube feeds, no quality of life he had told them in the past that he would NOT want to be kept alive on machines, he values quality of life, very proud man both his and daughter feel he would NOT want tracheostomy if the guard dance hall this week would recommend a tracheostomy as only option they would opt against it they would want to wait a few more days on ventilator to see if he could pull through but would accept the outcome if he could not be extubated very tearful, offered her empathy and comforted her 40 minutes spent talking with them in a private waiting room in addition to time spent with patient Review of Systems Review of Systems: Unobtainable due to cognitive status and Unobtainable due to endotracheal tube Physical Exam Constitutional: well developed, well nourished, + ill appearing and + mechanically ventilated Neck: trachea midline, no thyromegaly Respiratory: symmetric chest movement Auscultation: lungs clear to auscultation bilaterally Cardiovascular: RRR, no murmur, no edema Gastrointestinal (Abdomen): normal bowel sounds, soft, nontender, no hepatosplenomegaly Skin: no rashes, warm and dry Neurologic: CN's II-XI intact bilaterally and + obtunded; + does not move all extremities (neuromuscular blockade) Results & Data Results & Data ([facility]) Vital Signs (Past 12 Hours) Vital Signs Temp Pulse Resp BP Pulse Ox 05/03/21 14:52 86 28 H 88 L 05/03/21 12:03 36.8 C 87 160/76 H 87 L 05/03/21 11:33 36.8 C 88 170/78 H 87 L 05/03/21 11:22 87 28 H 88 L 05/03/21 11:03 36.8 C 87 186/86 H 93 05/03/21 10:33 36.8 C 84 160/74 H 88 L 05/03/21 10:03 36.8 C 84 158/73 H 88 L 05/03/21 09:33 36.8 C 84 158/76 H 88 L 05/03/21 09:03 36.8 C 87 161/76 H 87 L 05/03/21 08:34 36.9 C 91 H 88 L 05/03/21 08:03 37.0 C 86 177/81 H 89 L 05/03/21 07:51 86 28 H 89 L 05/03/21 07:32 37.0 C 88 166/74 H 90 05/03/21 07:03 37.0 C 84 160/73 H 91 05/03/21 06:32 36.9 C 84 164/79 H 91 05/03/21 06:02 36.8 C 83 151/71 H 90 05/03/21 05:32 36.8 C 79 157/76 H 90 05/03/21 05:02 36.7 C 80 147/72 H 89 L 05/03/21 04:32 36.7 C 83 150/75 H 89 L 05/03/21 04:02 36.7 C 86 145/73 H 89 L 05/03/21 03:32 36.7 C 90 115/65 89 L 05/03/21 03:10 90 27 H 89 L 05/03/21 03:03 36.8 C 92 H 182/84 H 89 L Laboratory Results Laboratory Results - last 24 hr 05/03/21 05/03/21 05/03/21 05:24 05:34 05:34 WBC 19.44 H RBC 4.28 L Hgb 13.9 L POC Hgb 14.3 Hct 42.6 POC Hct 42 MCV 99.5 MCH 32.5 MCHC 32.6 RDW Std Deviation 48.5 H RDW Coeff of Elvin 13.5 Plt Count 254 MPV 9.5 Immature Gran % (Auto) 0.8 Neut % (Auto) 90.3 Lymph % (Auto) 7.6 [place] % (Auto) 0.3 Eos % (Auto) 0.9 Baso % (Auto) 0.1 Neut # (Auto) 17.59 H Lymph # (Auto) 1.47 [place] # (Auto) 0.05 L Eos # (Auto) 0.17 Baso # (Auto) 0.01 Immature Gran # (Auto) 0.15 H Sample Site Art Line POC pH 7.39 POC pCO2 66 H POC pO2 65 L POC HCO3 40 H POC Total CO2 > 40 H* POC Base Excess 15.0 H ABG pH (Temp Correct) 7.396 ABG pCO2 (Temp Corrct 65 H POC ABG pO2 at Pt Temp 64 POC ABG O2 Sat 91.0 Nikolas Test NA O2 Delivery Device Ventilator POC O2 Rate 28 Minute Ventilation 8.8 POC FiO2 70 Tidal Volume 320 PEEP 10 POC Sodium 135 Sodium 136 POC Potassium 4.2 Potassium 4.2 Chloride 95 L Carbon Dioxide 38 H Anion Gap 3.0 BUN 38 H Creatinine 0.81 Est Cr Clr Drug Dosing 94.6 Est GFR ( Amer) 107.3 Est GFR (Non-Af Amer) 92.6 BUN/Creatinine Ratio 46.7 H Glucose 136 H Calcium 8.3 L Phosphorus 4.5 D Magnesium 2.8 H Medications Administered Current Inpatient Medications Acetaminophen (Acetaminophen 325 Mg Tab) 650 mg PO Q4H PRN PRN Reason: pain/fever Stop: 05/23/21 06:24 Albuterol (Albuterol Hfa 8 Gm Inhaler) 2 puffs INH Q4R PRN PRN Reason: sob Stop: 05/23/21 06:24 Atropine Sulfate (Atropine Sulfate 0.1 Mg/Ml 10ml Syr) 1 mg IV .AT BEDSIDE PRN PRN Reason: symptomatic bradycardia Enoxaparin Sodium (Enoxaparin Inj 40 Mg/0.4 Ml Syr) 40 mg SQ QAM [facility] Stop: 05/29/21 08:59 Last Admin: 05/03/21 08:08 Dose: 40 mg Documented by: Fentanyl Citrate (Fentanyl Bolus From Bag) 50 mcg IV Q60M PRN PRN Reason: Pain or Agitation Stop: 05/08/21 11:20 Last Admin: 05/02/21 22:41 Dose: 50 mcg Documented by: Furosemide (Furosemide 40 Mg/4 Ml Vial) 40 mg IV BID [facility] Stop: 05/31/21 09:29 Last Admin: 05/03/21 08:11 Dose: 40 mg Documented by: Hydralazine HCl (Hydralazine Hcl 20 Mg/Ml Vial) 10 mg IV Q6 PRN PRN Reason: SBP>160 Stop: 06/01/21 15:19 Last Admin: 05/02/21 22:32 Dose: 10 mg Documented by: Pantoprazole Sodium 40 mg/ (Syringe) 10 mls @ 5 mls/min IV DAILY@1100 [facility] Stop: 05/24/21 10:59 Last Admin: 05/03/21 10:47 Dose: 5 mls/min Documented by: Midazolam HCl (Versed) 125 mg in 250 mls @ 10 mls/hr IV .Q25H [facility]; Protocol Stop: 05/24/21 11:29 Last Admin: 05/03/21 10:47 Dose: 5 mg/hr, 10 mls/hr Documented by: Propofol (Diprivan) 1,000 mg in 100 mls @ 13.335 mls/hr IV .Q7H30M [facility]; Protocol Stop: 05/04/21 09:59 Last Admin: 05/03/21 13:10 Dose: 25 mcg/kg/min, 13.3 mls/hr Documented by: Fentanyl Citrate (Fentanyl Citrate) 2,500 mcg in 250 mls @ 22.5 mls/hr IV .Q11H7M [facility]; Protocol Stop: 05/15/21 11:14 Last Admin: 05/03/21 13:11 Dose: 125 mcg/hr, 12.5 mls/hr Documented by: Cisatracurium Besylate 100 mg/ (Sodium Chloride) 250 mls @ 39.6 mls/hr IV .Q6H19M [facility]; Protocol Stop: 06/01/21 13:29 Last Admin: 05/03/21 13:10 Dose: 4 mcg/kg/min, 39.6 mls/hr Documented by: Midazolam HCl (Midazolam Bolus From Bag) 2 mg IV Q60M PRN PRN Reason: Sedation Stop: 05/24/21 11:20 Last Admin: 05/02/21 22:41 Dose: 2 mg Documented by: Multi-Ingredient Cream (Artificial Tears Op Oint 3.5 Gm Tube) 1 appln OP Q4H [facility] Stop: 05/26/21 23:44 Last Admin: 05/03/21 10:47 Dose: 1 appln Documented by: Multivitamins/Minerals (Multi Vit W/Minerals Liquid 15 Ml Udp) 15 ml NG QAM [facility] Stop: 05/25/21 08:59 Last Admin: 05/03/21 08:09 Dose: 15 ml Documented by: Nutritional Formula (Peptamen Intense Vhp 1.0 Asad 1,000 Ml Bag) 1,000 ml OG UD [facility]; Protocol Stop: 05/24/21 13:14 Last Admin: 05/02/21 19:12 Dose: 1,000 ml Documented by: Ondansetron HCl (Ondansetron Inj 2 Mg/Ml 2 Ml Vial) 4 mg IV Q6H PRN PRN Reason: Nausea Stop: 05/23/21 06:24 Polyethylene Glycol (Polyethylene (Miralax) 17 Gm Pack) 17 gm PO DAILY [facility] Stop: 05/27/21 09:44 Last Admin: 05/03/21 08:07 Dose: 17 gm Documented by: Propofol (Propofol Bolus From Bag) 20 mg IV Q5M PRN PRN Reason: Sedation Stop: 05/04/21 09:59 Last Admin: 05/02/21 08:01 Dose: 20 mg Documented by: Senna/Docusate Sodium (Docusate Sodium/Senna 50/8.6mg Tab) 1 tab PO QAM [facility] Stop: 05/27/21 09:44 Last Admin: 05/03/21 08:08 Dose: 1 tab Documented by: Sterile Water (Tube Feeding Water Flush) 30 ml OG Q4H [facility] Stop: 05/24/21 13:14 Last Admin: 05/03/21 13:11 Dose: 30 ml Documented by: PG Care Time/CCT Total # of Minutes Spent Total Time Spent: 66 Total Time Spent with Patient: Total time spent is greater than 50% in coordination of care (as documented) at patient's floor/unit and/or counseling patient: 40 minutes with patient's and daughter discussing goals of care, prognosis, offering support 26 minutes on exam, reviewing chart, discussing with Dr. White, documentation Prolonged Care Time Prolonged Care Time: Yes Total Prolonged Care Time: 36 66 minutes Coding Level of Care Code 83565 Subseq Hosp Care Lvl 3 (25 - SIGNIFICANT, SEPARATELY IDENTIFIABLE ) Diagnoses COVID-19 U07.1 Acute respiratory failure with hypoxia J96.01 Hyperglycemia R73.9 Hyponatremia E87.1 Hypokalemia E87.6 Pneumonia due to COVID-19 virus U07.1; J12.82 Transaminitis R74.01 ARDS (adult respiratory distress syndrome) J80 Leukocytosis D72.829 Additional Codes Prolonged Care Time - Prolonged Care Time: Yes ([id number])
[2021-05-03] MEDS: PEPTAMEN INTENSE VHP 1.0 CAL 1,000 ML BAG OG SCH (16:41)
[2021-05-04] MEDS: CISATRACURIUM BESYLATE 100 MG in SODIUM CHLORIDE 0.9% 200 ML IV SCH ×4 (01:36→17:47)
[2021-05-04] MEDS: TUBE FEEDING WATER FLUSH OG SCH ×6 (01:50→20:24)
[2021-05-04] MEDS: MIDAZOLAM HCL 125 MG/250 ML BAG IV SCH (02:47)
[2021-05-04] MEDS: fentaNYL citrate 2,500 MCG/250 ML BAG IV SCH ×2 (02:47→21:20)
[2021-05-04] MEDS: propofoL 1,000 MG/100 ML VIAL IV SCH ×4 (02:47→21:21)
[2021-05-04] MEDS: ARTIFICIAL TEARS OP OINT 3.5 GM TUBE OP SCH ×5 (03:29→19:33)
[2021-05-04 04:52] LABS: iSTAT Art Bld Gas pCO2 Correct 69 mmHg (35-46); iSTAT Art Bld Gas pH Corrected 7.393 (7.35-7.45); iSTAT Arterial Blood Gas HCO3 42 meg/L (19-24); iSTAT Arterial Blood Gas pCO2 69 mmHg (35-46); iSTAT Arterial Blood Gas pO2 76 mmHg (80-95); iSTAT Arterial Blood Gas pO2 C 76; iSTAT Carbon Dioxide > 40 mmol/L (24-31); iSTAT FiO2 70 %; iSTAT Hematocrit 39 % (42-52); iSTAT Hemoglobin 13.3 g/dl (14.0-18.0); iSTAT Potassium 3.7 mmol/L (3.3-5.0); iSTAT Site Art Line; iSTAT Sodium 137 mmol/L (135-144)
[2021-05-04 05:15] LABS: Basophils # (auto) 0.01 K/uL (0-0.2); Eosinophils # (auto) 0.08 K/uL (0-0.5); Eosinophils % (auto) 0.4 %; Hematocrit (blood only) 40.4 % (42-52); Hemoglobin 12.9 g/dL (14.0-18.0); Immature Granulocytes # (auto) 0.12 K/uL (0.00-0.02); Immature Granulocytes % (auto) 0.6 %; Lymphocytes # (auto) 0.82 K/uL (1.2-3.4); Lymphocytes % (auto) 4.1 %; Mean Corpuscular Hemoglobin 32.2 pg (25-34); Mean Corpuscular Hgb Conc 31.9 g/dL (32-36); Mean Corpuscular Volume 100.7 fL (80-100); Mean Platelet Volume 9.5 fL (7.4-10.4); Monocytes # (auto) 0.88 K/uL (0.11-0.59); Monocytes % (auto) 4.4 %; Neutrophils # (auto) 18.13 K/uL (1.4-6.5); Neutrophils % (auto) 90.5 %; Platelet Count 224 K/uL (130-400); RDW Coefficient of Variation 13.6 % (11.5-14.5); RDW Standard Deviation 50.4 fL (36.4-46.3); Red Blood Count 4.01 M/uL (4.7-6.1); White Blood Count 20.04 K/uL (4.8-10.8)
[2021-05-04 05:46] LABS: BUN Creatinine Ratio 51.7 (10-20); Calcium 8.3 mg/dl (8.5-10.1); Creatinine Clr Calc Pharmacy 95.8 ml/min; Est GFR (African American) 107.9 ml/min; Est GFR (Non-African American) 93.1 ml/min; Phosphorus 4.1 mg/dl (2.5-4.9); Potassium 3.7 mmol/L (3.5-5.1)
[2021-05-04] MEDS: DOCUSATE SODIUM/SENNA 50/8.6MG TAB PO SCH (08:04)
[2021-05-04] MEDS: POLYETHYLENE (MIRALAX) 17 GM PACK PO SCH (08:04)
[2021-05-04] MEDS: MULTI VIT W/MINERALS LIQUID 15 ML UDP NG SCH (08:04)
[2021-05-04] MEDS: ENOXAPARIN INJ 40 MG/0.4 ML SYR SQ SCH (08:04)
[2021-05-04] MEDS: FUROSEMIDE 40 MG/4 ML VIAL IV SCH ×2 (08:05→20:24)
--- NOTE | 2021-05-04 08:34 | XRay Report ---
XR chest 1V portable INDICATION: MN ^f/u . TECHNIQUE: Single frontal radiograph of the chest was obtained. Comparison: Comparison is made to chest one view 05/03/2021 FINDINGS: Lines and tubes are stable. The cardiomediastinal silhouette is normal. Interval worsening of diffuse airspace opacities. Cephalization and prominence of vasculature is seen. No pneumothorax. Blunting o f the bilateral costophrenic angles may represent right greater than left effusions. IMPRESSION: 1. Interval worsening of bilateral airspace opacities. Pulmonary edema is again noted. 2. Possible small bilateral pleural effusions. ACT 112: Negative or not required by law. Electronically signed by: Tyrone Johnson M.D. 05/04/2021 8:32 AM
--- NOTE | 2021-05-04 09:47 | Critical Care Progress Note ---
Date of Service May 04, 2021 Assessment & Plan (1) ARDS (adult respiratory distress syndrome): (2) COVID-19: (3) Admitted to intensive care unit: (4) Acute respiratory failure with hypoxia: (5) Bradycardia: Plan: Reason critically ill: 66 yo M with no significant PMHx admitted with acute respiratory failure with hypoxia secondary to COVID-19 pneumonia admitted to ICU requiring close monitoring given tenuous respiratory status. NEURO: Continue to wean sedation as able. Goal RASS of -1. Currently on neuromuscular blockade to promote ventilator synchrony. 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 He is currently on propofol, Versed and fentanyl for pain control. CARDIAC/VASCULAR: --Episodes of bradycardia in the past Likely sedation related Propofol has been restarted continue to monitor --Hypertension Continue with sedation and analgesia Amlodipine added Continue with as needed metoprolol as well as hydralazine for systolic blood pressure greater than 160 RESPIRATORY: Acute hypoxic respiratory distress secondary to COVID-19 pneumonia - Continue dexamethasone IV 6mg daily while admitted -Intubated 04/24. Continue lung protective ventilation strategy. - Received tocilizumab therapy -Chest CTA completed 04/27/2021 with diffuse groundglass opacities and dense bibasilar atelectasis. -Unfortunately requiring high amounts of ventilator support and neuromuscular blockade to promote ventilator synchrony. -We will likely need to proceed with tracheostomy next week if unable to wean off the ventilator. -Continue lung protective ventilation strategy to prevent ventilator induced lung injury. GI/NUTRITION: -Tube feedings Constipation - Continue docusate and senna and MiraLAX. -Methylnaltrexone for probable opiate-induced constipation RENAL/LYTES: - No significant issues. Replace electrolytes per protocol. -Starting 40 mg twice daily of Lasix 05/01/2021. Goal to achieve a negative fluid balance. GENITOURINARY: No acute concerns. Strict Is/Os. ENDO: ICU hyperglycemia protocol. HEME: No significant issues at this time. ID: COVID-19 pneumonia --Prophylaxis VTE: Lovenox GI: Protonix Lines: Right subclavian, right radial, positive Valadez Diet: Trophic tube feeds Patient is still needing a lot of sedation as well as paralytics the moment we take the paralytics off patient gets acutely dyssynchronous with the vent and desaturates in the 60s. Admission and Anticipated Discharge Date Admission Date: April 23, 2021 Supervising Physician Co-Signing Physician Notes I have personally spent 45 minutes of critical care time in the direct ma nagement of this patient. This is a life/limb threatening event. This includes time spent evaluating patient, direct bedside care, chart review, placing orders, interpretation of diagnostic studies, discussion with consultants, patient, and family members, as well as other required patient management activities. This time is exclusive of all separately billable procedures, and teaching time and separate from and in addition to any other critical care service time. Physical Exam Physical Exam: General: Sedated. nontoxic. Skin: Warm, dry, Head: Atraumatic Ears, nose, mouth and throat: airway obscured by endotracheal tube Cardiovascular: Normal peripheral perfusion Respiratory: Coarse sounds, ventilator settings reviewed Gastrointestinal: Non distended Musculoskeletal: No deformity Results & Data Results & Data ([facility]) Vital Signs (Past 12 Hours) Vital Signs Temp Pulse Resp BP Pulse Ox 05/04/21 08:33 36.9 C 80 197/91 H 87 L 05/04/21 08:03 37.0 C 76 146/76 H 91 05/04/21 07:32 37.0 C 78 150/76 H 90 05/04/21 07:22 77 28 H 91 05/04/21 07:03 37.0 C 75 144/74 H 91 05/04/21 06:33 37.1 C 76 147/71 H 90 05/04/21 06:02 37.0 C 76 147/68 H 90 05/04/21 05:33 37.0 C 75 145/68 H 90 05/04/21 05:02 37.0 C 79 154/91 H 91 05/04/21 04:32 37.1 C 77 145/75 H 90 05/04/21 04:02 37.0 C 76 146/74 H 90 05/04/21 03:32 37.0 C 77 140/74 90 05/04/21 03:15 78 28 H 90 05/04/21 03:02 37.0 C 78 142/71 H 89 L 05/04/21 02:32 37.0 C 78 145/74 H 89 L 05/04/21 02:03 37.0 C 79 152/74 H 89 L 05/04/21 01:33 36.9 C 81 170/81 H 89 L 05/04/21 01:03 36.9 C 83 163/76 H 89 L 05/04/21 00:33 36.9 C 83 166/74 H 89 L 05/04/21 00:03 36.9 C 83 174/80 H 89 L 05/03/21 23:40 81 28 H 89 L 05/03/21 23:33 36.9 C 80 165/75 H 88 L 05/03/21 23:26 81 05/03/21 23:02 36.9 C 81 165/75 H 89 L 05/03/21 22:32 36.9 C 75 143/71 H 88 L 05/03/21 22:02 36.9 C 74 145/73 H 90 Laboratory Results 05/04/21 05/04/21 05/04/21 Range/Units 04:52 04:52 04:38 WBC 20.04 H (4.8-10.8) K/uL RBC 4.01 L (4.7-6.1) M/uL Hgb 12.9 L (14.0-18.0) g/dL POC Hgb 13.3 L (14.0-18.0) g/dl Hct 40.4 L (42-52) % POC Hct 39 L (42-52) % MCV 100.7 H (80-100) fL MCH 32.2 (25-34) pg MCHC 31.9 L (32-36) g/dL RDW Std Deviation 50.4 H (36.4-46.3) fL RDW Coeff of Elvin 13.6 (11.5-14.5) % Plt Count 224 (130-400) K/uL MPV 9.5 (7.4-10.4) fL Immature Gran % (Auto) 0.6 % Neut % (Auto) 90.5 % Lymph % (Auto) 4.1 % [place] % (Auto) 4.4 % Eos % (Auto) 0.4 % Baso % (Auto) 0.0 % Neut # (Auto) 18.13 H (1.4-6.5) K/uL Lymph # (Auto) 0.82 L (1.2-3.4) K/uL [place] # (Auto) 0.88 H (0.11-0.59) K/uL Eos # (Auto) 0.08 (0-0.5) K/uL Baso # (Auto) 0.01 (0-0.2) K/uL Immature Gran # (Auto) 0.12 H (0.00-0.02) K/uL Sample Site Art Line POC pH 7.40 (7.35-7.45) POC pCO2 69 H (35-46) mmHg POC pO2 76 L (80-95) mmHg POC HCO3 42 H (19-24) adrianne/L POC Total CO2 > 40 H* (24-31) mmol/L POC Base Excess 17.0 H (-9-1.8) adrianne/L ABG pH (Temp Correct) 7.393 (7.35-7.45) ABG pCO2 (Temp Corrct 69 H (35-46) mmHg POC ABG pO2 at Pt Temp 76 POC ABG O2 Sat 94.0 (90-95) % Nikolas Test NA O2 Delivery Device Ventilator POC O2 Rate 28 Minute Ventilation 8.8 POC FiO2 70 % Tidal Volume 320 PEEP 10 POC Sodium 137 (135-144) mmol/L Sodium 135 L (136-145) mmol/L POC Potassium 3.7 (3.3-5.0) mmol/L Potassium 3.7 (3.5-5.1) mmol/L Chloride 98 (98-107) mmol/L Carbon Dioxide 39 H (21-32) mmol/L Anion Gap -2.0 L (3-11) BUN 42 H (7-18) mg/dl Creatinine 0.80 (0.6-1.4) mg/dl Est Cr Clr Drug Dosing 95.8 ml/min Est GFR ( Amer) 107.9 ml/min Est GFR (Non-Af Amer) 93.1 ml/min BUN/Creatinine Ratio 51.7 H (10-20) Glucose 113 H (70-99) mg/dl Calcium 8.3 L (8.5-10.1) mg/dl Phosphorus 4.1 (2.5-4.9) mg/dl Magnesium 3.0 H (1.8-2.4) mg/dl Coding Level of Care Code Critical Care 1st 30-74 mins Diagnoses ARDS (adult respiratory distress syndrome) J80 COVID-19 U07.1 Admitted to intensive care unit Z78.9 Acute respiratory failure with hypoxia J96.01 Bradycardia R00.1
[2021-05-04] MEDS: PANTOprazole 40 MG in SYRINGE 0 ML IV SCH (12:00)
[2021-05-04] MEDS ORDERED: METHYLNALTREXONE BROMIDE 12 MG/0.6 ML VIAL SQ ONE (12:00)
[2021-05-04] MEDS: PEPTAMEN INTENSE VHP 1.0 CAL 1,000 ML BAG OG SCH (15:30)
--- NOTE | 2021-05-04 17:30 | Hospitalist Progress Note ---
Date of Service May 04, 2021 Assessment & Plan (1) COVID-19: Plan: 66yo C male presenting with worsening Covid-19 PNA Pulse ox could not be maintained above mid 70s on the morning of 04/24 and he was intubated, sedated, paralyzed and proned ventilator dependent respiratory failure, day 11 on ventilator requiring high doses of Fentanyl and Versed, Propofol on neuromuscular blockade for days now and having dyssynchrony with ventilator causing desaturations when Nimbex is decreased Completed a 10-day course of dexamethasone 6mg IV daily tocilizumab 600 mg x1 dose on 04/24 -Appreciate field servicer management of ventilator-not able to wean follow ARDSnet protocol, lowering PEEP but FiO2 up remains supine palliative consulted to have ongoing discussion about goals of care discussed goals of care with and daughter 05/03 changed to DNR they would not want tracheostomy and PEG and LTACH not quite ready to withdraw care but understand that the time to make that decision is approaching (2) Acute respiratory failure with hypoxia: Plan: As above Secondary to COVID-19 pneumonia severe ARDS, day 11 on ventilator, no much improvement -Continuing with diuresis Completed course of dexamethasone (3) ARDS (adult respiratory distress syndrome): Plan: As above (4) Leukocytosis: Plan: WBC continues to be trending up to 20 K, sputum culture sent-pending, no fevers defer antibiotics to field servicer-none at this point discussed with family that if he is developing bacterial pneumonia that it is a set back, makes prognosis even worse Would do work-up for infectious causes if has fever to include blood cultures, UA, and consider CT chest abdomen pelvis (5) Hyperglycemia: Plan: With some hyperglycemia likely secondary to corticosteroids which is now resolved No insulin needed (6) Hyponatremia: Plan: normalized (7) Hypokalemia: Plan: Replaced and resolved Follow BMP as is receiving IV Lasix twice daily (8) Pneumonia due to COVID-19 virus: Plan: As above (9) Transaminitis: Plan: Mildly elevated AST Likely secondary to Covid-19 Plan: DVT prophylaxis- Lovenox SQ GI prophylaxis-IV Protonix, received methylnaltrexone x1 on 05/04, senna/docusate daily FEN- tube feeds per ICU Disposition-continued stay in the ICU Admission and Anticipated Discharge Date Admission Date: April 23, 2021 Subjective Patient remains intubated and sedated. Has dyssynchronous breathing on ventilator and DC durations with any lowering of Nimbex or sedation as per my discussion with nursing Review of Systems Review of Systems: Unobtainable due to endotracheal tube and Unobtainable due to reduced consciousness Physical Exam Constitutional: well developed and + mechanically ventilated Results & Data Results & Data ([facility]) Vital Signs (Past 12 Hours) Vital Signs Temp Pulse Resp BP Pulse Ox 05/04/21 16:03 36.8 C 76 180/83 H 90 05/04/21 15:35 73 28 H 91 05/04/21 15:32 36.9 C 73 131/69 91 05/04/21 15:02 36.8 C 75 152/72 H 91 05/04/21 14:33 36.9 C 75 159/76 H 90 05/04/21 14:03 36.9 C 80 176/77 H 91 05/04/21 13:33 37.0 C 84 188/84 H 91 05/04/21 13:03 37.0 C 84 195/89 H 92 05/04/21 12:33 37.0 C 76 188/87 H 91 05/04/21 12:02 37.1 C 74 137/70 91 05/04/21 11:32 37.0 C 75 28 H 133/68 90 05/04/21 11:02 37.0 C 76 146/73 H 90 05/04/21 10:33 36.9 C 76 157/74 H 89 L 05/04/21 10:03 36.9 C 78 162/72 H 89 L 05/04/21 09:33 36.9 C 80 169/77 H 89 L 05/04/21 09:03 36.9 C 80 182/83 H 88 L 05/04/21 08:33 36.9 C 80 197/91 H 87 L 05/04/21 08:03 37.0 C 76 146/76 H 91 05/04/21 07:32 37.0 C 78 150/76 H 90 05/04/21 07:22 77 28 H 91 05/04/21 07:03 37.0 C 75 144/74 H 91 05/04/21 06:33 37.1 C 76 147/71 H 90 05/04/21 06:02 37.0 C 76 147/68 H 90 05/04/21 05:33 37.0 C 75 145/68 H 90 Laboratory Results 05/04/21 05/04/21 05/04/21 Range/Units 04:52 04:52 04:38 WBC 20.04 H (4.8-10.8) K/uL RBC 4.01 L (4.7-6.1) M/uL Hgb 12.9 L (14.0-18.0) g/dL POC Hgb 13.3 L (14.0-18.0) g/dl Hct 40.4 L (42-52) % POC Hct 39 L (42-52) % MCV 100.7 H (80-100) fL MCH 32.2 (25-34) pg MCHC 31.9 L (32-36) g/dL RDW Std Deviation 50.4 H (36.4-46.3) fL RDW Coeff of Elvin 13.6 (11.5-14.5) % Plt Count 224 (130-400) K/uL MPV 9.5 (7.4-10.4) fL Immature Gran % (Auto) 0.6 % Neut % (Auto) 90.5 % Lymph % (Auto) 4.1 % [place] % (Auto) 4.4 % Eos % (Auto) 0.4 % Baso % (Auto) 0.0 % Neut # (Auto) 18.13 H (1.4-6.5) K/uL Lymph # (Auto) 0.82 L (1.2-3.4) K/uL [place] # (Auto) 0.88 H (0.11-0.59) K/uL Eos # (Auto) 0.08 (0-0.5) K/uL Baso # (Auto) 0.01 (0-0.2) K/uL Immature Gran # (Auto) 0.12 H (0.00-0.02) K/uL Sample Site Art Line POC pH 7.40 (7.35-7.45) POC pCO2 69 H (35-46) mmHg POC pO2 76 L (80-95) mmHg POC HCO3 42 H (19-24) adrianne/L POC Total CO2 > 40 H* (24-31) mmol/L POC Base Excess 17.0 H (-9-1.8) adrianne/L ABG pH (Temp Correct) 7.393 (7.35-7.45) ABG pCO2 (Temp Corrct 69 H (35-46) mmHg POC ABG pO2 at Pt Temp 76 POC ABG O2 Sat 94.0 (90-95) % Nikolas Test NA O2 Delivery Device Ventilator POC O2 Rate 28 Minute Ventilation 8.8 POC FiO2 70 % Tidal Volume 320 PEEP 10 POC Sodium 137 (135-144) mmol/L Sodium 135 L (136-145) mmol/L POC Potassium 3.7 (3.3-5.0) mmol/L Potassium 3.7 (3.5-5.1) mmol/L Chloride 98 (98-107) mmol/L Carbon Dioxide 39 H (21-32) mmol/L Anion Gap -2.0 L (3-11) BUN 42 H (7-18) mg/dl Creatinine 0.80 (0.6-1.4) mg/dl Est Cr Clr Drug Dosing 95.8 ml/min Est GFR ( Amer) 107.9 ml/min Est GFR (Non-Af Amer) 93.1 ml/min BUN/Creatinine Ratio 51.7 H (10-20) Glucose 113 H (70-99) mg/dl Calcium 8.3 L (8.5-10.1) mg/dl Phosphorus 4.1 (2.5-4.9) mg/dl Magnesium 3.0 H (1.8-2.4) mg/dl PG Care Time/CCT Total # of Minutes Spent Total Time Spent with Patient: Total time spent is greater than 50% in coordination of care (as documented) at patient's floor/unit and/or counseling patient: Coding Level of Care Code 92581 Subseq Hosp Care Lvl 1 Diagnoses COVID-19 U07.1 Acute respiratory failure with hypoxia J96.01 ARDS (adult respiratory distress syndrome) J80 Leukocytosis D72.829 Hyperglycemia R73.9 Hyponatremia E87.1 Hypokalemia E87.6 Pneumonia due to COVID-19 virus U07.1; J12.82 Transaminitis R74.01
[2021-05-05] MEDS: TUBE FEEDING WATER FLUSH OG SCH ×6 (00:16→19:57)
[2021-05-05] MEDS: CISATRACURIUM BESYLATE 100 MG in SODIUM CHLORIDE 0.9% 200 ML IV SCH ×5 (00:16→22:56)
[2021-05-05] MEDS: ARTIFICIAL TEARS OP OINT 3.5 GM TUBE OP SCH ×7 (00:16→22:57)
[2021-05-05] MEDS: MIDAZOLAM HCL 125 MG/250 ML BAG IV SCH ×4 (02:17→21:52)
[2021-05-05] MEDS: propofoL 1,000 MG/100 ML VIAL IV SCH ×8 (04:11→22:13)
[2021-05-05 05:24] LABS: Basophils # (auto) 0.02 K/uL (0-0.2); Basophils % (auto) 0.1 %; Eosinophils # (auto) 0.07 K/uL (0-0.5); Eosinophils % (auto) 0.3 %; Hemoglobin 12.8 g/dL (14.0-18.0); Immature Granulocytes # (auto) 0.07 K/uL (0.00-0.02); Immature Granulocytes % (auto) 0.3 %; Lymphocytes # (auto) 1.72 K/uL (1.2-3.4); Lymphocytes % (auto) 8.3 %; Mean Corpuscular Hemoglobin 32.4 pg (25-34); Mean Corpuscular Volume 101.3 fL (80-100); Mean Platelet Volume 9.6 fL (7.4-10.4); Monocytes # (auto) 0.37 K/uL (0.11-0.59); Monocytes % (auto) 1.8 %; Neutrophils # (auto) 18.46 K/uL (1.4-6.5); Neutrophils % (auto) 89.2 %; Platelet Count 214 K/uL (130-400); RDW Coefficient of Variation 13.7 % (11.5-14.5); RDW Standard Deviation 51.4 fL (36.4-46.3); Red Blood Count 3.95 M/uL (4.7-6.1); White Blood Count 20.71 K/uL (4.8-10.8)
[2021-05-05 05:28] LABS: iSTAT Arterial Blood Gas HCO3 43 meg/L (19-24); iSTAT Arterial Blood Gas pCO2 73 mmHg (35-46); iSTAT Arterial Blood Gas pH 7.38 (7.35-7.45); iSTAT Arterial Blood Gas pO2 58 mmHg (80-95); iSTAT Carbon Dioxide > 40 mmol/L (24-31); iSTAT FiO2 65 %; iSTAT Site Art Line
[2021-05-05 05:49] LABS: BUN Creatinine Ratio 56.3 (10-20); Calcium 8.3 mg/dl (8.5-10.1); Creatinine Clr Calc Pharmacy 101.7 ml/min; Est GFR (African American) 110.8 ml/min; Est GFR (Non-African American) 95.6 ml/min; Magnesium 2.8 mg/dl (1.8-2.4); Phosphorus 3.6 mg/dl (2.5-4.9); Potassium 3.7 mmol/L (3.5-5.1)
[2021-05-05] MEDS: fentaNYL citrate 2,500 MCG/250 ML BAG IV SCH ×2 (07:37→11:57)
--- NOTE | 2021-05-05 08:18 | XRay Report ---
XR chest 1V portable CLINICAL HISTORY: f/u COMPARISON STUDY: May 04, 2021 FINDINGS: No pneumothorax. Mild to moderate bilateral pleural effusion is seen, unchanged on the left and slightly improved on t he right. Atelectasis/infiltrate at bilateral bases as well as diffuse reticular nodular opacities are again se en. Cardiomediastinal is mildly enlarged, stable since prior. Pulmonary vasculature is obscured.. Osseous structures: Degenerative changes of the spine. Tip of endotracheal tube with seen projecting 4.9 cm above smitha. Stable position of gastric tube with tip in fenestrated side-port below level of the left hemidiaphra gm. Stable position of the right subclavian central venous catheter. Multiple overlying wires make study suboptimal. IMPRESSION: 1. Bilateral pleural effusion, slightly improved on the right. 2. Unchanged bilateral opacities and mild cardiomegaly. ACT 112: Negative or not required by law. The above report was generated using voice recognition software. It may contain grammatical, syntax o r spelling errors. Electronically signed by: Lydia Jones DO 05/05/2021 8:17 AM
[2021-05-05] MEDS: ENOXAPARIN INJ 40 MG/0.4 ML SYR SQ SCH (08:36)
[2021-05-05] MEDS: DOCUSATE SODIUM/SENNA 50/8.6MG TAB PO SCH ×2 (08:36→19:54)
[2021-05-05] MEDS: POLYETHYLENE (MIRALAX) 17 GM PACK PO SCH ×2 (08:37→19:56)
[2021-05-05] MEDS: MULTI VIT W/MINERALS LIQUID 15 ML UDP NG SCH (08:37)
[2021-05-05] MEDS: FUROSEMIDE 40 MG/4 ML VIAL IV SCH ×2 (08:41→19:54)
--- NOTE | 2021-05-05 09:47 | Critical Care Progress Note ---
Date of Service May 05, 2021 Assessment & Plan (1) ARDS (adult respiratory distress syndrome): (2) COVID-19: (3) Admitted to intensive care unit: (4) Acute respiratory failure with hypoxia: (5) Bradycardia: Plan: Reason critically ill: 66 yo M with no significant PMHx admitted with acute respiratory failure with hypoxia secondary to COVID-19 pneumonia admitted to ICU requiring close monitoring given tenuous respiratory status. NEURO: Continue to wean sedation as able. Goal RASS of -1. Currently on neuromuscular blockade to promote ventilator synchrony. 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 He is currently on propofol, Versed and fentanyl for pain control. CARDIAC/VASCULAR: --Episodes of bradycardia in the past Likely sedation related Propofol has been restarted continue to monitor --Hypertension Continue with sedation and analgesia Amlodipine added Continue with as needed metoprolol as well as hydralazine for systolic blood pressure greater than 160 RESPIRATORY: Acute hypoxic respiratory distress secondary to COVID-19 pneumonia - Continue dexamethasone IV 6mg daily while admitted -Intubated 04/24. Continue lung protective ventilation strategy. - Received tocilizumab therapy -Chest CTA completed 04/27/2021 with diffuse groundglass opacities and dense bibasilar atelectasis. -Unfortunately requiring high amounts of ventilator support and neuromuscular blockade to promote ventilator synchrony. -Attempt to discontinue paralytics today -We will likely need to proceed with tracheostomy next week if unable to wean off the ventilator. -Family does not desire to proceed with tracheostomy -Continue lung protective ventilation strategy to prevent ventilator induced lung injury. GI/NUTRITION: -Tube feedings Constipation - Continue docusate and senna and MiraLAX. -Methylnaltrexone for probable opiate-induced constipation -Small bowel movement today Hypertriglyceridemia RENAL/LYTES: - No significant issues. Replace electrolytes per protocol. -Starting 40 mg twice daily of Lasix 05/01/2021. Goal to achieve a negative fluid balance. GENITOURINARY: No acute concerns. Strict Is/Os. ENDO: ICU hyperglycemia protocol. HEME: No significant issues at this time. ID: COVID-19 pneumonia --Prophylaxis VTE: Lovenox GI: Protonix Lines: Right subclavian, right radial, positive Valadez Diet: Trophic tube feeds Admission and Anticipated Discharge Date Admission Date: April 23, 2021 Supervising Physician Co-Signing Physician Notes I have personally spent 40 minutes of critical care time in the direct management of this patient. This is a life/limb threatening event. This includes time spent evaluating patient, direct bedside care, chart review, placing orders, interpretation of diagnostic studies, discussion with consultants, patient, and family members, as well as other required patient management activities. This time is exclusive of all separately billable procedures, and teaching time and separate from and in addition to any other critical care service time. Review of Systems Review of Systems: Unobtainable due to endotracheal tube Physical Exam Physical Exam: General: Sedated. GCS 3TP Skin: Warm, dry, Head: Atraumatic Ears, nose, mouth and throat: airway obscured by endotracheal tube Cardiovascular: Normal peripheral perfusion Respiratory: Coarse sounds, ventilator settings reviewed Gastrointestinal: Non distended Musculoskeletal: No deformity Results & Data Results & Data ([facility]) Vital Signs (Past 12 Hours) Vital Signs Temp Pulse Resp BP Pulse Ox 05/05/21 07:42 76 28 H 91 05/05/21 06:33 37.1 C 78 158/72 H 90 05/05/21 06:03 37.1 C 79 160/76 H 90 05/05/21 05:33 37.1 C 82 165/78 H 89 L 05/05/21 05:04 80 28 H 87 L 05/05/21 05:03 37.1 C 82 181/84 H 87 L 05/05/21 04:33 37.2 C 84 194/99 H 89 L 05/05/21 04:03 37.2 C 78 165/73 H 90 05/05/21 04:00 84 165/73 H 05/05/21 03:33 37.1 C 77 164/70 H 90 05/05/21 03:03 37.1 C 75 193/83 H 91 05/05/21 02:48 74 28 H 91 05/05/21 02:33 37.0 C 74 140/72 90 05/05/21 02:03 37.0 C 74 139/67 90 05/05/21 01:33 37.0 C 72 142/68 H 88 L 05/05/21 01:03 37.0 C 74 139/66 89 L 05/05/21 00:33 36.9 C 75 143/69 H 90 05/05/21 00:03 36.9 C 75 148/68 H 89 L 05/05/21 00:00 79 124/54 L 05/04/21 23:33 36.9 C 76 155/66 H 89 L 05/04/21 23:03 36.9 C 78 187/79 H 90 05/04/21 23:02 78 28 H 90 05/04/21 22:33 36.9 C 81 175/75 H 90 05/04/21 22:03 36.9 C 81 188/82 H 90 Laboratory Results 05/05/21 05/05/21 05/05/21 Range/Units 05:15 05:04 05:04 WBC 20.71 H (4.8-10.8) K/uL RBC 3.95 L (4.7-6.1) M/uL Hgb 12.8 L (14.0-18.0) g/dL Hct 40.0 L (42-52) % MCV 101.3 H (80-100) fL MCH 32.4 (25-34) pg MCHC 32.0 (32-36) g/dL RDW Std Deviation 51.4 H (36.4-46.3) fL RDW Coeff of Elvin 13.7 (11.5-14.5) % Plt Count 214 (130-400) K/uL MPV 9.6 (7.4-10.4) fL Immature Gran % (Auto) 0.3 % Neut % (Auto) 89.2 % Lymph % (Auto) 8.3 % [place] % (Auto) 1.8 % Eos % (Auto) 0.3 % Baso % (Auto) 0.1 % Neut # (Auto) 18.46 H (1.4-6.5) K/uL Lymph # (Auto) 1.72 (1.2-3.4) K/uL [place] # (Auto) 0.37 (0.11-0.59) K/uL Eos # (Auto) 0.07 (0-0.5) K/uL Baso # (Auto) 0.02 (0-0.2) K/uL Immature Gran # (Auto) 0.07 H (0.00-0.02) K/uL Sample Site Art Line POC pH 7.38 (7.35-7.45) POC pCO2 73 H (35-46) mmHg POC pO2 58 L (80-95) mmHg POC HCO3 43 H (19-24) adrianne/L POC Total CO2 > 40 H* (24-31) mmol/L POC Base Excess 18.0 H (-9-1.8) adrianne/L POC ABG O2 Sat 87.0 L (90-95) % Nikolas Test NA O2 Delivery Device Ventilator POC O2 Rate 28 Minute Ventilation 8.8 POC FiO2 65 % Tidal Volume 320 PEEP 10 Sodium 138 (136-145) mmol/L Potassium 3.7 (3.5-5.1) mmol/L Chloride 97 L (98-107) mmol/L Carbon Dioxide 37 H (21-32) mmol/L Anion Gap 4.0 (3-11) BUN 42 H (7-18) mg/dl Creatinine 0.75 (0.6-1.4) mg/dl Est Cr Clr Drug Dosing 101.7 ml/min Est GFR ( Amer) 110.8 ml/min Est GFR (Non-Af Amer) 95.6 ml/min BUN/Creatinine Ratio 56.3 H (10-20) Glucose 126 H (70-99) mg/dl Calcium 8.3 L (8.5-10.1) mg/dl Phosphorus 3.6 (2.5-4.9) mg/dl Magnesium 2.8 H (1.8-2.4) mg/dl Triglycerides 219 H (0-150) mg/dl Lipase 189 (73-393) U/L Coding Level of Care Code Critical Care 1st 30-74 mins Diagnoses ARDS (adult respiratory distress syndrome) J80 COVID-19 U07.1 Admitted to intensive care unit Z78.9 Acute respiratory failure with hypoxia J96.01 Bradycardia R00.1
[2021-05-05] MEDS: PEPTAMEN INTENSE VHP 1.0 CAL 1,000 ML BAG OG SCH (11:41)
[2021-05-05] MEDS: PANTOprazole 40 MG in SYRINGE 0 ML IV SCH (11:41)
--- NOTE | 2021-05-05 12:17 | Palliative Care Progress Note ---
Date of Service May 05, 2021 Assessment & Plan (1) Palliative care encounter: Plan: I received a phone call from the patients daughter, Leia, on the phone requesting visitation. I reviewed the current visitation policy and advised that I would be happy to allow a zoom visit for them. i advised that if we are making a transition to a more compassionate extubation that we would be willing to allow visitation at the bedside during that end of life time. We discussed the current condition of her father. The patients was in the background on the phone. He remains dyssynchronous with his breathing on the ventilator when his paralytic is decreased. We discussed their decision for tracheostomy which they said they are struggling with. I discussed that Dr. Cabrera would reach out to them to answer their questions more specifically prior to making their final decision. We did discuss compassionate extubation which they said that if they do not proceed with trach would be discussed over the next few days internally. Leia mentioned that if its his time to go, they support that, and do not want him to suffer if he does not have a meaningful recovery ahead of him. Palliative Medicine will follow. (2) ARDS (adult respiratory distress syndrome): (3) Pneumonia due to COVID-19 virus: (4) Bradycardia: (5) Transaminitis: Admission and Anticipated Discharge Date Admission Date: April 23, 2021 Subjective Patient remains intubated and sedated. Unable to wean paralytics. Discussed goals of care with the patients daughterLeia, today. See A/P for further details Review of Systems Review of Systems: Palliative Performance Score 20% Physical Exam Constitutional: + ill appearing and + mechanically ventilated; no acute distress Respiratory: + uses accessory muscles Cardiovascular: Rate/Rhythm: regular rate and regular rhythm Gastrointestinal (Abdomen): Inspection/Auscultation: abdomen not distended Neurologic: + obtunded Results & Data ([facility]) Vital Signs (Past 12 Hours) Vital Signs Temp Pulse Resp BP Pulse Ox 05/05/21 11:12 81 29 H 90 05/05/21 07:42 76 28 H 91 05/05/21 06:33 37.1 C 78 158/72 H 90 05/05/21 06:03 37.1 C 79 160/76 H 90 05/05/21 05:33 37.1 C 82 165/78 H 89 L 05/05/21 05:04 80 28 H 87 L 05/05/21 05:03 37.1 C 82 181/84 H 87 L 05/05/21 04:33 37.2 C 84 194/99 H 89 L 05/05/21 04:03 37.2 C 78 165/73 H 90 05/05/21 04:00 84 165/73 H 05/05/21 03:33 37.1 C 77 164/70 H 90 05/05/21 03:03 37.1 C 75 193/83 H 91 05/05/21 02:48 74 28 H 91 05/05/21 02:33 37.0 C 74 140/72 90 05/05/21 02:03 37.0 C 74 139/67 90 05/05/21 01:33 37.0 C 72 142/68 H 88 L 05/05/21 01:03 37.0 C 74 139/66 89 L 05/05/21 00:33 36.9 C 75 143/69 H 90 PG Care Time/CCT Total # of Minutes Spent Total Time Spent with Patient: Total time spent is greater than 50% in coordination of care (as documented) at patient's floor/unit and/or counseling patient: 35 minutes with > 50% of that time spent assessing the patient, discussing goals of care with family, and collaborating with IDT Coding Level of Care Code 64287 Subseq Hosp Care Lvl 3 Diagnoses Palliative care encounter Z51.5 ARDS (adult respiratory distress syndrome) J80 Pneumonia due to COVID-19 virus U07.1; J12.82 Bradycardia R00.1 Transaminitis R74.01 Time Spent (min) 35
--- NOTE | 2021-05-05 13:28 | Communication Note ---
Date of Service: May 05, 2021 Had discussion with the patient's daughter, Leia Villarreal [phone]. Answered questions about current treatment, prognosis, and probable quality of life. Family going to discuss options and how to best proceed in accordance with patient's wishes. Patient remains in critical condition with a guarded prognosis at best. He would most certainly require extensive rehab and experience baseline disabilities resulting from this disease process precluding return to his baseline pre-COVID infection function and would likely have significant pulmonary disabilities. Coding Level of Care Code None
--- NOTE | 2021-05-05 17:56 | Hospitalist Progress Note ---
Date of Service May 05, 2021 Assessment & Plan (1) COVID-19: Plan: 66yo C male presenting with worsening Covid-19 PNA Pulse ox could not be maintained above mid 70s on the morning of 04/24 and he was intubated, sedated, paralyzed and proned ventilator dependent respiratory failure, day 12 now on ventilator Continues to be requiring fentanyl and Versed, Propofol on neuromuscular blockade for days now and having dyssynchrony with ventilator causing desaturations when Nimbex is decreased-attempting to discontinue the paralytics today Completed a 10-day course of dexamethasone 6mg IV daily tocilizumab 600 mg x1 dose on 04/24 -Appreciate adult education professional management of ventilator-not able to wean-adult education professional had discussion with family on 05/05 and they're deciding about whether to proceed with tracheostomy palliative consulted to have ongoing discussion about goals of care Previous hospitalist discussed goals of care with and daughter 05/03 changed to DNR At that time, they decided they would not want tracheostomy and PEG and LTACH, however as of 05/05, they're still undecided not quite ready to withdraw care but understand that the time to make that decision is approaching (2) Acute respiratory failure with hypoxia: Plan: As above Secondary to COVID-19 pneumonia severe ARDS, as above Continue diuresis as well (3) ARDS (adult respiratory distress syndrome): Plan: As above (4) Leukocytosis: Plan: WBC continues to be trending up to 20 K and stable from yesterday, sputum culture sent-pending, no fevers defer antibiotics to adult education professional-none at this point discussed with family that if he is developing bacterial pneumonia that it is a set back, makes prognosis even worse Would do work-up for infectious causes if has fever to include blood cultures, UA, and consider CT chest abdomen pelvis (5) Hyperglycemia: Plan: With some hyperglycemia likely secondary to corticosteroids which is now resolved No insulin needed (6) Hyponatremia: Plan: normalized (7) Hypokalemia: Plan: Replaced and resolved Follow BMP as is receiving IV Lasix twice daily (8) Pneumonia due to COVID-19 virus: Plan: As above (9) Transaminitis: Plan: Mildly elevated AST Likely secondary to Covid-19 Plan: DVT prophylaxis- Lovenox SQ GI prophylaxis-IV Protonix, received methylnaltrexone x1 on 05/04 and 05/05, senna/docusate daily FEN- tube feeds per ICU Disposition-continued stay in the ICU, prognosis guarded Palliative medicine following along Admission and Anticipated Discharge Date Admission Date: April 23, 2021 Subjective Patient remained sedated and intubated. I discussed his care with the adult education professional. Review of Systems Review of Systems: Unobtainable due to endotracheal tube and Unobtainable due to reduced consciousness Physical Exam Constitutional: well developed and + mechanically ventilated Results & Data Results & Data ([facility]) Vital Signs (Past 12 Hours) Vital Signs Temp Pulse Resp BP Pulse Ox 05/05/21 17:33 37.3 C 73 134/64 90 05/05/21 16:33 37.3 C 73 135/67 91 05/05/21 15:33 37.3 C 72 137/69 92 05/05/21 15:22 71 28 H 92 05/05/21 14:32 37.2 C 72 131/66 95 05/05/21 13:32 37.2 C 72 116/61 93 05/05/21 12:33 37.2 C 73 121/64 90 05/05/21 11:46 37.3 C 90 148/95 H 89 L 05/05/21 11:33 37.3 C 100 H 212/105 H 87 L 05/05/21 11:12 81 29 H 90 05/05/21 11:03 37.2 C 76 148/68 H 91 05/05/21 10:03 37.1 C 78 156/71 H 91 05/05/21 09:03 37.3 C 72 146/70 H 91 05/05/21 08:03 37.3 C 77 148/71 H 91 05/05/21 07:42 76 28 H 91 05/05/21 07:03 37.2 C 75 152/71 H 90 05/05/21 06:33 37.1 C 78 158/72 H 90 05/05/21 06:03 37.1 C 79 160/76 H 90 Laboratory Results 05/05/21 05/05/21 05/05/21 Range/Units 11:50 05:15 05:04 WBC 20.71 H (4.8-10.8) K/uL RBC 3.95 L (4.7-6.1) M/uL Hgb 12.8 L (14.0-18.0) g/dL Hct 40.0 L (42-52) % MCV 101.3 H (80-100) fL MCH 32.4 (25-34) pg MCHC 32.0 (32-36) g/dL RDW Std Deviation 51.4 H (36.4-46.3) fL RDW Coeff of Elvin 13.7 (11.5-14.5) % Plt Count 214 (130-400) K/uL MPV 9.6 (7.4-10.4) fL Immature Gran % (Auto) 0.3 % Neut % (Auto) 89.2 % Lymph % (Auto) 8.3 % Colbert % (Auto) 1.8 % Eos % (Auto) 0.3 % Baso % (Auto) 0.1 % Neut # (Auto) 18.46 H (1.4-6.5) K/uL Lymph # (Auto) 1.72 (1.2-3.4) K/uL Colbert # (Auto) 0.37 (0.11-0.59) K/uL Eos # (Auto) 0.07 (0-0.5) K/uL Baso # (Auto) 0.02 (0-0.2) K/uL Immature Gran # (Auto) 0.07 H (0.00-0.02) K/uL Sample Site Art Line POC pH 7.38 (7.35-7.45) POC pCO2 73 H (35-46) mmHg POC pO2 58 L (80-95) mmHg POC HCO3 43 H (19-24) adrianne/L POC Total CO2 > 40 H* (24-31) mmol/L POC Base Excess 18.0 H (-9-1.8) adrianne/L POC ABG O2 Sat 87.0 L (90-95) % Nikolas Test NA O2 Delivery Device Ventilator POC O2 Rate 28 Minute Ventilation 8.8 POC FiO2 65 % Tidal Volume 320 PEEP 10 Sodium (136-145) mmol/L Potassium (3.5-5.1) mmol/L Chloride (98-107) mmol/L Carbon Dioxide (21-32) mmol/L Anion Gap (3-11) BUN (7-18) mg/dl Creatinine (0.6-1.4) mg/dl Est Cr Clr Drug Dosing ml/min Est GFR ( Amer) ml/min Est GFR (Non-Af Amer) ml/min BUN/Creatinine Ratio (10-20) Glucose (70-99) mg/dl POC Glucose 109 H (70-99) mg/dl Calcium (8.5-10.1) mg/dl Phosphorus (2.5-4.9) mg/dl Magnesium (1.8-2.4) mg/dl Triglycerides (0-150) mg/dl Lipase (73-393) U/L 05/05/21 Range/Units 05:04 WBC (4.8-10.8) K/uL RBC (4.7-6.1) M/uL Hgb (14.0-18.0) g/dL Hct (42-52) % MCV (80-100) fL MCH (25-34) pg MCHC (32-36) g/dL RDW Std Deviation (36.4-46.3) fL RDW Coeff of Elvin (11.5-14.5) % Plt Count (130-400) K/uL MPV (7.4-10.4) fL Immature Gran % (Auto) % Neut % (Auto) % Lymph % (Auto) % Colbert % (Auto) % Eos % (Auto) % Baso % (Auto) % Neut # (Auto) (1.4-6.5) K/uL Lymph # (Auto) (1.2-3.4) K/uL [place]bert # (Auto) (0.11-0.59) K/uL Eos # (Auto) (0-0.5) K/uL Baso # (Auto) (0-0.2) K/uL Immature Gran # (Auto) (0.00-0.02) K/uL Sample Site POC pH (7.35-7.45) POC pCO2 (35-46) mmHg POC pO2 (80-95) mmHg POC HCO3 (19-24) adrianne/L POC Total CO2 (24-31) mmol/L POC Base Excess (-9-1.8) adrianne/L POC ABG O2 Sat (90-95) % Nikolas Test O2 Delivery Device POC O2 Rate Minute Ventilation POC FiO2 % Tidal Volume PEEP Sodium 138 (136-145) mmol/L Potassium 3.7 (3.5-5.1) mmol/L Chloride 97 L (98-107) mmol/L Carbon Dioxide 37 H (21-32) mmol/L Anion Gap 4.0 (3-11) BUN 42 H (7-18) mg/dl Creatinine 0.75 (0.6-1.4) mg/dl Est Cr Clr Drug Dosing 101.7 ml/min Est GFR ( Amer) 110.8 ml/min Est GFR (Non-Af Amer) 95.6 ml/min BUN/Creatinine Ratio 56.3 H (10-20) Glucose 126 H (70-99) mg/dl POC Glucose (70-99) mg/dl Calcium 8.3 L (8.5-10.1) mg/dl Phosphorus 3.6 (2.5-4.9) mg/dl Magnesium 2.8 H (1.8-2.4) mg/dl Triglycerides 219 H (0-150) mg/dl Lipase 189 (73-393) U/L PG Care Time/CCT Total # of Minutes Spent Total Time Spent with Patient: Total time spent is greater than 50% in coordination of care (as documented) at patient's floor/unit and/or counseling patient: Coding Level of Care Code 49626 Subseq Hosp Care Lvl 1 Diagnoses COVID-19 U07.1 Acute respiratory failure with hypoxia J96.01 ARDS (adult respiratory distress syndrome) J80 Leukocytosis D72.829 Hyperglycemia R73.9 Hyponatremia E87.1 Hypokalemia E87.6 Pneumonia due to COVID-19 virus U07.1; J12.82 Transaminitis R74.01
[2021-05-06] MEDS: TUBE FEEDING WATER FLUSH OG SCH ×6 (01:11→19:41)
[2021-05-06] MEDS: CISATRACURIUM BESYLATE 100 MG in SODIUM CHLORIDE 0.9% 200 ML IV SCH ×3 (01:13→16:35)
[2021-05-06] MEDS: ARTIFICIAL TEARS OP OINT 3.5 GM TUBE OP SCH ×5 (03:36→19:41)
[2021-05-06] MEDS: propofoL 1,000 MG/100 ML VIAL IV SCH ×4 (03:36→21:43)
[2021-05-06] MEDS: fentaNYL citrate 2,500 MCG/250 ML BAG IV SCH ×3 (03:48→19:39)
[2021-05-06] MEDS: PEPTAMEN INTENSE VHP 1.0 CAL 1,000 ML BAG OG SCH ×2 (04:01→19:47)
[2021-05-06 05:34] LABS: Basophils # (auto) 0.01 K/uL (0-0.2); Basophils % (auto) 0.1 %; Eosinophils # (auto) 0.13 K/uL (0-0.5); Hematocrit (blood only) 37.9 % (42-52); Hemoglobin 11.8 g/dL (14.0-18.0); Immature Granulocytes # (auto) 0.04 K/uL (0.00-0.02); Immature Granulocytes % (auto) 0.3 %; Lymphocytes # (auto) 0.91 K/uL (1.2-3.4); Lymphocytes % (auto) 6.7 %; Mean Corpuscular Hemoglobin 31.6 pg (25-34); Mean Corpuscular Hgb Conc 31.1 g/dL (32-36); Mean Corpuscular Volume 101.6 fL (80-100); Mean Platelet Volume 9.7 fL (7.4-10.4); Monocytes # (auto) 1.14 K/uL (0.11-0.59); Monocytes % (auto) 8.3 %; Neutrophils # (auto) 11.44 K/uL (1.4-6.5); Neutrophils % (auto) 83.6 %; Platelet Count 205 K/uL (130-400); RDW Coefficient of Variation 13.8 % (11.5-14.5); RDW Standard Deviation 51.2 fL (36.4-46.3); Red Blood Count 3.73 M/uL (4.7-6.1); White Blood Count 13.67 K/uL (4.8-10.8)
[2021-05-06 05:35] LABS: iSTAT Arterial Blood Gas HCO3 42 meg/L (19-24); iSTAT Arterial Blood Gas pCO2 65 mmHg (35-46); iSTAT Arterial Blood Gas pH 7.42 (7.35-7.45); iSTAT Arterial Blood Gas pO2 79 mmHg (80-95); iSTAT Carbon Dioxide > 40 mmol/L (24-31); iSTAT FiO2 55 %; iSTAT Site Art Line
[2021-05-06 06:12] LABS: BUN Creatinine Ratio 52.1 (10-20); Calcium 8.3 mg/dl (8.5-10.1); Creatinine Clr Calc Pharmacy 94.1 ml/min; Est GFR (African American) 107.3 ml/min; Est GFR (Non-African American) 92.6 ml/min; Magnesium 2.7 mg/dl (1.8-2.4); Phosphorus 3.4 mg/dl (2.5-4.9); Potassium 3.2 mmol/L (3.5-5.1)
--- NOTE | 2021-05-06 08:14 | Critical Care Progress Note ---
Date of Service May 06, 2021 Assessment & Plan (1) ARDS (adult respiratory distress syndrome): Plan: Reason critically ill: 66 yo M with no significant PMHx admitted with acute respiratory failure with hypoxia secondary to COVID-19 pneumonia admitted to ICU requiring close monitoring given tenuous respiratory status. NEURO: Continue to wean sedation as able. Goal RASS of -1. Currently on neuromuscular blockade to promote ventilator synchrony. 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 He is currently on propofol, Versed and fentanyl for pain control. CARDIAC/VASCULAR: Episodes of bradycardia in the past Likely sedation related Propofol has been restarted, continue to monitor Hypertension Continue with sedation and analgesia Amlodipine added Continue with as needed metoprolol as well as hydralazine for systolic blood pressure greater than 160 RESPIRATORY: Acute hypoxic respiratory distress secondary to COVID-19 pneumonia Intubated 04/24. Continue lung protective ventilation strategy. Continue dexamethasone IV 6mg daily while admitted Received tocilizumab therapy Chest CTA completed 04/27/2021 with diffuse groundglass opacities and dense bibasilar atelectasis. Unfortunately requiring high amounts of ventilator support and neuromu scular blockade to promote ventilator synchrony. We will likely need to proceed with tracheostomy next week if unable to wean off the ventilator. Family does not desire to proceed with tracheostomy Continue lung protective ventilation strategy to prevent ventilator induced lung injury. GI/NUTRITION: Tube feedings Constipation Continue docusate and senna and MiraLAX. Methylnaltrexone for probable opiate-induced constipation Hypertriglyceridemia RENAL/LYTES: - No significant issues. Replace electrolytes per protocol. -Starting 40 mg twice daily of Lasix 05/01/2021. Goal to achieve a negative fluid balance. GENITOURINARY: No acute concerns. Strict Is/Os. ENDO: ICU hyperglycemia protocol. HEME: No significant issues at this time. ID: COVID-19 pneumonia --Prophylaxis VTE: Lovenox GI: Protonix Lines: Right subclavian, right radial, positive Valadez Thank you the opportunity to participate in this patient's care. Please see Dr. Cabrera's documentation for further recommendations. Admission and Anticipated Discharge Date Admission Date: April 23, 2021 Supervising Physician Co-Signing Physician Notes Dr. Szymanski was resident physician during care of patient. I separately evaluated patient for gonzales portions of the history and the exam. I was present during the critical portion of medical decision making, and I discussed the case with the resident. I generally agree with the findings and plan. Decreasing PEEP now on high FiO2 low PEEP table will continue to decrease according to protocol. Patient had bowel movement overnight. Patient remains critically ill. Still discussing with family tracheostomy versus terminal extubation remains off Nimbex. Subjective See attending documentation Review of Systems Review of Systems: See attending documentation Physical Exam Physical Exam: See attending documentation Results & Data Results & Data ([facility]) Vital Signs (Past 12 Hours) Vital Signs Temp Pulse Resp BP Pulse Ox 05/06/21 07:32 37.4 C 68 120/56 L 92 05/06/21 07:31 69 31 H 91 05/06/21 06:32 37.5 C 69 124/58 L 93 05/06/21 05:32 37.6 C H 71 122/58 L 92 05/06/21 05:12 72 29 H 93 05/06/21 04:32 37.6 C H 70 121/62 93 05/06/21 03:32 37.6 C H 71 123/60 92 05/06/21 02:32 37.6 C H 72 130/59 L 92 05/06/21 02:20 73 30 H 92 05/06/21 01:32 37.6 C H 73 122/59 L 92 05/06/21 00:32 37.6 C H 71 114/57 L 92 05/05/21 23:32 37.5 C 72 120/59 L 92 05/05/21 22:33 37.4 C 71 120/55 L 90 05/05/21 22:30 71 28 H 89 L 05/05/21 21:33 37.6 C H 75 151/67 H 92 05/05/21 20:33 37.5 C 73 157/69 H 91 Critical Care Time I have personally spent 40 minutes of critical care time in the direct management of this patient. This is a life/limb threatening event. This includes time spent evaluating patient, direct bedside care, chart review, placing orders, interpretation of diagnostic studies, discussion with consultants, patient, and/or family members regarding treatment decisions, as well as other required patient management activities. This time is exclusive of all separately billable procedures, and teaching time and separate from and in addition to any other critical care service time. Resident Activity Tracking Resident Involvement: Resident Care Provided Care Provided: Adult Hospital Medicine
[2021-05-06] MEDS: DOCUSATE SODIUM/SENNA 50/8.6MG TAB PO SCH ×2 (09:06→19:41)
[2021-05-06] MEDS: MULTI VIT W/MINERALS LIQUID 15 ML UDP NG SCH (09:06)
[2021-05-06] MEDS: ENOXAPARIN INJ 40 MG/0.4 ML SYR SQ SCH (09:06)
[2021-05-06] MEDS: POLYETHYLENE (MIRALAX) 17 GM PACK PO SCH ×2 (09:06→19:41)
[2021-05-06] MEDS: FUROSEMIDE 40 MG/4 ML VIAL IV SCH ×2 (09:10→19:43)
--- NOTE | 2021-05-06 10:12 | Billing Data ---
Date of Service May 06, 2021 Coding Level of Care Code Critical Care 09 13- mins
[2021-05-06] MEDS ORDERED: POTASSIUM CHLORIDE PWD 20 MEQ PACK NG ONE (10:45)
--- NOTE | 2021-05-06 10:50 | XRay Report ---
XR chest 1V portable CLINICAL HISTORY: f/u COMPARISON STUDY: May 05, 2021 FINDINGS: No pneumothorax. Interval improvement of bilateral pleural effusion. Right hemidiaphragm is poorly visualized due to o verlying EKG wire. Redemonstration of patchy airspace opacities throughout bilateral lungs which slightly improved withi n bilateral basis. Cardiomediastinal silhouette is within normal limits in size. Pulmonary vasculature is obscured.. Osseous structures: unremarkable Tip of endotracheal tube is projecting 4.6 cm above smitha. Stable position of gastric tube and right subclavian central venous catheter. IMPRESSION: 1. Interval improvement of bilateral pleural effusion and airspace opacities at bilateral lower lung s. 2. Support apparatus as above. ACT 112: Negative or not required by law. The above report was generated using voice recognition software. It may contain grammatical, syntax o r spelling errors. Electronically signed by: Lydia Jones DO 05/06/2021 10:48 AM
[2021-05-06] MEDS: PANTOprazole 40 MG in SYRINGE 0 ML IV SCH (11:39)
[2021-05-06] MEDS ORDERED: METHYLNALTREXONE BROMIDE 12 MG/0.6 ML VIAL SQ ONE (12:00)
--- NOTE | 2021-05-06 17:52 | Hospitalist Progress Note ---
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 Completed a 10-day course of dexamethasone 6mg IV daily tocilizumab 600 mg x1 dose on 04/24 -Appreciate in room dining server management of ventilator-not able to wean-in room dining server had discussion with family on 05/05 and they're deciding about whether to proceed with tracheostomy-still awaiting decision palliative consulted to have ongoing discussion about goals of care Previous hospitalist discussed goals of care with and daughter 05/03 changed to DNR At that time, they decided they would not want tracheostomy and PEG and LTACH, however as of 05/05, they're still undecided not quite ready to withdraw care but understand that the time to make that decision is approaching (2) Acute respiratory failure with hypoxia: Plan: As above Secondary to COVID-19 pneumonia severe ARDS, as above Continue diuresis as well with Lasix 40 mg IV twice daily (3) ARDS (adult respiratory distress syndrome): Plan: As above (4) Leukocytosis: Plan: WBC trended upward to 20 K and now back down to 13 without any intervention Sputum culture with light normal china Remains afebrile (5) Hyperglycemia: Plan: With some hyperglycemia likely secondary to corticosteroids which is now resolved No insulin needed (6) Hyponatremia: Plan: normalized (7) Hypokalemia: Plan: Low again today secondary to loop diuretics Was given potassium chloride 60 mEq per NG Follow BMP as is receiving IV Lasix twice daily (8) Pneumonia due to COVID-19 virus: Plan: As above (9) Transaminitis: Plan: Mildly elevated AST Likely secondary to Covid-19 Plan: DVT prophylaxis- Lovenox SQ GI prophylaxis-IV Protonix, received methylnaltrexone x1 on 05/04 and 05/05, senna/docusate daily-did have a bowel movement on 05/06 FEN-continue tube feeds per ICU Disposition-continued stay in the ICU, prognosis guarded, need to make a decision in the next 1 to 2 days on whether or not to proceed with tracheostomy- defer to in room dining server to have this discussion with family Palliative medicine following along Admission and Anticipated Discharge Date Admission Date: April 23, 2021 Subjective Patient remains sedated and ventilated, but off paralytics for over 24 hours now. Maintains on PEEP of 10 and 50% FiO2 RN reports that when sedation is turned down his blood pressure go up significantly. Review of Systems 2 Review of Systems: Unobtainable due to endotracheal tube and Unobtainable due to reduced consciousness Physical Exam Constitutional: well developed and + mechanically ventilated Results & Data Results & Data ([facility]) Vital Signs (Past 12 Hours) Vital Signs Temp Pulse Resp BP Pulse Ox 05/06/21 17:00 37.4 C 73 88 L 05/06/21 16:56 37.4 C 71 127/69 89 L 05/06/21 16:00 37.5 C 74 88 L 05/06/21 15:42 30 H 88 L 05/06/21 15:00 37.5 C 74 88 L 05/06/21 14:00 37.5 C 73 88 L 05/06/21 13:00 37.5 C 71 88 L 05/06/21 12:00 37.4 C 74 88 L 05/06/21 11:00 37.2 C 70 88 L 05/06/21 10:57 34 H 88 L 05/06/21 10:00 37.1 C 72 90 05/06/21 09:00 37.3 C 67 90 05/06/21 08:32 37.3 C 67 116/56 L 91 05/06/21 07:32 37.4 C 68 120/56 L 92 05/06/21 07:31 69 31 H 91 05/06/21 06:32 37.5 C 69 124/58 L 93 PG Care Time/CCT Total # of Minutes Spent Total Time Spent with Patient: Total time spent is greater than 50% in coordination of care (as documented) at patient's floor/unit and/or counseling patient: Coding Level of Care Code 48214 Subseq Hosp Care Lvl 1 Diagnoses COVID-19 U07.1 Acute respiratory failure with hypoxia J96.01 ARDS (adult respiratory distress syndrome) J80 Leukocytosis D72.829 Hyperglycemia R73.9 Hyponatremia E87.1 Hypokalemia E87.6 Pneumonia due to COVID-19 virus U07.1; J12.82 Transaminitis R74.01
[2021-05-06] MEDS: MIDAZOLAM HCL 125 MG/250 ML BAG IV SCH (19:39)
[2021-05-07] MEDS: ARTIFICIAL TEARS OP OINT 3.5 GM TUBE OP SCH ×7 (02:02→23:52)
[2021-05-07] MEDS: TUBE FEEDING WATER FLUSH OG SCH ×6 (02:02→21:11)
[2021-05-07] MEDS: propofoL 1,000 MG/100 ML VIAL IV SCH ×2 (03:01→09:16)
[2021-05-07] MEDS: CISATRACURIUM BESYLATE 100 MG in SODIUM CHLORIDE 0.9% 200 ML IV SCH ×3 (03:02→08:38)
[2021-05-07 04:31] LABS: Basophils # (auto) 0.02 K/uL (0-0.2); Basophils % (auto) 0.1 %; Eosinophils % (auto) 0.7 %; Hematocrit (blood only) 38.1 % (42-52); Hemoglobin 12.2 g/dL (14.0-18.0); Immature Granulocytes # (auto) 0.04 K/uL (0.00-0.02); Immature Granulocytes % (auto) 0.3 %; Lymphocytes # (auto) 0.86 K/uL (1.2-3.4); Mean Corpuscular Hemoglobin 32.3 pg (25-34); Mean Corpuscular Volume 100.8 fL (80-100); Mean Platelet Volume 9.6 fL (7.4-10.4); Neutrophils # (auto) 12.12 K/uL (1.4-6.5); Neutrophils % (auto) 83.9 %; Platelet Count 184 K/uL (130-400); RDW Coefficient of Variation 13.8 % (11.5-14.5); RDW Standard Deviation 50.7 fL (36.4-46.3); Red Blood Count 3.78 M/uL (4.7-6.1); White Blood Count 14.44 K/uL (4.8-10.8)
[2021-05-07 04:42] LABS: iSTAT Art Bld Gas pCO2 Correct 76 mmHg (35-46); iSTAT Art Bld Gas pH Corrected 7.371 (7.35-7.45); iSTAT Arterial Blood Gas HCO3 45 meg/L (19-24); iSTAT Arterial Blood Gas pCO2 79 mmHg (35-46); iSTAT Arterial Blood Gas pH 7.36 (7.35-7.45); iSTAT Arterial Blood Gas pO2 96 mmHg (80-95); iSTAT Arterial Blood Gas pO2 C 92; iSTAT Carbon Dioxide > 40 mmol/L (24-31); iSTAT FiO2 80 %; iSTAT Hematocrit 36 % (42-52); iSTAT Hemoglobin 12.2 g/dl (14.0-18.0); iSTAT Potassium 3.5 mmol/L (3.3-5.0); iSTAT Site Art Line; iSTAT Sodium 142 mmol/L (135-144)
[2021-05-07 04:49] LABS: BUN Creatinine Ratio 53.5 (10-20); Calcium 8.6 mg/dl (8.5-10.1); Creatinine Clr Calc Pharmacy 105.9 ml/min; Est GFR (African American) 112.7 ml/min; Est GFR (Non-African American) 97.2 ml/min; Magnesium 2.8 mg/dl (1.8-2.4); Potassium 3.5 mmol/L (3.5-5.1)
--- NOTE | 2021-05-07 06:50 | Critical Care Progress Note ---
Date of Service May 07, 2021 Assessment & Plan (1) ARDS (adult respiratory distress syndrome): Plan: Reason critically ill: 66 yo M with no significant PMHx admitted with acute respiratory failure with hypoxia secondary to COVID-19 pneumonia admitted to ICU requiring close monitoring given tenuous respiratory status. NEURO: Continue to wean sedation as able. Goal RASS of -1. 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 He is currently on propofol, Versed and fentanyl for pain control. CARDIAC/VASCULAR: Episodes of bradycardia in the past Likely sedation related Propofol has been restarted, continue to monitor Hypertension Continue with sedation and analgesia Amlodipine added Continue with as needed metoprolol as well as hydralazine for systolic blood pressure greater than 160 RESPIRATORY: Acute hypoxic respiratory distress secondary to COVID-19 pneumonia Intubated 04/24. Continue lung protective ventilation strategy. Continue dexamethasone IV 6mg daily while admitted Received tocilizumab therapy Chest CTA completed 04/27/2021 with diffuse groundglass opacities and dense bibasilar atelectasis. Unfortunately requiring high amounts of ventilator support and neuromuscular blockade to promote ventilator synchrony. We will likely need to proceed with tracheostomy next week if unable to wean off the ventilator. Family does not desire to proceed with tracheostomy Continue lung protective ventilation strategy to prevent ventilator induced lung injury. GI/NUTRITION: Tube feedings Constipation: Resolved Continue docusate and senna and MiraLAX. Methylnaltrexone for probable opiate-induced constipation Hypertriglyceridemia: Mild we will allow propofol to discontinue today RENAL/LYTES: - No significant issues. Replace electrolytes per protocol. -Starting 40 mg twice daily of Lasix 05/01/2021. Goal to achieve a negative fluid balance. GENITOURINARY: No acute concerns. Strict Is/Os. ENDO: ICU hyperglycemia protocol. HEME: No significant issues at this time. ID: COVID-19 pneumonia --Prophylaxis VTE: Lovenox GI: Protonix Lines: Right subclavian, right radial, positive Vaaldez Thank you the opportunity to participate in this patient's care. Please see Dr. Cabrera's documentation for further recommendations. Admission and Anticipated Discharge Date Admission Date: April 23, 2021 Subjective Drops oxygen saturation necessitated increasing FiO2 as well as PEEP now currently downtrending again Review of Systems Review of Systems: Unobtainable due to endotracheal tube Physical Exam Physical Exam: General: Sedated. nontoxic. Skin: Warm, dry, Head: Atraumatic Ears, nose, mouth and throat: airway obscured by endotracheal tube Cardiovascular: Normal peripheral perfusion Respiratory: no respiratory distress Gastrointestinal: Non distended Musculoskeletal: No deformity Results & Data Results & Data ([facility]) Vital Signs (Past 12 Hours) Vital Signs Temp Pulse Resp BP Pulse Ox 05/07/21 05:56 36.2 C L 61 28 H 103/59 L 93 05/07/21 04:56 36.3 C L 61 28 H 109/62 92 05/07/21 03:56 36.3 C L 63 28 H 112/67 94 05/07/21 03:45 62 30 H 92 05/07/21 02:56 36.5 C 63 28 H 115/60 93 05/07/21 01:56 36.6 C 63 28 H 114/64 93 05/07/21 00:56 36.7 C 63 28 H 113/58 L 93 05/06/21 23:56 36.9 C 69 28 H 116/60 91 05/06/21 23:05 70 29 H 91 05/06/21 22:56 37.1 C 69 28 H 120/61 91 05/06/21 21:56 37.2 C 72 28 H 131/65 91 05/06/21 20:56 37.4 C 73 28 H 127/64 88 L 05/06/21 20:17 89 30 H 89 L 05/06/21 19:56 37.5 C 75 28 H 135/64 89 L Laboratory Results 05/07/21 05/07/21 05/07/21 Range/Units 04:24 04:22 04:22 WBC 14.44 H (4.8-10.8) K/uL RBC 3.78 L (4.7-6.1) M/uL Hgb 12.2 L (14.0-18.0) g/dL POC Hgb 12.2 L (14.0-18.0) g/dl Hct 38.1 L (42-52) % POC Hct 36 L (42-52) % MCV 100.8 H (80-100) fL MCH 32.3 (25-34) pg MCHC 32.0 (32-36) g/dL RDW Std Deviation 50.7 H (36.4-46.3) fL RDW Coeff of Elvin 13.8 (11.5-14.5) % Plt Count 184 (130-400) K/uL MPV 9.6 (7.4-10.4) fL Immature Gran % (Auto) 0.3 % Neut % (Auto) 83.9 % Lymph % (Auto) 6.0 % [place] % (Auto) 9.0 % Eos % (Auto) 0.7 % Baso % (Auto) 0.1 % Neut # (Auto) 12.12 H (1.4-6.5) K/uL Lymph # (Auto) 0.86 L (1.2-3.4) K/uL [place] # (Auto) 1.30 H (0.11-0.59) K/uL Eos # (Auto) 0.10 (0-0.5) K/uL Baso # (Auto) 0.02 (0-0.2) K/uL Immature Gran # (Auto) 0.04 H (0.00-0.02) K/uL Sample Site Art Line POC pH 7.36 (7.35-7.45) POC pCO2 79 H (35-46) mmHg POC pO2 96 H (80-95) mmHg POC HCO3 45 H (19-24) adrianne/L POC Total CO2 > 40 H* (24-31) mmol/L POC Base Excess 19.0 H (-9-1.8) adrianne/L ABG pH (Temp Correct) 7.371 (7.35-7.45) ABG pCO2 (Temp Corrct 76 H (35-46) mmHg POC ABG pO2 at Pt Temp 92 POC ABG O2 Sat 97.0 H (90-95) % Nikolas Test NA O2 Delivery Device Ventilator POC O2 Rate 28 POC FiO2 80 % Tidal Volume 320 PEEP 12 POC Sodium 142 (135-144) mmol/L Sodium 141 (136-145) mmol/L POC Potassium 3.5 (3.3-5.0) mmol/L Potassium 3.5 (3.5-5.1) mmol/L Chloride 100 (98-107) mmol/L Carbon Dioxide 38 H (21-32) mmol/L Anion Gap 3.0 (3-11) BUN 38 H (7-18) mg/dl Creatinine 0.72 (0.6-1.4) mg/dl Est Cr Clr Drug Dosing 105.9 ml/min Est GFR ( Amer) 112.7 ml/min Est GFR (Non-Af Amer) 97.2 ml/min BUN/Creatinine Ratio 53.5 H (10-20) Glucose 126 H (70-99) mg/dl Calcium 8.6 (8.5-10.1) mg/dl Phosphorus 5.0 H D (2.5-4.9) mg/dl Magnesium 2.8 H (1.8-2.4) mg/dl Critical Care Time I have personally spent 45 minutes of critical care time in the direct management of this patient. This is a life/limb threatening event. This includes time spent evaluating patient, direct bedside care, chart review, placing orders, interpretation of diagnostic studies, discussion with consultants, patient, and/or family members regarding treatment decisions, as well as other required patient management activities. This time is exclusive of all separately billable procedures, and teaching time and separate from and in addition to any other critical care service time. Resident Activity Tracking Resident Involvement: Resident Care Provided Care Provided: Adult [facility]
[2021-05-07] MEDS: ENOXAPARIN INJ 40 MG/0.4 ML SYR SQ SCH (08:26)
[2021-05-07] MEDS: POLYETHYLENE (MIRALAX) 17 GM PACK PO SCH ×2 (08:26→21:11)
[2021-05-07] MEDS: DOCUSATE SODIUM/SENNA 50/8.6MG TAB PO SCH ×2 (08:26→21:11)
[2021-05-07] MEDS: MULTI VIT W/MINERALS LIQUID 15 ML UDP NG SCH (08:27)
[2021-05-07] MEDS: FUROSEMIDE 40 MG/4 ML VIAL IV SCH ×2 (08:30→21:10)
--- NOTE | 2021-05-07 09:03 | XRay Report ---
XR chest 1V portable INDICATION: [place] ^f/u . TECHNIQUE: Single frontal radiograph of the chest was obtained. Comparison: Comparison is made to chest one view 05/06/2021 FINDINGS: Lines and tubes are stable. The cardiomediastinal silhouette is stable. Lungs are slightly less well inflated than the prior exam. Diffuse airspace opacities are essentially unchanged. No evidence of pn eumothorax. Multiple bilateral pleural effusions. IMPRESSION: 1. Stable multifocal airspace opacities. 2. Likely small bilateral pleural effusions. ACT 112: Negative or not required by law. Electronically signed by: Tyrone Johnson M.D. 05/07/2021 9:01 AM
--- NOTE | 2021-05-07 09:55 | Billing Data ---
Date of Service May 07, 2021 Coding Level of Care Code Critical Care 09 13- mins
[2021-05-07] MEDS ORDERED: POTASSIUM CHLORIDE 20 MEQ/15 ML UDC NG SCH (12:00)
[2021-05-07] MEDS: PANTOprazole 40 MG in SYRINGE 0 ML IV SCH (12:26)
[2021-05-07] MEDS: fentaNYL citrate 2,500 MCG/250 ML BAG IV SCH (13:42)
[2021-05-07] MEDS: PEPTAMEN INTENSE VHP 1.0 CAL 1,000 ML BAG OG SCH (13:42)
--- NOTE | 2021-05-07 14:22 | Hospitalist Progress Note ---
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 Completed a 10-day course of dexamethasone 6mg IV daily Received tocilizumab 600 mg x1 dose on 04/24 -Appreciate leak patcher management of ventilator-plan to proceed with tracheostomy palliative consulted to have ongoing discussion about goals of care (2) Acute respiratory failure with hypoxia: Plan: As above Secondary to COVID-19 pneumonia severe ARDS, as above Continue diuresis as well with Lasix 40 mg IV twice daily (3) ARDS (adult respiratory distress syndrome): Plan: As above (4) Leukocytosis: Plan: WBC trended upward to 20 K and now back down to 14without any intervention Sputum culture with light normal china Remains afebrile (5) Hyperglycemia: Plan: With some hyperglycemia likely secondary to corticosteroids which is now resolved No insulin needed (6) Hyponatremia: Plan: normalized (7) Hypokalemia: Plan: secondary to loop diuretics, improved today Was given potassium chloride 60 mEq per NG Follow BMP as is receiving IV Lasix twice daily (8) Pneumonia due to COVID-19 virus: Plan: As above (9) Transaminitis: Plan: Mildly elevated AST Likely secondary to Covid-19 LFTs not repeated in over a week Plan: DVT prophylaxis- Lovenox SQ GI prophylaxis-IV Protonix, received methylnaltrexone x1 on 05/04 and 05/05, senna/docusate daily-did have a bowel movement on 05/06 FEN-continue tube feeds per ICU Disposition-continued stay in the ICU, prognosis guarded, plan is now to proceed with tracheostomy Palliative medicine following along Admission and Anticipated Discharge Date Admission Date: April 23, 2021 Subjective Remains ventilated and sedated. I discussed his care with the leak patcher- family has decided to proceed with tracheostomy Review of Systems Review of Systems: Unobtainable due to endotracheal tube and Unobtainable due to reduced consciousness Physical Exam Constitutional: well developed and + mechanically ventilated Results & Data Results & Data ([facility]) Vital Signs (Past 12 Hours) Vital Signs Temp Pulse Resp BP Pulse Ox 05/07/21 12:00 114/54 L 05/07/21 11:14 60 31 H 92 05/07/21 08:04 61 34 H 93 05/07/21 08:00 111/5 L 05/07/21 05:56 36.2 C L 61 28 H 103/59 L 93 05/07/21 04:56 36.3 C L 61 28 H 109/62 92 05/07/21 03:56 36.3 C L 63 28 H 112/67 94 05/07/21 03:45 62 30 H 92 05/07/21 02:56 36.5 C 63 28 H 115/60 93 Laboratory Results 05/07/21 05/07/21 05/07/21 Range/Units 20:34 04:24 04:22 WBC (4.8-10.8) K/uL RBC (4.7-6.1) M/uL Hgb (14.0-18.0) g/dL POC Hgb 12.2 L (14.0-18.0) g/dl Hct (42-52) % POC Hct 36 L (42-52) % MCV (80-100) fL MCH (25-34) pg MCHC (32-36) g/dL RDW Std Deviation (36.4-46.3) fL RDW Coeff of Elvin (11.5-14.5) % Plt Count (130-400) K/uL MPV (7.4-10.4) fL Immature Gran % (Auto) % Neut % (Auto) % Lymph % (Auto) % Bowie % (Auto) % Eos % (Auto) % Baso % (Auto) % Neut # (Auto) (1.4-6.5) K/uL Lymph # (Auto) (1.2-3.4) K/uL Bowie # (Auto) (0.11-0.59) K/uL Eos # (Auto) (0-0.5) K/uL Baso # (Auto) (0-0.2) K/uL Immature Gran # (Auto) (0.00-0.02) K/uL Sample Site Art Line POC pH 7.36 (7.35-7.45) POC pCO2 79 H (35-46) mmHg POC pO2 96 H (80-95) mmHg POC HCO3 45 H (19-24) adrianne/L POC Total CO2 > 40 H* (24-31) mmol/L POC Base Excess 19.0 H (-9-1.8) adrianne/L ABG pH (Temp Correct) 7.371 (7.35-7.45) ABG pCO2 (Temp Corrct 76 H (35-46) mmHg POC ABG pO2 at Pt Temp 92 POC ABG O2 Sat 97.0 H (90-95) % Nikolas Test NA O2 Delivery Device Ventilator POC O2 Rate 28 POC FiO2 80 % Tidal Volume 320 PEEP 12 POC Sodium 142 (135-144) mmol/L Sodium 141 (136-145) mmol/L POC Potassium 3.5 (3.3-5.0) mmol/L Potassium 3.5 (3.5-5.1) mmol/L Chloride 100 (98-107) mmol/L Carbon Dioxide 38 H (21-32) mmol/L Anion Gap 3.0 (3-11) BUN 38 H (7-18) mg/dl Creatinine 0.72 (0.6-1.4) mg/dl Est Cr Clr Drug Dosing 105.9 ml/min Est GFR ( Amer) 112.7 ml/min Est GFR (Non-Af Amer) 97.2 ml/min BUN/Creatinine Ratio 53.5 H (10-20) Glucose 126 H (70-99) mg/dl POC Glucose 121 H (70-99) mg/dl Calcium 8.6 (8.5-10.1) mg/dl Phosphorus 5.0 H D (2.5-4.9) mg/dl Magnesium 2.8 H (1.8-2.4) mg/dl 05/07/21 Range/Units 04:22 WBC 14.44 H (4.8-10.8) K/uL RBC 3.78 L (4.7-6.1) M/uL Hgb 12.2 L (14.0-18.0) g/dL POC Hgb (14.0-18.0) g/dl Hct 38.1 L (42-52) % POC Hct (42-52) % MCV 100.8 H (80-100) fL MCH 32.3 (25-34) pg MCHC 32.0 (32-36) g/dL RDW Std Deviation 50.7 H (36.4-46.3) fL RDW Coeff of Elvin 13.8 (11.5-14.5) % Plt Count 184 (130-400) K/uL MPV 9.6 (7.4-10.4) fL Immature Gran % (Auto) 0.3 % Neut % (Auto) 83.9 % Lymph % (Auto) 6.0 % Bowie % (Auto) 9.0 % Eos % (Auto) 0.7 % Baso % (Auto) 0.1 % Neut # (Auto) 12.12 H (1.4-6.5) K/uL Lymph # (Auto) 0.86 L (1.2-3.4) K/uL Bowie # (Auto) 1.30 H (0.11-0.59) K/uL Eos # (Auto) 0.10 (0-0.5) K/uL Baso # (Auto) 0.02 (0-0.2) K/uL Immature Gran # (Auto) 0.04 H (0.00-0.02) K/uL Sample Site POC pH (7.35-7.45) POC pCO2 (35-46) mmHg POC pO2 (80-95) mmHg POC HCO3 (19-24) adrianne/L POC Total CO2 (24-31) mmol/L POC Base Excess (-9-1.8) adrianne/L ABG pH (Temp Correct) (7.35-7.45) ABG pCO2 (Temp Corrct (35-46) mmHg POC ABG pO2 at Pt Temp POC ABG O2 Sat (90-95) % Nikolas Test O2 Delivery Device POC O2 Rate POC FiO2 % Tidal Volume PEEP POC Sodium (135-144) mmol/L Sodium (136-145) mmol/L POC Potassium (3.3-5.0) mmol/L Potassium (3.5-5.1) mmol/L Chloride (98-107) mmol/L Carbon Dioxide (21-32) mmol/L Anion Gap (3-11) BUN (7-18) mg/dl Creatinine (0.6-1.4) mg/dl Est Cr Clr Drug Dosing ml/min Est GFR ( Amer) ml/min Est GFR (Non-Af Amer) ml/min BUN/Creatinine Ratio (10-20) Glucose (70-99) mg/dl POC Glucose (70-99) mg/dl Calcium (8.5-10.1) mg/dl Phosphorus (2.5-4.9) mg/dl Magnesium (1.8-2.4) mg/dl PG Care Time/CCT Total # of Minutes Spent Total Time Spent with Patient: Total time spent is greater than 50% in coordination of care (as documented) at patient's floor/unit and/or counseling patient: Coding Level of Care Code 97972 Subseq Hosp Care Lvl 1 Diagnoses COVID-19 U07.1 Acute respiratory failure with hypoxia J96.01 ARDS (adult respiratory distress syndrome) J80 Leukocytosis D72.829 Hyperglycemia R73.9 Hyponatremia E87.1 Hypokalemia E87.6 Pneumonia due to COVID-19 virus U07.1; J12.82 Transaminitis R74.01
[2021-05-07] MEDS: MIDAZOLAM HCL 125 MG/250 ML BAG IV SCH (17:10)
[2021-05-07] MEDS: MIDAZOLAM BOLUS FROM BAG IV PRN ×2 (20:07→21:41)
[2021-05-08] MEDS: TUBE FEEDING WATER FLUSH OG SCH ×6 (01:15→20:54)
[2021-05-08] MEDS: MIDAZOLAM BOLUS FROM BAG IV PRN ×6 (02:00→18:50)
[2021-05-08] MEDS: fentaNYL citrate 2,500 MCG/250 ML BAG IV SCH ×2 (02:05→13:05)
[2021-05-08] MEDS: ARTIFICIAL TEARS OP OINT 3.5 GM TUBE OP SCH ×5 (04:20→20:54)
[2021-05-08 04:51] LABS: iSTAT Art Bld Gas pCO2 Correct 72 mmHg (35-46); iSTAT Art Bld Gas pH Corrected 7.393 (7.35-7.45); iSTAT Arterial Blood Gas HCO3 44 meg/L (19-24); iSTAT Arterial Blood Gas pCO2 71 mmHg (35-46); iSTAT Arterial Blood Gas pH 7.39 (7.35-7.45); iSTAT Arterial Blood Gas pO2 80 mmHg (80-95); iSTAT Arterial Blood Gas pO2 C 80; iSTAT Carbon Dioxide > 40 mmol/L (24-31); iSTAT FiO2 70 %; iSTAT Hematocrit 38 % (42-52); iSTAT Hemoglobin 12.9 g/dl (14.0-18.0); iSTAT Potassium 3.9 mmol/L (3.3-5.0); iSTAT Site Art Line; iSTAT Sodium 141 mmol/L (135-144)
[2021-05-08 05:13] LABS: Basophils # (auto) 0.02 K/uL (0-0.2); Basophils % (auto) 0.1 %; Eosinophils % (auto) 0.7 %; Hematocrit (blood only) 40.1 % (42-52); Hemoglobin 12.8 g/dL (14.0-18.0); Immature Granulocytes # (auto) 0.05 K/uL (0.00-0.02); Immature Granulocytes % (auto) 0.3 %; Lymphocytes # (auto) 1.65 K/uL (1.2-3.4); Lymphocytes % (auto) 10.9 %; Mean Corpuscular Hemoglobin 31.9 pg (25-34); Mean Corpuscular Hgb Conc 31.9 g/dL (32-36); Mean Platelet Volume 9.6 fL (7.4-10.4); Monocytes # (auto) 0.83 K/uL (0.11-0.59); Monocytes % (auto) 5.5 %; Neutrophils # (auto) 12.55 K/uL (1.4-6.5); Neutrophils % (auto) 82.5 %; Platelet Count 211 K/uL (130-400); RDW Coefficient of Variation 13.6 % (11.5-14.5); RDW Standard Deviation 49.9 fL (36.4-46.3); Red Blood Count 4.01 M/uL (4.7-6.1)
[2021-05-08 05:44] LABS: BUN Creatinine Ratio 56.1 (10-20); Calcium 8.7 mg/dl (8.5-10.1); Creatinine Clr Calc Pharmacy 110.5 ml/min; Est GFR (African American) 115.3 ml/min; Est GFR (Non-African American) 99.5 ml/min; Magnesium 2.6 mg/dl (1.8-2.4); Phosphorus 4.1 mg/dl (2.5-4.9); Potassium 3.9 mmol/L (3.5-5.1)
[2021-05-08] MEDS: hydrALAZINE HCL 20 MG/ML VIAL IV PRN (05:52)
[2021-05-08] MEDS ORDERED: HYDROmorphone INJ 1 MG/ML SYRINGE IV STA (06:12)
[2021-05-08] MEDS ORDERED: HYDROmorphone INJ 1 MG/ML SYRINGE ONE (06:13)
[2021-05-08] MEDS ORDERED: STAT IV Infusion **Titration per Protocol STA ×2 (06:17→19:18)
[2021-05-08] MEDS: DEXMEDETOMIDINE HCL 200 MCG in SODIUM CHLORIDE 0.9% 48 ML IV SCH ×4 (06:44→23:48)
[2021-05-08] MEDS ORDERED: VECURONIUM BROMIDE 10 MG VIAL IV STA (07:18)
[2021-05-08] MEDS ORDERED: VECURONIUM BROMIDE 10 MG VIAL IV ONE (07:22)
--- NOTE | 2021-05-08 08:17 | Procedure Note ---
Procedure Note Date of Service May 08, 2021 Note BRONCHOSCOPY - Procedure: Flexible Bronchoscopy Attending/Dumper: Dr. Didier Cabrera, DOUG Helton Anesthetic/Sedation: Fentanyl, Versed Indication: Bronchoscope used for assistance with percutaneous tracheostomy procedure Consent was signed and placed on the chart prior to procedure. Indication, risks, and benefits were explained at length. A time-out was completed verifying correct patient, procedure, site, positio alan, and implant(s) or special equipment if applicable. Procedure: Bronchoscopy was inserted into the ET tube, and the endotracheal tube was then pulled back so the entire trachea was visualized. Visualization of the trachea was maintained during the tracheostomy procedure, and was able to visualize correct placement of wire insertion for tracheostomy. Following dilation, insertion of the new trach was then visualized with the bronchoscope. The bronchoscope was then removed from the ET tube and passed through the trach. Was then able to visualize trachea and smitha through the tracheostomy confirming correct placement. Complications: NONE Coding CPT Codes Pulmonary/Thoracic - Pulmonary and Thoracic: 65738 Dx bronchoscopy/wash ([id number]) [facility] [place]Charges) Pulmonary/Thoracic Procedure 1: Pulmonary and Thoracic: 83710 Dx bronchoscopy/wash
--- NOTE | 2021-05-08 08:22 | XRay Report ---
XR chest 1V portable INDICATION: MN ^Resp failure . TECHNIQUE: Single frontal radiograph of the chest was obtained. Comparison: Comparison is made to chest one view 04/17/2021 FINDINGS: Lines and tubes are stable. The cardiomediastinal silhouette is normal. Multiple airspace opacities a re slightly worsened from prior exam. Small right and possible left pleural effusion. IMPRESSION: Interval worsening of diffuse airspace opacities. Stable right and possible left pleural effusion. ACT 112: Negative or not required by law. Electronically signed by: Tyrone Johnson M.D. 05/08/2021 8:21 AM
[2021-05-08] MEDS: MIDAZOLAM HCL 125 MG/250 ML BAG IV SCH ×2 (08:27→23:30)
--- NOTE | 2021-05-08 08:49 | Critical Care Progress Note ---
Date of Service May 08, 2021 Assessment & Plan (1) ARDS (adult respiratory distress syndrome): Plan: Reason critically ill: 66 yo M with no significant PMHx admitted with acute respiratory failure with hypoxia secondary to COVID-19 pneumonia admitted to ICU requiring close monitoring given tenuous respiratory status. NEURO: Continue to wean sedation as able. Goal RASS of -1. 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 He is currently on Versed and fentanyl for pain control. -Start 10 mg oxycodone every 8 hours empiric for withdraw -Start 2 mg Ativan p.o. every 8 hours empiric for withdrawal -Attempt to transition to Precedex CARDIAC/VASCULAR: Episodes of bradycardia in the past Likely sedation related Hypertension Continue with sedation and analgesia Amlodipine Continue with as needed metoprolol as well as hydralazine for systolic blood pressure greater than 160 RESPIRATORY: Acute hypoxic respiratory distress secondary to COVID-19 pneumonia Intubated 04/24. Tracheostomy 05/08 Received tocilizumab therapy Chest CTA completed 04/27/2021 with diffuse groundglass opacities and dense bibasilar atelectasis. Continue lung protective ventilation strategy to prevent ventilator induced lung injury. GI/NUTRITION: Tube feedings Constipation: Resolved Continue docusate and senna and MiraLAX. Methylnaltrexone for probable opiate-induced constipation x1 Hypertriglyceridemia: Off propofol RENAL/LYTES: - No significant issues. Replace electrolytes per protocol. -Lasix 40 mg daily down from twice daily GENITOURINARY: No acute concerns. Strict Is/Os. ENDO: ICU hyperglycemia protocol. HEME: No significant issues at this time. ID: COVID-19 pneumonia --Prophylaxis VTE: Lovenox GI: Protonix Lines: Right subclavian lumen discontinued today, right radial, positive Valadez Admission and Anticipated Discharge Date Admission Date: April 23, 2021 Subjective Tracheostomy placed this morning Physical Exam Physical Exam: General: Sedated. nontoxic. Skin: Warm, dry, Head: Atraumatic Ears, nose, mouth and throat: airway patent, tracheostomy tube in place Cardiovascular: Normal peripheral perfusion Respiratory: no respiratory distress, ventilator settings reviewed Gastrointestinal: Non distended Musculoskeletal: No deformity Results & Data Results & Data ([facility]) Vital Signs (Past 12 Hours) Vital Signs Temp Pulse Resp BP Pulse Ox 05/08/21 06:57 37.1 C 95 H 190/95 H 87 L 05/08/21 05:56 37.0 C 66 144/89 H 91 05/08/21 04:56 37.0 C 69 162/83 H 91 05/08/21 03:56 37.1 C 69 171/90 H 93 05/08/21 03:40 70 28 H 90 05/08/21 02:56 37.0 C 69 156/78 H 93 05/08/21 01:57 37.0 C 68 150/81 H 93 05/08/21 00:56 37.1 C 72 104/73 93 05/07/21 23:56 37.2 C 71 134/69 93 05/07/21 22:57 37.3 C 74 125/71 92 05/07/21 22:38 75 24 91 05/07/21 21:57 37.3 C 79 169/89 H 92 05/07/21 20:57 37.4 C 87 164/85 H 91 Laboratory Results 05/08/21 05/08/21 05/08/21 Range/Units 04:45 04:45 04:28 WBC 15.20 H (4.8-10.8) K/uL RBC 4.01 L (4.7-6.1) M/uL Hgb 12.8 L (14.0-18.0) g/dL POC Hgb 12.9 L (14.0-18.0) g/dl Hct 40.1 L (42-52) % POC Hct 38 L (42-52) % MCV 100.0 (80-100) fL MCH 31.9 (25-34) pg MCHC 31.9 L (32-36) g/dL RDW Std Deviation 49.9 H (36.4-46.3) fL RDW Coeff of Elvin 13.6 (11.5-14.5) % Plt Count 211 (130-400) K/uL MPV 9.6 (7.4-10.4) fL Immature Gran % (Auto) 0.3 % Neut % (Auto) 82.5 % Lymph % (Auto) 10.9 % Linn % (Auto) 5.5 % Eos % (Auto) 0.7 % Baso % (Auto) 0.1 % Neut # (Auto) 12.55 H (1.4-6.5) K/uL Lymph # (Auto) 1.65 (1.2-3.4) K/uL Linn # (Auto) 0.83 H (0.11-0.59) K/uL Eos # (Auto) 0.10 (0-0.5) K/uL Baso # (Auto) 0.02 (0-0.2) K/uL Immature Gran # (Auto) 0.05 H (0.00-0.02) K/uL Sample Site Art Line POC pH 7.39 (7.35-7.45) POC pCO2 71 H (35-46) mmHg POC pO2 80 (80-95) mmHg POC HCO3 44 H (19-24) adrianne/L POC Total CO2 > 40 H* (24-31) mmol/L POC Base Excess 19.0 H (-9-1.8) adrianne/L ABG pH (Temp Correct) 7.393 (7.35-7.45) ABG pCO2 (Temp Corrct 72 H (35-46) mmHg POC ABG pO2 at Pt Temp 80 POC ABG O2 Sat 95.0 (90-95) % Nikolas Test NA O2 Delivery Device Ventilator POC O2 Rate 28 Minute Ventilation 7.2 POC FiO2 70 % Tidal Volume 360 PEEP 10 POC Sodium 141 (135-144) mmol/L Sodium 141 (136-145) mmol/L POC Potassium 3.9 (3.3-5.0) mmol/L Potassium 3.9 (3.5-5.1) mmol/L Chloride 99 (98-107) mmol/L Carbon Dioxide 37 H (21-32) mmol/L Anion Gap 5.0 (3-11) BUN 38 H (7-18) mg/dl Creatinine 0.68 (0.6-1.4) mg/dl Est Cr Clr Drug Dosing 110.5 ml/min Est GFR ( Amer) 115.3 ml/min Est GFR (Non-Af Amer) 99.5 ml/min BUN/Creatinine Ratio 56.1 H (10-20) Glucose 137 H (70-99) mg/dl POC Glucose (70-99) mg/dl Calcium 8.7 (8.5-10.1) mg/dl Phosphorus 4.1 (2.5-4.9) mg/dl Magnesium 2.6 H (1.8-2.4) mg/dl 05/07/21 05/07/21 Range/Units 23:55 20:34 WBC (4.8-10.8) K/uL RBC (4.7-6.1) M/uL Hgb (14.0-18.0) g/dL POC Hgb (14.0-18.0) g/dl Hct (42-52) % POC Hct (42-52) % MCV (80-100) fL MCH (25-34) pg MCHC (32-36) g/dL RDW Std Deviation (36.4-46.3) fL RDW Coeff of Elvin (11.5-14.5) % Plt Count (130-400) K/uL MPV (7.4-10.4) fL Immature Gran % (Auto) % Neut % (Auto) % Lymph % (Auto) % Linn % (Auto) % Eos % (Auto) % Baso % (Auto) % Neut # (Auto) (1.4-6.5) K/uL Lymph # (Auto) (1.2-3.4) K/uL Linn # (Auto) (0.11-0.59) K/uL Eos # (Auto) (0-0.5) K/uL Baso # (Auto) (0-0.2) K/uL Immature Gran # (Auto) (0.00-0.02) K/uL Sample Site POC pH (7.35-7.45) POC pCO2 (35-46) mmHg POC pO2 (80-95) mmHg POC HCO3 (19-24) adrianne/L POC Total CO2 (24-31) mmol/L POC Base Excess (-9-1.8) adrianne/L ABG pH (Temp Correct) (7.35-7.45) ABG pCO2 (Temp Corrct (35-46) mmHg POC ABG pO2 at Pt Temp POC ABG O2 Sat (90-95) % Nikolas Test O2 Delivery Device POC O2 Rate Minute Ventilation POC FiO2 % Tidal Volume PEEP POC Sodium (135-144) mmol/L Sodium (136-145) mmol/L POC Potassium (3.3-5.0) mmol/L Potassium (3.5-5.1) mmol/L Chloride (98-107) mmol/L Carbon Dioxide (21-32) mmol/L Anion Gap (3-11) BUN (7-18) mg/dl Creatinine (0.6-1.4) mg/dl Est Cr Clr Drug Dosing ml/min Est GFR ( Amer) ml/min Est GFR (Non-Af Amer) ml/min BUN/Creatinine Ratio (10-20) Glucose (70-99) mg/dl POC Glucose 117 H 121 H (70-99) mg/dl Calcium (8.5-10.1) mg/dl Phosphorus (2.5-4.9) mg/dl Magnesium (1.8-2.4) mg/dl Coding Level of Care Code Critical Care 1st 30-74 mins Diagnoses ARDS (adult respiratory distress syndrome) J80
--- NOTE | 2021-05-08 09:22 | XRay Report ---
XR KUB/Abdomen 1 view INDICATION: MN ^Y ^TGB ^coresafe placement. TECHNIQUE: 1 view of the abdomen was obtained. Comparison: None available at the time of this dictation. FINDINGS: Enteric tube tip projects over the stomach. Prominence of the pulmonary vasculature is noted and Kerl ey B lines seen. The bowel gas pattern is nonobstructive. A moderate amount of stool is noted within the large bowel. IMPRESSION: Satisfactory position of the enteric tube. For findings above the diaphragm, please see chest one vie w performed same day. ACT 112: Negative or not required by law. Electronically signed by: Tyrone Johnson M.D. 05/08/2021 9:21 AM
[2021-05-08] MEDS: DOCUSATE SODIUM/SENNA 50/8.6MG TAB PO SCH ×2 (09:33→20:38)
[2021-05-08] MEDS: FUROSEMIDE 40 MG/4 ML VIAL IV SCH (09:33)
[2021-05-08] MEDS: POLYETHYLENE (MIRALAX) 17 GM PACK PO SCH ×2 (09:33→20:38)
[2021-05-08] MEDS: ENOXAPARIN INJ 40 MG/0.4 ML SYR SQ SCH (09:33)
[2021-05-08] MEDS: PEPTAMEN INTENSE VHP 1.0 CAL 1,000 ML BAG OG SCH (09:34)
[2021-05-08] MEDS: PANTOprazole 40 MG in SYRINGE 0 ML IV SCH (12:20)
[2021-05-08] MEDS: LORazepam 1 MG TAB PO SCH ×2 (12:21→20:38)
[2021-05-08] MEDS: oxyCODONE HCL IR 5 MG TAB (IMMEDIATE RELEASE) PO SCH ×2 (12:21→20:38)
--- NOTE | 2021-05-08 12:38 | Procedure Note ---
Procedure Note Date of Service May 08, 2021 Note Procedure Date: Noted Above Procedure: Percutaneous Dilatational Tracheotomy with Bronchoscopic Guidance Pre-procedure Diagnosis & Indication: Chronic respiratory failure and need for ongoing mechanical ventilation Post-procedure Diagnosis: same as above Prior to Procedure: Informed Consent: The risks, benefits, indications, potential complications, and alternatives were explained to the patient's family and informed consent was obtained. Performed by: Rena Cabrera DO Bronchoscopy Heater Helper: Darnell CAMACHO Preprocedure: The identity of the patient was confirmed and a bedside time out was performed. [place] protocol was followed for this procedure. Prior to the initiation of sedation or the procedure, a timeout was performed. The patients identity was verified by confirming the patients wrist band for name, date of , and medical record number. Everyone in the room was in agreement with the patient identify, the procedure to be performed, consent was in place and matched the planned procedure, and the procedure site. The area was cleaned with a CHG scrub and draped with large sterile barrier. Hand hygiene was performed, and cap, mask, sterile gown, and sterile gloves were worn. The patient was covered by a large sterile drape. Sterile technique was maintained for the entire procedure. Anesthesia: The patient was intubated and sedated prior to the procedure. Additional midazolam and fentanyl was given for deep sedation. Please refer to the accompanying procedural sedation form for additional details. Once the patient was adequately sedated, vecuronium was administered for paralysis. Description of Procedure: The patient was placed in the supine position. The anterior neck was prepped and draped in usual sterile fashion. 1% lidocaine was administered approximately 2 fingerbreadths above the sternal notch for local anesthesia. The bronchoscope was introduced through the endotracheal tube and the trachea was properly visualized. The endotracheal tube was then gradually withdrawn within the trachea under direct bronchoscopic visualization. The area of the surgical site was initially transilluminated, and proper midline position was confirmed by bouncing the needle from the tracheostomy tray over the trachea with bronchoscopic examination. The needle was advanced into the trachea and proper positioning was confirmed with direct visualization. The needle was then removed leaving a white outer cannula in position. The wire from the tracheostomy tray was then advanced through the white outer cannula. The cannula was then removed. The initial small, blue dilator was then advanced over the wire into the trachea for initial dilation. The large, tapered dilator was then advanced over the wire into the trachea. The dilator was removed leaving the wire and white inner cannula in position. A number 6 percutaneous Shiley tracheostomy tube with appropriate inner cannula was then advanced over the wire and white inner cannula into the trachea. Proper positioning was confirmed with bronchoscopic visualization. The tracheostomy tube was then sutured in place with four nylon sutures. It was further secured with a tracheostomy tie. Estimated blood loss: Less than 5 mL. Complications: None immediate. Coding CPT Codes ENT - ENT: 09695 Incision of windpipe ([id number]) [facility] [place] (Charges) ENT ENT: 02264 Incision of windpipe
[2021-05-08] MEDS: niCARdipine 25 MG in SODIUM CHLORIDE 0.9% 240 ML IV SCH (19:58)
--- NOTE | 2021-05-08 22:04 | Hospitalist Progress Note ---
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 Completed a 10-day course of dexamethasone 6mg IV daily Received tocilizumab 600 mg x1 dose on 04/24 -Appreciate dry finisher management of ventilator-now status post tracheostomy on 05/08 -Transitioning to Precedex for sedation, with as needed oxycodone and lorazepam rather than Versed and fentanyl palliative consulted to have ongoing discussion about goals of care (2) Acute respiratory failure with hypoxia: Plan: As above Secondary to COVID-19 pneumonia severe ARDS, as above Continue diuresis as well with Lasix 40 mg decreased to once daily (3) ARDS (adult respiratory distress syndrome): Plan: As above (4) Leukocytosis: Plan: WBC trended upward to 20 K and now back down to 14-15, without any intervention Sputum culture with light normal china Remains afebrile (5) Hyperglycemia: Plan: With some hyperglycemia likely secondary to corticosteroids which is now resolved No insulin needed (6) Hyponatremia: Plan: normalized (7) Hypokalemia: Plan: secondary to loop diuretics, resolved Follow BMP as is receiving IV Lasix (8) Pneumonia due to COVID-19 virus: Plan: As above (9) Transaminitis: Plan: Mildly elevated AST Likely secondary to Covid-19 LFTs not repeated in over a week Plan: DVT prophylaxis- Lovenox SQ GI prophylaxis-IV Protonix, received methylnaltrexone x1 on 05/04 and 05/05, senna/docusate twice daily, MiraLAX twice daily-did have a bowel movement on 05/06 FEN-continue tube feeds per ICU Disposition-continued stay in the ICU, prognosis guarded Palliative medicine following along Admission and Anticipated Discharge Date Admission Date: April 23, 2021 Subjective Tracheostomy placed this morning by the dry finisher. His sedation is being weaned down significantly, he has been hypertensive. Review of Systems Review of Systems: Unobtainable due to reduced consciousness Physical Exam Constitutional: well developed and + mechanically ventilated Results & Data Results & Data ([facility]) Vital Signs (Past 12 Hours) Vital Signs Temp Pulse Resp BP Pulse Ox 05/08/21 21:02 91 H 28 H 87 L 05/08/21 18:38 37.6 C H 96 H 162/78 H 88 L 05/08/21 17:37 37.4 C 80 116/64 89 L 05/08/21 16:37 37.5 C 78 126/77 90 05/08/21 16:00 84 136/68 05/08/21 15:37 37.5 C 82 142/70 H 91 05/08/21 15:15 86 30 H 92 05/08/21 14:00 37.5 C 79 93 05/08/21 13:40 37.4 C 80 92 05/08/21 12:01 37.5 C 91 H 128/64 91 05/08/21 12:00 78 127/61 05/08/21 11:37 82 28 H 90 05/08/21 11:01 37.5 C 82 118/64 91 05/08/21 10:01 37.6 C H 73 96/58 L 90 Laboratory Results 05/08/21 04:45 05/08/21 04:45 PG Care Time/CCT Total # of Minutes Spent Total Time Spent with Patient: Total time spent is greater than 50% in skill training program coordinator rdination of care (as documented) at patient's floor/unit and/or counseling patient: Coding Level of Care Code 79986 Subseq Hosp Care Lvl 1 Diagnoses COVID-19 U07.1 Acute respiratory failure with hypoxia J96.01 ARDS (adult respiratory distress syndrome) J80 Leukocytosis D72.829 Hyperglycemia R73.9 Hyponatremia E87.1 Hypokalemia E87.6 Pneumonia due to COVID-19 virus U07.1; J12.82 Transaminitis R74.01
[2021-05-09] MEDS: niCARdipine 25 MG in SODIUM CHLORIDE 0.9% 240 ML IV SCH ×2 (00:54→09:13)
[2021-05-09] MEDS: TUBE FEEDING WATER FLUSH OG SCH ×6 (01:15→20:52)
[2021-05-09] MEDS: ARTIFICIAL TEARS OP OINT 3.5 GM TUBE OP SCH ×3 (03:59→08:09)
[2021-05-09 04:20] LABS: iSTAT Art Bld Gas pCO2 Correct 97 mmHg (35-46); iSTAT Art Bld Gas pH Corrected 7.259 (7.35-7.45); iSTAT Arterial Blood Gas HCO3 43 meg/L (19-24); iSTAT Arterial Blood Gas pCO2 95 mmHg (35-46); iSTAT Arterial Blood Gas pH 7.27 (7.35-7.45); iSTAT Arterial Blood Gas pO2 82 mmHg (80-95); iSTAT Arterial Blood Gas pO2 C 85; iSTAT Carbon Dioxide > 40 mmol/L (24-31); iSTAT FiO2 80 %; iSTAT Hematocrit 38 % (42-52); iSTAT Hemoglobin 12.9 g/dl (14.0-18.0); iSTAT Potassium 4.5 mmol/L (3.3-5.0); iSTAT Site Art Line; iSTAT Sodium 143 mmol/L (135-144)
[2021-05-09] MEDS: oxyCODONE HCL IR 5 MG TAB (IMMEDIATE RELEASE) PO SCH ×3 (04:21→17:34)
[2021-05-09] MEDS: LORazepam 1 MG TAB PO SCH ×3 (04:21→17:33)
[2021-05-09] MEDS: PEPTAMEN INTENSE VHP 1.0 CAL 1,000 ML BAG OG SCH ×2 (04:34→23:31)
[2021-05-09 05:55] LABS: Basophils # (auto) 0.02 K/uL (0-0.2); Basophils % (auto) 0.2 %; Eosinophils # (auto) 0.02 K/uL (0-0.5); Eosinophils % (auto) 0.2 %; Hematocrit (blood only) 37.8 % (42-52); Hemoglobin 11.9 g/dL (14.0-18.0); Immature Granulocytes # (auto) 0.03 K/uL (0.00-0.02); Immature Granulocytes % (auto) 0.2 %; Lymphocytes # (auto) 0.49 K/uL (1.2-3.4); Mean Corpuscular Hemoglobin 32.2 pg (25-34); Mean Corpuscular Hgb Conc 31.5 g/dL (32-36); Mean Corpuscular Volume 102.4 fL (80-100); Mean Platelet Volume 9.5 fL (7.4-10.4); Monocytes # (auto) 1.33 K/uL (0.11-0.59); Monocytes % (auto) 10.8 %; Neutrophils # (auto) 10.44 K/uL (1.4-6.5); Neutrophils % (auto) 84.6 %; Platelet Count 215 K/uL (130-400); RDW Coefficient of Variation 13.7 % (11.5-14.5); RDW Standard Deviation 51.6 fL (36.4-46.3); Red Blood Count 3.69 M/uL (4.7-6.1); White Blood Count 12.33 K/uL (4.8-10.8)
[2021-05-09 06:27] LABS: BUN Creatinine Ratio 59.4 (10-20); Calcium 8.7 mg/dl (8.5-10.1); Creatinine Clr Calc Pharmacy 86.2 ml/min; Est GFR (African American) 103.7 ml/min; Est GFR (Non-African American) 89.5 ml/min; Potassium 4.4 mmol/L (3.5-5.1)
[2021-05-09 06:28] LABS: Phosphorus 3.8 mg/dl (2.5-4.9)
[2021-05-09] MEDS: DEXMEDETOMIDINE HCL 200 MCG in SODIUM CHLORIDE 0.9% 48 ML IV SCH ×4 (06:43→23:05)
[2021-05-09] MEDS: fentaNYL citrate 2,500 MCG/250 ML BAG IV SCH ×2 (08:08→14:00)
[2021-05-09] MEDS: DOCUSATE SODIUM/SENNA 50/8.6MG TAB PO SCH (08:10)
[2021-05-09] MEDS: ENOXAPARIN INJ 40 MG/0.4 ML SYR SQ SCH (08:11)
[2021-05-09] MEDS: POLYETHYLENE (MIRALAX) 17 GM PACK PO SCH ×2 (08:12→20:53)
--- NOTE | 2021-05-09 08:37 | Critical Care Progress Note ---
Date of Service May 09, 2021 Assessment & Plan (1) ARDS (adult respiratory distress syndrome): Plan: Reason critically ill: 66 yo M with no significant PMHx admitted with acute respiratory failure with hypoxia secondary to COVID-19 pneumonia admitted to ICU requiring close monitoring given tenuous respiratory status. NEURO: Continue to wean sedation as able. Goal RASS of -1 to 1 Continue to decrease Versed and fentanyl IV infusions transition to enteral medications. -15 mg oxycodone every 8 hours empiric for withdraw -3 mg Ativan p.o. every 8 hours empiric for withdrawal -Once off IV infusions will start decreasing enteral medication -Attempt to transition to Precedex CARDIAC/VASCULAR: Bradycardia: Resolved Hypertension Amlodipine 5 mg RESPIRATORY: Acute hypoxic respiratory distress secondary to COVID-19 pneumonia Intubated 04/24. Tracheostomy 05/08 Received tocilizumab therapy. Wean ventilator via ARDSnet guidelines GI/NUTRITION: Tube feedings Constipation: Resolved Continue docusate and senna and MiraLAX. Methylnaltrexone for probable opiate-induced constipation x1 Hypertriglyceridemia: Off propofol sedation RENAL/LYTES: - No significant issues. Replace electrolytes per protocol. -Lasix 40 mg daily down from twice daily GENITOURINARY: No acute concerns. Transition to condom cath ENDO: ICU hyperglycemia protocol. HEME: No significant issues at this time. ID: COVID-19 pneumonia --Prophylaxis VTE: Lovenox 40 mg GI: Protonix Lines: Peripheral IVs -Discontinue Valadez today use [place] catheter. Patient remains critically ill Admission and Anticipated Discharge Date Admission Date: April 23, 2021 Supervising Physician Co-Signing Physician Notes I have personally spent 50 minutes of critical care time in the direct management of this patient. This is a life/limb threatening event. This includes time spent evaluating patient, direct bedside care, chart review, placing orders, interpretation of diagnostic studies, discussion with consultants, patient, and/or family members regarding treatment decisions, as well as other required patient management activities. This time is exclusive of all separately billable procedures, and teaching time and separate from and in addition to any other critical care service time. Subjective No overnight events. Review of Systems Review of Systems: Unobtainable due to endotracheal tube and Unobtainable due to reduced consciousness Physical Exam Physical Exam: General: Sedated. nontoxic. Skin: Warm, dry, Head: Atraumatic Ears, nose, mouth and throat: airway patent, tracheostomy tube in place Cardiovascular: Normal peripheral perfusion Respiratory: no respiratory distress, ventilator settings reviewed Gastrointestinal: Non distended Musculoskeletal: No deformity Results & Data Results & Data ([facility]) Vital Signs (Past 12 Hours) Vital Signs Temp Pulse Resp BP Pulse Ox 05/09/21 05:37 37.4 C 75 96/63 L 88 L 05/09/21 04:37 37.5 C 82 116/68 88 L 05/09/21 04:25 92 H 32 H 88 L 05/09/21 03:37 37.6 C H 91 H 128/67 89 L 05/09/21 02:37 37.5 C 94 H 130/70 89 L 05/09/21 01:37 37.3 C 90 127/70 89 L 05/09/21 00:37 37.2 C 91 H 127/68 89 L 05/08/21 23:45 37.3 C 90 88 L 05/08/21 23:43 91 H 28 H 88 L 05/08/21 23:40 37.3 C 91 H 88 L 05/08/21 22:37 37.4 C 92 H 122/70 88 L 05/08/21 21:37 37.3 C 91 H 120/65 88 L 05/08/21 21:02 91 H 28 H 87 L 05/08/21 20:37 37.5 C 98 H 143/69 H 86 L Laboratory Results 05/09/21 05/09/21 05/09/21 Range/Units 05:23 05:23 04:06 WBC 12.33 H (4.8-10.8) K/uL RBC 3.69 L (4.7-6.1) M/uL Hgb 11.9 L (14.0-18.0) g/dL POC Hgb 12.9 L (14.0-18.0) g/dl Hct 37.8 L (42-52) % POC Hct 38 L (42-52) % MCV 102.4 H (80-100) fL MCH 32.2 (25-34) pg MCHC 31.5 L (32-36) g/dL RDW Std Deviation 51.6 H (36.4-46.3) fL RDW Coeff of Elvin 13.7 (11.5-14.5) % Plt Count 215 (130-400) K/uL MPV 9.5 (7.4-10.4) fL Immature Gran % (Auto) 0.2 % Neut % (Auto) 84.6 % Lymph % (Auto) 4.0 % [place] % (Auto) 10.8 % Eos % (Auto) 0.2 % Baso % (Auto) 0.2 % Neut # (Auto) 10.44 H (1.4-6.5) K/uL Lymph # (Auto) 0.49 L (1.2-3.4) K/uL [place] # (Auto) 1.33 H (0.11-0.59) K/uL Eos # (Auto) 0.02 (0-0.5) K/uL Baso # (Auto) 0.02 (0-0.2) K/uL Immature Gran # (Auto) 0.03 H (0.00-0.02) K/uL Sample Site Art Line POC pH 7.27 L (7.35-7.45) POC pCO2 95 H (35-46) mmHg POC pO2 82 (80-95) mmHg POC HCO3 43 H (19-24) adrianne/L POC Total CO2 > 40 H* (24-31) mmol/L POC Base Excess 16.0 H (-9-1.8) adrianne/L ABG pH (Temp Correct) 7.259 L (7.35-7.45) ABG pCO2 (Temp Corrct 97 H (35-46) mmHg POC ABG pO2 at Pt Temp 85 POC ABG O2 Sat 93.0 (90-95) % Nikolas Test NA O2 Delivery Device Ventilator POC O2 Rate 28 POC FiO2 80 % Tidal Volume 360 PEEP 14 POC Sodium 143 (135-144) mmol/L Sodium 141 (136-145) mmol/L POC Potassium 4.5 (3.3-5.0) mmol/L Potassium 4.4 (3.5-5.1) mmol/L Chloride 102 (98-107) mmol/L Carbon Dioxide 36 H (21-32) mmol/L Anion Gap 3.0 (3-11) BUN 52 H (7-18) mg/dl Creatinine 0.88 (0.6-1.4) mg/dl Est Cr Clr Drug Dosing 86.2 ml/min Est GFR ( Amer) 103.7 ml/min Est GFR (Non-Af Amer) 89.5 ml/min BUN/Creatinine Ratio 59.4 H (10-20) Glucose 146 H (70-99) mg/dl POC Glucose (other) (70-99) mg/dl Calcium 8.7 (8.5-10.1) mg/dl Phosphorus 3.8 (2.5-4.9) mg/dl Magnesium 3.0 H (1.8-2.4) mg/dl 05/08/21 Range/Units 21:52 WBC (4.8-10.8) K/uL RBC (4.7-6.1) M/uL Hgb (14.0-18.0) g/dL POC Hgb (14.0-18.0) g/dl Hct (42-52) % POC Hct (42-52) % MCV (80-100) fL MCH (25-34) pg MCHC (32-36) g/dL RDW Std Deviation (36.4-46.3) fL RDW Coeff of Elvin (11.5-14.5) % Plt Count (130-400) K/uL MPV (7.4-10.4) fL Immature Gran % (Auto) % Neut % (Auto) % Lymph % (Auto) % [place] % (Auto) % Eos % (Auto) % Baso % (Auto) % Neut # (Auto) (1.4-6.5) K/uL Lymph # (Auto) (1.2-3.4) K/uL [place] # (Auto) (0.11-0.59) K/uL Eos # (Auto) (0-0.5) K/uL Baso # (Auto) (0-0.2) K/uL Immature Gran # (Auto) (0.00-0.02) K/uL Sample Site POC pH (7.35-7.45) POC pCO2 (35-46) mmHg POC pO2 (80-95) mmHg POC HCO3 (19-24) adrianne/L POC Total CO2 (24-31) mmol/L POC Base Excess (-9-1.8) adrianne/L ABG pH (Temp Correct) (7.35-7.45) ABG pCO2 (Temp Corrct (35-46) mmHg POC ABG pO2 at Pt Temp POC ABG O2 Sat (90-95) % Nikolas Test O2 Delivery Device POC O2 Rate POC FiO2 % Tidal Volume PEEP POC Sodium (135-144) mmol/L Sodium (136-145) mmol/L POC Potassium (3.3-5.0) mmol/L Potassium (3.5-5.1) mmol/L Chloride (98-107) mmol/L Carbon Dioxide (21-32) mmol/L Anion Gap (3-11) BUN (7-18) mg/dl Creatinine (0.6-1.4) mg/dl Est Cr Clr Drug Dosing ml/min Est GFR ( Amer) ml/min Est GFR (Non-Af Amer) ml/min BUN/Creatinine Ratio (10-20) Glucose (70-99) mg/dl POC Glucose (other) 136 H (70-99) mg/dl Calcium (8.5-10.1) mg/dl Phosphorus (2.5-4.9) mg/dl Magnesium (1.8-2.4) mg/dl Coding Level of Care Code Critical Care 1st 30-74 mins Diagnoses ARDS (adult respiratory distress syndrome) J80 Time Spent (min) 50
--- NOTE | 2021-05-09 08:40 | XRay Report ---
XR chest 1V portable HISTORY: 66 years-old Male Resp failure acute respiratory failure COMPARISON: Chest radiograph 05/08/2021 TECHNIQUE: AP view of the chest FINDINGS: Tracheostomy cannula overlies the midline at the level the clavicular heads. Enteric tube courses bel ow the diaphragm outside the [id number]. Interval removal of the right subclavian central venous c atheter. Small pleural effusions. No pneumothorax. Extensive bilateral mixed interstitial and alveola r opacities are redemonstrated, slightly improved from comparison. Bones appear grossly intact. IMPRESSION: 1. Lines and tubes as above. 2. Extensive bilateral pulmonary opacities have slightly improved from comparison. 3. Small pleural effusions. ACT 112: Negative or not required by law. The above report was generated using voice recognition software. It may contain grammatical, syntax o r spelling errors. Electronically signed by: Jamal Cowart M.D. 05/09/2021 8:38 AM
[2021-05-09] MEDS ORDERED: FUROSEMIDE 40 MG/4 ML VIAL IV SCH (09:00)
[2021-05-09] MEDS: MIDAZOLAM HCL 125 MG/250 ML BAG IV SCH ×2 (09:13→14:00)
--- NOTE | 2021-05-09 09:17 | Hospitalist Progress Note ---
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 Completed a 10-day course of dexamethasone 6mg IV daily Received tocilizumab 600 mg x1 dose on 04/24 -Appreciate linux solaris administrator management of ventilator-now status post tracheostomy on 05/08 -Transitioning to Precedex for sedation, with as needed oxycodone and lorazepam per NGT rather than Versed and fentanyl palliative consulted to have ongoing discussion about goals of care (2) Acute respiratory failure with hypoxia: Plan: As above Secondary to COVID-19 pneumonia severe ARDS, as above Continue diuresis as well with Lasix 40 mg decreased to once daily (3) ARDS (adult respiratory distress syndrome): Plan: As above (4) Leukocytosis: Plan: WBC trended upward to 20 K and now back down to 12, without any intervention Sputum culture with light normal [place] Remains afebrile (5) Hyperglycemia: Plan: With some hyperglycemia likely secondary to corticosteroids which is now resolved No insulin needed (6) Hyponatremia: Plan: normalized (7) Hypokalemia: Plan: secondary to loop diuretics, resolved Follow BMP as is receiving IV Lasix (8) Pneumonia due to COVID-19 virus: Plan: As above (9) Transaminitis: Plan: Mildly elevated AST Likely secondary to Covid-19 LFTs not repeated in over a week Plan: DVT prophylaxis- Lovenox SQ GI prophylaxis-IV Protonix, received methylnaltrexone x1 on 05/04 and 05/05, senna/docusate twice daily, MiraLAX twice daily-did have a bowel movement on 05/06 and again 05/09 FEN-continue tube feeds per ICU Dc Valadez on 05/09 and has [place] Cathert on Disposition-continued stay in the ICU, prognosis guarded Palliative medicine following along Admission and Anticipated Discharge Date Admission Date: April 23, 2021 Subjective No overnight events. BPs better controlled today I discussed his care with Entertainment Usher Review of Systems Review of Systems: Unobtainable due to reduced consciousness Physical Exam Constitutional: well developed and + mechanically ventilated Results & Data Results & Data ([facility]) Vital Signs (Past 12 Hours) Vital Signs Temp Pulse Resp BP Pulse Ox 05/09/21 07:59 84 32 H 89 L 05/09/21 05:37 37.4 C 75 96/63 L 88 L 05/09/21 04:37 37.5 C 82 116/68 88 L 05/09/21 04:25 92 H 32 H 88 L 05/09/21 03:37 37.6 C H 91 H 128/67 89 L 05/09/21 02:37 37.5 C 94 H 130/70 89 L 05/09/21 01:37 37.3 C 90 127/70 89 L 05/09/21 00:37 37.2 C 91 H 127/68 89 L 05/08/21 23:45 37.3 C 90 88 L 05/08/21 23:43 91 H 28 H 88 L 05/08/21 23:40 37.3 C 91 H 88 L 05/08/21 22:37 37.4 C 92 H 122/70 88 L 05/08/21 21:37 37.3 C 91 H 120/65 88 L Laboratory Results 05/09/21 05/09/21 05/09/21 Range/Units 05:23 05:23 04:06 WBC 12.33 H (4.8-10.8) K/uL RBC 3.69 L (4.7-6.1) M/uL Hgb 11.9 L (14.0-18.0) g/dL POC Hgb 12.9 L (14.0-18.0) g/dl Hct 37.8 L (42-52) % POC Hct 38 L (42-52) % MCV 102.4 H (80-100) fL MCH 32.2 (25-34) pg MCHC 31.5 L (32-36) g/dL RDW Std Deviation 51.6 H (36.4-46.3) fL RDW Coeff of Elvin 13.7 (11.5-14.5) % Plt Count 215 (130-400) K/uL MPV 9.5 (7.4-10.4) fL Immature Gran % (Auto) 0.2 % Neut % (Auto) 84.6 % Lymph % (Auto) 4.0 % [place] % (Auto) 10.8 % Eos % (Auto) 0.2 % Baso % (Auto) 0.2 % Neut # (Auto) 10.44 H (1.4-6.5) K/uL Lymph # (Auto) 0.49 L (1.2-3.4) K/uL [place] # (Auto) 1.33 H (0.11-0.59) K/uL Eos # (Auto) 0.02 (0-0.5) K/uL Baso # (Auto) 0.02 (0-0.2) K/uL Immature Gran # (Auto) 0.03 H (0.00-0.02) K/uL Sample Site Art Line POC pH 7.27 L (7.35-7.45) POC pCO2 95 H (35-46) mmHg POC pO2 82 (80-95) mmHg POC HCO3 43 H (19-24) adrianne/L POC Total CO2 > 40 H* (24-31) mmol/L POC Base Excess 16.0 H (-9-1.8) adrianne/L ABG pH (Temp Correct) 7.259 L (7.35-7.45) ABG pCO2 (Temp Corrct 97 H (35-46) mmHg POC ABG pO2 at Pt Temp 85 POC ABG O2 Sat 93.0 (90-95) % Nikolas Test NA O2 Delivery Device Ventilator POC O2 Rate 28 POC FiO2 80 % Tidal Volume 360 PEEP 14 POC Sodium 143 (135-144) mmol/L Sodium 141 (136-145) mmol/L POC Potassium 4.5 (3.3-5.0) mmol/L Potassium 4.4 (3.5-5.1) mmol/L Chloride 102 (98-107) mmol/L Carbon Dioxide 36 H (21-32) mmol/L Anion Gap 3.0 (3-11) BUN 52 H (7-18) mg/dl Creatinine 0.88 (0.6-1.4) mg/dl Est Cr Clr Drug Dosing 86.2 ml/min Est GFR ( Amer) 103.7 ml/min Est GFR (Non-Af Amer) 89.5 ml/min BUN/Creatinine Ratio 59.4 H (10-20) Glucose 146 H (70-99) mg/dl POC Glucose (other) (70-99) mg/dl Calcium 8.7 (8.5-10.1) mg/dl Phosphorus 3.8 (2.5-4.9) mg/dl Magnesium 3.0 H (1.8-2.4) mg/dl 05/08/21 Range/Units 21:52 WBC (4.8-10.8) K/uL RBC (4.7-6.1) M/uL Hgb (14.0-18.0) g/dL POC Hgb (14.0-18.0) g/dl Hct (42-52) % POC Hct (42-52) % MCV (80-100) fL MCH (25-34) pg MCHC (32-36) g/dL RDW Std Deviation (36.4-46.3) fL RDW Coeff of Elvin (11.5-14.5) % Plt Count (130-400) K/uL MPV (7.4-10.4) fL Immature Gran % (Auto) % Neut % (Auto) % Lymph % (Auto) % [place] % (Auto) % Eos % (Auto) % Baso % (Auto) % Neut # (Auto) (1.4-6.5) K/uL Lymph # (Auto) (1.2-3.4) K/uL [place] # (Auto) (0.11-0.59) K/uL Eos # (Auto) (0-0.5) K/uL Baso # (Auto) (0-0.2) K/uL Immature Gran # (Auto) (0.00-0.02) K/uL Sample Site POC pH (7.35-7.45) POC pCO2 (35-46) mmHg POC pO2 (80-95) mmHg POC HCO3 (19-24) adrianne/L POC Total CO2 (24-31) mmol/L POC Base Excess (-9-1.8) adrianne/L ABG pH (Temp Correct) (7.35-7.45) ABG pCO2 (Temp Corrct (35-46) mmHg POC ABG pO2 at Pt Temp POC ABG O2 Sat (90-95) % Nikolas Test O2 Delivery Device POC O2 Rate POC FiO2 % Tidal Volume PEEP POC Sodium (135-144) mmol/L Sodium (136-145) mmol/L POC Potassium (3.3-5.0) mmol/L Potassium (3.5-5.1) mmol/L Chloride (98-107) mmol/L Carbon Dioxide (21-32) mmol/L Anion Gap (3-11) BUN (7-18) mg/dl Creatinine (0.6-1.4) mg/dl Est Cr Clr Drug Dosing ml/min Est GFR ( Amer) ml/min Est GFR (Non-Af Amer) ml/min BUN/Creatinine Ratio (10-20) Glucose (70-99) mg/dl POC Glucose (other) 136 H (70-99) mg/dl Calcium (8.5-10.1) mg/dl Phosphorus (2.5-4.9) mg/dl Magnesium (1.8-2.4) mg/dl PG Care Time/CCT Total # of Minutes Spent Total Time Spent with Patient: Total time spent is greater than 50% in coordin ation of care (as documented) at patient's floor/unit and/or counseling patient: Coding Level of Care Code 85197 Subseq Hosp Care Lvl 1 Diagnoses COVID-19 U07.1 Acute respiratory failure with hypoxia J96.01 ARDS (adult respiratory distress syndrome) J80 Leukocytosis D72.829 Hyperglycemia R73.9 Hyponatremia E87.1 Hypokalemia E87.6 Pneumonia due to COVID-19 virus U07.1; J12.82 Transaminitis R74.01
[2021-05-09] MEDS: PANTOprazole 40 MG in SYRINGE 0 ML IV SCH (11:08)
[2021-05-09] MEDS: amLODIPine BESYLATE 5 MG TAB PO SCH (11:09)
[2021-05-09] MEDS: ACETAMINOPHEN 325 MG TAB PO PRN (13:08)
[2021-05-09] MEDS: DOCUSATE SODIUM SYRUP 100 MG/10 ML UDC PO SCH (20:53)
[2021-05-09] MEDS: SENNOSIDES 8.8 MG/5 ML UDC PO SCH (20:53)
[2021-05-09] MEDS ORDERED: LABETALOL HCL IV 5 MG/ML 20ML IV STA (21:45)
[2021-05-10] MEDS: ACETAMINOPHEN 325 MG TAB PO PRN ×4 (00:27→17:43)
[2021-05-10] MEDS: oxyCODONE HCL IR 5 MG TAB (IMMEDIATE RELEASE) PO SCH ×3 (01:52→17:00)
[2021-05-10] MEDS: LORazepam 1 MG TAB PO SCH ×3 (01:52→17:00)
[2021-05-10] MEDS: DEXMEDETOMIDINE HCL 400 MCG in 0.9 % SODIUM CHLORIDE 96 ML IV SCH ×4 (02:24→21:26)
[2021-05-10] MEDS ORDERED: MIDAZOLAM HCL 1 MG/ML 2ML VIAL ONE (04:25)
[2021-05-10] MEDS ORDERED: MIDAZOLAM HCL 1 MG/ML 2ML VIAL IV STA ×2 (04:32→22:29)
[2021-05-10] MEDS: LABETALOL HCL IV 5 MG/ML 20ML IV PRN ×3 (05:14→22:20)
[2021-05-10] MEDS: TUBE FEEDING WATER FLUSH OG SCH ×6 (05:28→21:29)
[2021-05-10 05:39] LABS: Basophils # (auto) 0.02 K/uL (0-0.2); Basophils % (auto) 0.2 %; Eosinophils # (auto) 0.06 K/uL (0-0.5); Eosinophils % (auto) 0.5 %; Hematocrit (blood only) 38.9 % (42-52); Hemoglobin 11.9 g/dL (14.0-18.0); Immature Granulocytes # (auto) 0.03 K/uL (0.00-0.02); Immature Granulocytes % (auto) 0.2 %; Lymphocytes # (auto) 0.83 K/uL (1.2-3.4); Lymphocytes % (auto) 6.8 %; Mean Corpuscular Hgb Conc 30.6 g/dL (32-36); Mean Corpuscular Volume 104.6 fL (80-100); Mean Platelet Volume 9.6 fL (7.4-10.4); Monocytes # (auto) 1.58 K/uL (0.11-0.59); Monocytes % (auto) 12.9 %; Neutrophils # (auto) 9.77 K/uL (1.4-6.5); Neutrophils % (auto) 79.4 %; Platelet Count 272 K/uL (130-400); RDW Coefficient of Variation 13.8 % (11.5-14.5); RDW Standard Deviation 52.5 fL (36.4-46.3); Red Blood Count 3.72 M/uL (4.7-6.1); White Blood Count 12.29 K/uL (4.8-10.8)
[2021-05-10 06:12] LABS: iSTAT Arterial Blood Gas HCO3 42 meg/L (19-24); iSTAT Arterial Blood Gas pCO2 73 mmHg (35-46); iSTAT Arterial Blood Gas pH 7.37 (7.35-7.45); iSTAT Arterial Blood Gas pO2 79 mmHg (80-95); iSTAT Carbon Dioxide > 40 mmol/L (24-31); iSTAT FiO2 70 %; iSTAT Site Art Line
[2021-05-10 06:14] LABS: BUN Creatinine Ratio 68.5 (10-20); Calcium 9.2 mg/dl (8.5-10.1); Creatinine Clr Calc Pharmacy 99.4 ml/min; Est GFR (African American) 110.8 ml/min; Est GFR (Non-African American) 95.6 ml/min; Magnesium 2.9 mg/dl (1.8-2.4); Phosphorus 3.3 mg/dl (2.5-4.9); Potassium 3.6 mmol/L (3.5-5.1)
[2021-05-10] MEDS ORDERED: POTASSIUM CHLORIDE 20 MEQ/15 ML UDC PO STA (06:16)
[2021-05-10] MEDS: amLODIPine BESYLATE 5 MG TAB PO SCH (08:05)
[2021-05-10] MEDS: DOCUSATE SODIUM SYRUP 100 MG/10 ML UDC PO SCH ×2 (08:05→21:27)
[2021-05-10] MEDS: ENOXAPARIN INJ 40 MG/0.4 ML SYR SQ SCH (08:05)
[2021-05-10] MEDS: POLYETHYLENE (MIRALAX) 17 GM PACK PO SCH ×2 (08:06→21:28)
[2021-05-10] MEDS: SENNOSIDES 8.8 MG/5 ML UDC PO SCH ×2 (08:06→21:26)
--- NOTE | 2021-05-10 08:09 | Critical Care Progress Note ---
Date of Service May 10, 2021 Assessment & Plan (1) ARDS (adult respiratory distress syndrome): Plan: Reason critically ill: 66 yo M with no significant PMHx admitted with acute respiratory failure with hypoxia secondary to COVID-19 pneumonia admitted to ICU requiring close monitoring given tenuous respiratory status. NEURO: Continue to wean sedation as able. Goal RASS of -1 to 1 Off Versed and fentanyl infusions. -15 mg oxycodone every 8 hours empiric for withdraw -X3 days then will need to decrease -Stop date entered -3 mg Ativan p.o. every 8 hours empiric for withdrawal -X3 days then will need to decrease -Stop date entered -Transitioned to Precedex CARDIAC/VASCULAR: Bradycardia: Resolved Hypertension Amlodipine 5 mg RESPIRATORY: Acute hypoxic respiratory distress secondary to COVID-19 pneumonia Intubated 04/24. Tracheostomy 05/08 Received tocilizumab therapy. Wean ventilator via ARDSnet guidelines Follow up with infection control regarding discontinuation of airborne precautions. GI/NUTRITION: Tube feedings Constipation: Resolved Continue docusate and senna and MiraLAX. Methylnaltrexone for probable opiate-induced constipation x1 Hypertriglyceridemia: Off propofol sedation RENAL/LYTES: - No significant issues. Replace electrolytes per protocol. -labs ordered for every other day GENITOURINARY: No acute concerns. Transition to condom cath ENDO: ICU hyperglycemia protocol. HEME: No significant issues at this time. ID: COVID-19 pneumonia --Prophylaxis VTE: Lovenox 40 mg GI: Protonix Lines: Peripheral IVs Patient remains critically ill Admission and Anticipated Discharge Date Admission Date: April 23, 2021 Supervising Physician Co-Signing Physician Notes I have personally spent 35 minutes of critical care time in the direct management of this patient. This is a life/limb threatening event. This includes time spent evaluating patient, direct bedside care, chart review, placing orders, interpretation of diagnostic studies, discussion with consultants, patient, and/or family members regarding treatment decisions, as well as other required patient management activities. This time is exclusive of all separately billable procedures, and teaching time and separate from and in addition to any other critical care service time. Subjective No overnight events Physical Exam Physical Exam: General: Sedated. nontoxic. Skin: Warm, dry, Head: Atraumatic Ears, nose, mouth and throat: airway patent, tracheostomy tube in place Cardiovascular: Normal peripheral perfusion Respiratory: no respiratory distress, ventilator settings reviewed Gastrointestinal: Non distended Musculoskeletal: No deformity Results & Data Results & Data ([facility]) Vital Signs (Past 12 Hours) Vital Signs Temp Pulse Resp BP Pulse Ox 05/10/21 05:37 37.9 C H 82 147/70 H 91 05/10/21 04:37 37.9 C H 89 169/96 H 91 05/10/21 04:10 66 32 H 94 05/10/21 03:37 37.5 C 68 119/73 95 05/10/21 02:37 37.6 C H 67 111/73 94 05/10/21 01:37 37.7 C H 66 120/74 90 05/10/21 01:00 37.8 C H 70 131/85 94 05/10/21 00:37 38.0 C H 81 148/87 H 92 05/09/21 23:37 37.9 C H 77 156/79 H 93 05/09/21 22:39 75 32 H 92 05/09/21 22:37 37.8 C H 70 145/74 H 93 05/09/21 21:37 37.6 C H 85 175/90 H 93 05/09/21 20:37 37.4 C 80 156/85 H 87 L Laboratory Results 05/10/21 05/10/21 05/10/21 Range/Units 05:21 05:21 04:46 WBC 12.29 H (4.8-10.8) K/uL RBC 3.72 L (4.7-6.1) M/uL Hgb 11.9 L (14.0-18.0) g/dL Hct 38.9 L (42-52) % MCV 104.6 H (80-100) fL MCH 32.0 (25-34) pg MCHC 30.6 L (32-36) g/dL RDW Std Deviation 52.5 H (36.4-46.3) fL RDW Coeff of Elvin 13.8 (11.5-14.5) % Plt Count 272 (130-400) K/uL MPV 9.6 (7.4-10.4) fL Immature Gran % (Auto) 0.2 % Neut % (Auto) 79.4 % Lymph % (Auto) 6.8 % [place] % (Auto) 12.9 % Eos % (Auto) 0.5 % Baso % (Auto) 0.2 % Neut # (Auto) 9.77 H (1.4-6.5) K/uL Lymph # (Auto) 0.83 L (1.2-3.4) K/uL [place] # (Auto) 1.58 H (0.11-0.59) K/uL Eos # (Auto) 0.06 (0-0.5) K/uL Baso # (Auto) 0.02 (0-0.2) K/uL Immature Gran # (Auto) 0.03 H (0.00-0.02) K/uL Sample Site Art Line POC pH 7.37 (7.35-7.45) POC pCO2 73 H (35-46) mmHg POC pO2 79 L (80-95) mmHg POC HCO3 42 H (19-24) adrianne/L POC Total CO2 > 40 H* (24-31) mmol/L POC Base Excess 17.0 H (-9-1.8) adrianne/L POC ABG O2 Sat 94.0 (90-95) % Nikolas Test NA O2 Delivery Device Ventilator POC O2 Rate 32 POC FiO2 70 % Tidal Volume 400 PEEP 14 Sodium 143 (136-145) mmol/L Potassium 3.6 D (3.5-5.1) mmol/L Chloride 104 (98-107) mmol/L Carbon Dioxide 36 H (21-32) mmol/L Anion Gap 3.0 (3-11) BUN 51 H (7-18) mg/dl Creatinine 0.75 (0.6-1.4) mg/dl Est Cr Clr Drug Dosing 99.4 ml/min Est GFR ( Amer) 110.8 ml/min Est GFR (Non-Af Amer) 95.6 ml/min BUN/Creatinine Ratio 68.5 H (10-20) Glucose 166 H (70-99) mg/dl POC Glucose (70-99) mg/dl POC Glucose (other) (70-99) mg/dl Calcium 9.2 (8.5-10.1) mg/dl Phosphorus 3.3 (2.5-4.9) mg/dl Magnesium 2.9 H (1.8-2.4) mg/dl 05/09/21 05/09/21 Range/Units 22:15 17:49 WBC (4.8-10.8) K/uL RBC (4.7-6.1) M/uL Hgb (14.0-18.0) g/dL Hct (42-52) % MCV (80-100) fL MCH (25-34) pg MCHC (32-36) g/dL RDW Std Deviation (36.4-46.3) fL RDW Coeff of Elvin (11.5-14.5) % Plt Count (130-400) K/uL MPV (7.4-10.4) fL Immature Gran % (Auto) % Neut % (Auto) % Lymph % (Auto) % [place] % (Auto) % Eos % (Auto) % Baso % (Auto) % Neut # (Auto) (1.4-6.5) K/uL Lymph # (Auto) (1.2-3.4) K/uL [place] # (Auto) (0.11-0.59) K/uL Eos # (Auto) (0-0.5) K/uL Baso # (Auto) (0-0.2) K/uL Immature Gran # (Auto) (0.00-0.02) K/uL Sample Site POC pH (7.35-7.45) POC pCO2 (35-46) mmHg POC pO2 (80-95) mmHg POC HCO3 (19-24) adrianne/L POC Total CO2 (24-31) mmol/L POC Base Excess (-9-1.8) adrianne/L POC ABG O2 Sat (90-95) % Nikolas Test O2 Delivery Device POC O2 Rate POC FiO2 % Tidal Volume PEEP Sodium (136-145) mmol/L Potassium (3.5-5.1) mmol/L Chloride (98-107) mmol/L Carbon Dioxide (21-32) mmol/L Anion Gap (3-11) BUN (7-18) mg/dl Creatinine (0.6-1.4) mg/dl Est Cr Clr Drug Dosing ml/min Est GFR ( Amer) ml/min Est GFR (Non-Af Amer) ml/min BUN/Creatinine Ratio (10-20) Glucose (70-99) mg/dl POC Glucose 133 H (70-99) mg/dl POC Glucose (other) 139 H (70-99) mg/dl Calcium (8.5-10.1) mg/dl Phosphorus (2.5-4.9) mg/dl Magnesium (1.8-2.4) mg/dl Coding Level of Care Code Critical Care 1st 30-74 mins Diagnoses ARDS (adult respiratory distress syndrome) J80
[2021-05-10] MEDS: FUROSEMIDE 40 MG in SYRINGE 0 ML IV SCH (08:16)
--- NOTE | 2021-05-10 08:52 | XRay Report ---
SINGLE VIEW CHEST CLINICAL HISTORY: Respiratory failure. FINDINGS: 2 AP, portable, upright chest radiographs are compared to study dated 05/09/2021. The examin ation is degraded by portable technique and patient rotation. A tracheostomy and an enteric tube are unchanged in position. The heart appears enlarged. Multifocal airspace consolidation is again seen th roughout both lungs. Trace pleural effusions are suspected. No pneumothorax is seen. The bony thorax is grossly intact. IMPRESSION: 1. Stable lines and tubes. 2. Diffuse multifocal airspace consolidation has not significantly changed from yesterday. 3. Suspect trace pleural effusions. ACT 112: Negative or not required by law. Electronically signed by: Peter Quiroga M.D. 05/10/2021 8:50 AM
--- NOTE | 2021-05-10 10:50 | Hospitalist Progress Note ---
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 Completed a 10-day course of dexamethasone 6mg IV daily Received tocilizumab 600 mg x1 dose on 04/24 -Appreciate chemist instrumentation management of ventilator-now status post tracheostomy on 05/08 -Transitioned to Precedex for sedation, and receiving scheduled oxycodone and lorazepam per NGT x3-day course and then weaning off palliative consulted to have ongoing discussion about goals of care (2) Acute respiratory failure with hypoxia: Plan: As above Secondary to COVID-19 pneumonia severe ARDS, as above Continue diuresis as well with Lasix 40 mg IV daily (3) ARDS (adult respiratory distress syndrome): Plan: As above (4) Leukocytosis: Plan: WBC trended upward to 20 K and now back down to 12, without any intervention Sputum culture with light normal [place] Now with fever starting on 05/10 If fevers persist, would reculture. Has already had central lines removed. Has an A-line in place Valadez catheter was removed on 05/09 No antibiotics for now (5) Hyperglycemia: Plan: With some hyperglycemia likely secondary to corticosteroids which is now resolved No insulin needed (6) Hyponatremia: Plan: normalized (7) Hypokalemia: Plan: secondary to loop diuretics Follow BMP as is receiving IV Lasix -Give potassium chloride 40 mEq per NG tube x1 today (8) Pneumonia due to COVID-19 virus: Plan: As above (9) Transaminitis: Plan: Mildly elevated AST Likely secondary to Covid-19 LFTs not repeated since 04/27 (10) Fever: Plan: As above (11) Hypertension: Plan: With hyper tension likely related to weaning off sedation Started in loaded pain 5 Noriega's daily IV labetalol as needed Precedex and oxycodone, lorazepam and weaning off Plan: DVT prophylaxis- Lovenox SQ GI prophylaxis-IV Protonix, received methylnaltrexone x1 on 05/04 and 05/05, senna/docusate twice daily, MiraLAX twice daily-did have a bowel movement on 05/06 and again 05/09 FEN-continue tube feeds per ICU Dc Valadez on 05/09 and has [place] Catheter on Disposition-continued stay in the ICU, prognosis guarded Palliative medicine following along Admission and Anticipated Discharge Date Admission Date: April 23, 2021 Subjective Remains intubated. Had a fever this morning and received Tylenol Is on Precedex, and scheduled oxycodone and lorazepam per NG tube. Remains hypertensive at times Review of Systems Review of Systems: Unobtainable due to reduced consciousness Physical Exam Constitutional: well developed and + mechanically ventilated Results & Data Results & Data ([facility]) Vital Signs (Past 12 Hours) Vital Signs Temp Pulse Resp BP Pulse Ox 05/10/21 10:37 37.8 C H 75 114/66 90 05/10/21 09:38 37.8 C H 78 110/63 92 05/10/21 08:37 37.9 C H 83 154/80 H 92 05/10/21 08:00 77 05/10/21 07:37 38.0 C H 77 144/81 H 91 05/10/21 07:05 69 33 H 91 05/10/21 05:37 37.9 C H 82 147/70 H 91 05/10/21 04:37 37.9 C H 89 169/96 H 91 05/10/21 04:10 66 32 H 94 05/10/21 03:37 37.5 C 68 119/73 95 05/10/21 02:37 37.6 C H 67 111/73 94 05/10/21 01:37 37.7 C H 66 120/74 90 05/10/21 01:00 37.8 C H 70 131/85 94 05/10/21 00:37 38.0 C H 81 148/87 H 92 05/09/21 23:37 37.9 C H 77 156/79 H 93 Laboratory Results 05/10/21 05/10/21 05/10/21 Range/Units 15:04 11:17 05:21 WBC (4.8-10.8) K/uL RBC (4.7-6.1) M/uL Hgb (14.0-18.0) g/dL Hct (42-52) % MCV (80-100) fL MCH (25-34) pg MCHC (32-36) g/dL RDW Std Deviation (36.4-46.3) fL RDW Coeff of Elvin (11.5-14.5) % Plt Count (130-400) K/uL MPV (7.4-10.4) fL Immature Gran % (Auto) % Neut % (Auto) % Lymph % (Auto) % Love % (Auto) % Eos % (Auto) % Baso % (Auto) % Neut # (Auto) (1.4-6.5) K/uL Lymph # (Auto) (1.2-3.4) K/uL Love # (Auto) (0.11-0.59) K/uL Eos # (Auto) (0-0.5) K/uL Baso # (Auto) (0-0.2) K/uL Immature Gran # (Auto) (0.00-0.02) K/uL Sample Site POC pH (7.35-7.45) POC pCO2 (35-46) mmHg POC pO2 (80-95) mmHg POC HCO3 (19-24) adrianne/L POC Total CO2 (24-31) mmol/L POC Base Excess (-9-1.8) adrianne/L POC ABG O2 Sat (90-95) % Nikolas Test O2 Delivery Device POC O2 Rate POC FiO2 % Tidal Volume PEEP Sodium 143 (136-145) mmol/L Potassium 3.6 D (3.5-5.1) mmol/L Chloride 104 (98-107) mmol/L Carbon Dioxide 36 H (21-32) mmol/L Anion Gap 3.0 (3-11) BUN 51 H (7-18) mg/dl Creatinine 0.75 (0.6-1.4) mg/dl Est Cr Clr Drug Dosing 99.4 ml/min Est GFR ( Amer) 110.8 ml/min Est GFR (Non-Af Amer) 95.6 ml/min BUN/Creatinine Ratio 68.5 H (10-20) Glucose 166 H (70-99) mg/dl POC Glucose 120 H 141 H (70-99) mg/dl POC Glucose (other) (70-99) mg/dl Calcium 9.2 (8.5-10.1) mg/dl Phosphorus 3.3 (2.5-4.9) mg/dl Magnesium 2.9 H (1.8-2.4) mg/dl 05/10/21 05/10/21 05/09/21 Range/Units 05:21 04:46 22:15 WBC 12.29 H (4.8-10.8) K/uL RBC 3.72 L (4.7-6.1) M/uL Hgb 11.9 L (14.0-18.0) g/dL Hct 38.9 L (42-52) % MCV 104.6 H (80-100) fL MCH 32.0 (25-34) pg MCHC 30.6 L (32-36) g/dL RDW Std Deviation 52.5 H (36.4-46.3) fL RDW Coeff of Elvin 13.8 (11.5-14.5) % Plt Count 272 (130-400) K/uL MPV 9.6 (7.4-10.4) fL Immature Gran % (Auto) 0.2 % Neut % (Auto) 79.4 % Lymph % (Auto) 6.8 % Love % (Auto) 12.9 % Eos % (Auto) 0.5 % Baso % (Auto) 0.2 % Neut # (Auto) 9.77 H (1.4-6.5) K/uL Lymph # (Auto) 0.83 L (1.2-3.4) K/uL Love # (Auto) 1.58 H (0.11-0.59) K/uL Eos # (Auto) 0.06 (0-0.5) K/uL Baso # (Auto) 0.02 (0-0.2) K/uL Immature Gran # (Auto) 0.03 H (0.00-0.02) K/uL Sample Site Art Line POC pH 7.37 (7.35-7.45) POC pCO2 73 H (35-46) mmHg POC pO2 79 L (80-95) mmHg POC HCO3 42 H (19-24) adrianne/L POC Total CO2 > 40 H* (24-31) mmol/L POC Base Excess 17.0 H (-9-1.8) adrianne/L POC ABG O2 Sat 94.0 (90-95) % Nikolas Test NA O2 Delivery Device Ventilator POC O2 Rate 32 POC FiO2 70 % Tidal Volume 400 PEEP 14 Sodium (136-145) mmol/L Potassium (3.5-5.1) mmol/L Chloride (98-107) mmol/L Carbon Dioxide (21-32) mmol/L Anion Gap (3-11) BUN (7-18) mg/dl Creatinine (0.6-1.4) mg/dl Est Cr Clr Drug Dosing ml/min Est GFR ( Amer) ml/min Est GFR (Non-Af Amer) ml/min BUN/Creatinine Ratio (10-20) Glucose (70-99) mg/dl POC Glucose (70-99) mg/dl POC Glucose (other) 139 H (70-99) mg/dl Calcium (8.5-10.1) mg/dl Phosphorus (2.5-4.9) mg/dl Magnesium (1.8-2.4) mg/dl 05/09/21 Range/Units 17:49 WBC (4.8-10.8) K/uL RBC (4.7-6.1) M/uL Hgb (14.0-18.0) g/dL Hct (42-52) % MCV (80-100) fL MCH (25-34) pg MCHC (32-36) g/dL RDW Std Deviation (36.4-46.3) fL RDW Coeff of Elvin (11.5-14.5) % Plt Count (130-400) K/uL MPV (7.4-10.4) fL Immature Gran % (Auto) % Neut % (Auto) % Lymph % (Auto) % Love % (Auto) % Eos % (Auto) % Baso % (Auto) % Neut # (Auto) (1.4-6.5) K/uL Lymph # (Auto) (1.2-3.4) K/uL Love # (Auto) (0.11-0.59) K/uL Eos # (Auto) (0-0.5) K/uL Baso # (Auto) (0-0.2) K/uL Immature Gran # (Auto) (0.00-0.02) K/uL Sample Site POC pH (7.35-7.45) POC pCO2 (35-46) mmHg POC pO2 (80-95) mmHg POC HCO3 (19-24) adrianne/L POC Total CO2 (24-31) mmol/L POC Base Excess (-9-1.8) adrianne/L POC ABG O2 Sat (90-95) % Nikolas Test O2 Delivery Device POC O2 Rate POC FiO2 % Tidal Volume PEEP Sodium (136-145) mmol/L Potassium (3.5-5.1) mmol/L Chloride (98-107) mmol/L Carbon Dioxide (21-32) mmol/L Anion Gap (3-11) BUN (7-18) mg/dl Creatinine (0.6-1.4) mg/dl Est Cr Clr Drug Dosing ml/min Est GFR ( Amer) ml/min Est GFR (Non-Af Amer) ml/min BUN/Creatinine Ratio (10-20) Glucose (70-99) mg/dl POC Glucose 133 H (70-99) mg/dl POC Glucose (other) (70-99) mg/dl Calcium (8.5-10.1) mg/dl Phosphorus (2.5-4.9) mg/dl Magnesium (1.8-2.4) mg/dl PG Care Time/CCT Total # of Minutes Spent Total Time Spent with Patient: Total time spent is greater than 50% in coordination of care (as documented) at patient's floor/unit and/or counseling patient: Coding Level of Care Code 91002 Subseq Hosp Care Lvl 1 Diagnoses COVID-19 U07.1 Acute respiratory failure with hypoxia J96.01 ARDS (adult respiratory distress syndrome) J80 Leukocytosis D72.829 Hyperglycemia R73.9 Hyponatremia E87.1 Hypokalemia E87.6 Pneumonia due to COVID-19 virus U07.1; J12.82 Transaminitis R74.01 Fever R50.9 Hypertension I10
[2021-05-10] MEDS: PANTOprazole 40 MG in SYRINGE 0 ML IV SCH (11:12)
[2021-05-10] MEDS: DEXMEDETOMIDINE HCL 200 MCG in SODIUM CHLORIDE 0.9% 48 ML IV SCH ×2 (14:53→14:54)
[2021-05-10] MEDS: PEPTAMEN INTENSE VHP 1.0 CAL 1,000 ML BAG OG SCH (21:26)
[2021-05-11] MEDS: TUBE FEEDING WATER FLUSH OG SCH ×6 (00:16→20:12)
[2021-05-11] MEDS: oxyCODONE HCL IR 5 MG TAB (IMMEDIATE RELEASE) PO SCH ×3 (00:16→16:46)
[2021-05-11] MEDS: LORazepam 1 MG TAB PO SCH ×3 (00:16→16:46)
[2021-05-11] MEDS: LABETALOL HCL IV 5 MG/ML 20ML IV PRN (03:20)
[2021-05-11] MEDS ORDERED: MIDAZOLAM HCL 1 MG/ML 2ML VIAL ONE ×2 (03:28→21:04)
[2021-05-11] MEDS ORDERED: MIDAZOLAM HCL 1 MG/ML 2ML VIAL IV STA (04:07)
[2021-05-11 04:39] LABS: iSTAT Art Bld Gas pCO2 Correct 75 mmHg (35-46); iSTAT Art Bld Gas pH Corrected 7.358 (7.35-7.45); iSTAT Arterial Blood Gas HCO3 42 meg/L (19-24); iSTAT Arterial Blood Gas pCO2 71 mmHg (35-46); iSTAT Arterial Blood Gas pH 7.37 (7.35-7.45); iSTAT Arterial Blood Gas pO2 64 mmHg (80-95); iSTAT Arterial Blood Gas pO2 C 69; iSTAT Carbon Dioxide > 40 mmol/L (24-31); iSTAT FiO2 70 %; iSTAT Hematocrit 36 % (42-52); iSTAT Hemoglobin 12.2 g/dl (14.0-18.0); iSTAT Potassium 3.8 mmol/L (3.3-5.0); iSTAT Site Art Line; iSTAT Sodium 148 mmol/L (135-144)
[2021-05-11] MEDS: DEXMEDETOMIDINE HCL 400 MCG in 0.9 % SODIUM CHLORIDE 96 ML IV SCH ×4 (05:16→20:01)
[2021-05-11 05:50] LABS: Basophils # (auto) 0.03 K/uL (0-0.2); Basophils % (auto) 0.2 %; Eosinophils % (auto) 0.8 %; Hematocrit (blood only) 37.7 % (42-52); Hemoglobin 11.7 g/dL (14.0-18.0); Immature Granulocytes # (auto) 0.06 K/uL (0.00-0.02); Immature Granulocytes % (auto) 0.5 %; Lymphocytes # (auto) 0.89 K/uL (1.2-3.4); Lymphocytes % (auto) 6.9 %; Mean Corpuscular Hemoglobin 31.9 pg (25-34); Mean Corpuscular Volume 102.7 fL (80-100); Mean Platelet Volume 9.7 fL (7.4-10.4); Monocytes # (auto) 1.31 K/uL (0.11-0.59); Monocytes % (auto) 10.2 %; Neutrophils # (auto) 10.46 K/uL (1.4-6.5); Neutrophils % (auto) 81.4 %; Platelet Count 293 K/uL (130-400); RDW Standard Deviation 52.6 fL (36.4-46.3); Red Blood Count 3.67 M/uL (4.7-6.1); White Blood Count 12.85 K/uL (4.8-10.8)
[2021-05-11 06:29] LABS: Albumin Level 1.9 gm/dl (3.4-5.0); BUN Creatinine Ratio 66.6 (10-20); Bilirubin Direct 0.2 mg/dl (0-0.2); Creatinine Clr Calc Pharmacy 112.1 ml/min; Est GFR (Non-African American) 100.1 ml/min; Magnesium 2.8 mg/dl (1.8-2.4); Potassium 3.8 mmol/L (3.5-5.1)
[2021-05-11 06:31] LABS: Bilirubin,Total 0.5 mg/dl (0.2-1); Phosphorus 3.6 mg/dl (2.5-4.9); Total Protein 7.2 gm/dl (6.4-8.2)
[2021-05-11] MEDS: SENNOSIDES 8.8 MG/5 ML UDC PO SCH ×2 (08:19→20:07)
[2021-05-11] MEDS: amLODIPine BESYLATE 5 MG TAB PO SCH (08:19)
[2021-05-11] MEDS: DOCUSATE SODIUM SYRUP 100 MG/10 ML UDC PO SCH ×2 (08:19→20:06)
[2021-05-11] MEDS: ENOXAPARIN INJ 40 MG/0.4 ML SYR SQ SCH (08:20)
[2021-05-11] MEDS: FUROSEMIDE 40 MG in SYRINGE 0 ML IV SCH (08:24)
[2021-05-11] MEDS: POLYETHYLENE (MIRALAX) 17 GM PACK PO SCH ×2 (08:24→20:06)
[2021-05-11] MEDS: PANTOprazole 40 MG in SYRINGE 0 ML IV SCH (12:25)
--- NOTE | 2021-05-11 12:51 | Critical Care Progress Note ---
Date of Service May 11, 2021 Assessment & Plan (1) ARDS (adult respiratory distress syndrome): (2) COVID-19: (3) Admitted to intensive care unit: (4) Acute respiratory failure with hypoxia: (5) Bradycardia: Plan: Reason critically ill: 66 yo M with no significant PMHx admitted with acute respiratory failure with hypoxia secondary to COVID-19 pneumonia admitted to ICU requiring close monitoring given tenuous respiratory status. NEURO: Continue to wean sedation as able. Goal RASS of -1 to 1 Off Versed and fentanyl infusions. -15 mg oxycodone every 8 hours empiric for withdraw -Will gradually decrease the dose -3 mg Ativan p.o. every 8 hours empiric for withdrawal -Start clonazepam on 05/04/2021 -Transitioned to Precedex CARDIAC/VASCULAR: --Episodes of bradycardia in the past Resolved --Hypertension Continue with amlodipine Continue with metoprolol 5 mg every 6 hours as needed for SBP greater than 160 RESPIRATORY: Acute hypoxic respiratory distress secondary to COVID-19 pneumonia Intubated 04/24. Tracheostomy 05/08 Received tocilizumab therapy. Wean ventilator as possible GI/NUTRITION: Tube feedings Constipation: Resolved Continue docusate and senna and MiraLAX. Methylnaltrexone for probable opiate-induced constipation x1 Hypertriglyceridemia: Off propofol sedation RENAL/LYTES: - No significant issues. Replace electrolytes per protocol. GENITOURINARY: No acute concerns. Strict Is/Os. ENDO: ICU hyperglycemia protocol. HEME: No significant issues at this time. ID: COVID-19 pneumonia --Prophylaxis VTE: Lovenox GI: Protonix Lines: Peripherals, status post tracheostomy 05/08/2021 Diet: Tube feeds Plan: In/out: +123, urine output 1988 T-max 38 Patient has been spiking fever for very long time I will order blood culture. Sputum culture from 05/03/2021 is negative Increase amlodipine to 10 mg on a daily basis We will titrate down oxycodone 10 mg every 8 and gradually titrated off Start clonazepam as of tomorrow after the Ativan Start the patient on metoprolol 5 mg every 6 hours for SBP greater than 160 Patient is still tachypneic. Is not following commands He is on Precedex We will try to wean the Precedex off There is high probability that he is withdrawing from all the sedation that he was on. I have personally spent 41 minutes of critical care time in the direct management of this patient. This is a life/limb threatening event. This includes time spent evaluating patient, direct bedside care, chart review, placing orders, interpretation of diagnostic studies, discussion with consultants, patient, and family members, as well as other required patient management activities. This time is exclusive of all separately billable procedures, and teaching time and separate from and in addition to any other critical care service time. Please note the above document was generated using voice recognition software. It may contain grammatical, syntax or spelling errors. Admission and Anticipated Discharge Date Admission Date: April 23, 2021 Subjective Patient seen and examined at bedside. Patient was tachypneic on the vent breathing in the mid 30s. He was on Precedex 0.7 T-max 38 Review of Systems Review of Systems: Unobtainable due to mental health condition Physical Exam Physical Exam: Constitutional: No acute distress HEENT: PERRLA, + Trach Respiratory system: Decreased air entry bilaterally, no wheeze, rhonchi, positive crackles bilateral lower lobes CVS: S1-S2 positive, no murmurs or gallops Abdomen: Soft, nontender, nondistended, positive bowel sounds x4 Extremities: +2 pulses bilaterally radialis/ dorsalis pedis, no cyanosis, No edema Neuro: Not following commands, breathing over the vent Psych: Unable to assess G/U: Condom Valadez Skin: no rashes, warm and dry Lymphatic: no cervical or axillary lymphadenopathy Results & Data Results & Data ([facility]) Vital Signs (Past 12 Hours) Vital Signs Temp Pulse Resp BP Pulse Ox 05/11/21 12:22 88 36 H 94 05/11/21 08:00 76 05/11/21 07:55 74 36 H 90 05/11/21 06:21 37.7 C H 72 142/86 H 89 L 05/11/21 05:51 37.8 C H 73 138/71 89 L 05/11/21 05:21 37.9 C H 81 158/86 H 90 05/11/21 04:51 38.0 C H 83 167/84 H 89 L 05/11/21 04:21 38.0 C H 83 170/87 H 89 L 05/11/21 04:10 38.1 C H 78 167/97 H 88 L 05/11/21 04:00 85 36 H 89 L 05/11/21 03:51 38.0 C H 77 156/98 H 87 L 05/11/21 03:21 38.0 C H 83 184/98 H 89 L 05/11/21 02:51 38.0 C H 73 127/73 91 05/11/21 02:21 38.0 C H 74 123/70 92 05/11/21 01:51 38.0 C H 75 117/68 92 05/11/21 01:21 38.0 C H 74 126/71 92 05/11/21 00:51 38.0 C H 77 165/88 H 89 L 05/11/21 05:13 05/11/21 05:13 Coding Level of Care Code Critical Care 1st 30-74 mins Diagnoses ARDS (adult respiratory distress syndrome) J80 COVID-19 U07.1 Admitted to intensive care unit Z78.9 Acute respiratory failure with hypoxia J96.01 Bradycardia R00.1 Time Spent (min) 41
[2021-05-11 16:27] LABS: Appearance Urine Clear (Clear); Bacteria Urine Automated Negative (Negative); Bilirubin Urine Negative (Negative); Blood Urine Negative (Negative); Cast Urine Automated 0 /lpf (0-5); Color Urine Yellow; Epithelial Cell Urine Auto 20-30 /lpf (0-5); Glucose Urine UA Negative (Negative); Ketones Urine Negative (Negative); Leukocyte Esterase Urine Negative (Negative); Nitrite Urine Negative (Negative); Protein Urine Trace (Negative); Urobilinogen Urine Negative (Negative); pH Urine 5.5 (4.5-7.5)
[2021-05-11] MEDS: PEPTAMEN INTENSE VHP 1.0 CAL 1,000 ML BAG OG SCH (16:45)
[2021-05-11] MEDS: METOPROLOL TARTRATE 1 MG/ML VIAL IV PRN ×2 (16:45→23:40)
--- NOTE | 2021-05-11 18:28 | Hospitalist Progress Note ---
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-now status post tracheostomy on 05/08 -Transitioned to Precedex for sedation, and receiving scheduled oxycodone and Klonopin per NGT x3-day course and then weaning off palliative consulted to have ongoing discussion about goals of care will update family, will need to move toward LTACH (2) Acute respiratory failure with hypoxia: Plan: As above Secondary to COVID-19 pneumonia severe ARDS, as above Continue diuresis as well with Lasix 40 mg IV daily (3) ARDS (adult respiratory distress syndrome): Plan: As above (4) Leukocytosis: Plan: WBC trended upward to 20 K and now back down to 12, without any intervention Now with fever starting on 05/10, continues to have fever Has already had central lines removed. Has an A-line in place Valadez catheter was removed on 05/09 No antibiotics for now sputum culture with no growth (5) Hyperglycemia: Plan: With some hyperglycemia likely secondary to corticosteroids which is now resolved No insulin needed (6) Hyponatremia: Plan: normalized (7) Hypokalemia: Plan: secondary to loop diuretics Follow BMP as is receiving IV Lasix -Give potassium chloride per ICU replacement protocol (8) Pneumonia due to COVID-19 virus: Plan: As above (9) Transaminitis: Plan: Mildly elevated AST Likely secondary to Covid-19 LFTs not repeated since 04/27 (10) Fever: Plan: As above continues to spike fevers, unclear etiology (11) Hypertension: Plan: With hyper tension likely related to weaning off sedation Started amlodipine 5mg daily IV labetalol as needed Precedex and oxycodone, lorazepam and weaning off Plan: DVT prophylaxis- Lovenox SQ GI prophylaxis-IV Protonix, received methylnaltrexone x1 on 05/04 and 05/05, senna/docusate twice daily, MiraLAX twice daily-did have a bowel movement on 05/06 and again 05/09 FEN-continue tube feeds per ICU Dc Valadez on 05/09 and has [place] Catheter on Disposition-continued stay in the ICU, prognosis guarded, eventually will need LTACH Palliative medicine following along Admission and Anticipated Discharge Date Admission Date: April 23, 2021 Subjective patient remains on ventilator support with tracheostomy working to help him wake up with Klonopin, Oxycodone to prevent withdrawal on Precedex still not waking up or following commands discussed with Dr. White Review of Systems Review of Systems: Unobtainable due to cognitive status Physical Exam Constitutional: well developed, well nourished, + ill appearing and + mechanically ventilated (via tracheostomy) Neck: trachea midline, no thyromegaly + tracheostomy present Respiratory: + tachypneic and symmetric chest movement Auscultation: lungs clear to auscultation bilaterally Cardiovascular: RRR, no murmur, no edema Gastrointestinal (Abdomen): normal bowel sounds, soft, nontender, no hepatosplenomegaly Skin: no rashes, warm and dry Neurologic: CN's II-XI intact bilaterally and + confused; + does not move all extremities (weakness, 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) Results & Data Results & Data ([facility]) Vital Signs (Past 12 Hours) Vital Signs Temp Pulse Resp BP Pulse Ox 05/11/21 17:58 37.8 C H 89 160/82 H 92 05/11/21 16:51 37.7 C H 89 167/84 H 05/11/21 16:45 87 182/77 H 05/11/21 16:21 37.6 C H 87 162/85 H 05/11/21 16:00 87 05/11/21 15:51 37.6 C H 90 168/85 H 91 05/11/21 15:21 37.6 C H 88 161/85 H 05/11/21 15:00 86 33 H 05/11/21 14:51 37.6 C H 86 162/80 H 92 05/11/21 14:21 37.5 C 86 155/82 H 91 05/11/21 13:51 37.6 C H 77 150/80 H 90 05/11/21 13:21 37.5 C 84 154/76 H 90 05/11/21 12:51 37.5 C 81 150/80 H 89 L 05/11/21 12:22 88 36 H 94 05/11/21 12:21 37.6 C H 82 148/79 H 90 05/11/21 11:51 37.6 C H 85 166/82 H 93 05/11/21 11:21 37.7 C H 83 162/85 H 91 05/11/21 10:53 37.8 C H 85 150/86 H 82 L 05/11/21 10:21 37.7 C H 74 150/80 H 90 05/11/21 09:51 37.7 C H 75 123/69 89 L 05/11/21 09:21 37.7 C H 74 129/70 89 L 05/11/21 08:51 37.7 C H 70 141/77 H 88 L 05/11/21 08:21 37.7 C H 74 169/87 H 90 05/11/21 08:00 76 05/11/21 07:55 74 36 H 90 05/11/21 07:51 37.7 C H 71 140/76 93 05/11/21 07:21 37.7 C H 76 146/83 H 90 PG Care Time/CCT Total # of Minutes Spent Total Time Spent with Patient: Total time spent is greater than 50% in coordination of care (as documented) at patient's floor/unit and/or counseling patient: Coding Level of Care Code 19635 Subseq Hosp Care Lvl 2 Diagnoses COVID-19 U07.1 Acute respiratory failure with hypoxia J96.01 ARDS (adult respiratory distress syndrome) J80 Leukocytosis D72.829 Hyperglycemia R73.9 Hyponatremia E87.1 Hypokalemia E87.6 Pneumonia due to COVID-19 virus U07.1; J12.82 Transaminitis R74.01 Fever R50.9 Hypertension I10
[2021-05-11] MEDS: ACETAMINOPHEN 325 MG TAB PO PRN (21:08)
[2021-05-12] MEDS: LORazepam 1 MG TAB PO SCH ×2 (00:54→08:35)
[2021-05-12] MEDS: oxyCODONE HCL IR 5 MG TAB (IMMEDIATE RELEASE) PO SCH ×3 (00:54→16:25)
[2021-05-12] MEDS: TUBE FEEDING WATER FLUSH OG SCH ×6 (00:54→20:34)
[2021-05-12 03:58] LABS: iSTAT Art Bld Gas pCO2 Correct 69 mmHg (35-46); iSTAT Art Bld Gas pH Corrected 7.413 (7.35-7.45); iSTAT Arterial Blood Gas HCO3 44 meg/L (19-24); iSTAT Arterial Blood Gas pCO2 66 mmHg (35-46); iSTAT Arterial Blood Gas pH 7.43 (7.35-7.45); iSTAT Arterial Blood Gas pO2 56 mmHg (80-95); iSTAT Arterial Blood Gas pO2 C 60; iSTAT Carbon Dioxide > 40 mmol/L (24-31); iSTAT FiO2 60 %; iSTAT Hematocrit 36 % (42-52); iSTAT Hemoglobin 12.2 g/dl (14.0-18.0); iSTAT Potassium 3.4 mmol/L (3.3-5.0); iSTAT Site Art Line; iSTAT Sodium 151 mmol/L (135-144)
[2021-05-12] MEDS ORDERED: MIDAZOLAM HCL 5 MG/ML 1 ML VIAL IV STA (04:27)
[2021-05-12] MEDS ORDERED: HYDROmorphone INJ 1 MG/ML SYRINGE IV STA (04:32)
[2021-05-12] MEDS: METOPROLOL TARTRATE 1 MG/ML VIAL IV PRN (05:36)
[2021-05-12] MEDS ORDERED: LABETALOL HCL IV 5 MG/ML 20ML IV STA (06:20)
[2021-05-12] MEDS: DOCUSATE SODIUM SYRUP 100 MG/10 ML UDC PO SCH ×2 (08:29→20:34)
[2021-05-12] MEDS: ENOXAPARIN INJ 40 MG/0.4 ML SYR SQ SCH (08:30)
[2021-05-12] MEDS: amLODIPine BESYLATE 5 MG TAB PO SCH (08:31)
[2021-05-12] MEDS: SENNOSIDES 8.8 MG/5 ML UDC PO SCH ×2 (08:31→20:33)
[2021-05-12] MEDS: POLYETHYLENE (MIRALAX) 17 GM PACK PO SCH ×2 (08:31→20:33)
[2021-05-12] MEDS: ACETAMINOPHEN 325 MG TAB PO PRN ×2 (08:35→16:25)
[2021-05-12] MEDS ORDERED: clonazePAM 0.5 MG TAB PO SCH (09:00)
[2021-05-12] MEDS ORDERED: oxyCODONE HCL IR 5 MG TAB (IMMEDIATE RELEASE) PO SCH (09:00)
--- NOTE | 2021-05-12 09:10 | Critical Care Progress Note ---
Date of Service May 12, 2021 Assessment & Plan (1) ARDS (adult respiratory distress syndrome): (2) COVID-19: (3) Admitted to intensive care unit: (4) Acute respiratory failure with hypoxia: (5) Bradycardia: Plan: Reason critically ill: 66 yo M with no significant PMHx admitted with acute respiratory failure with hypoxia secondary to COVID-19 pneumonia admitted to ICU requiring close monitoring given tenuous respiratory status. NEURO: Continue to wean sedation as able. Goal RASS of -1 to 1 Off Versed and fentanyl infusions. -10 mg oxycodone every 8 hours empiric for withdraw -Will gradually decrease the dose -Clonazepam 0.[address] head 05/12/2021: Negative for any acute changes CARDIAC/VASCULAR: --Episodes of bradycardia in the past Resolved --Hypertension Continue with amlodipine Continue with metoprolol 5 mg every 6 hours as needed for SBP greater than 160 RESPIRATORY: Acute hypoxic respiratory distress secondary to COVID-19 pneumonia Intubated 04/24. Tracheostomy 05/08 Received tocilizumab therapy. Wean ventilator as possible GI/NUTRITION: Tube feedings Constipation: Resolved Continue docusate and senna and MiraLAX. Methylnaltrexone for probable opiate-induced constipation x1 Hypertriglyceridemia: Off propofol sedation RENAL/LYTES: - No significant issues. Replace electrolytes per protocol. GENITOURINARY: No acute concerns. Strict Is/Os. ENDO: ICU hyperglycemia protocol. HEME: No significant issues at this time. ID: COVID-19 pneumonia Blood culture 05/11/2021 negative to date --Prophylaxis VTE: Lovenox GI: Lansoprazole Lines: Peripherals, status post tracheostomy 05/08/2021 Diet: Tube feeds Plan: In/out: +558, urine output 1513 AB.43/66/56 on 10 PEEP, 60% Chest x-ray from today does not show any significant change compared to yesterday. CT head without contrast as the patient is still not following commands. Continue with oxycodone as well as clonazepam Try to wean off Precedex if possible Patient doing better on pressure support. We will continue with this during the day. You can transition back to VC/AC DC A-line. Change Protonix to lansoprazole We will send sputum culture today Patient's Pauline Luu [phone] was called and updated regarding the patient's condition I have personally spent 38 minutes of critical care time in the direct management of this patient. This is a life/limb threatening event. This includes time spent evaluating patient, direct bedside care, chart review, placing orders, interpretation of diagnostic studies, discussion with consultants, patient, and family members, as well as other required patient management activities. This time is exclusive of all separately billable procedures, and teaching time and separate from and in addition to any other critical care service time. Please note the above document was generated using voice recognition software. It may contain grammatical, syntax or spelling errors. Admission and Anticipated Discharge Date Admission Date: April 23, 2021 Subjective Patient seen and examined at bedside. No acute distress, no adverse events overnight Patient has been off Precedex He was on pressure support at the time of examination getting tidal volume of 420. Breathing in the low 30s. He still not following commands. Review of Systems Review of Systems: Unobtainable due to mental health condition and Unobtainable due to cognitive status Physical Exam Physical Exam: Constitutional: No acute distress HEENT: PERRLA, + Trach Respiratory system: Decreased air entry bilaterally, no wheeze, rhonchi, positive crackles bilateral lower lobes CVS: S1-S2 positive, no murmurs or gallops Abdomen: Soft, nontender, nondistended, positive bowel sounds x4 Extremities: +2 pulses bilaterally radialis/ dorsalis pedis, no cyanosis, No edema Neuro: Not following commands, breathing over the vent Psych: Unable to assess G/U: Condom Valadez Skin: no rashes, warm and dry Lymphatic: no cervical or axillary lymphadenopathy Results & Data Results & Data ([facility]) Vital Signs (Past 12 Hours) Vital Signs Temp Pulse Resp BP Pulse Ox 05/12/21 07:47 75 34 H 90 05/12/21 05:58 38.0 C H 87 179/90 H 90 05/12/21 04:58 38.0 C H 89 180/95 H 89 L 05/12/21 03:58 38.0 C H 90 174/88 H 89 L 05/12/21 02:58 37.9 C H 87 176/91 H 89 L 05/12/21 02:50 87 35 H 90 05/12/21 01:58 37.9 C H 85 165/84 H 93 05/12/21 00:58 38.1 C H 84 176/95 H 91 05/11/21 23:58 38.0 C H 75 158/86 H 91 05/11/21 23:19 90 05/11/21 22:58 38.0 C H 86 156/86 H 92 05/11/21 22:40 86 34 H 92 05/11/21 21:58 38.2 C H 79 137/75 95 05/11/21 05:13 05/11/21 05:13 Coding Level of Care Code Critical Care 1st 30-74 mins Diagnoses ARDS (adult respiratory distress syndrome) J80 COVID-19 U07.1 Admitted to intensive care unit Z78.9 Acute respiratory failure with hypoxia J96.01 Bradycardia R00.1 Time Spent (min) 38
--- NOTE | 2021-05-12 09:51 | CT Scan Report ---
HEAD CT NONCONTRAST CT DOSE: 690.05 mGycm HISTORY: encephalopathy TECHNIQUE: Multiaxial CT images of the head were performed without the use of intravenous contrast. A utomated exposure control was utilized for this study. A dose lowering technique was utilized adheri ng to the principles of ALARA. Comparison: None. Findings: Fluid levels within the sphenoid sinuses and right maxillary sinus. There is partial opacif ication of the posterior ethmoid air cells. Opacified bilateral mastoid air cells and middle ear cavi ties. The calvarium and skull base are intact. The ventricles and sulci are within normal limits. The re is no mass, hematoma, midline shift, or acute infarct. Impression: 1. No acute intracranial abnormality. 2. Sinusitis with large bilateral mastoid effusions. ACT 112: Negative or not required by law. Electronically signed by: Anuj Chavira M.D. 05/12/2021 9:49 AM
[2021-05-12] MEDS ORDERED: CHLOROTHIAZIDE SODIUM 500 MG in DEXTROSE 5% 50 ML IV ONE (10:30)
--- NOTE | 2021-05-12 11:01 | XRay Report ---
XR chest 1V portable CLINICAL HISTORY: Resp failure COMPARISON STUDY: May 10, 2021 FINDINGS: No pneumothorax. No pleural effusion. Redemonstration of patchy airspace opacities throughout bilateral lungs which slightly silhouettes r ight and left hemidiaphragm and appear to be worsening at the right lower lung. Cardiomediastinal silhouette is within normal limits in size. Pulmonary vasculature is obscured.. Osseous structures: unremarkable Stable position of tracheostomy and gastric tubes. IMPRESSION: 1. Multifocal airspace opacities are again seen bilaterally, slightly worsened at the right lower estella ng region. 2. Support apparatus as above. ACT 112: Negative or not required by law. The above report was generated using voice recognition software. It may contain grammatical, syntax o r spelling errors. Electronically signed by: Lydia Jones DO 05/12/2021 11:00 AM
[2021-05-12] MEDS: LANSOPRAZOLE 30 MG SOLTAB NG SCH (11:50)
[2021-05-12] MEDS: METOPROLOL TARTRATE 25 MG TAB PO SCH ×2 (11:50→20:33)
[2021-05-12] MEDS: PEPTAMEN INTENSE VHP 1.0 CAL 1,000 ML BAG OG SCH (12:05)
[2021-05-12] MEDS: clonazePAM 0.5 MG TAB PO SCH (16:25)
--- NOTE | 2021-05-12 21:45 | Hospitalist Progress Note ---
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 Completed a 10-day course of dexamethasone 6mg IV daily Received tocilizumab 600 mg x1 dose on 04/24 -Appreciate library clerk talking books management of ventilator-now status post tracheostomy on 05/08 -Transitioned to Precedex for sedation, and receiving scheduled oxycodone and Klonopin per NGT x3-day course and then weaning off palliative consulted to have ongoing discussion about goals of care will update family, will need to move toward LTACH today he was breathing with pressure support during the day, plan for ventilatory support at night (2) Acute respiratory failure with hypoxia: Plan: As above Secondary to COVID-19 pneumonia severe ARDS, as above Continue diuresis as well with Lasix 40 mg IV daily doing okay with pressure support today (3) ARDS (adult respiratory distress syndrome): Plan: As above (4) Leukocytosis: Plan: WBC trended upward to 20 K and now back down to 12, without any intervention Now with fever starting on 05/10, continues to have fever Has already had central lines removed. Has an A-line in place Valadez catheter was removed on 05/09 No antibiotics for now sputum culture with no growth blood cultures drawn today CT head negative for acute process (5) Hyperglycemia: Plan: With some hyperglycemia likely secondary to corticosteroids which is now resolved No insulin needed (6) Hyponatremia: Plan: normalized (7) Hypokalemia: Plan: secondary to loop diuretics Follow BMP as is receiving IV Lasix -Give potassium chloride per ICU replacement protocol (8) Pneumonia due to COVID-19 virus: Plan: As above (9) Transaminitis: Plan: Mildly elevated AST Likely secondary to Covid-19 LFTs not repeated since 04/27 (10) Fever: Plan: As above continues to spike fevers, unclear etiology (11) Hypertension: Plan: With hyper tension likely related to weaning off sedation amlodipine 10mg daily IV labetalol as needed Precedex and oxycodone, lorazepam and weaning off Plan: DVT prophylaxis- Lovenox SQ GI prophylaxis-IV Protonix, received methylnaltrexone x1 on 05/04 and 05/05, senna/docusate twice daily, MiraLAX twice daily-did have a bowel movement on 05/06 and again 05/09 FEN-continue tube feeds per ICU Dc Valadez on 05/09 and has [place] Catheter on Disposition-continued stay in the ICU, prognosis guarded, eventually will need LTACH Palliative medicine following along Admission and Anticipated Discharge Date Admission Date: April 23, 2021 Subjective patient still not waking up, on Precedex, Oxycodone, Klonopin CT head today negative for acute change still spiking fevers, blood cultures drawn reviewed labs updated his daughter over the phone, discussed that we are starting process of LTACH however, told her that they might not take him with ongoing fever, altered mental status Review of Systems Review of Systems: Unobtainable due to cognitive status Physical Exam Constitutional: well developed, well nourished, + ill appearing and + mechanically ventilated (via tracheostomy) Neck: trachea midline, no thyromegaly + tracheostomy present Respiratory: + tachypneic and symmetric chest movement Auscultation: lungs clear to auscultation bilaterally Cardiovascular: RRR, no murmur, no edema Gastrointestinal (Abdomen): normal bowel sounds, soft, nontender, no hepatosplenomegaly Skin: no rashes, warm and dry Neurologic: CN's II-XI intact bilaterally and + confused; + does not move all extremities (weakness, 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) Results & Data Results & Data ([facility]) Vital Signs (Past 12 Hours) Vital Signs Temp Pulse Resp BP Pulse Ox 05/12/21 18:02 82 140/70 88 L 05/12/21 17:02 79 129/65 88 L 05/12/21 16:02 37.2 C 86 139/73 90 05/12/21 15:07 83 38 H 90 05/12/21 15:02 82 146/76 H 89 L 05/12/21 14:02 78 144/78 H 89 L 05/12/21 13:03 73 151/78 H 89 L 05/12/21 12:00 37.4 C 80 90 05/12/21 11:12 78 31 H 90 05/12/21 11:00 37.5 C 75 91 05/12/21 10:00 37.8 C H 77 89 L Laboratory Results Laboratory Results - last 24 hr 05/12/21 05/12/21 03:34 16:29 POC Hgb 12.2 L POC Hct 36 L Sample Site Art Line POC pH 7.43 POC pCO2 66 H POC pO2 56 L POC HCO3 44 H POC Total CO2 > 40 H* POC Base Excess 19.0 H ABG pH (Temp Correct) 7.413 ABG pCO2 (Temp Corrct 69 H POC ABG pO2 at Pt Temp 60 POC ABG O2 Sat 88.0 L Nikolas Test NA O2 Delivery Device Ventilator POC O2 Rate 32 Minute Ventilation 14.2 POC FiO2 60 Tidal Volume 400 PEEP 10 POC Sodium 151 H POC Potassium 3.4 POC Glucose 161 H Medications Administered Current Inpatient Medications Acetaminophen (Acetaminophen 325 Mg Tab) 650 mg PO Q4H PRN PRN Reason: pain/fever Stop: 05/23/21 06:24 Last Admin: 05/12/21 16:25 Dose: 650 mg Documented by: Albuterol (Albuterol Hfa 8 Gm Inhaler) 2 puffs INH Q4R PRN PRN Reason: sob Stop: 05/23/21 06:24 Amlodipine Besylate (Amlodipine Besylate 5 Mg Tab) 10 mg PO QAM [facility] Stop: 06/08/21 08:59 Last Admin: 05/12/21 08:31 Dose: 10 mg Documented by: Clonazepam (Clonazepam 0.5 Mg Tab) 0.5 mg PO Q8H [facility] Stop: 05/16/21 08:01 Last Admin: 05/12/21 16:25 Dose: 0.5 mg Documented by: Docusate Sodium (Docusate Sodium Syrup 100 Mg/10 Ml Udc) 50 mg PO BID [facility] Stop: 06/08/21 20:59 Last Admin: 05/12/21 20:34 Dose: 50 mg Documented by: Enoxaparin Sodium (Enoxaparin Inj 40 Mg/0.4 Ml Syr) 40 mg SQ QAM [facility] Stop: 05/29/21 08:59 Last Admin: 05/12/21 08:30 Dose: 40 mg Documented by: Furosemide 40 mg/ Syringe 4 mls @ 4 mls/min IV DAILY [facility] Stop: 06/09/21 08:59 Last Admin: 05/11/21 08:24 Dose: 4 mls/min Documented by: Lansoprazole (Lansoprazole 30 Mg Soltab) 30 mg NG DAILY [facility] Stop: 06/11/21 10:59 Last Admin: 05/12/21 11:50 Dose: 30 mg Documented by: Metoprolol Tartrate (Metoprolol Tartrate 1 Mg/Ml Vial) 2.5 mg IV Q6H PRN PRN Reason: systolic BP > 160 Stop: 06/10/21 10:10 Last Admin: 05/12/21 05:36 Dose: 2.5 mg Documented by: Metoprolol Tartrate (Metoprolol Tartrate 25 Mg Tab) 25 mg PO BID [facility] Stop: 06/11/21 10:29 Last Admin: 05/12/21 20:33 Dose: 25 mg Documented by: Nutritional Formula (Peptamen Intense Vhp 1.0 Asad 1,000 Ml Bag) 1,000 ml OG UD [facility]; Protocol Stop: 05/24/21 13:14 Last Admin: 05/12/21 12:05 Dose: 1,000 ml Documented by: Ondansetron HCl (Ondansetron Inj 2 Mg/Ml 2 Ml Vial) 4 mg IV Q6H PRN PRN Reason: Nausea Stop: 05/23/21 06:24 Oxycodone HCl (Oxycodone Hcl Ir 5 Mg Tab (Immediate Release)) 10 mg PO Q8H [facility] Stop: 05/14/21 01:01 Last Admin: 05/12/21 16:25 Dose: 10 mg Documented by: Oxycodone HCl (Oxycodone Hcl Ir 5 Mg Tab (Immediate Release)) 10 mg PO Q12H [facility] Stop: 05/15/21 21:01 Polyethylene Glycol (Polyethylene (Miralax) 17 Gm Pack) 17 gm PO BID [facility] Stop: 06/04/21 20:59 Last Admin: 05/12/21 20:33 Dose: 17 gm Documented by: Sennosides (Sennosides 8.8 Mg/5 Ml Udc) 8.8 mg PO BID [facility] Stop: 06/08/21 20:59 Last Admin: 05/12/21 20:33 Dose: 8.8 mg Documented by: Sterile Water (Tube Feeding Water Flush) 30 ml OG Q4H [facility] Stop: 05/24/21 13:14 Last Admin: 05/12/21 20:34 Dose: 30 ml Documented by: PG Care Time/CCT Total # of Minutes Spent Total Time Spent with Patient: Total time spent is greater than 50% in coordination of care (as documented) at patient's floor/unit and/or counseling patient: Coding Level of Care Code 28324 Subseq Hosp Care Lvl 2 Diagnoses COVID-19 U07.1 Acute respiratory failure with hypoxia J96.01 ARDS (adult respiratory distress syndrome) J80 Leukocytosis D72.829 Hyperglycemia R73.9 Hyponatremia E87.1 Hypokalemia E87.6 Pneumonia due to COVID-19 virus U07.1; J12.82 Transaminitis R74.01 Fever R50.9 Hypertension I10
[2021-05-13] MEDS: clonazePAM 0.5 MG TAB PO SCH ×3 (00:04→15:53)
[2021-05-13] MEDS: oxyCODONE HCL IR 5 MG TAB (IMMEDIATE RELEASE) PO SCH ×3 (00:04→15:53)
[2021-05-13] MEDS: TUBE FEEDING WATER FLUSH OG SCH ×4 (00:04→17:26)
[2021-05-13] MEDS: PEPTAMEN INTENSE VHP 1.0 CAL 1,000 ML BAG OG SCH (05:15)
[2021-05-13 05:59] LABS: Basophils # (auto) 0.03 K/uL (0-0.2); Basophils % (auto) 0.2 %; Eosinophils # (auto) 0.04 K/uL (0-0.5); Eosinophils % (auto) 0.3 %; Hemoglobin 12.5 g/dL (14.0-18.0); Immature Granulocytes # (auto) 0.21 K/uL (0.00-0.02); Immature Granulocytes % (auto) 1.4 %; Lymphocytes # (auto) 1.65 K/uL (1.2-3.4); Lymphocytes % (auto) 10.8 %; Mean Corpuscular Hemoglobin 32.4 pg (25-34); Mean Corpuscular Hgb Conc 31.3 g/dL (32-36); Mean Corpuscular Volume 103.6 fL (80-100); Mean Platelet Volume 9.6 fL (7.4-10.4); Monocytes # (auto) 1.22 K/uL (0.11-0.59); Neutrophils # (auto) 12.11 K/uL (1.4-6.5); Neutrophils % (auto) 79.3 %; Platelet Count 282 K/uL (130-400); RDW Coefficient of Variation 14.2 % (11.5-14.5); RDW Standard Deviation 53.7 fL (36.4-46.3); Red Blood Count 3.86 M/uL (4.7-6.1); White Blood Count 15.26 K/uL (4.8-10.8)
[2021-05-13 06:24] LABS: BUN Creatinine Ratio 54.6 (10-20); Bilirubin Direct 0.3 mg/dl (0-0.2); Calcium 9.1 mg/dl (8.5-10.1); Creatinine Clr Calc Pharmacy 111.6 ml/min; Est GFR (Non-African American) 100.1 ml/min; Magnesium 2.7 mg/dl (1.8-2.4); Potassium 3.3 mmol/L (3.5-5.1)
[2021-05-13 06:28] LABS: Bilirubin,Total 0.6 mg/dl (0.2-1); Total Protein 7.7 gm/dl (6.4-8.2)
[2021-05-13] MEDS ORDERED: POTASSIUM PHOS 3 MMOL/1 ML INFUSION IV STA (06:36)
[2021-05-13] MEDS ORDERED: POTASSIUM PHOSPHATE 30 MMOL in SODIUM CHLORIDE 0.9% 500 ML IV ONE (06:45)
[2021-05-13] MEDS ORDERED: POTASSIUM CHLORIDE 20 MEQ/15 ML UDC PO STA (06:49)
[2021-05-13] MEDS ORDERED: Nursing to Pharmacy Communication SCH (08:00)
[2021-05-13] MEDS: amLODIPine BESYLATE 5 MG TAB PO SCH (09:07)
[2021-05-13] MEDS: METOPROLOL TARTRATE 25 MG TAB PO SCH ×2 (09:07→20:12)
[2021-05-13] MEDS: SENNOSIDES 8.8 MG/5 ML UDC PO SCH ×2 (09:07→20:11)
[2021-05-13] MEDS: ENOXAPARIN INJ 40 MG/0.4 ML SYR SQ SCH (09:07)
[2021-05-13] MEDS: LANSOPRAZOLE 30 MG SOLTAB NG SCH (09:07)
[2021-05-13] MEDS: POLYETHYLENE (MIRALAX) 17 GM PACK PO SCH ×2 (09:07→20:12)
[2021-05-13] MEDS: DOCUSATE SODIUM SYRUP 100 MG/10 ML UDC PO SCH ×2 (09:07→20:12)
--- NOTE | 2021-05-13 11:21 | Critical Care Progress Note ---
Date of Service May 13, 2021 Assessment & Plan (1) ARDS (adult respiratory distress syndrome): (2) COVID-19: (3) Admitted to intensive care unit: (4) Acute respiratory failure with hypoxia: (5) Bradycardia: Plan: Reason critically ill: 66 yo M with no significant PMHx admitted with acute respiratory failure with hypoxia secondary to COVID-19 pneumonia admitted to ICU requiring close monitoring given tenuous respiratory status. NEURO: Off Versed and fentanyl infusions. -10 mg oxycodone every 8 hours empiric for withdraw -Will gradually decrease the dose -Clonazepam 0.[address] head 05/12/2021: Negative for any acute changes CARDIAC/VASCULAR: --Episodes of bradycardia in the past Resolved --Hypertension Continue with amlodipine and metoprolol via NGT As needed IV metoprolol for SBP greater than 180 RESPIRATORY: Acute hypoxic respiratory distress secondary to COVID-19 pneumonia Intubated 04/24. Tracheostomy 05/08 Received tocilizumab therapy. Wean ventilator as possible GI/NUTRITION: Tube feedings Constipation: Resolved Continue docusate and senna and MiraLAX. Methylnaltrexone for probable opiate-induced constipation x1 Hypertriglyceridemia: Off propofol sedation RENAL/LYTES: - No significant issues. Replace electrolytes per protocol. GENITOURINARY: No acute concerns. Strict Is/Os. ENDO: ICU hyperglycemia protocol. HEME: No significant issues at this time. ID: COVID-19 pneumonia Blood culture 05/11/2021 negative to date Sputum culture 05/12/2021 negative to date --Prophylaxis VTE: Lovenox GI: Lansoprazole Lines: Peripherals, status post tracheostomy 05/08/2021 Diet: Tube feeds Plan: In/out: -188, urine output 2050 Patient is hyponatremic today with sodium 141. Free water deficit is 3.6 L I am going to give the patient 200 mL every 6 hours of free water via the NGT Hypokalemia and hypophosphatemia being replaced Patient is still very tachypneic whether he is on pressure support or on the assist control mode Fever/withdrawal might be playing a role. A central issue of which tachypnea still a possibility We will consider MRI of the brain in the next 24-48 hours if there is no improvement. Patient's Pauline Luu [phone] I have personally spent 37 minutes of critical care time in the direct management of this patient. This is a life/limb threatening event. This includes time spent evaluating patient, direct bedside care, chart review, placing orders, interpretation of diagnostic studies, discussion with consultants, patient, and family members, as well as other required patient management activities. This time is exclusive of all separately billable procedures, and teaching time and separate from and in addition to any other critical care service time. Please note the above document was generated using voice recognition software. It may contain grammatical, syntax or spelling errors. Admission and Anticipated Discharge Date Admission Date: April 23, 2021 Subjective Patient seen and examined at bedside. No acute distress, no adverse events overnight Patient is not on any IV sedation He is getting oxycodone and clonazepam He was on pain control overnight. Currently on pressure support at the time of examination Patient was breathing in the high 30s at the time of examination. He also had fever of 38.4 Review of Systems Review of Systems: Unobtainable due to mental health condition Physical Exam Physical Exam: Constitutional: No acute distress HEENT: PERRLA, + Trach Respiratory system: Decreased air entry bilaterally, no wheeze, rhonchi, posit fausto crackles bilateral lower lobes CVS: S1-S2 positive, no murmurs or gallops Abdomen: Soft, nontender, nondistended, positive bowel sounds x4 Extremities: +2 pulses bilaterally radialis/ dorsalis pedis, no cyanosis, No edema Neuro: Not following commands, breathing over the vent Psych: Unable to assess G/U: Condom Valadez Skin: no rashes, warm and dry Lymphatic: no cervical or axillary lymphadenopathy Results & Data Results & Data ([facility]) Vital Signs (Past 12 Hours) Vital Signs Temp Pulse Resp BP Pulse Ox 05/13/21 10:36 77 38 H 89 L 05/13/21 07:45 46 L 39 H 91 05/13/21 06:03 38.4 C H 83 169/88 H 88 L 05/13/21 05:02 38.1 C H 82 162/84 H 88 L 05/13/21 04:02 37.9 C H 83 154/83 H 88 L 05/13/21 03:02 38.2 C H 88 37 H 167/90 H 89 L 05/13/21 02:03 38.1 C H 84 166/88 H 88 L 05/13/21 01:03 38.2 C H 75 142/72 H 88 L 05/13/21 00:02 38.1 C H 85 142/76 H 87 L 05/13/21 00:00 87 05/13/21 05:43 05/13/21 05:43 Coding Level of Care Code Critical Care 1st 30-74 mins Diagnoses ARDS (adult respiratory distress syndrome) J80 COVID-19 U07.1 Admitted to intensive care unit Z78.9 Acute respiratory failure with hypoxia J96.01 Bradycardia R00.1 Time Spent (min) 37
[2021-05-13] MEDS: ACETAMINOPHEN 325 MG TAB PO PRN ×2 (13:51→22:00)
[2021-05-13] MEDS ORDERED: LORazepam 2 MG/4 ML VIAL ONE (19:38)
[2021-05-13] MEDS ORDERED: LORazepam 4 MG/8 ML VIAL IV STA (19:42)
[2021-05-13] MEDS ORDERED: MIDAZOLAM HCL 5 MG/ML 1 ML VIAL ONE (21:47)
[2021-05-13] MEDS ORDERED: VECURONIUM BROMIDE 10 MG VIAL IV ONE (21:47)
--- NOTE | 2021-05-13 22:05 | XRay Report ---
XR chest 1V portable INDICATION: MN ^Y ^Low SPO2. TECHNIQUE: Single frontal radiograph of the chest was obtained. Comparison: Comparison is made to chest one view 05/12/2021 FINDINGS: Lines and tubes are stable. The cardiomediastinal silhouette is stable. Interval worsening of diffuse airspace opacities bilaterally. No evidence of pleural effusion or pneumothorax. IMPRESSION: Interval worsening of bilateral airspace opacities in this patient with history of viral pneumonia. ACT 112: Negative or not required by law. Electronically signed by: Tyrone Johnson M.D. 05/13/2021 10:04 PM
[2021-05-13] MEDS ORDERED: VECURONIUM BROMIDE 10 MG VIAL IV STA (22:10)
[2021-05-13] MEDS ORDERED: MIDAZOLAM HCL 5 MG/ML 1 ML VIAL IV STA (22:10)
--- NOTE | 2021-05-13 22:17 | Hospitalist Progress Note ---
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 lug loader management of ventilator-now status post tracheostomy on 05/08 -Transitioned to Precedex for sedation, and receiving scheduled oxycodone and Klonopin per NGT x3-day course and then weaning off palliative consulted to have ongoing discussion about goals of care will update family, will need to move toward LTACH (2) Acute respiratory failure with hypoxia: Plan: As above Secondary to COVID-19 pneumonia severe ARDS, as above Continue diuresis as well with Lasix 40 mg IV daily intermittently trying pressure support (3) ARDS (adult respiratory distress syndrome): Plan: As above (4) Leukocytosis: Plan: WBC trended upward to 20 K and now back down to 14, without any intervention Now with fever starting on 05/10, continues to have fever Has already had central lines removed. Has an A-line in place Valadez catheter was removed on 05/09 No antibiotics for now sputum culture with no growth blood cultures drawn, no growth CT head negative for acute process CT chest and MRI brain tomorrow (5) Hyperglycemia: Plan: With some hyperglycemia likely secondary to corticosteroids which is now resolved No insulin needed (6) Hyponatremia: Plan: normalized (7) Hypokalemia: Plan: secondary to loop diuretics Follow BMP as is receiving IV Lasix -Give potassium chloride per ICU replacement protocol (8) Pneumonia due to COVID-19 virus: Plan: As above (9) Transaminitis: Plan: Mildly elevated AST Likely secondary to Covid-19 LFTs not repeated since 04/27 (10) Fever: Plan: As above continues to spike fevers, unclear etiology (11) Hypertension: Plan: With hyper tension likely related to weaning off sedation amlodipine 10mg daily IV labetalol as needed Precedex and oxycodone, lorazepam and weaning off Plan: DVT prophylaxis- Lovenox SQ GI prophylaxis-IV Protonix, received methylnaltrexone x1 on 05/04 and 05/05, senna/docusate twice daily, MiraLAX twice daily-did have a bowel movement on 05/06 and again 05/09 FEN-continue tube feeds per ICU Dc Valadez on 05/09 and has [place] Catheter on Disposition-continued stay in the ICU, prognosis guarded, eventually will need LTACH Palliative medicine following along, will need to have further discussions with family Admission and Anticipated Discharge Date Admission Date: April 23, 2021 Subjective patient continues to be unresponsive on vent with tracheostomy CT head negative family did a face time visit with him still spiking fevers, Dr. White plans to do an EEG and brain MRI tomorrow Review of Systems Review of Systems: Unobtainable due to cognitive status Physical Exam Constitutional: well developed, well nourished, + ill appearing and + mechanically ventilated (via tracheostomy) Neck: trachea midline, no thyromegaly + tracheostomy present Respiratory: + tachypneic and symmetric chest movement Auscultation: lungs clear to auscultation bilaterally Cardiovascular: RRR, no murmur, no edema Gastrointestinal (Abdomen): normal bowel sounds, soft, nontender, no hepatosplenomegaly Skin: no rashes, warm and dry Neurologic: CN's II-XI intact bilaterally and + confused; + does not move all extremities (weakness, 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) Results & Data Results & Data ([facility]) Vital Signs (Past 12 Hours) Vital Signs Temp Pulse Resp BP Pulse Ox 05/13/21 19:15 38 H 05/13/21 15:32 37.9 C H 80 139/74 91 05/13/21 15:02 38.1 C H 80 136/76 91 05/13/21 15:00 81 37 H 91 05/13/21 14:32 38.2 C H 84 135/78 91 05/13/21 14:03 38.3 C H 79 133/70 89 L 05/13/21 13:32 38.3 C H 85 144/75 H 90 05/13/21 13:02 38.3 C H 83 139/74 90 05/13/21 12:32 38.4 C H 85 141/76 H 89 L 05/13/21 12:03 38.4 C H 82 139/72 89 L 05/13/21 11:33 38.6 C H 80 139/74 90 05/13/21 11:02 38.6 C H 82 138/74 90 05/13/21 10:36 77 38 H 89 L 05/13/21 10:32 38.5 C H 77 130/70 89 L Laboratory Results Laboratory Results - last 24 hr 05/13/21 05/13/21 05/13/21 05:43 05:43 11:40 WBC 15.26 H RBC 3.86 L Hgb 12.5 L Hct 40.0 L MCV 103.6 H MCH 32.4 MCHC 31.3 L RDW Std Deviation 53.7 H RDW Coeff of Elvin 14.2 Plt Count 282 MPV 9.6 Immature Gran % (Auto) 1.4 Neut % (Auto) 79.3 Lymph % (Auto) 10.8 [place] % (Auto) 8.0 Eos % (Auto) 0.3 Baso % (Auto) 0.2 Neut # (Auto) 12.11 H Lymph # (Auto) 1.65 [place] # (Auto) 1.22 H Eos # (Auto) 0.04 Baso # (Auto) 0.03 Immature Gran # (Auto) 0.21 H Sodium 149 H Potassium 3.3 L Chloride 107 Carbon Dioxide 39 H Anion Gap 3.0 BUN 36 H Creatinine 0.67 Est Cr Clr Drug Dosing 111.6 Est GFR ( Amer) 116.0 Est GFR (Non-Af Amer) 100.1 BUN/Creatinine Ratio 54.6 H Glucose 119 H POC Glucose 138 H Calcium 9.1 Phosphorus 2.0 L Magnesium 2.7 H Total Bilirubin 0.6 Direct Bilirubin 0.3 H AST 28 ALT 42 Alkaline Phosphatase 104 Total Protein 7.7 Albumin 2.0 L 05/13/21 17:30 WBC RBC Hgb Hct MCV MCH MCHC RDW Std Deviation RDW Coeff of Elvin Plt Count MPV Immature Gran % (Auto) Neut % (Auto) Lymph % (Auto) [place] % (Auto) Eos % (Auto) Baso % (Auto) Neut # (Auto) Lymph # (Auto) [place] # (Auto) Eos # (Auto) Baso # (Auto) Immature Gran # (Auto) Sodium Potassium Chloride Carbon Dioxide Anion Gap BUN Creatinine Est Cr Clr Drug Dosing Est GFR ( Amer) Est GFR (Non-Af Amer) BUN/Creatinine Ratio Glucose POC Glucose 134 H Calcium Phosphorus Magnesium Total Bilirubin Direct Bilirubin AST ALT Alkaline Phosphatase Total Protein Albumin Medications Administered Current Inpatient Medications Acetaminophen (Acetaminophen 325 Mg Tab) 650 mg PO Q4H PRN PRN Reason: pain/fever Stop: 05/23/21 06:24 Last Admin: 05/13/21 22:00 Dose: 650 mg Documented by: Albuterol (Albuterol Hfa 8 Gm Inhaler) 2 puffs INH Q4R PRN PRN Reason: sob Stop: 05/23/21 06:24 Amlodipine Besylate (Amlodipine Besylate 5 Mg Tab) 10 mg PO QAM [facility] Stop: 06/08/21 08:59 Last Admin: 05/13/21 09:07 Dose: 10 mg Documented by: Clonazepam (Clonazepam 0.5 Mg Tab) 0.5 mg PO Q8H [facility] Stop: 05/16/21 08:01 Last Admin: 05/13/21 15:53 Dose: 0.5 mg Documented by: Docusate Sodium (Docusate Sodium Syrup 100 Mg/10 Ml Udc) 50 mg PO BID [facility] Stop: 06/08/21 20:59 Last Admin: 05/13/21 20:12 Dose: 50 mg Documented by: Enoxaparin Sodium (Enoxaparin Inj 40 Mg/0.4 Ml Syr) 40 mg SQ QAM [facility] Stop: 05/29/21 08:59 Last Admin: 05/13/21 09:07 Dose: 40 mg Documented by: Furosemide 40 mg/ Syringe 4 mls @ 4 mls/min IV DAILY [facility] Stop: 06/09/21 08:59 Last Admin: 05/11/21 08:24 Dose: 4 mls/min Documented by: Furosemide 40 mg/ Syringe 4 mls @ 4 mls/min IV ONE ONE Stop: 05/13/21 22:31 Lansoprazole (Lansoprazole 30 Mg Soltab) 30 mg NG DAILY [facility] Stop: 06/11/21 10:59 Last Admin: 05/13/21 09:07 Dose: 30 mg Documented by: Metoprolol Tartrate (Metoprolol Tartrate 1 Mg/Ml Vial) 2.5 mg IV Q6H PRN PRN Reason: systolic BP > 160 Stop: 06/10/21 10:10 Last Admin: 05/12/21 05:36 Dose: 2.5 mg Documented by: Metoprolol Tartrate (Metoprolol Tartrate 25 Mg Tab) 25 mg PO BID [facility] Stop: 06/11/21 10:29 Last Admin: 05/13/21 20:12 Dose: 25 mg Documented by: Nutritional Formula (Peptamen Intense Vhp 1.0 Asad 1,000 Ml Bag) 1,000 ml OG UD [facility]; Protocol Stop: 05/24/21 13:14 Last Admin: 05/13/21 05:15 Dose: 1,000 ml Documented by: Ondansetron HCl (Ondansetron Inj 2 Mg/Ml 2 Ml Vial) 4 mg IV Q6H PRN PRN Reason: Nausea Stop: 05/23/21 06:24 Oxycodone HCl (Oxycodone Hcl Ir 5 Mg Tab (Immediate Release)) 10 mg PO Q8H [facility] Stop: 05/14/21 01:01 Last Admin: 05/13/21 15:53 Dose: 10 mg Documented by: Oxycodone HCl (Oxycodone Hcl Ir 5 Mg Tab (Immediate Release)) 10 mg PO Q12H [facility] Stop: 05/15/21 21:01 Polyethylene Glycol (Polyethylene (Miralax) 17 Gm Pack) 17 gm PO BID [facility] Stop: 06/04/21 20:59 Last Admin: 05/13/21 20:12 Dose: 17 gm Documented by: Sennosides (Sennosides 8.8 Mg/5 Ml Udc) 8.8 mg PO BID [facility] Stop: 06/08/21 20:59 Last Admin: 05/13/21 20:11 Dose: 8.8 mg Documented by: Sterile Water (Tube Feeding Water Flush) 30 ml OG Q4H [facility] Stop: 05/24/21 13:14 Last Admin: 05/13/21 05:15 Dose: 30 ml Documented by: Sterile Water (Tube Feeding Water Flush) 200 ml OG Q6H [facility] Stop: 05/14/21 18:01 Last Admin: 05/13/21 17:26 Dose: 200 ml Documented by: PG Care Time/CCT Total # of Minutes Spent Total Time Spent with Patient: Total time spent is greater than 50% in coordination of care (as documented) at patient's floor/unit and/or counseling patient: Coding Level of Care Code 57233 Subseq Hosp Care Lvl 2 Diagnoses COVID-19 U07.1 Acute respiratory failure with hypoxia J96.01 ARDS (adult respiratory distress syndrome) J80 Leukocytosis D72.829 Hyperglycemia R73.9 Hyponatremia E87.1 Hypokalemia E87.6 Pneumonia due to COVID-19 virus U07.1; J12.82 Transaminitis R74.01 Fever R50.9 Hypertension I10
[2021-05-13] MEDS ORDERED: FUROSEMIDE 40 MG in SYRINGE 0 ML IV ONE (22:30)
[2021-05-13 23:07] LABS: Basophils # (auto) 0.02 K/uL (0-0.2); Basophils % (auto) 0.1 %; Eosinophils # (auto) 0.08 K/uL (0-0.5); Eosinophils % (auto) 0.6 %; Hematocrit (blood only) 43.3 % (42-52); Hemoglobin 13.1 g/dL (14.0-18.0); Immature Granulocytes # (auto) 0.13 K/uL (0.00-0.02); Immature Granulocytes % (auto) 0.9 %; Lymphocytes # (auto) 0.77 K/uL (1.2-3.4); Lymphocytes % (auto) 5.5 %; Mean Corpuscular Hemoglobin 32.1 pg (25-34); Mean Corpuscular Volume 106.1 fL (80-100); Monocytes # (auto) 0.55 K/uL (0.11-0.59); Monocytes % (auto) 3.9 %; Neutrophils # (auto) 12.51 K/uL (1.4-6.5); Platelet Count 296 K/uL (130-400); RDW Coefficient of Variation 14.4 % (11.5-14.5); RDW Standard Deviation 56.3 fL (36.4-46.3); Red Blood Count 4.08 M/uL (4.7-6.1); White Blood Count 14.06 K/uL (4.8-10.8)
[2021-05-13 23:08] LABS: Mean Corpuscular Hgb Conc 30.3 g/dL (32-36)
[2021-05-13 23:34] LABS: iSTAT Allen Test Pass; iSTAT Art Bld Gas pCO2 Correct 81 mmHg (35-46); iSTAT Art Bld Gas pH Corrected 7.338 (7.35-7.45); iSTAT Arterial Blood Gas HCO3 43 meg/L (19-24); iSTAT Arterial Blood Gas pCO2 74 mmHg (35-46); iSTAT Arterial Blood Gas pH 7.37 (7.35-7.45); iSTAT Arterial Blood Gas pO2 70 mmHg (80-95); iSTAT Arterial Blood Gas pO2 C 81; iSTAT Carbon Dioxide > 40 mmol/L (24-31); iSTAT FiO2 100 %; iSTAT Hematocrit 37 % (42-52); iSTAT Hemoglobin 12.6 g/dl (14.0-18.0); iSTAT Potassium 3.6 mmol/L (3.3-5.0); iSTAT Site R Radial; iSTAT Sodium 153 mmol/L (135-144)
[2021-05-13 23:35] LABS: BUN Creatinine Ratio 51.1 (10-20); Creatinine Clr Calc Pharmacy 98.1 ml/min; Est GFR (African American) 110.8 ml/min; Est GFR (Non-African American) 95.6 ml/min; Potassium 4.1 mmol/L (3.5-5.1)
[2021-05-14] MEDS ORDERED: ACETAMINOPHEN 1000 MG/100 ML IV IV ONE (02:50)
[2021-05-14] MEDS: oxyCODONE HCL IR 5 MG TAB (IMMEDIATE RELEASE) PO SCH ×3 (04:25→20:01)
[2021-05-14] MEDS: clonazePAM 0.5 MG TAB PO SCH ×3 (04:25→15:42)
[2021-05-14] MEDS: TUBE FEEDING WATER FLUSH OG SCH ×5 (04:26→20:01)
[2021-05-14] MEDS ORDERED: oxyCODONE HCL IR 5 MG TAB (IMMEDIATE RELEASE) PO ONE (04:30)
[2021-05-14] MEDS ORDERED: Nursing to Pharmacy Communication SCH (04:30)
[2021-05-14 05:26] LABS: iSTAT Allen Test Pass; iSTAT Art Bld Gas pCO2 Correct 85 mmHg (35-46); iSTAT Arterial Blood Gas HCO3 44 meg/L (19-24); iSTAT Arterial Blood Gas pCO2 79 mmHg (35-46); iSTAT Arterial Blood Gas pH 7.35 (7.35-7.45); iSTAT Arterial Blood Gas pO2 69 mmHg (80-95); iSTAT Arterial Blood Gas pO2 C 78; iSTAT Carbon Dioxide > 40 mmol/L (24-31); iSTAT FiO2 85 %; iSTAT Hematocrit 36 % (42-52); iSTAT Hemoglobin 12.2 g/dl (14.0-18.0); iSTAT Potassium 4.2 mmol/L (3.3-5.0); iSTAT Site R Radial; iSTAT Sodium 151 mmol/L (135-144)
[2021-05-14] MEDS ORDERED: ACETAMINOPHEN 1,000 MG/100 ML VIAL IV STA (06:23)
[2021-05-14] MEDS: METOPROLOL TARTRATE 25 MG TAB PO SCH ×2 (07:37→20:00)
[2021-05-14] MEDS: amLODIPine BESYLATE 5 MG TAB PO SCH (07:37)
[2021-05-14] MEDS: POLYETHYLENE (MIRALAX) 17 GM PACK PO SCH ×2 (07:37→19:59)
[2021-05-14] MEDS: ENOXAPARIN INJ 40 MG/0.4 ML SYR SQ SCH (07:38)
[2021-05-14] MEDS: LANSOPRAZOLE 30 MG SOLTAB NG SCH (07:38)
[2021-05-14] MEDS: SENNOSIDES 8.8 MG/5 ML UDC PO SCH ×2 (07:38→20:00)
[2021-05-14] MEDS: DOCUSATE SODIUM SYRUP 100 MG/10 ML UDC PO SCH ×2 (07:38→20:00)
[2021-05-14] MEDS ORDERED: PIPERACILL/TAZOBAC CONSULT ACTIVE PRN (07:58)
[2021-05-14] MEDS ORDERED: PIPERACILLIN/TAZOBACTAM 4.5 GM in DEXTROSE 5% 100 ML IV ONE (08:45)
[2021-05-14] MEDS ORDERED: oxyCODONE HCL IR 5 MG TAB (IMMEDIATE RELEASE) PO SCH (09:00)
--- NOTE | 2021-05-14 10:44 | Critical Care Progress Note ---
Date of Service May 14, 2021 Assessment & Plan (1) ARDS (adult respiratory distress syndrome): (2) COVID-19: (3) Admitted to intensive care unit: (4) Acute respiratory failure with hypoxia: (5) Bradycardia: Plan: Reason critically ill: 66 yo M with no significant PMHx admitted with acute respiratory failure with hypoxia secondary to COVID-19 pneumonia admitted to ICU requiring close monitoring given tenuous respiratory status. NEURO: Off Versed and fentanyl infusions. -10 mg oxycodone every 8 hours empiric for withdraw -Will gradually decrease the dose -Clonazepam 0.[address] head 05/12/2021: Negative for any acute changes CARDIAC/VASCULAR: --Episodes of bradycardia in the past Resolved --Hypertension Continue with amlodipine and metoprolol via NGT As needed IV metoprolol for SBP greater than 180 RESPIRATORY: Acute hypoxic respiratory distress secondary to COVID-19 pneumonia Intubated 04/24. Tracheostomy 05/08 Received tocilizumab therapy. Wean ventilator as possible GI/NUTRITION: Tube feedings Constipation: Resolved Continue docusate and senna and MiraLAX. Methylnaltrexone for probable opiate-induced constipation x1 Hypertriglyceridemia: Off propofol sedation RENAL/LYTES: - No significant issues. Replace electrolytes per protocol. --Hypernatremia Getting free water flushes through the OGT GENITOURINARY: No acute concerns. Strict Is/Os. ENDO: ICU hyperglycemia protocol. HEME: No significant issues at this time. ID: COVID-19 pneumonia Blood culture 05/11/2021 negative to date Sputum culture 05/12/2021 negative to date --Overall prognosis is guarded --Prophylaxis VTE: Lovenox GI: Lansoprazole Lines: Peripherals, status post tracheostomy 05/08/2021 Diet: Tube feeds Plan: In/out: Positive for 81, urine output 2765 AB.35/79/69 on 10 of PEEP, 85% Patient was on pressure support at time of examination 03/24. I increase it to 10/10 and will gradually increase to 12/10 if need be to keep tidal volume around 400. Free water deficit 5 L. Patient did get a dose of Lasix last night because of worsening oxygenation Continue with free water via NGT 200 mL every 6 hours Given the worsening infiltrates I will start the patient on Zosyn. Sputum culture has been negative I will get MRI of the brain as well as CT of the chest. EEG will also be done per patient's mental status. Patient's Pauline Luu [phone] I have personally spent 36 minutes of critical care time in the direct m anagement of this patient. This is a life/limb threatening event. This includes time spent evaluating patient, direct bedside care, chart review, placing orders, interpretation of diagnostic studies, discussion with consultants, patient, and family members, as well as other required patient management activities. This time is exclusive of all separately billable procedures, and teaching time and separate from and in addition to any other critical care service time. Please note the above document was generated using voice recognition software. It may contain grammatical, syntax or spelling errors. Admission and Anticipated Discharge Date Admission Date: April 23, 2021 Subjective Patient seen and examined at bedside. No acute distress Overnight patient was very tachypneic and speaking vitals were going up Chest x-ray was repeated and there was no pneumothorax appreciated Patient does have worsening infiltrates Mentally patient is still the same. Does not follow commands. Breathes over the vent. Has been spiking fever going up to T-max 39.2 Review of Systems Review of Systems: Unobtainable due to reduced consciousness Physical Exam Physical Exam: Constitutional: No acute distress HEENT: PERRLA, + Trach Respiratory system: Decreased air entry bilaterally, no wheeze, rhonchi, positive crackles bilateral lower lobes CVS: S1-S2 positive, no murmurs or gallops Abdomen: Soft, nontender, nondistended, positive bowel sounds x4 Extremities: +2 pulses bilaterally radialis/ dorsalis pedis, no cyanosis, No edema Neuro: Not following commands, breathing over the vent Psych: Unable to assess G/U: Condom Valadez Skin: no rashes, warm and dry Lymphatic: no cervical or axillary lymphadenopathy Results & Data Results & Data ([facility]) Vital Signs (Past 12 Hours) Vital Signs Temp Pulse Resp BP Pulse Ox 05/14/21 08:30 74 90 05/14/21 08:00 38.2 C H 87 97 05/14/21 07:55 31 H 91 05/14/21 07:50 92 H 31 H 95 05/14/21 07:30 83 95 05/14/21 07:00 82 95 05/14/21 06:45 84 95 05/14/21 06:00 38.7 C H 84 116/63 93 05/14/21 05:00 38.7 C H 82 120/69 92 05/14/21 04:01 38.8 C H 93 H 131/73 94 05/14/21 03:00 39.1 C H 93 H 125/88 90 05/14/21 02:50 93 H 34 H 91 05/14/21 02:33 39 C H 93 H 122/70 86 L 05/14/21 01:00 38.9 C H 90 118/67 86 L 05/14/21 00:00 39.0 C H 85 127/68 87 L 05/13/21 23:48 35 H 05/13/21 23:01 39.2 C H 82 92 05/13/21 22:38 05/13/21 22:38 Coding Level of Care Code Critical Care 1st 30-74 mins Diagnoses ARDS (adult respiratory distress syndrome) J80 COVID-19 U07.1 Admitted to intensive care unit Z78.9 Acute respiratory failure with hypoxia J96.01 Bradycardia R00.1 Time Spent (min) 36
--- NOTE | 2021-05-14 11:19 | XRay Report ---
XR chest 1V portable CLINICAL HISTORY: f/u COMPARISON STUDY: May 13, 2021 FINDINGS: No pneumothorax. No definite pleural effusion is seen however evaluation is suboptimal because right costophrenic angl e is partially outside of [id number]. Bilateral patchy airspace opacities are again seen throughout right the left lung, not significantly changed since prior. Cardiomediastinal silhouette is within normal limits in size. Pulmonary vasculature is obscured.. Osseous structures: unremarkable Stable position of tracheostomy tube and feeding tube. IMPRESSION: 1. Multifocal infiltrates are stable since prior and this patient with history of atypical pneumonia . 2. Support apparatus as above. ACT 112: Negative or not required by law. The above report was generated using voice recognition software. It may contain grammatical, syntax o r spelling errors. Electronically signed by: Lydia Jones DO 05/14/2021 11:17 AM
--- NOTE | 2021-05-14 15:10 | Magnetic Resonance Report ---
MRI OF THE BRAIN COMBO CLINICAL HISTORY: Encephalopathy. COMPARISON STUDY: CT of the brain dated 05/12/2021. TECHNIQUE: MRI of the brain was performed utilizing various T1 and T2-weighted sequences in the axial , sagittal, and coronal planes. Contrast-enhanced sequences were acquired following the administratio n of 7.5 cc of Gadavist. FINDINGS: Brain parenchyma: There is age-related involutional change noting mild subcortical and periventricula r microangiopathic disease. There is no hemorrhage or mass effect. There is no restricted diffusion t o suggest acute ischemia. No enhancing mass lesion is identified on the postcontrast images. Watson-whi te matter differentiation is preserved. A developmental venous anomaly is incidentally noted in the r ight frontal lobe. No extra-axial fluid collection is seen. The cerebellar tonsils are normal in conf iguration. Ventricles, sulci, and cisterns: Prominent secondary to involutional change. Pituitary and sella: Unremarkable. Intracranial vasculature: Normal flow voids are maintained at the skull base. Orbits: The bony orbits are grossly intact. Orbital contents are normal in appearance. Sinuses and mastoids: There is near complete opacification of the sphenoid sinuses. Moderate mucosal thickening is noted in the ethmoid sinuses. Trace fluid is seen within the right maxillary antrum. Th ere are large mastoid effusions. Calvarium: Unremarkable. Cervical cord: Partially visualized cervical spinal cord is normal in morphology and signal intensity . IMPRESSION: 1. No acute intracranial abnormality. 2. Large mastoid effusions and paranasal sinus disease as above ACT 112: Negative or not required by law. Electronically signed by: Peter Quiroga M.D. 05/14/2021 3:09 PM
[2021-05-14] MEDS: PIPERACILLIN/TAZOBACTAM 4.5 GM in DEXTROSE 5% 100 ML IV SCH ×2 (15:41→21:38)
--- NOTE | 2021-05-14 15:43 | CT Scan Report ---
CT chest diagnostic wo con CLINICAL HISTORY: f/u COMPARISON STUDY: April 27, 2021 CT DOSE: 735.99 mGy.cm TECHNIQUE: CT of the thorax was performed from the thoracic inlet to the lung bases. Images are revi ewed in the axial, sagittal, and coronal planes. IV contrast was not administered for this examinatio n. A dose lowering technique was utilized adhering to the principles of ALARA. FINDINGS: There is no axillary or internal mammary lymphadenopathy seen. Nodular appearance of the soft tissue in supra clavicle region might represent small lymph nodes. Redemonstration of pretracheal lymph node prominence measuring 1.4 cm in size which could be reactive . Multiple other mediastinal lymph nodes are seen, and measure up to 1.4 cm in subcarinal region. Carlin ateral jaspreet are prominent and could represent enlarged lymph nodes. Thyroid: Visualized portion of thyroid gland shows no evidence of focal lesions. Esophagus contain ga stric tube and show normal appearance. Thoracic aorta: The thoracic aorta is normal in course and caliber, noting standard 3 vessel arch ирина la. Scattered calcifications of aortic wall are seen. Heart: The heart is normal in size and configuration, without pericardial effusion. Lungs and pleural spaces: Trachea bronchial tree is patent. There is the tracheal tube is seen within intrathoracic tracheal estella men. Dense consolidative opacities with patent bronchial structures are patchy and seen within dependent p ortions of bilateral lungs, slightly worsened since prior. Pulmonary parenchyma not affected by dense consolidation shows patchy areas decrease of groundglass attenuation associated with mild septal thi ckening. There is no normally aerated lung parenchyma is seen. Interval development of small bilateral pleural effusions. Upper abdomen: Partially visualized upper abdominal viscera is within normal limits. Skeletal structures: Mild multifocal degenerative changes of the spine. IMPRESSION: 1. Interval increase in density of consolidative opacities within bilateral lungs predominantly affe cting dependent portions of bilateral upper and lower lobes. Patchy groundglass attenuation is seen w ithin the rest of lung parenchyma with no normal aerated lung parenchyma seen. Continued radiographic follow-up is recommended. 2. Interval development of small bilateral pleural effusion. 3. Slightly prominent mediastinal lymphadenopathy. Evaluation of hilar lymph nodes is limited due to lack of IV contrast. 4. Mild atherosclerosis. 5. Support apparatus as above. ACT 112: Negative or not required by law. The above report was generated using voice recognition software. It may contain grammatical, syntax o r spelling errors. Electronically signed by: Lydia Jones DO 05/14/2021 3:42 PM
--- NOTE | 2021-05-14 16:33 | Electroencephalogram ---
EEG Procedure Note Date of Service May 14, 2021 Start / End Times Start Time: 12:25 PM End Time: 12:45 PM Referring Physician Ade White History Encephalopathy Home Medication List Medication Instructions Recorded Confirmed Type Oxygen Home #2 ea 04/21/21 Rx codeine 10 mg-guaifenesin 100 mg/5 10 ml PO Q6H PRN #120 ml 04/21/21 04/23/21 Rx mL oral liquid dexamethasone 2 mg tablet 4 mg PO DAILY 04/23/21 04/23/21 History Inpatient Medication List Acetaminophen (Acetaminophen 325 Mg Tab) 650 mg PO Q4H PRN PRN Reason: pain/fever Stop: 05/23/21 06:24 Last Admin: 05/13/21 22:00 Dose: 650 mg Documented by: [id number] Admin: 05/13/21 13:51 Dose: 650 mg Documented by: [id number] Admin: 05/12/21 16:25 Dose: 650 mg Documented by: [id number] Admin: 05/12/21 08:35 Dose: 650 mg Documented by: [id number] Admin: 05/11/21 21:08 Dose: 650 mg Documented by: [id number] Admin: 05/10/21 17:43 Dose: 650 mg Documented by: [id number] Admin: 05/10/21 17:39 Dose: 650 mg Documented by: [id number] Admin: 05/10/21 08:10 Dose: 650 mg Documented by: [id number] Admin: 05/10/21 00:27 Dose: 650 mg Documented by: [id number] Admin: 05/09/21 13:08 Dose: 650 mg Documented by: [id number] Amlodipine Besylate (Amlodipine Besylate 5 Mg Tab) 10 mg PO QAM [facility] Stop: 06/08/21 08:59 Last Admin: 05/14/21 07:37 Dose: 10 mg Documented by: [id number] Admin: 05/13/21 09:07 Dose: 10 mg Documented by: [id number] Admin: 05/12/21 08:31 Dose: 10 mg Documented by: [id number] Clonazepam (Clonazepam 0.5 Mg Tab) 0.5 mg PO Q8H [facility] Stop: 05/16/21 08:01 Last Admin: 05/14/21 15:42 Dose: 0.5 mg Documented by: [id number] Admin: 05/14/21 07:38 Dose: 0.5 mg Documented by: [id number] Admin: 05/14/21 04:25 Dose: 0.5 mg Documented by: [id number] Admin: 05/13/21 15:53 Dose: 0.5 mg Documented by: [id number] Admin: 05/13/21 09:07 Dose: 0.5 mg Documented by: [id number] Admin: 05/13/21 00:04 Dose: 0.5 mg Documented by: [id number] Admin: 05/12/21 16:25 Dose: 0.5 mg Documented by: [id number] Docusate Sodium (Docusate Sodium Syrup 100 Mg/10 Ml Udc) 50 mg PO BID [facility] Stop: 06/08/21 20:59 Last Admin: 05/14/21 07:38 Dose: 50 mg Documented by: [id number] Admin: 05/13/21 20:12 Dose: 50 mg Documented by: [id number] Admin: 05/13/21 09:07 Dose: 50 mg Documented by: [id number] Admin: 05/12/21 20:34 Dose: 50 mg Documented by: [id number] Admin: 05/12/21 08:29 Dose: 50 mg Documented by: [id number] Admin: 05/11/21 20:06 Dose: 50 mg Documented by: [id number] Admin: 05/11/21 08:19 Dose: 50 mg Documented by: [id number] Admin: 05/10/21 21:27 Dose: 50 mg Documented by: [id number] Admin: 05/10/21 08:05 Dose: Not Given Documented by: [id number] Admin: 05/09/21 20:53 Dose: 50 mg Documented by: [id number] Enoxaparin Sodium (Enoxaparin Inj 40 Mg/0.4 Ml Syr) 40 mg SQ QAM [facility] Stop: 05/29/21 08:59 Last Admin: 05/14/21 07:38 Dose: 40 mg Documented by: [id number] Admin: 05/13/21 09:07 Dose: 40 mg Documented by: [id number] Admin: 05/12/21 08:30 Dose: 40 mg Documented by: [id number] Admin: 05/11/21 08:20 Dose: 40 mg Documented by: [id number] Admin: 05/10/21 08:05 Dose: 40 mg Documented by: [id number] Admin: 05/09/21 08:11 Dose: 40 mg Documented by: [id number] Admin: 05/08/21 09:33 Dose: 40 mg Documented by: [id number] Admin: 05/07/21 08:26 Dose: 40 mg Documented by: [id number] Admin: 05/06/21 09:06 Dose: 40 mg Documented by: [id number] Admin: 05/05/21 08:36 Dose: 40 mg Documented by: [id number] Admin: 05/04/21 08:04 Dose: 40 mg Documented by: [id number] Admin: 05/03/21 08:08 Dose: 40 mg Documented by: [id number] Admin: 05/02/21 09:45 Dose: 40 mg Documented by: [id number] Admin: 05/01/21 09:26 Dose: 40 mg Documented by: [id number] Admin: 04/30/21 08:54 Dose: 40 mg Documented by: [id number] Admin: 04/29/21 07:47 Dose: 40 mg Documented by: [id number] Furosemide 40 mg/ Syringe 4 mls @ 4 mls/min IV DAILY [facility] Stop: 06/09/21 08:59 Last Admin: 05/11/21 08:24 Dose: 4 mls/min Documented by: [id number] Admin: 05/10/21 08:16 Dose: 4 mls/min Documented by: [id number] Piperacillin Sod/Tazobactam (Sod 4.5 gm/ Dextrose) 120 mls @ 28.75 mls/hr IV Q8H [facility]; Protocol Stop: 05/21/21 13:59 Last Admin: 05/14/21 15:41 Dose: 28.8 mls/hr Documented by: [id number] Lansoprazole (Lansoprazole 30 Mg Soltab) 30 mg NG DAILY [facility] Stop: 06/11/21 10:59 Last Admin: 05/14/21 07:38 Dose: 30 mg Documented by: [id number] Admin: 05/13/21 09:07 Dose: 30 mg Documented by: [id number] Admin: 05/12/21 11:50 Dose: 30 mg Documented by: [id number] Metoprolol Tartrate (Metoprolol Tartrate 1 Mg/Ml Vial) 2.5 mg IV Q6H PRN PRN Reason: systolic BP > 160 Stop: 06/10/21 10:10 Last Admin: 05/12/21 05:36 Dose: 2.5 mg Documented by: [id number] Admin: 05/11/21 23:40 Dose: 2.5 mg Documented by: [id number] Admin: 05/11/21 16:45 Dose: 2.5 mg Documented by: [id number] Metoprolol Tartrate (Metoprolol Tartrate 25 Mg Tab) 25 mg PO BID [facility] Stop: 06/11/21 10:29 Last Admin: 05/14/21 07:37 Dose: 25 mg Documented by: [id number] Admin: 05/13/21 20:12 Dose: 25 mg Documented by: [id number] Admin: 05/13/21 09:07 Dose: 25 mg Documented by: [id number] Admin: 05/12/21 20:33 Dose: 25 mg Documented by: [id number] Admin: 05/12/21 11:50 Dose: 25 mg Documented by: [id number] Nutritional Formula (Peptamen Intense Vhp 1.0 Asad 1,000 Ml Bag) 1,000 ml OG UD [facility]; Protocol Stop: 05/24/21 13:14 Last Admin: 05/13/21 05:15 Dose: 1,000 ml Documented by: [id number] Admin: 05/12/21 12:05 Dose: 1,000 ml Documented by: [id number] Admin: 05/11/21 16:45 Dose: 1,000 ml Documented by: [id number] Admin: 05/10/21 21:26 Dose: 1,000 ml Documented by: [id number] Admin: 05/09/21 04:34 Dose: 1,000 ml Documented by: [id number] Admin: 05/08/21 09:34 Dose: 1,000 ml Documented by: [id number] Admin: 05/07/21 13:42 Dose: 1,000 ml Documented by: [id number] Admin: 05/06/21 19:47 Dose: 1,000 ml Documented by: [id number] Admin: 05/06/21 04:01 Dose: 1,000 ml Documented by: [id number] Admin: 05/05/21 11:41 Dose: 1,000 ml Documented by: [id number] Admin: 05/04/21 15:30 Dose: 1,000 ml Documented by: [id number] Admin: 05/03/21 16:41 Dose: 1,000 ml Documented by: [id number] Admin: 05/02/21 19:12 Dose: 1,000 ml Documented by: [id number] Admin: 05/01/21 20:38 Dose: 1,000 ml Documented by: [id number] Admin: 04/30/21 16:23 Dose: 1,000 ml Documented by: [id number] Admin: 04/29/21 23:02 Dose: 1,000 ml Documented by: [id number] Admin: 04/28/21 17:33 Dose: 1,000 ml Documented by: [id number] Admin: 04/27/21 15:39 Dose: 1,000 ml Documented by: [id number] Admin: 04/24/21 17:36 Dose: 1,000 ml Documented by: [id number] Oxycodone HCl (Oxycodone Hcl Ir 5 Mg Tab (Immediate Release)) 10 mg PO Q12H [facility] Stop: 05/15/21 20:01 Last Admin: 05/14/21 08:30 Dose: Not Given Documented by: [id number] Polyethylene Glycol (Polyethylene (Miralax) 17 Gm Pack) 17 gm PO BID [facility] Stop: 06/04/21 20:59 Last Admin: 05/14/21 07:37 Dose: 17 gm Documented by: [id number] Admin: 05/13/21 20:12 Dose: 17 gm Documented by: [id number] Admin: 05/13/21 09:07 Dose: 17 gm Documented by: [id number] Admin: 05/12/21 20:33 Dose: 17 gm Documented by: [id number] Admin: 05/12/21 08:31 Dose: 17 gm Documented by: [id number] Admin: 05/11/21 20:06 Dose: 17 gm Documented by: [id number] Admin: 05/11/21 08:24 Dose: 17 gm Documented by: [id number] Admin: 05/10/21 21:28 Dose: 17 gm Documented by: [id number] Admin: 05/10/21 08:06 Dose: Not Given Documented by: [id number] Admin: 05/09/21 20:53 Dose: 17 gm Documented by: [id number] Admin: 05/09/21 08:12 Dose: Not Given Documented by: [id number] Admin: 05/08/21 20:38 Dose: 17 gm Documented by: [id number] Admin: 05/08/21 09:33 Dose: 17 gm Documented by: [id number] Admin: 05/07/21 21:11 Dose: 17 gm Documented by: [id number] Admin: 05/07/21 08:26 Dose: 17 gm Documented by: [id number] Admin: 05/06/21 19:41 Dose: 17 gm Documented by: [id number] Admin: 05/06/21 09:06 Dose: 17 gm Documented by: [id number] Admin: 05/05/21 19:56 Dose: 17 gm Documented by: [id number] Sennosides (Sennosides 8.8 Mg/5 Ml Udc) 8.8 mg PO BID [facility] Stop: 06/08/21 20:59 Last Admin: 05/14/21 07:38 Dose: 8.8 mg Documented by: [id number] Admin: 05/13/21 20:11 Dose: 8.8 mg Documented by: [id number] Admin: 05/13/21 09:07 Dose: 8.8 mg Documented by: [id number] Admin: 05/12/21 20:33 Dose: 8.8 mg Documented by: [id number] Admin: 05/12/21 08:31 Dose: 8.8 mg Documented by: [id number] Admin: 05/11/21 20:07 Dose: 8.8 mg Documented by: [id number] Admin: 05/11/21 08:19 Dose: 8.8 mg Documented by: [id number] Admin: 05/10/21 21:26 Dose: 8.8 mg Documented by: [id number] Admin: 05/10/21 08:06 Dose: Not Given Documented by: [id number] Admin: 05/09/21 20:53 Dose: 8.8 mg Documented by: [id number] Sterile Water (Tube Feeding Water Flush) 30 ml OG Q4H [facility] Stop: 05/24/21 13:14 Last Admin: 05/13/21 05:15 Dose: 30 ml Documented by: [id number] Admin: 05/13/21 00:04 Dose: 30 ml Documented by: [id number] Admin: 05/12/21 20:34 Dose: 30 ml Documented by: [id number] Admin: 05/12/21 16:26 Dose: 30 ml Documented by: [id number] Admin: 05/12/21 11:51 Dose: 30 ml Documented by: [id number] Admin: 05/12/21 08:32 Dose: 30 ml Documented by: [id number] Admin: 05/12/21 05:20 Dose: 30 ml Documented by: [id number] Admin: 05/12/21 00:54 Dose: 30 ml Documented by: [id number] Admin: 05/11/21 20:12 Dose: 30 ml Documented by: [id number] Admin: 05/11/21 16:46 Dose: 30 ml Documented by: [id number] Admin: 05/11/21 14:24 Dose: 30 ml Documented by: [id number] Admin: 05/11/21 08:20 Dose: 30 ml Documented by: [id number] Admin: 05/11/21 05:54 Dose: 30 ml Documented by: [id number] Admin: 05/11/21 00:16 Dose: 30 ml Documented by: [id number] Admin: 05/10/21 21:29 Dose: 30 ml Documented by: [id number] Admin: 05/10/21 17:00 Dose: 30 ml Documented by: [id number] Admin: 05/10/21 14:54 Dose: 30 ml Documented by: [id number] Admin: 05/10/21 08:06 Dose: 30 ml Documented by: [id number] Admin: 05/10/21 05:29 Dose: 30 ml Documented by: [id number] Admin: 05/10/21 05:28 Dose: 30 ml Documented by: [id number] Admin: 05/09/21 20:52 Dose: 30 ml Documented by: [id number] Admin: 05/09/21 17:33 Dose: 30 ml Documented by: [id number] Admin: 05/09/21 13:04 Dose: 30 ml Documented by: [id number] Admin: 05/09/21 08:12 Dose: 30 ml Documented by: [id number] Admin: 05/09/21 05:09 Dose: 30 ml Documented by: [id number] Admin: 05/09/21 01:15 Dose: 30 ml Documented by: [id number] Admin: 05/08/21 20:54 Dose: 60 ml Documented by: [id number] Admin: 05/08/21 18:50 Dose: 30 ml Documented by: [id number] Admin: 05/08/21 12:21 Dose: 30 ml Documented by: [id number] Admin: 05/08/21 09:33 Dose: 30 ml Documented by: [id number] Admin: 05/08/21 05:15 Dose: 30 ml Documented by: [id number] Admin: 05/08/21 01:15 Dose: 30 ml Documented by: [id number] Admin: 05/07/21 21:11 Dose: 30 ml Documented by: [id number] Admin: 05/07/21 16:18 Dose: 30 ml Documented by: [id number] Admin: 05/07/21 12:27 Dose: 30 ml Documented by: [id number] Admin: 05/07/21 09:05 Dose: 30 ml Documented by: [id number] Admin: 05/07/21 04:23 Dose: 30 ml Documented by: [id number] Admin: 05/07/21 02:02 Dose: 30 ml Documented by: [id number] Admin: 05/06/21 19:41 Dose: 30 ml Documented by: [id number] Admin: 05/06/21 16:35 Dose: 30 ml Documented by: [id number] Admin: 05/06/21 11:39 Dose: 30 ml Documented by: [id number] Admin: 05/06/21 09:07 Dose: 30 ml Documented by: [id number] Admin: 05/06/21 03:36 Dose: 30 ml Documented by: [id number] Admin: 05/06/21 01:11 Dose: 30 ml Documented by: [id number] Admin: 05/05/21 19:57 Dose: 30 ml Documented by: [id number] Admin: 05/05/21 16:44 Dose: 30 ml Documented by: [id number] Admin: 05/05/21 12:09 Dose: 30 ml Documented by: [id number] Admin: 05/05/21 08:38 Dose: 30 ml Documented by: [id number] Admin: 05/05/21 04:11 Dose: 30 ml Documented by: [id number] Admin: 05/05/21 00:16 Dose: 30 ml Documented by: [id number] Admin: 05/04/21 20:24 Dose: 30 ml Documented by: [id number] Admin: 05/04/21 17:47 Dose: 30 ml Documented by: [id number] Admin: 05/04/21 14:03 Dose: 30 ml Documented by: [id number] Admin: 05/04/21 08:05 Dose: 30 ml Documented by: [id number] Admin: 05/04/21 05:29 Dose: 30 ml Documented by: [id number] Admin: 05/04/21 01:50 Dose: 30 ml Documented by: [id number] Admin: 05/03/21 21:26 Dose: 30 ml Documented by: [id number] Admin: 05/03/21 16:26 Dose: 30 ml Documented by: [id number] Admin: 05/03/21 13:11 Dose: 30 ml Documented by: [id number] Admin: 05/03/21 08:09 Dose: 30 ml Documented by: [id number] Admin: 05/03/21 04:53 Dose: 30 ml Documented by: [id number] Admin: 05/03/21 01:15 Dose: 30 ml Documented by: [id number] Admin: 05/02/21 21:25 Dose: 30 ml Documented by: [id number] Admin: 05/02/21 16:57 Dose: 30 ml Documented by: [id number] Admin: 05/02/21 14:09 Dose: 30 ml Documented by: [id number] Admin: 05/02/21 09:46 Dose: 30 ml Documented by: [id number] Admin: 05/02/21 05:04 Dose: 30 ml Documented by: [id number] Admin: 05/02/21 01:49 Dose: 30 ml Documented by: [id number] Admin: 05/01/21 20:38 Dose: 30 ml Documented by: [id number] Admin: 05/01/21 18:00 Dose: 30 ml Documented by: [id number] Admin: 05/01/21 12:45 Dose: 30 ml Documented by: [id number] Admin: 05/01/21 09:27 Dose: 30 ml Documented by: [id number] Admin: 05/01/21 05:16 Dose: 30 ml Documented by: [id number] Admin: 05/01/21 02:51 Dose: 30 ml Documented by: [id number] Admin: 04/30/21 21:36 Dose: 30 ml Documented by: [id number] Admin: 04/30/21 19:14 Dose: 30 ml Documented by: [id number] Admin: 04/30/21 12:57 Dose: 30 ml Documented by: [id number] Admin: 04/30/21 08:56 Dose: 30 ml Documented by: [id number] Admin: 04/30/21 06:46 Dose: 30 ml Documented by: [id number] Admin: 04/30/21 03:35 Dose: 30 ml Documented by: [id number] Admin: 04/29/21 21:44 Dose: 30 ml Documented by: [id number] Admin: 04/29/21 16:13 Dose: 30 ml Documented by: [id number] Admin: 04/29/21 13:16 Dose: 30 ml Documented by: [id number] Admin: 04/29/21 07:50 Dose: 30 ml Documented by: [id number] Admin: 04/29/21 06:09 Dose: 30 ml Documented by: [id number] Admin: 04/29/21 03:48 Dose: 30 ml Documented by: [id number] Admin: 04/28/21 23:50 Dose: 30 ml Documented by: [id number] Admin: 04/28/21 17:33 Dose: 30 ml Documented by: [id number] Admin: 04/28/21 13:17 Dose: 30 ml Documented by: [id number] Admin: 04/28/21 08:10 Dose: 30 ml Documented by: [id number] Admin: 04/28/21 06:18 Dose: 30 ml Documented by: [id number] Admin: 04/28/21 03:31 Dose: 30 ml Documented by: [id number] Admin: 04/27/21 23:12 Dose: 30 ml Documented by: [id number] Admin: 04/27/21 17:57 Dose: Not Given Documented by: [id number] Admin: 04/27/21 12:22 Dose: 30 ml Documented by: [id number] Admin: 04/27/21 08:47 Dose: 30 ml Documented by: [id number] Admin: 04/27/21 06:19 Dose: 30 ml Documented by: [id number] Admin: 04/27/21 01:50 Dose: 30 ml Documented by: [id number] Admin: 04/26/21 23:09 Dose: 30 ml Documented by: [id number] Admin: 04/26/21 18:19 Dose: 30 ml Documented by: [id number] Admin: 04/26/21 14:19 Dose: 30 ml Documented by: [id number] Admin: 04/26/21 08:35 Dose: 30 ml Documented by: [id number] Admin: 04/26/21 05:40 Dose: 30 ml Documented by: [id number] Admin: 04/26/21 01:33 Dose: 30 ml Documented by: [id number] Admin: 04/25/21 23:59 Dose: 30 ml Documented by: [id number] Admin: 04/25/21 16:03 Dose: 30 ml Documented by: [id number] Admin: 04/25/21 12:50 Dose: 30 ml Documented by: [id number] Admin: 04/25/21 08:28 Dose: 30 ml Documented by: [id number] Admin: 04/25/21 06:18 Dose: Not Given Documented by: [id number] Admin: 04/25/21 06:17 Dose: Not Given Documented by: [id number] Admin: 04/24/21 22:11 Dose: 30 ml Documented by: [id number] Admin: 04/24/21 17:36 Dose: 30 ml Documented by: [id number] Admin: 04/24/21 15:34 Dose: Not Given Documented by: [id number] Sterile Water (Tube Feeding Water Flush) 200 ml OG Q6H [facility] Stop: 05/15/21 18:01 Last Admin: 05/14/21 11:46 Dose: 200 ml Documented by: [id number] Admin: 05/14/21 06:32 Dose: 200 ml Documented by: [id number] Admin: 05/14/21 04:26 Dose: 200 ml Documented by: [id number] Admin: 05/13/21 17:26 Dose: 200 ml Documented by: [id number] Admin: 05/13/21 11:35 Dose: 200 ml Documented by: [id number] Discontinued Medications Acetaminophen (Acetaminophen 1000 Mg/100 Ml Iv) Confirm Administered Dose 1,000 mg IV .STK-MED [facility] Stop: 05/14/21 02:51 Last Admin: 05/14/21 06:32 Dose: Not Given Documented by: [id number] Amlodipine Besylate (Amlodipine Besylate 5 Mg Tab) 10 mg PO NOW STA Stop: 05/02/21 23:19 Last Admin: 05/03/21 00:06 Dose: 10 mg Documented by: [id number] Amlodipine Besylate (Amlodipine Besylate 5 Mg Tab) 5 mg PO QAM [facility] Stop: 06/08/21 08:59 Last Admin: 05/11/21 08:19 Dose: 5 mg Documented by: [id number] Admin: 05/10/21 08:05 Dose: 5 mg Documented by: [id number] Admin: 05/09/21 11:09 Dose: 5 mg Documented by: [id number] Clonazepam (Clonazepam 0.5 Mg Tab) 0.5 mg PO Q12H [facility] Stop: 05/13/21 21:01 Last Admin: 05/12/21 08:35 Dose: 0.5 mg Documented by: [id number] Enoxaparin Sodium (Enoxaparin Inj 40 Mg/0.4 Ml Syr) 40 mg SQ Q12 [facility] Stop: 05/23/21 06:44 Last Admin: 04/23/21 07:50 Dose: 40 mg Documented by: [id number] Enoxaparin Sodium (Enoxaparin 100 Mg/1ml Syr) 90 mg SQ Q12 [facility] Stop: 05/23/21 20:59 Last Admin: 04/28/21 08:09 Dose: 90 mg Documented by: [id number] Admin: 04/27/21 20:13 Dose: 90 mg Documented by: [id number] Admin: 04/27/21 08:46 Dose: 90 mg Documented by: [id number] Admin: 04/26/21 21:04 Dose: 90 mg Documented by: [id number] Admin: 04/26/21 08:34 Dose: 90 mg Documented by: [id number] Admin: 04/25/21 20:33 Dose: 90 mg Documented by: [id number] Admin: 04/25/21 08:25 Dose: 90 mg Documented by: [id number] Admin: 04/24/21 20:10 Dose: 90 mg Documented by: [id number] Admin: 04/24/21 08:13 Dose: 90 mg Documented by: [id number] Admin: 04/23/21 20:06 Dose: 90 mg Documented by: [id number] Fentanyl Citrate (Fentanyl Citrate 1250mcg/250ml Nss) Confirm Administered Dose 1,250 mcg IV .K-MED ONE Stop: 04/24/21 09:52 Last Admin: 04/24/21 11:12 Dose: Not Given Documented by: [id number] Fentanyl Citrate (Fentanyl Bolus From Bag) 50 mcg IV Q60M PRN PRN Reason: Pain or Agitation Stop: 05/08/21 11:20 Last Admin: 05/08/21 05:30 Dose: 50 mcg Documented by: [id number] Admin: 05/07/21 22:32 Dose: 50 mcg Documented by: [id number] Admin: 05/07/21 20:56 Dose: 50 mcg Documented by: [id number] Admin: 05/04/21 20:47 Dose: 50 mcg Documented by: [id number] Admin: 05/02/21 22:41 Dose: 50 mcg Documented by: [id number] Admin: 05/02/21 07:59 Dose: 50 mcg Documented by: [id number] Admin: 05/02/21 00:15 Dose: 50 mcg Documented by: [id number] Admin: 05/01/21 01:00 Dose: 50 mcg Documented by: [id number] Admin: 04/30/21 05:40 Dose: 50 mcg Documented by: [id number] Admin: 04/29/21 21:10 Dose: 50 mcg Documented by: [id number] Admin: 04/27/21 17:05 Dose: 50 mcg Documented by: [id number] Admin: 04/26/21 00:30 Dose: 50 mcg Documented by: [id number] Admin: 04/24/21 13:04 Dose: 50 mcg Documented by: [id number] Admin: 04/24/21 13:00 Dose: 50 mcg Documented by: [id number] Admin: 04/24/21 12:00 Dose: 50 mcg Documented by: [id number] Fentanyl Citrate (Fentanyl Bolus From Bag) 100 mcg IV NOW ONE Stop: 05/02/21 15:31 Last Admin: 05/02/21 15:30 Dose: 100 mcg Documented by: [id number] Furosemide (Furosemide 40 Mg/4 Ml Vial) 40 mg IV ONE ONE Stop: 04/26/21 23:46 Last Admin: 04/26/21 23:54 Dose: 40 mg Documented by: [id number] Furosemide (Furosemide 40 Mg/4 Ml Vial) 40 mg IV DAILY [facility] Stop: 05/30/21 09:59 Last Admin: 05/01/21 09:44 Dose: Not Given Documented by: [id number] Admin: 04/30/21 12:56 Dose: 40 mg Documented by: [id number] Furosemide (Furosemide 40 Mg/4 Ml Vial) 40 mg IV BID [place] Stop: 05/31/21 09:29 Last Admin: 05/08/21 09:33 Dose: 40 mg Documented by: [id number] Admin: 05/07/21 21:10 Dose: 40 mg Documented by: [id number] Admin: 05/07/21 08:30 Dose: 40 mg Documented by: [id number] Admin: 05/06/21 19:43 Dose: 40 mg Documented by: [id number] Admin: 05/06/21 09:10 Dose: 40 mg Documented by: [id number] Admin: 05/05/21 19:54 Dose: 40 mg Documented by: [id number] Admin: 05/05/21 08:41 Dose: 40 mg Documented by: [id number] Admin: 05/04/21 20:24 Dose: 40 mg Documented by: [id number] Admin: 05/04/21 08:05 Dose: 40 mg Documented by: [id number] Admin: 05/03/21 21:26 Dose: 40 mg Documented by: [id number] Admin: 05/03/21 08:11 Dose: 40 mg Documented by: [id number] Admin: 05/02/21 21:25 Dose: 40 mg Documented by: [id number] Admin: 05/02/21 09:45 Dose: 40 mg Documented by: [id number] Admin: 05/01/21 20:07 Dose: 40 mg Documented by: [id number] Admin: 05/01/21 09:28 Dose: 40 mg Documented by: [id number] Furosemide (Furosemide 40 Mg/4 Ml Vial) 40 mg IV QAM [facility] Stop: 06/08/21 08:59 Last Admin: 05/09/21 09:49 Dose: 40 mg Documented by: [id number] Guaifenesin/Codeine Phosphate (Guaifenesin/Codeine 200mg/20mg 10ml Udc) 10 ml PO Q6H PRN PRN Reason: cough Stop: 05/23/21 06:24 Last Admin: 04/23/21 10:21 Dose: 10 ml Documented by: [id number] Hydralazine HCl (Hydralazine Hcl 20 Mg/Ml Vial) 10 mg IV NOW STA Stop: 04/29/21 23:44 Last Admin: 04/30/21 00:50 Dose: Not Given Documented by: [id number] Hydralazine HCl (Hydralazine Hcl 20 Mg/Ml Vial) Confirm Administered Dose 20 mg .ROUTE .STK-MED ONE Stop: 04/29/21 23:28 Last Admin: 04/30/21 00:50 Dose: Not Given Documented by: [id number] Hydralazine HCl (Hydralazine Hcl 20 Mg/Ml Vial) 10 mg IV Q6 PRN PRN Reason: SBP>160 Stop: 06/01/21 15:19 Last Admin: 05/08/21 05:52 Dose: 10 mg Documented by: [id number] Admin: 05/02/21 22:32 Dose: 10 mg Documented by: [id number] Admin: 05/02/21 15:45 Dose: 10 mg Documented by: [id number] Hydromorphone HCl (Hydromorphone Inj 2 Mg/Ml Syr/Vial) 2 mg IV NOW STA Stop: 04/29/21 22:41 Last Admin: 04/29/21 23:00 Dose: 2 mg Documented by: [id number] Hydromorphone HCl (Hydromorphone Inj 2 Mg/Ml Syr/Vial) Confirm Administered Dose 2 mg .ROUTE .STK-MED ONE Stop: 04/29/21 22:46 Last Admin: 04/29/21 23:01 Dose: Not Given Documented by: [id number] Hydromorphone HCl (Hydromorphone Inj 1 Mg/Ml Syringe) 1 mg IV NOW STA Stop: 05/08/21 06:13 Last Admin: 05/08/21 06:16 Dose: 1 mg Documented by: [id number] Hydromorphone HCl (Hydromorphone Inj 1 Mg/Ml Syringe) Confirm Administered Dose 1 mg .ROUTE .STK-MED ONE Stop: 05/08/21 06:14 Last Admin: 05/08/21 06:37 Dose: Not Given Documented by: [id number] Hydromorphone HCl (Hydromorphone Inj 1 Mg/Ml Syringe) 1 mg IV NOW STA Stop: 05/12/21 04:33 Last Admin: 05/12/21 04:54 Dose: 1 mg Documented by: [id number] Sodium Chloride (Nss 1000ml) 1,000 mls @ 125 mls/hr IV .Q8H SHIRLEY Stop: 05/23/21 00:44 Last Infusion: 04/23/21 06:39 Dose: 0 mls/hr Documented by: [id number] Admin: 04/23/21 00:51 Dose: 125 mls/hr Documented by: [id number] Acetaminophen (Ofirmev) 1,000 mg in 100 mls @ 400 mls/hr IV NOW STA Stop: 04/23/21 00:52 Last Infusion: 04/23/21 01:36 Dose: 0 mls/hr Documented by: [id number] Admin: 04/23/21 00:54 Dose: 400 mls/hr Documented by: [id number] Azithromycin 500 mg/ Dextrose 255 mls @ 127.5 mls/hr IV NOW STA Stop: 04/23/21 06:12 Last Infusion: 04/23/21 06:39 Dose: 0 mls/hr Documented by: [id number] Admin: 04/23/21 04:39 Dose: 127.5 mls/hr Documented by: [id number] Dexamethasone 6 mg/ Syringe 1.5 mls @ 1 mls/min IV DAILY SH[place] Stop: 04/30/21 23:59 Last Admin: 04/30/21 08:53 Dose: 1 mls/min Documented by: [id number] Admin: 04/29/21 07:49 Dose: 1 mls/min Documented by: [id number] Admin: 04/28/21 08:07 Dose: 1 mls/min Documented by: [id number] Admin: 04/27/21 08:45 Dose: 1 mls/min Documented by: [id number] Admin: 04/26/21 08:34 Dose: 1 mls/min Documented by: [id number] Admin: 04/25/21 08:28 Dose: 1 mls/min Documented by: [id number] Admin: 04/24/21 08:13 Dose: 1 mls/min Documented by: [id number] Admin: 04/23/21 07:50 Dose: 1 mls/min Documented by: [id number] Furosemide 40 mg/ Syringe 4 mls @ 4 mls/min IV ONE ONE Stop: 04/23/21 09:16 Last Admin: 04/23/21 09:57 Dose: 4 mls/min Documented by: [id number] Lorazepam (Ativan) 0.5 mg in 1 mls @ 1 mls/min IV Q4H PRN PRN Reason: Agitation Stop: 05/23/21 08:53 Last Admin: 04/23/21 20:24 Dose: 1 mls/min Documented by: [id number] Admin: 04/23/21 10:22 Dose: 1 mls/min Documented by: [id number] Lorazepam (Ativan) 1 mg in 2 mls @ 1 mls/min IV Q4H PRN PRN Reason: Agitation Stop: 05/23/21 08:54 Last Admin: 04/24/21 08:31 Dose: 1 mls/min Documented by: [id number] Potassium Chloride (K Maximiliano / Wtr) 10 meq in 100 mls @ 100 mls/hr IV Q1H SHIRLEY Stop: 04/23/21 18:29 Last Admin: 04/23/21 18:33 Dose: Not Given Documented by: [id number] Infusion: 04/23/21 18:33 Dose: 0 mls/hr Documented by: [id number] Admin: 04/23/21 17:21 Dose: 100 mls/hr Documented by: [id number] Infusion: 04/23/21 17:20 Dose: 0 mls/hr Documented by: [id number] Admin: 04/23/21 15:40 Dose: 100 mls/hr Documented by: [id number] Infusion: 04/23/21 15:34 Dose: 0 mls/hr Documented by: [id number] Admin: 04/23/21 15:33 Dose: 100 mls/hr Documented by: [id number] Tocilizumab 400 mg/Tocilizumab 200 mg/Tocilizumab 80 mg/ Sodium Chloride 100 mls @ 100 mls/hr IV NOW ONE Stop: 04/23/21 16:59 Last Infusion: 04/23/21 17:00 Dose: 0 mls/hr Documented by: [id number] Cosigned by: [id number] Admin: 04/23/21 16:34 Dose: 100 mls/hr Documented by: [id number] Cosigned by: [id number] Pantoprazole Sodium 40 mg/ (Syringe) 10 mls @ 5 mls/min IV DAILY@1100 SH[place]LEY Stop: 05/24/21 10:59 Last Admin: 05/11/21 12:25 Dose: 5 mls/min Documented by: [id number] Admin: 05/10/21 11:12 Dose: 5 mls/min Documented by: [id number] Admin: 05/09/21 11:08 Dose: 5 mls/min Documented by: [id number] Admin: 05/08/21 12:20 Dose: 5 mls/min Documented by: [id number] Admin: 05/07/21 12:26 Dose: 5 mls/min Documented by: [id number] Admin: 05/06/21 11:39 Dose: 5 mls/min Documented by: [id number] Admin: 05/05/21 11:41 Dose: 5 mls/min Documented by: [id number] Admin: 05/04/21 12:00 Dose: 5 mls/min Documented by: [id number] Admin: 05/03/21 10:47 Dose: 5 mls/min Documented by: [id number] Admin: 05/02/21 11:30 Dose: 5 mls/min Documented by: [id number] Admin: 05/01/21 11:16 Dose: 5 mls/min Documented by: [id number] Admin: 04/30/21 12:56 Dose: 5 mls/min Documented by: [id number] Admin: 04/29/21 10:23 Dose: 5 mls/min Documented by: [id number] Admin: 04/28/21 12:46 Dose: 5 mls/min Documented by: [id number] Admin: 04/27/21 12:21 Dose: 5 mls/min Documented by: [id number] Admin: 04/25/21 12:50 Dose: 5 mls/min Documented by: [id number] Admin: 04/25/21 12:14 Dose: 5 mls/min Documented by: [id number] Admin: 04/24/21 11:03 Dose: 5 mls/min Documented by: [id number] Tocilizumab 400 mg/ Sodium (Chloride) 100 mls @ 100 mls/hr IV NOW ONE Stop: 04/23/21 18:44 Last Infusion: 04/23/21 21:48 Dose: 0 mls/hr Documented by: [id number] Admin: 04/23/21 18:05 Dose: 100 mls/hr Documented by: [id number] Potassium Chloride (K Maximiliano / Wtr) 10 meq in 100 mls @ 100 mls/hr IV Q1H [facility] Stop: 04/24/21 09:29 Last Infusion: 04/24/21 11:08 Dose: 0 mls/hr Documented by: [id number] Admin: 04/24/21 09:23 Dose: 100 mls/hr Documented by: [id number] Infusion: 04/24/21 09:13 Dose: 100 mls/hr Documented by: [id number] Admin: 04/24/21 08:13 Dose: 100 mls/hr Documented by: [id number] Infusion: 04/24/21 08:12 Dose: 0 mls/hr Documented by: [id number] Admin: 04/24/21 06:28 Dose: 100 mls/hr Documented by: [id number] Dexmedetomidine HCl 200 mcg/ (Sodium Chloride) 50 mls @ 8.51 mls/hr IV .Q5H53M [facility]; Protocol Stop: 04/28/21 08:59 Last Titration: 04/24/21 11:16 Dose: 0 mcg/kg/hr, 0 mls/hr Documented by: [id number] Titration: 04/24/21 10:30 Dose: 0 mcg/kg/hr, 0 mls/hr Documented by: [id number] Admin: 04/24/21 09:24 Dose: 0.4 mcg/kg/hr, 8.5 mls/hr Documented by: [id number] Cosigned by: [id number] Cisatracurium Besylate 40 mg/ (Sodium Chloride) 100 mls @ 12.87 mls/hr IV .Q7H47M [facility]; Protocol Stop: 05/24/21 10:29 Last Admin: 04/26/21 08:43 Dose: Not Given Documented by: [id number] Titration: 04/26/21 08:35 Dose: 0 mcg/kg/min, 0 mls/hr Documented by: [id number] Titration: 04/26/21 02:34 Dose: 1.3 mcg/kg/min, 12.9 mls/hr Documented by: [id number] Titration: 04/26/21 01:58 Dose: 0.8 mcg/kg/min, 7.9 mls/hr Documented by: [id number] Admin: 04/25/21 23:58 Dose: 0.9 mcg/kg/min, 8.9 mls/hr Documented by: [id number] Cosigned by: [id number] Titration: 04/25/21 23:58 Dose: 0.9 mcg/kg/min, 8.9 mls/hr Documented by: [id number] Cosigned by: [id number] Titration: 04/25/21 23:01 Dose: 0.9 mcg/kg/min, 8.9 mls/hr Documented by: [id number] Admin: 04/25/21 20:50 Dose: 1.1 mcg/kg/min, 10.9 mls/hr Documented by: [id number] Cosigned by: [id number] Titration: 04/25/21 20:32 Dose: 0 mcg/kg/min, 0 mls/hr Documented by: [id number] Admin: 04/25/21 18:31 Dose: Not Given Documented by: [id number] Titration: 04/25/21 17:00 Dose: 1.7 mcg/kg/min, 16.8 mls/hr Documented by: [id number] Titration: 04/25/21 14:18 Dose: 1.5 mcg/kg/min, 14.9 mls/hr Documented by: [id number] Admin: 04/25/21 14:07 Dose: 1 mcg/kg/min, 9.9 mls/hr Documented by: [id number] Cosigned by: [id number] Titration: 04/25/21 12:51 Dose: 1 mcg/kg/min, 9.9 mls/hr Documented by: [id number] Cosigned by: [id number] Titration: 04/25/21 12:51 Dose: 1 mcg/kg/min, 9.9 mls/hr Documented by: [id number] Titration: 04/25/21 07:15 Dose: 1.5 mcg/kg/min, 14.9 mls/hr Documented by: [id number] Admin: 04/25/21 06:59 Dose: Not Given Documented by: [id number] Admin: 04/25/21 06:58 Dose: Not Given Documented by: [id number] Admin: 04/25/21 06:32 Dose: 1 mcg/kg/min, 9.9 mls/hr Documented by: [id number] Cosigned by: [id number] Titration: 04/25/21 06:19 Dose: 1 mcg/kg/min, 9.9 mls/hr Documented by: [id number] Cosigned by: [id number] Titration: 04/25/21 06:18 Dose: 1 mcg/kg/min, 9.9 mls/hr Documented by: [id number] Admin: 04/25/21 01:43 Dose: 0.9 mcg/kg/min, 8.9 mls/hr Documented by: [id number] Cosigned by: [id number] Titration: 04/25/21 01:43 Dose: 0.9 mcg/kg/min, 8.9 mls/hr Documented by: [id number] Cosigned by: [id number] Titration: 04/24/21 22:08 Dose: 0.9 mcg/kg/min, 8.9 mls/hr Documented by: [id number] Admin: 04/24/21 18:32 Dose: 1.5 mcg/kg/min, 14.9 mls/hr Documented by: [id number] Cosigned by: [id number] Titration: 04/24/21 18:32 Dose: 1.5 mcg/kg/min, 14.9 mls/hr Documented by: [id number] Cosigned by: [id number] Titration: 04/24/21 18:28 Dose: 1.5 mcg/kg/min, 14.9 mls/hr Documented by: [id number] Titration: 04/24/21 18:00 Dose: 2 mcg/kg/min, 19.8 mls/hr Documented by: [id number] Titration: 04/24/21 16:00 Dose: 1.5 mcg/kg/min, 14.9 mls/hr Documented by: [id number] Titration: 04/24/21 15:09 Dose: 1 mcg/kg/min, 9.9 mls/hr Documented by: [id number] Titration: 04/24/21 13:56 Dose: 1.5 mcg/kg/min, 14.9 mls/hr Documented by: [id number] Admin: 04/24/21 13:00 Dose: 1 mcg/kg/min, 9.9 mls/hr Documented by: [id number] Cosigned by: [id number] Midazolam HCl (Versed) 125 mg in 250 mls @ 0 mls/hr IV .Q0M [facility]; Protocol Stop: 05/24/21 11:29 Last Admin: 05/09/21 14:00 Dose: Not Given Documented by: [id number] Titration: 05/09/21 13:06 Dose: 0 mg/hr, 0 mls/hr Documented by: [id number] Cosigned by: [id number] Titration: 05/09/21 12:42 Dose: 0 mg/hr, 0 mls/hr Documented by: [id number] Cosigned by: [id number] Titration: 05/09/21 11:00 Dose: 1 mg/hr, 2 mls/hr Documented by: [id number] Cosigned by: [id number] Titration: 05/09/21 09:52 Dose: 2 mg/hr, 4 mls/hr Documented by: [id number] Cosigned by: [id number] Admin: 05/09/21 09:13 Dose: Not Given Documented by: [id number] Admin: 05/09/21 09:13 Dose: Not Given Documented by: [id number] Titration: 05/09/21 08:07 Dose: 4 mg/hr, 8 mls/hr Documented by: [id number] Cosigned by: [id number] Titration: 05/09/21 07:00 Dose: 5 mg/hr, 10 mls/hr Documented by: [id number] Cosigned by: [id number] Titration: 05/09/21 05:12 Dose: 5 mg/hr, 10 mls/hr Documented by: [id number] Cosigned by: [id number] Titration: 05/09/21 04:22 Dose: 6 mg/hr, 12 mls/hr Documented by: [id number] Cosigned by: [id number] Admin: 05/08/21 23:30 Dose: 7 mg/hr, 14 mls/hr Documented by: [id number] Cosigned by: [id number] Titration: 05/08/21 23:30 Dose: 7 mg/hr, 14 mls/hr Documented by: [id number] Cosigned by: [id number] Titration: 05/08/21 19:12 Dose: 7 mg/hr, 14 mls/hr Documented by: [id number] Cosigned by: [id number] Titration: 05/08/21 08:56 Dose: 7 mg/hr, 14 mls/hr Documented by: [id number] Cosigned by: [id number] Admin: 05/08/21 08:27 Dose: 10 mg/hr, 20 mls/hr Documented by: [id number] Cosigned by: [id number] Titration: 05/08/21 08:19 Dose: 10 mg/hr, 20 mls/hr Documented by: [id number] Cosigned by: [id number] Titration: 05/08/21 07:12 Dose: 10 mg/hr, 20 mls/hr Documented by: [id number] Cosigned by: [id number] Titration: 05/08/21 05:30 Dose: 9.5 mg/hr, 19 mls/hr Documented by: [id number] Cosigned by: [id number] Titration: 05/08/21 03:23 Dose: 9 mg/hr, 18 mls/hr Documented by: [id number] Cosigned by: [id number] Titration: 05/08/21 01:55 Dose: 8.5 mg/hr, 17 mls/hr Documented by: [id number] Cosigned by: [id number] Titration: 05/07/21 21:41 Dose: 8 mg/hr, 16 mls/hr Documented by: [id number] Cosigned by: [id number] Titration: 05/07/21 20:07 Dose: 7.5 mg/hr, 15 mls/hr Documented by: [id number] Cosigned by: [id number] Titration: 05/07/21 18:40 Dose: 7 mg/hr, 14 mls/hr Documented by: [id number] Cosigned by: [id number] Admin: 05/07/21 17:10 Dose: 7 mg/hr, 14 mls/hr Documented by: [id number] Cosigned by: [id number] Titration: 05/07/21 16:29 Dose: 6.5 mg/hr, 13 mls/hr Documented by: [id number] Cosigned by: [id number] Titration: 05/07/21 16:22 Dose: 6.5 mg/hr, 13 mls/hr Documented by: [id number] Cosigned by: [id number] Titration: 05/07/21 07:08 Dose: 6 mg/hr, 12 mls/hr Documented by: [id number] Cosigned by: [id number] Admin: 05/06/21 19:39 Dose: 6 mg/hr, 12 mls/hr Documented by: [id number] Cosigned by: [id number] Titration: 05/06/21 19:33 Dose: 6 mg/hr, 12 mls/hr Documented by: [id number] Cosigned by: [id number] Admin: 05/05/21 21:52 Dose: 6 mg/hr, 12 mls/hr Documented by: [id number] Cosigned by: [id number] Titration: 05/05/21 21:52 Dose: 6 mg/hr, 12 mls/hr Documented by: [id number] Cosigned by: [id number] Admin: 05/05/21 12:47 Dose: Not Given Documented by: [id number] Admin: 05/05/21 12:47 Dose: Not Given Documented by: [id number] Admin: 05/05/21 12:45 Dose: Not Given Documented by: [id number] Titration: 05/05/21 12:10 Dose: 6 mg/hr, 12 mls/hr Documented by: [id number] Cosigned by: [id number] Titration: 05/05/21 06:56 Dose: 5 mg/hr, 10 mls/hr Documented by: [id number] Cosigned by: [id number] Admin: 05/05/21 02:17 Dose: 5 mg/hr, 10 mls/hr Documented by: [id number] Cosigned by: [id number] Titration: 05/05/21 02:17 Dose: 5 mg/hr, 10 mls/hr Documented by: [id number] Cosigned by: [id number] Titration: 05/04/21 19:10 Dose: 5 mg/hr, 10 mls/hr Documented by: [id number] Cosigned by: [id number] Admin: 05/04/21 02:47 Dose: 5 mg/hr, 10 mls/hr Documented by: [id number] Cosigned by: [id number] Titration: 05/04/21 02:47 Dose: 5 mg/hr, 10 mls/hr Documented by: [id number] Cosigned by: [id number] Titration: 05/03/21 18:52 Dose: 5 mg/hr, 10 mls/hr Documented by: [id number] Cosigned by: [id number] Admin: 05/03/21 10:47 Dose: 5 mg/hr, 10 mls/hr Documented by: [id number] Cosigned by: [id number] Titration: 05/03/21 10:13 Dose: 5 mg/hr, 10 mls/hr Documented by: [id number] Cosigned by: [id number] Admin: 05/02/21 12:28 Dose: Not Given Documented by: [id number] Titration: 05/02/21 12:08 Dose: 5 mg/hr, 10 mls/hr Documented by: [id number] Cosigned by: [id number] Titration: 05/02/21 10:09 Dose: 6 mg/hr, 12 mls/hr Documented by: [id number] Cosigned by: [id number] Admin: 05/02/21 09:46 Dose: 7 mg/hr, 14 mls/hr Documented by: [id number] Cosigned by: [id number] Titration: 05/02/21 09:46 Dose: 7 mg/hr, 14 mls/hr Documented by: [id number] Cosigned by: [id number] Titration: 05/02/21 07:59 Dose: 7 mg/hr, 14 mls/hr Documented by: [id number] Cosigned by: [id number] Titration: 05/02/21 06:58 Dose: 6 mg/hr, 12 mls/hr Documented by: [id number] Cosigned by: [id number] Admin: 05/01/21 20:06 Dose: Not Given Documented by: [id number] Titration: 05/01/21 19:11 Dose: 6 mg/hr, 12 mls/hr Documented by: [id number] Cosigned by: [id number] Titration: 05/01/21 18:27 Dose: 6 mg/hr, 12 mls/hr Documented by: [id number] Cosigned by: [id number] Admin: 05/01/21 17:02 Dose: Not Given Documented by: [id number] Admin: 05/01/21 14:38 Dose: 7 mg/hr, 14 mls/hr Documented by: [id number] Cosigned by: [id number] Titration: 05/01/21 13:17 Dose: 8 mg/hr, 16 mls/hr Documented by: [id number] Cosigned by: [id number] Titration: 05/01/21 12:15 Dose: 8 mg/hr, 16 mls/hr Documented by: [id number] Cosigned by: [id number] Titration: 05/01/21 07:02 Dose: 9 mg/hr, 18 mls/hr Documented by: [id number] Cosigned by: [id number] Admin: 05/01/21 02:52 Dose: Not Given Documented by: [id number] Titration: 05/01/21 01:34 Dose: 9 mg/hr, 18 mls/hr Documented by: [id number] Cosigned by: [id number] Titration: 04/30/21 23:51 Dose: 8 mg/hr, 16 mls/hr Documented by: [id number] Cosigned by: [id number] Admin: 04/30/21 22:52 Dose: 7 mg/hr, 14 mls/hr Documented by: [id number] Cosigned by: [id number] Titration: 04/30/21 22:52 Dose: 7 mg/hr, 14 mls/hr Documented by: [id number] Cosigned by: [id number] Admin: 04/30/21 19:54 Dose: Not Given Documented by: [id number] Admin: 04/30/21 19:46 Dose: Not Given Documented by: [id number] Titration: 04/30/21 19:14 Dose: 7 mg/hr, 14 mls/hr Documented by: [id number] Cosigned by: [id number] Admin: 04/30/21 16:42 Dose: 7 mg/hr, 14 mls/hr Documented by: [id number] Cosigned by: [id number] Titration: 04/30/21 16:08 Dose: 7 mg/hr, 14 mls/hr Documented by: [id number] Cosigned by: [id number] Titration: 04/30/21 07:01 Dose: 7 mg/hr, 14 mls/hr Documented by: [id number] Cosigned by: [id number] Titration: 04/30/21 06:27 Dose: 7 mg/hr, 14 mls/hr Documented by: [id number] Cosigned by: [id number] Titration: 04/30/21 05:09 Dose: 6.5 mg/hr, 13 mls/hr Documented by: [id number] Cosigned by: [id number] Titration: 04/30/21 02:43 Dose: 6 mg/hr, 12 mls/hr Documented by: [id number] Cosigned by: [id number] Titration: 04/30/21 02:14 Dose: 7 mg/hr, 14 mls/hr Documented by: [id number] Cosigned by: [id number] Admin: 04/29/21 22:23 Dose: 8 mg/hr, 16 mls/hr Documented by: [id number] Cosigned by: [id number] Titration: 04/29/21 22:18 Dose: 8 mg/hr, 16 mls/hr Documented by: [id number] Cosigned by: [id number] Titration: 04/29/21 21:10 Dose: 7.5 mg/hr, 15 mls/hr Documented by: [id number] Cosigned by: [id number] Titration: 04/29/21 19:23 Dose: 7 mg/hr, 14 mls/hr Documented by: [id number] Cosigned by: [id number] Titration: 04/29/21 17:39 Dose: 7 mg/hr, 14 mls/hr Documented by: [id number] Cosigned by: [id number] Titration: 04/29/21 07:10 Dose: 8 mg/hr, 16 mls/hr Documented by: [id number] Cosigned by: [id number] Admin: 04/29/21 05:09 Dose: 8 mg/hr, 16 mls/hr Documented by: [id number] Cosigned by: [id number] Titration: 04/29/21 05:09 Dose: 8 mg/hr, 16 mls/hr Documented by: [id number] Cosigned by: [id number] Titration: 04/29/21 04:21 Dose: 8 mg/hr, 16 mls/hr Documented by: [id number] Cosigned by: [id number] Titration: 04/28/21 19:01 Dose: 6 mg/hr, 12 mls/hr Documented by: [id number] Cosigned by: [id number] Titration: 04/28/21 18:39 Dose: 6 mg/hr, 12 mls/hr Documented by: [id number] Cosigned by: [id number] Titration: 04/28/21 17:34 Dose: 5 mg/hr, 10 mls/hr Documented by: [id number] Cosigned by: [id number] Admin: 04/28/21 10:17 Dose: 6 mg/hr, 12 mls/hr Documented by: [id number] Cosigned by: [id number] Titration: 04/28/21 10:17 Dose: 6 mg/hr, 12 mls/hr Documented by: [id number] Cosigned by: [id number] Titration: 04/27/21 19:07 Dose: 6 mg/hr, 12 mls/hr Documented by: [id number] Cosigned by: [id number] Titration: 04/27/21 17:05 Dose: 6 mg/hr, 12 mls/hr Documented by: [id number] Cosigned by: [id number] Admin: 04/27/21 15:38 Dose: 5 mg/hr, 10 mls/hr Documented by: [id number] Cosigned by: [id number] Titration: 04/27/21 15:38 Dose: 5 mg/hr, 10 mls/hr Documented by: [id number] Cosigned by: [id number] Titration: 04/27/21 12:22 Dose: 5 mg/hr, 10 mls/hr Documented by: [id number] Cosigned by: [id number] Titration: 04/27/21 07:04 Dose: 6 mg/hr, 12 mls/hr Documented by: [id number] Cosigned by: [id number] Admin: 04/26/21 22:26 Dose: 8 mg/hr, 16 mls/hr Documented by: [id number] Cosigned by: [id number] Titration: 04/26/21 21:01 Dose: 6 mg/hr, 12 mls/hr Documented by: [id number] Cosigned by: [id number] Titration: 04/25/21 17:00 Dose: 4 mg/hr, 8 mls/hr Documented by: [id number] Cosigned by: [id number] Admin: 04/25/21 12:08 Dose: 3.5 mg/hr, 7 mls/hr Documented by: [id number] Cosigned by: [id number] Titration: 04/25/21 12:08 Dose: 3.5 mg/hr, 7 mls/hr Documented by: [id number] Cosigned by: [id number] Titration: 04/25/21 08:30 Dose: 3.5 mg/hr, 7 mls/hr Documented by: [id number] Cosigned by: [id number] Titration: 04/25/21 06:44 Dose: 4 mg/hr, 8 mls/hr Documented by: [id number] Cosigned by: [id number] Titration: 04/24/21 18:29 Dose: 4.5 mg/hr, 9 mls/hr Documented by: [id number] Cosigned by: [id number] Titration: 04/24/21 15:09 Dose: 4 mg/hr, 8 mls/hr Documented by: [id number] Cosigned by: [id number] Titration: 04/24/21 14:11 Dose: 4.5 mg/hr, 9 mls/hr Documented by: [id number] Cosigned by: [id number] Titration: 04/24/21 12:57 Dose: 5 mg/hr, 10 mls/hr Documented by: [id number] Cosigned by: [id number] Titration: 04/24/21 11:30 Dose: 4.5 mg/hr, 9 mls/hr Documented by: [id number] Cosigned by: [id number] Admin: 04/24/21 10:30 Dose: 4 mg/hr, 8 mls/hr Documented by: [id number] Cosigned by: [id number] Fentanyl Citrate (Fentanyl Drip) 1,250 mcg in 250 mls @ 45 mls/hr IV .Q5H34M [facility]; Protocol Stop: 05/08/21 11:29 Last Titration: 05/01/21 11:14 Dose: 0 mcg/hr, 0 mls/hr Documented by: [id number] Cosigned by: [id number] Titration: 05/01/21 07:02 Dose: 225 mcg/hr, 45 mls/hr Documented by: [id number] Cosigned by: [id number] Admin: 05/01/21 05:01 Dose: 225 mcg/hr, 45 mls/hr Documented by: [id number] Cosigned by: [id number] Titration: 05/01/21 04:26 Dose: 225 mcg/hr, 45 mls/hr Documented by: [id number] Cosigned by: [id number] Admin: 05/01/21 02:52 Dose: Not Given Documented by: [id number] Admin: 04/30/21 22:52 Dose: 225 mcg/hr, 45 mls/hr Documented by: [id number] Cosigned by: [id number] Titration: 04/30/21 22:52 Dose: 225 mcg/hr, 45 mls/hr Documented by: [id number] Cosigned by: [id number] Admin: 04/30/21 19:54 Dose: Not Given Documented by: [id number] Admin: 04/30/21 19:46 Dose: Not Given Documented by: [id number] Admin: 04/30/21 19:46 Dose: Not Given Documented by: [id number] Admin: 04/30/21 19:45 Dose: Not Given Documented by: [id number] Admin: 04/30/21 19:28 Dose: 225 mcg/hr, 45 mls/hr Documented by: [id number] Cosigned by: [id number] Titration: 04/30/21 19:14 Dose: 225 mcg/hr, 45 mls/hr Documented by: [id number] Cosigned by: [id number] Admin: 04/30/21 12:56 Dose: 225 mcg/hr, 45 mls/hr Documented by: [id number] Cosigned by: [id number] Titration: 04/30/21 12:38 Dose: 225 mcg/hr, 45 mls/hr Documented by: [id number] Cosigned by: [id number] Admin: 04/30/21 07:04 Dose: 225 mcg/hr, 45 mls/hr Documented by: [id number] Cosigned by: [id number] Titration: 04/30/21 07:01 Dose: 225 mcg/hr, 45 mls/hr Documented by: [id number] Cosigned by: [id number] Titration: 04/30/21 05:40 Dose: 225 mcg/hr, 45 mls/hr Documented by: [id number] Cosigned by: [id number] Admin: 04/30/21 00:49 Dose: 200 mcg/hr, 40 mls/hr Documented by: [id number] Cosigned by: [id number] Titration: 04/30/21 00:25 Dose: 200 mcg/hr, 40 mls/hr Documented by: [id number] Cosigned by: [id number] Titration: 04/29/21 21:46 Dose: 200 mcg/hr, 40 mls/hr Documented by: [id number] Cosigned by: [id number] Titration: 04/29/21 19:23 Dose: 175 mcg/hr, 35 mls/hr Documented by: [id number] Cosigned by: [id number] Admin: 04/29/21 17:39 Dose: 175 mcg/hr, 35 mls/hr Documented by: [id number] Cosigned by: [id number] Titration: 04/29/21 17:31 Dose: 175 mcg/hr, 35 mls/hr Documented by: [id number] Cosigned by: [id number] Admin: 04/29/21 10:22 Dose: 175 mcg/hr, 35 mls/hr Documented by: [id number] Cosigned by: [id number] Titration: 04/29/21 10:22 Dose: 175 mcg/hr, 35 mls/hr Documented by: [id number] Cosigned by: [id number] Titration: 04/29/21 07:10 Dose: 175 mcg/hr, 35 mls/hr Documented by: [id number] Cosigned by: [id number] Admin: 04/29/21 04:19 Dose: 175 mcg/hr, 35 mls/hr Documented by: [id number] Cosigned by: [id number] Titration: 04/29/21 04:19 Dose: 150 mcg/hr, 30 mls/hr Documented by: [id number] Cosigned by: [id number] Admin: 04/28/21 21:09 Dose: 150 mcg/hr, 30 mls/hr Documented by: [id number] Cosigned by: [id number] Titration: 04/28/21 21:06 Dose: 150 mcg/hr, 30 mls/hr Documented by: [id number] Cosigned by: [id number] Titration: 04/28/21 19:01 Dose: 150 mcg/hr, 30 mls/hr Documented by: [id number] Cosigned by: [id number] Titration: 04/28/21 18:39 Dose: 150 mcg/hr, 30 mls/hr Documented by: [id number] Cosigned by: [id number] Titration: 04/28/21 17:34 Dose: 125 mcg/hr, 25 mls/hr Documented by: [id number] Cosigned by: [id number] Admin: 04/28/21 13:17 Dose: 175 mcg/hr, 35 mls/hr Documented by: [id number] Cosigned by: [id number] Titration: 04/28/21 11:56 Dose: 175 mcg/hr, 35 mls/hr Documented by: [id number] Cosigned by: [id number] Admin: 04/28/21 04:47 Dose: 175 mcg/hr, 35 mls/hr Documented by: [id number] Cosigned by: [id number] Titration: 04/28/21 04:47 Dose: 175 mcg/hr, 35 mls/hr Documented by: [id number] Cosigned by: [id number] Admin: 04/27/21 21:48 Dose: 175 mcg/hr, 35 mls/hr Documented by: [id number] Cosigned by: [id number] Titration: 04/27/21 21:48 Dose: 175 mcg/hr, 35 mls/hr Documented by: [id number] Cosigned by: [id number] Titration: 04/27/21 20:14 Dose: 175 mcg/hr, 35 mls/hr Documented by: [id number] Cosigned by: [id number] Titration: 04/27/21 19:07 Dose: 150 mcg/hr, 30 mls/hr Documented by: [id number] Cosigned by: [id number] Titration: 04/27/21 17:15 Dose: 150 mcg/hr, 30 mls/hr Documented by: [id number] Cosigned by: [id number] Admin: 04/27/21 15:39 Dose: 125 mcg/hr, 25 mls/hr Documented by: [id number] Cosigned by: [id number] Titration: 04/27/21 14:59 Dose: 125 mcg/hr, 25 mls/hr Documented by: [id number] Cosigned by: [id number] Titration: 04/27/21 13:00 Dose: 125 mcg/hr, 25 mls/hr Documented by: [id number] Cosigned by: [id number] Titration: 04/27/21 07:04 Dose: 150 mcg/hr, 30 mls/hr Documented by: [id number] Cosigned by: [id number] Titration: 04/27/21 06:19 Dose: 150 mcg/hr, 30 mls/hr Documented by: [id number] Cosigned by: [id number] Admin: 04/27/21 06:19 Dose: 150 mcg/hr, 30 mls/hr Documented by: [id number] Cosigned by: [id number] Titration: 04/26/21 23:55 Dose: 150 mcg/hr, 30 mls/hr Documented by: [id number] Cosigned by: [id number] Admin: 04/26/21 23:06 Dose: 200 mcg/hr, 40 mls/hr Documented by: [id number] Cosigned by: [id number] Titration: 04/26/21 21:01 Dose: 175 mcg/hr, 35 mls/hr Documented by: [id number] Cosigned by: [id number] Admin: 04/26/21 09:39 Dose: 150 mcg/hr, 30 mls/hr Documented by: [id number] Cosigned by: [id number] Titration: 04/26/21 09:04 Dose: 150 mcg/hr, 30 mls/hr Documented by: [id number] Cosigned by: [id number] Titration: 04/26/21 02:34 Dose: 150 mcg/hr, 30 mls/hr Documented by: [id number] Cosigned by: [id number] Titration: 04/26/21 01:58 Dose: 125 mcg/hr, 25 mls/hr Documented by: [id number] Cosigned by: [id number] Admin: 04/25/21 23:57 Dose: 100 mcg/hr, 20 mls/hr Documented by: [id number] Cosigned by: [id number] Titration: 04/25/21 23:57 Dose: 100 mcg/hr, 20 mls/hr Documented by: [id number] Cosigned by: [id number] Admin: 04/25/21 15:00 Dose: 100 mcg/hr, 20 mls/hr Documented by: [id number] Cosigned by: [id number] Titration: 04/25/21 14:11 Dose: 100 mcg/hr, 20 mls/hr Documented by: [id number] Cosigned by: [id number] Titration: 04/25/21 12:07 Dose: 100 mcg/hr, 20 mls/hr Documented by: [id number] Cosigned by: [id number] Admin: 04/25/21 03:46 Dose: 125 mcg/hr, 25 mls/hr Documented by: [id number] Cosigned by: [id number] Titration: 04/25/21 03:46 Dose: 125 mcg/hr, 25 mls/hr Documented by: [id number] Cosigned by: [id number] Admin: 04/24/21 18:29 Dose: 125 mcg/hr, 25 mls/hr Documented by: [id number] Cosigned by: [id number] Titration: 04/24/21 18:29 Dose: 125 mcg/hr, 25 mls/hr Documented by: [id number] Cosigned by: [id number] Titration: 04/24/21 14:10 Dose: 125 mcg/hr, 25 mls/hr Documented by: [id number] Cosigned by: [id number] Titration: 04/24/21 12:57 Dose: 150 mcg/hr, 30 mls/hr Documented by: [id number] Cosigned by: [id number] Titration: 04/24/21 11:25 Dose: 125 mcg/hr, 25 mls/hr Documented by: [id number] Cosigned by: [id number] Admin: 04/24/21 10:30 Dose: 100 mcg/hr, 20 mls/hr Documented by: [id number] Cosigned by: [id number] Potassium Chloride (K Maximiliano / Wtr) 10 meq in 100 mls @ 100 mls/hr IV ONE ONE Stop: 04/25/21 07:08 Last Infusion: 04/25/21 09:34 Dose: 0 mls/hr Documented by: [id number] Admin: 04/25/21 06:33 Dose: 100 mls/hr Documented by: [id number] Lactated Ringer's (Lr) 500 mls @ 999 mls/hr IV .Q31M ONE Stop: 04/25/21 09:15 Last Infusion: 04/25/21 11:04 Dose: 0 mls/hr Documented by: [id number] Admin: 04/25/21 09:33 Dose: 999 mls/hr Documented by: [id number] Lactated Ringer's (Lr) 1,000 mls @ 0 mls/hr IV .Q0M [facility] Stop: 05/25/21 11:14 Last Infusion: 04/27/21 00:25 Dose: 0 mls/hr Documented by: [id number] Infusion: 04/27/21 00:25 Dose: 0 mls/hr Documented by: [id number] Admin: 04/25/21 13:02 Dose: 30 mls/hr Documented by: [id number] Norepinephrine Bitartrate (Levophed/D5w) 8 mg in 508 mls @ 0 mls/hr IV .Q0M SHIRLEY; Protocol Stop: 05/25/21 11:59 Last Titration: 04/27/21 17:59 Dose: 0 mcg/kg/min, 0 mls/hr Documented by: [id number] Titration: 04/27/21 13:00 Dose: 0 mcg/kg/min, 0 mls/hr Documented by: [id number] Titration: 04/27/21 07:04 Dose: 0.02 mcg/kg/min, 6.5 mls/hr Documented by: [id number] Titration: 04/27/21 05:33 Dose: 0.02 mcg/kg/min, 6.5 mls/hr Documented by: [id number] Titration: 04/27/21 05:31 Dose: 0.2 mcg/kg/min, 64.7 mls/hr Documented by: [id number] Admin: 04/26/21 23:07 Dose: 0.2 mcg/kg/min, 64.7 mls/hr Documented by: [id number] Cosigned by: [id number] Titration: 04/26/21 08:21 Dose: 0.2 mcg/kg/min, 64.7 mls/hr Documented by: [id number] Cosigned by: [id number] Admin: 04/26/21 00:29 Dose: 0.2 mcg/kg/min, 64.7 mls/hr Documented by: [id number] Cosigned by: [id number] Titration: 04/26/21 00:29 Dose: 0.2 mcg/kg/min, 64.7 mls/hr Documented by: [id number] Cosigned by: [id number] Titration: 04/25/21 18:31 Dose: 0.2 mcg/kg/min, 64.7 mls/hr Documented by: [id number] Titration: 04/25/21 12:52 Dose: 0.03 mcg/kg/min, 9.7 mls/hr Documented by: [id number] Admin: 04/25/21 12:08 Dose: 0.05 mcg/kg/min, 16.2 mls/hr Documented by: [id number] Cosigned by: [id number] Potassium Chloride (K Maximiliano / Wtr) 20 meq in 100 mls @ 50 mls/hr IV ONE ONE Stop: 04/26/21 08:44 Last Infusion: 04/26/21 09:40 Dose: 0 mls/hr Documented by: [id number] Admin: 04/26/21 06:52 Dose: 50 mls/hr Documented by: [id number] Albumin Human (Albumin 25%) 12.5 gm in 50 mls @ 50 mls/hr IV Q1H SH[facility]LEY Stop: 04/26/21 11:14 Last Infusion: 04/26/21 12:50 Dose: 0 mls/hr Documented by: [id number] Admin: 04/26/21 11:26 Dose: 50 mls/hr Documented by: [id number] Infusion: 04/26/21 11:22 Dose: 50 mls/hr Documented by: [id number] Admin: 04/26/21 10:22 Dose: 50 mls/hr Documented by: [id number] Infusion: 04/26/21 10:22 Dose: 50 mls/hr Documented by: [id number] Admin: 04/26/21 09:39 Dose: 50 mls/hr Documented by: [id number] Infusion: 04/26/21 09:34 Dose: 50 mls/hr Documented by: [id number] Admin: 04/26/21 08:34 Dose: 50 mls/hr Documented by: [id number] Cisatracurium Besylate 40 mg/ (Sodium Chloride) 100 mls @ 49.5 mls/hr IV .Q2H2M SHIRLEY; Protocol Stop: 05/02/21 13:30 Last Admin: 05/02/21 14:46 Dose: Not Given Documented by: [id number] Titration: 05/02/21 14:09 Dose: 0 mcg/kg/min, 0 mls/hr Documented by: [id number] Admin: 05/02/21 14:09 Dose: Not Given Documented by: [id number] Titration: 05/02/21 12:08 Dose: 5 mcg/kg/min, 49.5 mls/hr Documented by: [id number] Admin: 05/02/21 11:30 Dose: 4 mcg/kg/min, 39.6 mls/hr Documented by: [id number] Cosigned by: [id number] Titration: 05/02/21 11:30 Dose: 4 mcg/kg/min, 39.6 mls/hr Documented by: [id number] Cosigned by: [id number] Admin: 05/02/21 09:46 Dose: 4 mcg/kg/min, 39.6 mls/hr Documented by: [id number] Cosigned by: [id number] Titration: 05/02/21 09:15 Dose: 4 mcg/kg/min, 39.6 mls/hr Documented by: [id number] Cosigned by: [id number] Admin: 05/02/21 08:42 Dose: Not Given Documented by: [id number] Admin: 05/02/21 08:41 Dose: Not Given Documented by: [id number] Admin: 05/02/21 08:41 Dose: Not Given Documented by: [id number] Admin: 05/02/21 08:41 Dose: Not Given Documented by: [id number] Admin: 05/02/21 08:41 Dose: Not Given Documented by: [id number] Admin: 05/02/21 08:40 Dose: Not Given Documented by: [id number] Titration: 05/02/21 07:59 Dose: 4 mcg/kg/min, 39.6 mls/hr Documented by: [id number] Titration: 05/02/21 06:58 Dose: 3 mcg/kg/min, 29.7 mls/hr Documented by: [id number] Cosigned by: [id number] Admin: 05/02/21 06:18 Dose: 3 mcg/kg/min, 29.7 mls/hr Documented by: [id number] Cosigned by: [id number] Titration: 05/02/21 06:18 Dose: 3 mcg/kg/min, 29.7 mls/hr Documented by: [id number] Cosigned by: [id number] Admin: 05/02/21 03:25 Dose: 3 mcg/kg/min, 29.7 mls/hr Documented by: [id number] Cosigned by: [id number] Titration: 05/02/21 03:25 Dose: 3 mcg/kg/min, 29.7 mls/hr Documented by: [id number] Cosigned by: [id number] Admin: 05/02/21 00:26 Dose: 3 mcg/kg/min, 29.7 mls/hr Documented by: [id number] Cosigned by: [id number] Titration: 05/02/21 00:16 Dose: 3 mcg/kg/min, 29.7 mls/hr Documented by: [id number] Cosigned by: [id number] Admin: 05/01/21 20:53 Dose: 3 mcg/kg/min, 29.7 mls/hr Documented by: [id number] Cosigned by: [id number] Titration: 05/01/21 20:53 Dose: 3 mcg/kg/min, 29.7 mls/hr Documented by: [id number] Cosigned by: [id number] Titration: 05/01/21 19:11 Dose: 3 mcg/kg/min, 29.7 mls/hr Documented by: [id number] Cosigned by: [id number] Admin: 05/01/21 18:00 Dose: 3 mcg/kg/min, 29.7 mls/hr Documented by: [id number] Cosigned by: [id number] Titration: 05/01/21 18:00 Dose: 3 mcg/kg/min, 29.7 mls/hr Documented by: [id number] Cosigned by: [id number] Admin: 05/01/21 17:01 Dose: Not Given Documented by: [id number] Admin: 05/01/21 15:14 Dose: Not Given Documented by: [id number] Admin: 05/01/21 15:13 Dose: Not Given Documented by: [id number] Admin: 05/01/21 14:38 Dose: 3 mcg/kg/min, 29.7 mls/hr Documented by: [id number] Cosigned by: [id number] Titration: 05/01/21 14:31 Dose: 2 mcg/kg/min, 19.8 mls/hr Documented by: [id number] Cosigned by: [id number] Admin: 05/01/21 09:27 Dose: 2 mcg/kg/min, 19.8 mls/hr Documented by: [id number] Cosigned by: [id number] Titration: 05/01/21 09:13 Dose: 2 mcg/kg/min, 19.8 mls/hr Documented by: [id number] Cosigned by: [id number] Titration: 05/01/21 07:02 Dose: 2 mcg/kg/min, 19.8 mls/hr Documented by: [id number] Cosigned by: [id number] Admin: 05/01/21 04:09 Dose: 2 mcg/kg/min, 19.8 mls/hr Documented by: [id number] Cosigned by: [id number] Titration: 05/01/21 04:09 Dose: 2 mcg/kg/min, 19.8 mls/hr Documented by: [id number] Cosigned by: [id number] Admin: 05/01/21 02:51 Dose: Not Given Documented by: [id number] Admin: 05/01/21 02:51 Dose: Not Given Documented by: [id number] Titration: 05/01/21 01:34 Dose: 2 mcg/kg/min, 19.8 mls/hr Documented by: [id number] Admin: 04/30/21 22:52 Dose: 1.5 mcg/kg/min, 14.9 mls/hr Documented by: [id number] Cosigned by: [id number] Titration: 04/30/21 22:52 Dose: 1.5 mcg/kg/min, 14.9 mls/hr Documented by: [id number] Cosigned by: [id number] Admin: 04/30/21 19:55 Dose: Not Given Documented by: [id number] Admin: 04/30/21 19:47 Dose: Not Given Documented by: [id number] Admin: 04/30/21 19:46 Dose: Not Given Documented by: [id number] Titration: 04/30/21 19:14 Dose: 1.5 mcg/kg/min, 14.9 mls/hr Documented by: [id number] Cosigned by: [id number] Admin: 04/30/21 16:23 Dose: 1.5 mcg/kg/min, 14.9 mls/hr Documented by: [id number] Cosigned by: [id number] Titration: 04/30/21 15:03 Dose: 1.5 mcg/kg/min, 14.9 mls/hr Documented by: [id number] Cosigned by: [id number] Titration: 04/30/21 10:49 Dose: 1.5 mcg/kg/min, 14.9 mls/hr Documented by: [id number] Admin: 04/30/21 08:57 Dose: 2 mcg/kg/min, 19.8 mls/hr Documented by: [id number] Cosigned by: [id number] Titration: 04/30/21 08:57 Dose: 2 mcg/kg/min, 19.8 mls/hr Documented by: [id number] Cosigned by: [id number] Titration: 04/30/21 07:01 Dose: 2 mcg/kg/min, 19.8 mls/hr Documented by: [id number] Cosigned by: [id number] Admin: 04/30/21 05:49 Dose: 2 mcg/kg/min, 19.8 mls/hr Documented by: [id number] Cosigned by: [id number] Titration: 04/30/21 05:49 Dose: 1.6 mcg/kg/min, 15.8 mls/hr Documented by: [id number] Cosigned by: [id number] Admin: 04/29/21 23:40 Dose: 1.6 mcg/kg/min, 15.8 mls/hr Documented by: [id number] Cosigned by: [id number] Titration: 04/29/21 22:36 Dose: 1.6 mcg/kg/min, 15.8 mls/hr Documented by: [id number] Cosigned by: [id number] Titration: 04/29/21 20:25 Dose: 1.6 mcg/kg/min, 15.8 mls/hr Documented by: [id number] Titration: 04/29/21 19:23 Dose: 1.5 mcg/kg/min, 14.9 mls/hr Documented by: [id number] Cosigned by: [id number] Titration: 04/29/21 17:39 Dose: 1.5 mcg/kg/min, 14.9 mls/hr Documented by: [id number] Cosigned by: [id number] Admin: 04/29/21 16:06 Dose: 1.6 mcg/kg/min, 15.8 mls/hr Documented by: [id number] Cosigned by: [id number] Titration: 04/29/21 16:06 Dose: 1.6 mcg/kg/min, 15.8 mls/hr Documented by: [id number] Cosigned by: [id number] Admin: 04/29/21 09:49 Dose: 1.6 mcg/kg/min, 15.8 mls/hr Documented by: [id number] Cosigned by: [id number] Titration: 04/29/21 08:56 Dose: 1.6 mcg/kg/min, 15.8 mls/hr Documented by: [id number] Cosigned by: [id number] Titration: 04/29/21 07:10 Dose: 1.6 mcg/kg/min, 15.8 mls/hr Documented by: [id number] Cosigned by: [id number] Titration: 04/29/21 04:22 Dose: 1.6 mcg/kg/min, 15.8 mls/hr Documented by: [id number] Admin: 04/29/21 02:29 Dose: 1.5 mcg/kg/min, 14.9 mls/hr Documented by: [id number] Cosigned by: [id number] Titration: 04/29/21 02:29 Dose: 1.5 mcg/kg/min, 14.9 mls/hr Documented by: [id number] Cosigned by: [id number] Admin: 04/28/21 20:07 Dose: 1.5 mcg/kg/min, 14.9 mls/hr Documented by: [id number] Cosigned by: [id number] Titration: 04/28/21 19:27 Dose: 1.5 mcg/kg/min, 14.9 mls/hr Documented by: [id number] Cosigned by: [id number] Titration: 04/28/21 19:01 Dose: 1.5 mcg/kg/min, 14.9 mls/hr Documented by: [id number] Cosigned by: [id number] Admin: 04/28/21 12:44 Dose: 1.5 mcg/kg/min, 14.9 mls/hr Documented by: [id number] Cosigned by: [id number] Titration: 04/28/21 12:10 Dose: 1.5 mcg/kg/min, 14.9 mls/hr Documented by: [id number] Cosigned by: [id number] Admin: 04/28/21 05:27 Dose: 1.5 mcg/kg/min, 14.9 mls/hr Documented by: [id number] Cosigned by: [id number] Titration: 04/28/21 05:27 Dose: 1.5 mcg/kg/min, 14.9 mls/hr Documented by: [id number] Cosigned by: [id number] Admin: 04/27/21 23:13 Dose: 1.5 mcg/kg/min, 14.9 mls/hr Documented by: [id number] Cosigned by: [id number] Titration: 04/27/21 23:13 Dose: 1.5 mcg/kg/min, 14.9 mls/hr Documented by: [id number] Cosigned by: [id number] Titration: 04/27/21 19:07 Dose: 1.5 mcg/kg/min, 14.9 mls/hr Documented by: [id number] Cosigned by: [id number] Admin: 04/27/21 17:05 Dose: 1.5 mcg/kg/min, 14.9 mls/hr Documented by: [id number] Cosigned by: [id number] Titration: 04/27/21 17:05 Dose: 0.7 mcg/kg/min, 6.9 mls/hr Documented by: [id number] Cosigned by: [id number] Titration: 04/27/21 13:00 Dose: 0.7 mcg/kg/min, 6.9 mls/hr Documented by: [id number] Titration: 04/27/21 09:00 Dose: 0.8 mcg/kg/min, 7.9 mls/hr Documented by: [id number] Titration: 04/27/21 07:04 Dose: 0.9 mcg/kg/min, 8.9 mls/hr Documented by: [id number] Admin: 04/27/21 05:09 Dose: 0.9 mcg/kg/min, 8.9 mls/hr Documented by: [id number] Cosigned by: [id number] Titration: 04/27/21 05:09 Dose: 1 mcg/kg/min, 9.9 mls/hr Documented by: [id number] Cosigned by: [id number] Admin: 04/26/21 23:54 Dose: 1 mcg/kg/min, 9.9 mls/hr Documented by: [id number] Cosigned by: [id number] Furosemide 20 mg/ Syringe 2 mls @ 4 mls/min IV ONE ONE Stop: 04/28/21 09:46 Last Admin: 04/28/21 10:17 Dose: 4 mls/min Documented by: [id number] Potassium Chloride (K Maximiliano / Wtr) 20 meq in 100 mls @ 50 mls/hr IV ONE ONE Stop: 04/30/21 12:59 Last Infusion: 04/30/21 19:14 Dose: 0 mls/hr Documented by: [id number] Admin: 04/30/21 12:56 Dose: 50 mls/hr Documented by: [id number] Propofol (Diprivan) 1,000 mg in 100 mls @ 16.002 mls/hr IV .Q6H15M [facility]; Protocol Stop: 05/07/21 11:00 Last Titration: 05/07/21 17:03 Dose: 0 mcg/kg/min, 0 mls/hr Documented by: [id number] Admin: 05/07/21 09:16 Dose: 30 mcg/kg/min, 16 mls/hr Documented by: [id number] Cosigned by: [id number] Titration: 05/07/21 09:16 Dose: 30 mcg/kg/min, 16 mls/hr Documented by: [id number] Cosigned by: [id number] Titration: 05/07/21 07:08 Dose: 30 mcg/kg/min, 16 mls/hr Documented by: [id number] Cosigned by: [id number] Titration: 05/07/21 03:01 Dose: 30 mcg/kg/min, 16 mls/hr Documented by: [id number] Cosigned by: [id number] Admin: 05/07/21 03:01 Dose: 30 mcg/kg/min, 16 mls/hr Documented by: [id number] Cosigned by: [id number] Admin: 05/06/21 21:43 Dose: 30 mcg/kg/min, 16 mls/hr Documented by: [id number] Cosigned by: [id number] Titration: 05/06/21 21:43 Dose: 30 mcg/kg/min, 16 mls/hr Documented by: [id number] Cosigned by: [id number] Titration: 05/06/21 19:33 Dose: 30 mcg/kg/min, 16 mls/hr Documented by: [id number] Cosigned by: [id number] Admin: 05/06/21 16:35 Dose: 30 mcg/kg/min, 16 mls/hr Documented by: [id number] Cosigned by: [id number] Titration: 05/06/21 15:25 Dose: 30 mcg/kg/min, 16 mls/hr Documented by: [id number] Cosigned by: [id number] Admin: 05/06/21 09:10 Dose: 30 mcg/kg/min, 16 mls/hr Documented by: [id number] Cosigned by: [id number] Titration: 05/06/21 09:10 Dose: 30 mcg/kg/min, 16 mls/hr Documented by: [id number] Cosigned by: [id number] Admin: 05/06/21 03:36 Dose: 30 mcg/kg/min, 16 mls/hr Documented by: [id number] Cosigned by: [id number] Titration: 05/06/21 03:36 Dose: 30 mcg/kg/min, 16 mls/hr Documented by: [id number] Cosigned by: [id number] Admin: 05/05/21 22:13 Dose: 30 mcg/kg/min, 16 mls/hr Documented by: [id number] Cosigned by: [id number] Titration: 05/05/21 22:13 Dose: 30 mcg/kg/min, 16 mls/hr Documented by: [id number] Cosigned by: [id number] Admin: 05/05/21 17:07 Dose: 30 mcg/kg/min, 16 mls/hr Documented by: [id number] Cosigned by: [id number] Titration: 05/05/21 17:07 Dose: 30 mcg/kg/min, 16 mls/hr Documented by: [id number] Cosigned by: [id number] Admin: 05/05/21 16:43 Dose: Not Given Documented by: [id number] Admin: 05/05/21 12:47 Dose: Not Given Documented by: [id number] Admin: 05/05/21 12:47 Dose: Not Given Documented by: [id number] Admin: 05/05/21 12:46 Dose: Not Given Documented by: [id number] Admin: 05/05/21 12:46 Dose: Not Given Documented by: [id number] Admin: 05/05/21 12:46 Dose: Not Given Documented by: [id number] Admin: 05/05/21 12:46 Dose: Not Given Documented by: [id number] Admin: 05/05/21 12:46 Dose: Not Given Documented by: [id number] Admin: 05/05/21 12:46 Dose: Not Given Documented by: [id number] Admin: 05/05/21 12:45 Dose: Not Given Documented by: [id number] Titration: 05/05/21 12:09 Dose: 30 mcg/kg/min, 16 mls/hr Documented by: [id number] Admin: 05/05/21 11:40 Dose: 25 mcg/kg/min, 13.3 mls/hr Documented by: [id number] Cosigned by: [id number] Titration: 05/05/21 11:40 Dose: 25 mcg/kg/min, 13.3 mls/hr Documented by: [id number] Cosigned by: [id number] Titration: 05/05/21 06:56 Dose: 25 mcg/kg/min, 13.3 mls/hr Documented by: [id number] Cosigned by: [id number] Admin: 05/05/21 04:11 Dose: 25 mcg/kg/min, 13.3 mls/hr Documented by: [id number] Cosigned by: [id number] Titration: 05/05/21 04:11 Dose: 25 mcg/kg/min, 13.3 mls/hr Documented by: [id number] Cosigned by: [id number] Admin: 05/04/21 21:21 Dose: 25 mcg/kg/min, 13.3 mls/hr Documented by: [id number] Cosigned by: [id number] Titration: 05/04/21 21:21 Dose: 25 mcg/kg/min, 13.3 mls/hr Documented by: [id number] Cosigned by: [id number] Titration: 05/04/21 19:10 Dose: 25 mcg/kg/min, 13.3 mls/hr Documented by: [id number] Cosigned by: [id number] Admin: 05/04/21 15:29 Dose: 25 mcg/kg/min, 13.3 mls/hr Documented by: [id number] Cosigned by: [id number] Titration: 05/04/21 15:29 Dose: 25 mcg/kg/min, 13.3 mls/hr Documented by: [id number] Cosigned by: [id number] Admin: 05/04/21 08:05 Dose: 25 mcg/kg/min, 13.3 mls/hr Documented by: [id number] Cosigned by: [id number] Titration: 05/04/21 08:05 Dose: 25 mcg/kg/min, 13.3 mls/hr Documented by: [id number] Cosigned by: [id number] Admin: 05/04/21 02:47 Dose: 25 mcg/kg/min, 13.3 mls/hr Documented by: [id number] Cosigned by: [id number] Titration: 05/04/21 02:45 Dose: 25 mcg/kg/min, 13.3 mls/hr Documented by: [id number] Cosigned by: [id number] Admin: 05/03/21 19:13 Dose: 25 mcg/kg/min, 13.3 mls/hr Documented by: [id number] Cosigned by: [id number] Titration: 05/03/21 19:13 Dose: 25 mcg/kg/min, 13.3 mls/hr Documented by: [id number] Cosigned by: [id number] Titration: 05/03/21 18:52 Dose: 25 mcg/kg/min, 13.3 mls/hr Documented by: [id number] Cosigned by: [id number] Admin: 05/03/21 13:10 Dose: 25 mcg/kg/min, 13.3 mls/hr Documented by: [id number] Cosigned by: [id number] Titration: 05/03/21 13:10 Dose: 25 mcg/kg/min, 13.3 mls/hr Documented by: [id number] Cosigned by: [id number] Admin: 05/03/21 06:26 Dose: 25 mcg/kg/min, 13.3 mls/hr Documented by: [id number] Cosigned by: [id number] Titration: 05/03/21 06:26 Dose: 25 mcg/kg/min, 13.3 mls/hr Documented by: [id number] Cosigned by: [id number] Admin: 05/03/21 00:05 Dose: 25 mcg/kg/min, 13.3 mls/hr Documented by: [id number] Cosigned by: [id number] Titration: 05/03/21 00:05 Dose: 25 mcg/kg/min, 13.3 mls/hr Documented by: [id number] Cosigned by: [id number] Admin: 05/02/21 18:07 Dose: 25 mcg/kg/min, 13.3 mls/hr Documented by: [id number] Cosigned by: [id number] Titration: 05/02/21 18:07 Dose: 25 mcg/kg/min, 13.3 mls/hr Documented by: [id number] Cosigned by: [id number] Admin: 05/02/21 11:30 Dose: 25 mcg/kg/min, 13.3 mls/hr Documented by: [id number] Cosigned by: [id number] Titration: 05/02/21 11:30 Dose: 25 mcg/kg/min, 13.3 mls/hr Documented by: [id number] Cosigned by: [id number] Admin: 05/02/21 08:42 Dose: Not Given Documented by: [id number] Admin: 05/02/21 08:41 Dose: Not Given Documented by: [id number] Titration: 05/02/21 07:59 Dose: 25 mcg/kg/min, 13.3 mls/hr Documented by: [id number] Titration: 05/02/21 07:40 Dose: 20 mcg/kg/min, 10.7 mls/hr Documented by: [id number] Titration: 05/02/21 06:58 Dose: 15 mcg/kg/min, 8 mls/hr Documented by: [id number] Cosigned by: [id number] Admin: 05/02/21 06:18 Dose: 15 mcg/kg/min, 8 mls/hr Documented by: [id number] Cosigned by: [id number] Titration: 05/02/21 06:18 Dose: 15 mcg/kg/min, 8 mls/hr Documented by: [id number] Cosigned by: [id number] Admin: 05/01/21 20:06 Dose: 15 mcg/kg/min, 8 mls/hr Documented by: [id number] Cosigned by: [id number] Titration: 05/01/21 20:06 Dose: 15 mcg/kg/min, 8 mls/hr Documented by: [id number] Cosigned by: [id number] Titration: 05/01/21 19:11 Dose: 15 mcg/kg/min, 8 mls/hr Documented by: [id number] Cosigned by: [id number] Titration: 05/01/21 15:12 Dose: 15 mcg/kg/min, 8 mls/hr Documented by: [id number] Admin: 05/01/21 11:13 Dose: 20 mcg/kg/min, 10.7 mls/hr Documented by: [id number] Cosigned by: [id number] Fentanyl Citrate (Fentanyl Citrate) 2,500 mcg in 250 mls @ 22.5 mls/hr IV .Q11H7M [facility]; Protocol Stop: 05/15/21 11:14 Last Admin: 05/09/21 14:00 Dose: Not Given Documented by: [id number] Titration: 05/09/21 13:05 Dose: 0 mcg/hr, 0 mls/hr Documented by: [id number] Cosigned by: [id number] Titration: 05/09/21 09:52 Dose: 50 mcg/hr, 5 mls/hr Documented by: [id number] Cosigned by: [id number] Admin: 05/09/21 08:08 Dose: 75 mcg/hr, 7.5 mls/hr Documented by: [id number] Cosigned by: [id number] Titration: 05/09/21 08:08 Dose: 75 mcg/hr, 7.5 mls/hr Documented by: [id number] Cosigned by: [id number] Titration: 05/09/21 06:59 Dose: 100 mcg/hr, 10 mls/hr Documented by: [id number] Cosigned by: [id number] Titration: 05/09/21 05:12 Dose: 100 mcg/hr, 10 mls/hr Documented by: [id number] Cosigned by: [id number] Titration: 05/09/21 04:22 Dose: 125 mcg/hr, 12.5 mls/hr Documented by: [id number] Cosigned by: [id number] Titration: 05/08/21 19:12 Dose: 150 mcg/hr, 15 mls/hr Documented by: [id number] Cosigned by: [id number] Admin: 05/08/21 13:05 Dose: 150 mcg/hr, 15 mls/hr Documented by: [id number] Cosigned by: [id number] Titration: 05/08/21 13:05 Dose: 175 mcg/hr, 17.5 mls/hr Documented by: [id number] Cosigned by: [id number] Titration: 05/08/21 08:56 Dose: 175 mcg/hr, 17.5 mls/hr Documented by: [id number] Cosigned by: [id number] Titration: 05/08/21 07:12 Dose: 250 mcg/hr, 25 mls/hr Documented by: [id number] Cosigned by: [id number] Admin: 05/08/21 02:05 Dose: 250 mcg/hr, 25 mls/hr Documented by: [id number] Cosigned by: [id number] Titration: 05/08/21 01:56 Dose: 250 mcg/hr, 25 mls/hr Documented by: [id number] Cosigned by: [id number] Titration: 05/07/21 22:31 Dose: 250 mcg/hr, 25 mls/hr Documented by: [id number] Cosigned by: [id number] Titration: 05/07/21 20:56 Dose: 225 mcg/hr, 22.5 mls/hr Documented by: [id number] Cosigned by: [id number] Titration: 05/07/21 18:40 Dose: 200 mcg/hr, 20 mls/hr Documented by: [id number] Cosigned by: [id number] Titration: 05/07/21 17:10 Dose: 200 mcg/hr, 20 mls/hr Documented by: [id number] Cosigned by: [id number] Titration: 05/07/21 16:22 Dose: 175 mcg/hr, 17.5 mls/hr Documented by: [id number] Cosigned by: [id number] Admin: 05/07/21 13:42 Dose: 150 mcg/hr, 15 mls/hr Documented by: [id number] Cosigned by: [id number] Titration: 05/07/21 12:19 Dose: 150 mcg/hr, 15 mls/hr Documented by: [id number] Cosigned by: [id number] Titration: 05/07/21 07:08 Dose: 150 mcg/hr, 15 mls/hr Documented by: [id number] Cosigned by: [id number] Admin: 05/06/21 19:39 Dose: 150 mcg/hr, 15 mls/hr Documented by: [id number] Cosigned by: [id number] Titration: 05/06/21 19:39 Dose: 150 mcg/hr, 15 mls/hr Documented by: [id number] Cosigned by: [id number] Titration: 05/06/21 19:33 Dose: 150 mcg/hr, 15 mls/hr Documented by: [id number] Cosigned by: [id number] Admin: 05/06/21 16:34 Dose: Not Given Documented by: [id number] Admin: 05/06/21 03:48 Dose: 150 mcg/hr, 15 mls/hr Documented by: [id number] Cosigned by: [id number] Titration: 05/06/21 03:48 Dose: 150 mcg/hr, 15 mls/hr Documented by: [id number] Cosigned by: [id number] Admin: 05/05/21 11:57 Dose: 150 mcg/hr, 15 mls/hr Documented by: [id number] Cosigned by: [id number] Titration: 05/05/21 11:57 Dose: 150 mcg/hr, 15 mls/hr Documented by: [id number] Cosigned by: [id number] Admin: 05/05/21 07:37 Dose: Not Given Documented by: [id number] Titration: 05/05/21 06:56 Dose: 150 mcg/hr, 15 mls/hr Documented by: [id number] Cosigned by: [id number] Admin: 05/04/21 21:20 Dose: 150 mcg/hr, 15 mls/hr Documented by: [id number] Cosigned by: [id number] Titration: 05/04/21 19:27 Dose: 150 mcg/hr, 15 mls/hr Documented by: [id number] Cosigned by: [id number] Titration: 05/04/21 19:10 Dose: 150 mcg/hr, 15 mls/hr Documented by: [id number] Cosigned by: [id number] Admin: 05/04/21 02:47 Dose: 150 mcg/hr, 15 mls/hr Documented by: [id number] Cosigned by: [id number] Titration: 05/04/21 02:47 Dose: 150 mcg/hr, 15 mls/hr Documented by: [id number] Cosigned by: [id number] Admin: 05/03/21 19:34 Dose: Not Given Documented by: [id number] Titration: 05/03/21 19:30 Dose: 150 mcg/hr, 15 mls/hr Documented by: [id number] Cosigned by: [id number] Titration: 05/03/21 18:52 Dose: 125 mcg/hr, 12.5 mls/hr Documented by: [id number] Cosigned by: [id number] Admin: 05/03/21 13:11 Dose: 125 mcg/hr, 12.5 mls/hr Documented by: [id number] Cosigned by: [id number] Titration: 05/03/21 13:11 Dose: 125 mcg/hr, 12.5 mls/hr Documented by: [id number] Cosigned by: [id number] Admin: 05/02/21 18:07 Dose: 125 mcg/hr, 12.5 mls/hr Documented by: [id number] Cosigned by: [id number] Titration: 05/02/21 18:07 Dose: 125 mcg/hr, 12.5 mls/hr Documented by: [id number] Cosigned by: [id number] Admin: 05/02/21 12:27 Dose: Not Given Documented by: [id number] Titration: 05/02/21 12:08 Dose: 125 mcg/hr, 12.5 mls/hr Documented by: [id number] Cosigned by: [id number] Titration: 05/02/21 10:09 Dose: 150 mcg/hr, 15 mls/hr Documented by: [id number] Cosigned by: [id number] Titration: 05/02/21 07:59 Dose: 175 mcg/hr, 17.5 mls/hr Documented by: [id number] Cosigned by: [id number] Titration: 05/02/21 06:58 Dose: 150 mcg/hr, 15 mls/hr Documented by: [id number] Cosigned by: [id number] Admin: 05/02/21 01:49 Dose: 150 mcg/hr, 15 mls/hr Documented by: [id number] Cosigned by: [id number] Titration: 05/02/21 01:49 Dose: 150 mcg/hr, 15 mls/hr Documented by: [id number] Cosigned by: [id number] Titration: 05/01/21 19:11 Dose: 150 mcg/hr, 15 mls/hr Documented by: [id number] Cosigned by: [id number] Titration: 05/01/21 18:27 Dose: 150 mcg/hr, 15 mls/hr Documented by: [id number] Cosigned by: [id number] Titration: 05/01/21 14:39 Dose: 175 mcg/hr, 17.5 mls/hr Documented by: [id number] Cosigned by: [id number] Titration: 05/01/21 12:44 Dose: 200 mcg/hr, 20 mls/hr Documented by: [id number] Cosigned by: [id number] Admin: 05/01/21 11:13 Dose: 225 mcg/hr, 22.5 mls/hr Documented by: [id number] Cosigned by: [id number] Cisatracurium Besylate 100 mg/ (Sodium Chloride) 250 mls @ 44.55 mls/hr IV .Q5H37M [facility]; Protocol Stop: 06/01/21 13:29 Last Admin: 05/07/21 08:38 Dose: Not Given Documented by: [id number] Admin: 05/07/21 04:23 Dose: Not Given Documented by: [id number] Admin: 05/07/21 03:02 Dose: Not Given Documented by: [id number] Admin: 05/06/21 16:35 Dose: Not Given Documented by: [id number] Admin: 05/06/21 09:07 Dose: Not Given Documented by: [id number] Admin: 05/06/21 01:13 Dose: Not Given Documented by: [id number] Admin: 05/05/21 22:56 Dose: Not Given Documented by: [id number] Admin: 05/05/21 16:43 Dose: Not Given Documented by: [id number] Admin: 05/05/21 11:14 Dose: Not Given Documented by: [id number] Titration: 05/05/21 11:13 Dose: 0 mcg/kg/min, 0 mls/hr Documented by: [id number] Titration: 05/05/21 06:56 Dose: 4.5 mcg/kg/min, 44.6 mls/hr Documented by: [id number] Cosigned by: [id number] Admin: 05/05/21 05:00 Dose: 4.5 mcg/kg/min, 44.6 mls/hr Documented by: [id number] Cosigned by: [id number] Titration: 05/05/21 05:00 Dose: 4.5 mcg/kg/min, 44.6 mls/hr Documented by: [id number] Cosigned by: [id number] Admin: 05/05/21 00:16 Dose: 4.5 mcg/kg/min, 44.6 mls/hr Documented by: [id number] Cosigned by: [id number] Titration: 05/04/21 23:24 Dose: 4.5 mcg/kg/min, 44.6 mls/hr Documented by: [id number] Cosigned by: [id number] Titration: 05/04/21 19:10 Dose: 4.5 mcg/kg/min, 44.6 mls/hr Documented by: [id number] Cosigned by: [id number] Admin: 05/04/21 17:47 Dose: 4.5 mcg/kg/min, 44.6 mls/hr Documented by: [id number] Cosigned by: [id number] Titration: 05/04/21 17:37 Dose: 4.5 mcg/kg/min, 44.6 mls/hr Documented by: [id number] Cosigned by: [id number] Admin: 05/04/21 12:00 Dose: 4.5 mcg/kg/min, 44.6 mls/hr Documented by: [id number] Cosigned by: [id number] Titration: 05/04/21 12:00 Dose: 4.5 mcg/kg/min, 44.6 mls/hr Documented by: [id number] Cosigned by: [id number] Admin: 05/04/21 06:33 Dose: 4.5 mcg/kg/min, 44.6 mls/hr Documented by: [id number] Cosigned by: [id number] Titration: 05/04/21 06:33 Dose: 4.5 mcg/kg/min, 44.6 mls/hr Documented by: [id number] Cosigned by: [id number] Admin: 05/04/21 01:36 Dose: 4.5 mcg/kg/min, 44.6 mls/hr Documented by: [id number] Cosigned by: [id number] Titration: 05/04/21 00:52 Dose: 4.5 mcg/kg/min, 44.6 mls/hr Documented by: [id number] Cosigned by: [id number] Admin: 05/03/21 19:48 Dose: Not Given Documented by: [id number] Admin: 05/03/21 19:48 Dose: Not Given Documented by: [id number] Admin: 05/03/21 19:48 Dose: Not Given Documented by: [id number] Admin: 05/03/21 19:47 Dose: Not Given Documented by: [id number] Admin: 05/03/21 19:47 Dose: Not Given Documented by: [id number] Titration: 05/03/21 19:30 Dose: 4.5 mcg/kg/min, 44.6 mls/hr Documented by: [id number] Admin: 05/03/21 19:13 Dose: 4 mcg/kg/min, 39.6 mls/hr Documented by: [id number] Cosigned by: [id number] Titration: 05/03/21 19:13 Dose: 4 mcg/kg/min, 39.6 mls/hr Documented by: [id number] Cosigned by: [id number] Titration: 05/03/21 18:52 Dose: 4 mcg/kg/min, 39.6 mls/hr Documented by: [id number] Cosigned by: [id number] Admin: 05/03/21 13:10 Dose: 4 mcg/kg/min, 39.6 mls/hr Documented by: [id number] Cosigned by: [id number] Titration: 05/03/21 12:45 Dose: 4 mcg/kg/min, 39.6 mls/hr Documented by: [id number] Cosigned by: [id number] Admin: 05/03/21 06:26 Dose: 4 mcg/kg/min, 39.6 mls/hr Documented by: [id number] Cosigned by: [id number] Titration: 05/03/21 06:24 Dose: 4 mcg/kg/min, 39.6 mls/hr Documented by: [id number] Cosigned by: [id number] Admin: 05/03/21 00:05 Dose: 4 mcg/kg/min, 39.6 mls/hr Documented by: [id number] Cosigned by: [id number] Titration: 05/03/21 00:05 Dose: 4 mcg/kg/min, 39.6 mls/hr Documented by: [id number] Cosigned by: [id number] Admin: 05/02/21 19:12 Dose: 4 mcg/kg/min, 39.6 mls/hr Documented by: [id number] Cosigned by: [id number] Titration: 05/02/21 19:12 Dose: 4 mcg/kg/min, 39.6 mls/hr Documented by: [id number] Cosigned by: [id number] Titration: 05/02/21 14:30 Dose: 4 mcg/kg/min, 39.6 mls/hr Documented by: [id number] Titration: 05/02/21 14:15 Dose: 4 mcg/kg/min, 39.6 mls/hr Documented by: [id number] Admin: 05/02/21 14:09 Dose: 5 mcg/kg/min, 49.5 mls/hr Documented by: [id number] Cosigned by: [id number] Dexmedetomidine HCl 200 mcg/ (Sodium Chloride) 50 mls @ 14.945 mls/hr IV .Q3H21M [facility]; Protocol Stop: 05/10/21 01:30 Last Admin: 05/10/21 14:54 Dose: Not Given Documented by: [id number] Titration: 05/10/21 14:54 Dose: 0 mcg/kg/hr, 0 mls/hr Documented by: [id number] Admin: 05/10/21 14:53 Dose: Not Given Documented by: [id number] Admin: 05/09/21 23:05 Dose: 0.7 mcg/kg/hr, 14.9 mls/hr Documented by: [id number] Cosigned by: [id number] Titration: 05/09/21 22:00 Dose: 0.7 mcg/kg/hr, 14.9 mls/hr Documented by: [id number] Cosigned by: [id number] Titration: 05/09/21 21:36 Dose: 0.7 mcg/kg/hr, 14.9 mls/hr Documented by: [id number] Titration: 05/09/21 21:11 Dose: 0.6 mcg/kg/hr, 12.8 mls/hr Documented by: [id number] Titration: 05/09/21 18:56 Dose: 0.5 mcg/kg/hr, 10.7 mls/hr Documented by: [id number] Cosigned by: [id number] Admin: 05/09/21 17:33 Dose: 0.5 mcg/kg/hr, 10.7 mls/hr Documented by: [id number] Cosigned by: [id number] Titration: 05/09/21 17:33 Dose: 0.5 mcg/kg/hr, 10.7 mls/hr Documented by: [id number] Cosigned by: [id number] Titration: 05/09/21 14:03 Dose: 0.5 mcg/kg/hr, 10.7 mls/hr Documented by: [id number] Admin: 05/09/21 12:43 Dose: 0.4 mcg/kg/hr, 8.5 mls/hr Documented by: [id number] Cosigned by: [id number] Titration: 05/09/21 12:36 Dose: 0.4 mcg/kg/hr, 8.5 mls/hr Documented by: [id number] Cosigned by: [id number] Titration: 05/09/21 07:00 Dose: 0.4 mcg/kg/hr, 8.5 mls/hr Documented by: [id number] Cosigned by: [id number] Admin: 05/09/21 06:43 Dose: 0.4 mcg/kg/hr, 8.5 mls/hr Documented by: [id number] Cosigned by: [id number] Titration: 05/09/21 05:41 Dose: 0.4 mcg/kg/hr, 8.5 mls/hr Documented by: [id number] Cosigned by: [id number] Admin: 05/08/21 23:48 Dose: 0.4 mcg/kg/hr, 8.5 mls/hr Documented by: [id number] Cosigned by: [id number] Titration: 05/08/21 23:48 Dose: 0.4 mcg/kg/hr, 8.5 mls/hr Documented by: [id number] Cosigned by: [id number] Admin: 05/08/21 19:19 Dose: 0.4 mcg/kg/hr, 8.5 mls/hr Documented by: [id number] Cosigned by: [id number] Titration: 05/08/21 19:12 Dose: 0.4 mcg/kg/hr, 8.5 mls/hr Documented by: [id number] Cosigned by: [id number] Admin: 05/08/21 12:34 Dose: 0.4 mcg/kg/hr, 8.5 mls/hr Documented by: [id number] Cosigned by: [id number] Titration: 05/08/21 12:34 Dose: 0.4 mcg/kg/hr, 8.5 mls/hr Documented by: [id number] Cosigned by: [id number] Titration: 05/08/21 07:12 Dose: 0.4 mcg/kg/hr, 8.5 mls/hr Documented by: [id number] Cosigned by: [id number] Admin: 05/08/21 06:44 Dose: 0.4 mcg/kg/hr, 8.5 mls/hr Documented by: [id number] Cosigned by: [id number] Nicardipine HCl 25 mg/ Sodium (Chloride) 250 mls @ 0 mls/hr IV .Q0M [facility]; Protocol Stop: 06/07/21 19:29 Last Admin: 05/09/21 09:13 Dose: Not Given Documented by: [id number] Titration: 05/09/21 08:09 Dose: 0 mg/hr, 0 mls/hr Documented by: [id number] Titration: 05/09/21 05:40 Dose: 0 mg/hr, 0 mls/hr Documented by: [id number] Admin: 05/09/21 00:54 Dose: 5 mg/hr, 50 mls/hr Documented by: [id number] Cosigned by: [id number] Titration: 05/09/21 00:54 Dose: 5 mg/hr, 50 mls/hr Documented by: [id number] Cosigned by: [id number] Admin: 05/08/21 19:58 Dose: 5 mg/hr, 50 mls/hr Documented by: [id number] Cosigned by: [id number] Dexmedetomidine HCl 400 mcg/ (Sodium Chloride) 100 mls @ 6.405 mls/hr IV .[id number] [facility]; Protocol Stop: 05/13/21 23:14 Last Admin: 05/11/21 20:01 Dose: Not Given Documented by: [id number] Admin: 05/11/21 14:24 Dose: Not Given Documented by: [id number] Titration: 05/11/21 14:24 Dose: 0 mcg/kg/hr, 0 mls/hr Documented by: [id number] Titration: 05/11/21 12:22 Dose: 0.3 mcg/kg/hr, 6.4 mls/hr Documented by: [id number] Admin: 05/11/21 10:11 Dose: 0.5 mcg/kg/hr, 10.7 mls/hr Documented by: [id number] Cosigned by: [id number] Titration: 05/11/21 10:11 Dose: 0.9 mcg/kg/hr, 19.2 mls/hr Documented by: [id number] Cosigned by: [id number] Titration: 05/11/21 06:45 Dose: 0.9 mcg/kg/hr, 19.2 mls/hr Documented by: [id number] Cosigned by: [id number] Admin: 05/11/21 05:16 Dose: 0.9 mcg/kg/hr, 19.2 mls/hr Documented by: [id number] Cosigned by: [id number] Titration: 05/11/21 03:35 Dose: 0.9 mcg/kg/hr, 19.2 mls/hr Documented by: [id number] Cosigned by: [id number] Titration: 05/11/21 03:21 Dose: 0.9 mcg/kg/hr, 19.2 mls/hr Documented by: [id number] Titration: 05/11/21 00:00 Dose: 0.8 mcg/kg/hr, 17.1 mls/hr Documented by: [id number] Admin: 05/10/21 21:26 Dose: 0.7 mcg/kg/hr, 14.9 mls/hr Documented by: [id number] Cosigned by: [id number] Titration: 05/10/21 21:26 Dose: 0.7 mcg/kg/hr, 14.9 mls/hr Documented by: [id number] Cosigned by: [id number] Titration: 05/10/21 19:04 Dose: 0.7 mcg/kg/hr, 14.9 mls/hr Documented by: [id number] Cosigned by: [id number] Admin: 05/10/21 14:53 Dose: 0.7 mcg/kg/hr, 14.9 mls/hr Documented by: [id number] Cosigned by: [id number] Titration: 05/10/21 14:48 Dose: 0.7 mcg/kg/hr, 14.9 mls/hr Documented by: [id number] Cosigned by: [id number] Admin: 05/10/21 08:05 Dose: 0.7 mcg/kg/hr, 14.9 mls/hr Documented by: [id number] Cosigned by: [id number] Titration: 05/10/21 08:05 Dose: 0.7 mcg/kg/hr, 14.9 mls/hr Documented by: [id number] Cosigned by: [id number] Admin: 05/10/21 02:24 Dose: 0.7 mcg/kg/hr, 14.9 mls/hr Documented by: [id number] Cosigned by: [id number] Chlorothiazide Sodium 500 mg/ (Dextrose) 68 mls @ 200 mls/hr IV NOW ONE Stop: 05/12/21 10:50 Last Infusion: 05/12/21 12:30 Dose: 0 mls/hr Documented by: [id number] Admin: 05/12/21 11:50 Dose: 200 mls/hr Documented by: [id number] Potassium Phosphate 30 mmol/ (Sodium Chloride) 510 mls @ 88 mls/hr IV ONE ONE Stop: 05/13/21 12:32 Last Infusion: 05/13/21 16:01 Dose: 0 mls/hr Documented by: [id number] Admin: 05/13/21 09:07 Dose: 88 mls/hr Documented by: [id number] Lorazepam (Ativan) 4 mg in 8 mls @ 4 mls/min IV NOW STA Stop: 05/13/21 19:43 Last Admin: 05/13/21 20:11 Dose: 4 mls/min Documented by: [id number] Furosemide 40 mg/ Syringe 4 mls @ 4 mls/min IV ONE ONE Stop: 05/13/21 22:31 Last Admin: 05/13/21 22:21 Dose: 4 mls/min Documented by: [id number] Acetaminophen (Ofirmev) 1,000 mg in 100 mls @ 400 mls/hr IV NOW STA Stop: 05/14/21 06:37 Last Infusion: 05/14/21 06:47 Dose: 0 mls/hr Documented by: [id number] Admin: 05/14/21 06:31 Dose: 400 mls/hr Documented by: [id number] Piperacillin Sod/Tazobactam (Sod 4.5 gm/ Dextrose) 120 mls @ 200 mls/hr IV NOW ONE; Protocol Stop: 05/14/21 09:20 Last Infusion: 05/14/21 09:46 Dose: 0 mls/hr Documented by: [id number] Admin: 05/14/21 08:58 Dose: 200 mls/hr Documented by: [id number] Ioversol (Optiray 320 125ml) 118 ml IV ONCE ONE Stop: 04/27/21 16:40 Last Admin: 04/27/21 16:39 Dose: 118 ml Documented by: [id number] Labetalol HCl (Labetalol Hcl Iv 5 Mg/Ml 20ml) 10 mg IV NOW STA Stop: 05/09/21 21:46 Last Admin: 05/09/21 21:54 Dose: 10 mg Documented by: [id number] Cosigned by: [id number] Labetalol HCl (Labetalol Hcl Iv 5 Mg/Ml 20ml) 10 mg IV Q4H PRN PRN Reason: Hypertension Stop: 06/09/21 04:38 Last Admin: 05/11/21 03:20 Dose: 10 mg Documented by: [id number] Cosigned by: [id number] Admin: 05/10/21 22:20 Dose: 10 mg Documented by: [id number] Cosigned by: [id number] Admin: 05/10/21 17:31 Dose: 10 mg Documented by: [id number] Cosigned by: [id number] Admin: 05/10/21 05:14 Dose: 10 mg Documented by: [id number] Cosigned by: [id number] Labetalol HCl (Labetalol Hcl Iv 5 Mg/Ml 20ml) 10 mg IV NOW STA Stop: 05/12/21 06:21 Last Admin: 05/12/21 06:30 Dose: 10 mg Documented by: [id number] Cosigned by: [id number] Lactulose (Lactulose Syrup 20 Gm/30 Ml [facility]) 10 gm PO TID [facility] Stop: 05/29/21 13:59 Last Admin: 04/30/21 19:54 Dose: Not Given Documented by: [id number] Admin: 04/30/21 08:54 Dose: 10 gm Documented by: [id number] Admin: 04/29/21 21:45 Dose: 10 gm Documented by: [id number] Admin: 04/29/21 16:07 Dose: 10 gm Documented by: [id number] Lorazepam (Lorazepam 1 Mg Tab) 2 mg PO Q8H [facility] Stop: 06/07/21 11:59 Last Admin: 05/09/21 04:21 Dose: 2 mg Documented by: [id number] Admin: 05/08/21 20:38 Dose: 2 mg Documented by: [id number] Admin: 05/08/21 12:21 Dose: 2 mg Documented by: [id number] Lorazepam (Lorazepam 1 Mg Tab) 3 mg PO Q8H [facility] Stop: 05/12/21 08:59 Last Admin: 05/12/21 08:35 Dose: 3 mg Documented by: [id number] Admin: 05/12/21 00:54 Dose: 3 mg Documented by: [id number] Admin: 05/11/21 16:46 Dose: 3 mg Documented by: [id number] Admin: 05/11/21 08:24 Dose: 3 mg Documented by: [id number] Admin: 05/11/21 00:16 Dose: 3 mg Documented by: [id number] Admin: 05/10/21 17:00 Dose: 3 mg Documented by: [id number] Admin: 05/10/21 08:14 Dose: 3 mg Documented by: [id number] Admin: 05/10/21 01:52 Dose: 3 mg Documented by: [id number] Admin: 05/09/21 17:33 Dose: 3 mg Documented by: [id number] Admin: 05/09/21 09:49 Dose: 3 mg Documented by: [id number] Lorazepam (Lorazepam 2 Mg/4 Ml Vial) Confirm Administered Dose 4 mg .ROUTE .STK- MED ONE Stop: 05/13/21 19:39 Last Admin: 05/13/21 20:10 Dose: Not Given Documented by: [id number] Methylnaltrexone [place] (Methylnaltrexone [place] 12 Mg/0.6 Ml Vial) 12 mg SQ TODAY@1200 ONE Stop: 05/04/21 12:01 Last Admin: 05/04/21 12:00 Dose: 12 mg Documented by: [id number] Metoprolol Tartrate (Metoprolol Tartrate 1 Mg/Ml Vial) Confirm Administered Dose 5 mg IV .STK-MED ONE Stop: 05/02/21 16:21 Last Admin: 05/02/21 16:25 Dose: 5 mg Documented by: [id number] Metoprolol Tartrate (Metoprolol Tartrate 1 Mg/Ml Vial) 5 mg IV NOW STA Stop: 05/02/21 16:39 Last Admin: 05/02/21 16:57 Dose: Not Given Documented by: [id number] Midazolam HCl (Midazolam Hcl 125mg/250ml D5w) Confirm Administered Dose 125 mg .ROUTE .STBlowtorch-MED ONE Stop: 04/24/21 09:51 Last Admin: 04/24/21 11:12 Dose: Not Given Documented by: [id number] Midazolam HCl (Midazolam Bolus From Bag) 2 mg IV Q60M PRN PRN Reason: Sedation Stop: 05/24/21 11:20 Last Admin: 05/08/21 18:50 Dose: 2 mg Documented by: [id number] Admin: 05/08/21 16:34 Dose: 2 mg Documented by: [id number] Admin: 05/08/21 15:04 Dose: 2 mg Documented by: [id number] Admin: 05/08/21 05:30 Dose: 2 mg Documented by: [id number] Admin: 05/08/21 03:24 Dose: 2 mg Documented by: [id number] Admin: 05/08/21 02:00 Dose: 2 mg Documented by: [id number] Admin: 05/07/21 21:41 Dose: 2 mg Documented by: [id number] Admin: 05/07/21 20:07 Dose: 2 mg Documented by: [id number] Admin: 05/02/21 22:41 Dose: 2 mg Documented by: [id number] Admin: 05/02/21 08:00 Dose: 2 mg Documented by: [id number] Admin: 05/01/21 00:40 Dose: 2 mg Documented by: [id number] Admin: 04/30/21 06:28 Dose: 2 mg Documented by: [id number] Admin: 04/30/21 05:09 Dose: 2 mg Documented by: [id number] Admin: 04/30/21 04:09 Dose: 2 mg Documented by: [id number] Admin: 04/29/21 22:19 Dose: 2 mg Documented by: [id number] Admin: 04/29/21 21:10 Dose: 2 mg Documented by: [id number] Admin: 04/27/21 17:05 Dose: 2 mg Documented by: [id number] Admin: 04/24/21 13:04 Dose: 2 mg Documented by: [id number] Admin: 04/24/21 12:03 Dose: 2 mg Documented by: [id number] Midazolam HCl (Midazolam Hcl 1 Mg/Ml 2ml Vial) Confirm Administered Dose 2 mg .ROUTE .STK-MED ONE Stop: 05/10/21 04:26 Last Admin: 05/10/21 05:28 Dose: Not Given Documented by: [id number] Midazolam HCl (Midazolam Hcl 1 Mg/Ml 2ml Vial) 2 mg IV NOW STA Stop: 05/10/21 04:33 Last Admin: 05/10/21 04:45 Dose: 2 mg Documented by: [id number] Midazolam HCl (Midazolam Hcl 1 Mg/Ml 2ml Vial) 2 mg IV NOW STA Stop: 05/10/21 22:30 Last Admin: 05/11/21 00:10 Dose: 2 mg Documented by: [id number] Midazolam HCl (Midazolam Hcl 1 Mg/Ml 2ml Vial) Confirm Administered Dose 2 mg .ROUTE .STK-MED ONE Stop: 05/11/21 03:29 Last Admin: 05/11/21 03:30 Dose: 2 mg Documented by: [id number] Midazolam HCl (Midazolam Hcl 1 Mg/Ml 2ml Vial) 2 mg IV NOW STA Stop: 05/11/21 04:08 Last Admin: 05/11/21 05:50 Dose: Not Given Documented by: [id number] Midazolam HCl (Midazolam Hcl 1 Mg/Ml 2ml Vial) Confirm Administered Dose 4 mg .ROUTE .STK-MED ONE Stop: 05/11/21 21:05 Last Admin: 05/11/21 21:09 Dose: 4 mg Documented by: [id number] Midazolam HCl (Midazolam Hcl 5 Mg/Ml 1 Ml Vial) 4 mg IV NOW STA Stop: 05/12/21 04:28 Last Admin: 05/12/21 04:55 Dose: Not Given Documented by: [id number] Midazolam HCl (Midazolam Hcl 5 Mg/Ml 1 Ml Vial) Confirm Administered Dose 5 mg .ROUTE .STK-MED ONE Stop: 05/13/21 21:48 Last Admin: 05/13/21 22:16 Dose: Not Given Documented by: [id number] Midazolam HCl (Midazolam Hcl 5 Mg/Ml 1 Ml Vial) 4 mg IV NOW STA Stop: 05/13/21 22:11 Last Admin: 05/13/21 22:16 Dose: 4 mg Documented by: [id number] Miscellaneous (Rapid Sequence Induction Bag) Confirm Administered Dose 1 ea .ROUTE .STK-MED ONE Stop: 04/24/21 09:43 Last Admin: 04/24/21 11:12 Dose: 1 ea Documented by: [id number] Multi-Ingredient Cream (Artificial Tears Op Oint 3.5 Gm Tube) 1 appln OP UD PRN PRN Reason: DRY EYES Stop: 05/24/21 18:26 Last Admin: 04/25/21 08:26 Dose: 1 appln Documented by: [id number] Multi-Ingredient Cream (Artificial Tears Op Oint 3.5 Gm Tube) 1 appln OP Q4H [facility] Stop: 05/26/21 23:44 Last Admin: 05/09/21 08:09 Dose: 1 appln Documented by: [id number] Admin: 05/09/21 03:59 Dose: 1 appln Documented by: [id number] Admin: 05/09/21 00:00 Dose: 1 appln Documented by: [id number] Admin: 05/08/21 20:54 Dose: 1 appln Documented by: [id number] Admin: 05/08/21 19:12 Dose: 1 appln Documented by: [id number] Admin: 05/08/21 12:20 Dose: 1 appln Documented by: [id number] Admin: 05/08/21 08:28 Dose: 1 appln Documented by: [id number] Admin: 05/08/21 04:20 Dose: 1 appln Documented by: [id number] Admin: 05/07/21 23:52 Dose: 1 appln Documented by: [id number] Admin: 05/07/21 21:08 Dose: 1 appln Documented by: [id number] Admin: 05/07/21 16:17 Dose: 1 appln Documented by: [id number] Admin: 05/07/21 12:26 Dose: 1 appln Documented by: [id number] Admin: 05/07/21 08:26 Dose: 1 appln Documented by: [id number] Admin: 05/07/21 03:02 Dose: Not Given Documented by: [id number] Admin: 05/07/21 02:02 Dose: Not Given Documented by: [id number] Admin: 05/06/21 19:41 Dose: 1 appln Documented by: [id number] Admin: 05/06/21 16:35 Dose: 1 appln Documented by: [id number] Admin: 05/06/21 11:35 Dose: 1 appln Documented by: [id number] Admin: 05/06/21 09:07 Dose: 1 appln Documented by: [id number] Admin: 05/06/21 03:36 Dose: 1 appln Documented by: [id number] Admin: 05/05/21 22:57 Dose: 1 appln Documented by: [id number] Admin: 05/05/21 16:45 Dose: Not Given Documented by: [id number] Admin: 05/05/21 16:43 Dose: Not Given Documented by: [id number] Admin: 05/05/21 12:09 Dose: 1 appln Documented by: [id number] Admin: 05/05/21 08:37 Dose: 1 appln Documented by: [id number] Admin: 05/05/21 04:11 Dose: 1 appln Documented by: [id number] Admin: 05/05/21 00:16 Dose: 1 appln Documented by: [id number] Admin: 05/04/21 19:33 Dose: 1 appln Documented by: [id number] Admin: 05/04/21 15:30 Dose: 1 appln Documented by: [id number] Admin: 05/04/21 12:00 Dose: 1 appln Documented by: [id number] Admin: 05/04/21 08:04 Dose: 1 appln Documented by: [id number] Admin: 05/04/21 03:29 Dose: 1 appln Documented by: [id number] Admin: 05/03/21 23:25 Dose: 1 appln Documented by: [id number] Admin: 05/03/21 19:13 Dose: 1 appln Documented by: [id number] Admin: 05/03/21 16:26 Dose: 1 appln Documented by: [id number] Admin: 05/03/21 10:47 Dose: 1 appln Documented by: [id number] Admin: 05/03/21 08:08 Dose: 1 appln Documented by: [id number] Admin: 05/03/21 03:45 Dose: 1 appln Documented by: [id number] Admin: 05/03/21 00:06 Dose: 1 appln Documented by: [id number] Admin: 05/02/21 19:13 Dose: 1 appln Documented by: [id number] Admin: 05/02/21 15:45 Dose: 1 appln Documented by: [id number] Admin: 05/02/21 11:30 Dose: 1 appln Documented by: [id number] Admin: 05/02/21 08:01 Dose: 1 appln Documented by: [id number] Admin: 05/02/21 03:25 Dose: 1 appln Documented by: [id number] Admin: 05/01/21 23:25 Dose: 1 appln Documented by: [id number] Admin: 05/01/21 20:06 Dose: 1 appln Documented by: [id number] Admin: 05/01/21 14:39 Dose: 1 appln Documented by: [id number] Admin: 05/01/21 11:16 Dose: 1 appln Documented by: [id number] Admin: 05/01/21 09:26 Dose: 1 appln Documented by: [id number] Admin: 05/01/21 04:10 Dose: 1 appln Documented by: [id number] Admin: 04/30/21 22:52 Dose: 1 appln Documented by: [id number] Admin: 04/30/21 19:47 Dose: 1 appln Documented by: [id number] Admin: 04/30/21 16:23 Dose: 1 appln Documented by: [id number] Admin: 04/30/21 12:57 Dose: 1 appln Documented by: [id number] Admin: 04/30/21 08:56 Dose: 1 appln Documented by: [id number] Admin: 04/30/21 03:00 Dose: 1 appln Documented by: [id number] Admin: 04/30/21 00:50 Dose: 1 appln Documented by: [id number] Admin: 04/29/21 20:55 Dose: 1 appln Documented by: [id number] Admin: 04/29/21 16:07 Dose: 1 appln Documented by: [id number] Admin: 04/29/21 13:16 Dose: 1 appln Documented by: [id number] Admin: 04/29/21 07:49 Dose: 1 appln Documented by: [id number] Admin: 04/29/21 03:49 Dose: Not Given Documented by: [id number] Admin: 04/28/21 23:50 Dose: 1 appln Documented by: [id number] Admin: 04/28/21 23:50 Dose: 1 appln Documented by: [id number] Admin: 04/28/21 17:33 Dose: 1 appln Documented by: [id number] Admin: 04/28/21 12:46 Dose: 1 appln Documented by: [id number] Admin: 04/28/21 10:17 Dose: 1 appln Documented by: [id number] Admin: 04/28/21 03:32 Dose: Not Given Documented by: [id number] Admin: 04/27/21 23:13 Dose: Not Given Documented by: [id number] Admin: 04/27/21 20:14 Dose: Not Given Documented by: [id number] Admin: 04/27/21 15:39 Dose: 1 appln Documented by: [id number] Admin: 04/27/21 12:22 Dose: 1 appln Documented by: [id number] Admin: 04/27/21 08:46 Dose: 1 appln Documented by: [id number] Admin: 04/27/21 05:30 Dose: 1 appln Documented by: [id number] Admin: 04/26/21 23:57 Dose: 1 appln Documented by: [id number] Multivitamins/Minerals (Multi Vit W/Minerals Liquid 15 Ml Udp) [facility] [place] [facility] [place]: 05/25/21 08:59 Last Admin: 05/07/21 08:27 Dose: 15 ml Documented by: [id number] Admin: 05/06/21 09:06 Dose: 15 ml Documented by: [id number] Admin: 05/05/21 08:37 Dose: 15 ml Documented by: [id number] Admin: 05/04/21 08:04 Dose: 15 ml Documented by: [id number] Admin: 05/03/21 08:09 Dose: 15 ml Documented by: [id number] Admin: 05/02/21 09:46 Dose: 15 ml Documented by: [id number] Admin: 05/01/21 09:26 Dose: 15 ml Documented by: [id number] Admin: 04/30/21 08:54 Dose: 15 ml Documented by: [id number] Admin: 04/29/21 07:47 Dose: 15 ml Documented by: [id number] Admin: 04/28/21 08:09 Dose: 15 ml Documented by: [id number] Admin: 04/27/21 08:46 Dose: 15 ml Documented by: [id number] Admin: 04/26/21 08:35 Dose: 15 ml Documented by: [id number] Admin: 04/25/21 08:25 Dose: 15 ml Documented by: [id number] Oxycodone HCl (Oxycodone Hcl Ir 5 Mg Tab (Immediate Release)) 10 mg PO Q8H [facility] Stop: 05/22/21 11:59 Last Admin: 05/09/21 04:21 Dose: 10 mg Documented by: [id number] Admin: 05/08/21 20:38 Dose: 10 mg Documented by: [id number] Admin: 05/08/21 12:21 Dose: 10 mg Documented by: [id number] Oxycodone HCl (Oxycodone Hcl Ir 5 Mg Tab (Immediate Release)) 15 mg PO Q8H [place] Stop: 05/12/21 08:59 Last Admin: 05/12/21 00:54 Dose: 15 mg Documented by: [id number] Admin: 05/11/21 16:46 Dose: 15 mg Documented by: [id number] Admin: 05/11/21 08:24 Dose: 15 mg Documented by: [id number] Admin: 05/11/21 00:16 Dose: 15 mg Documented by: [id number] Admin: 05/10/21 17:00 Dose: 15 mg Documented by: [id number] Admin: 05/10/21 08:14 Dose: 15 mg Documented by: [id number] Admin: 05/10/21 01:52 Dose: 15 mg Documented by: [id number] Admin: 05/09/21 17:34 Dose: 15 mg Documented by: [id number] Admin: 05/09/21 11:09 Dose: 15 mg Documented by: [id number] Oxycodone HCl (Oxycodone Hcl Ir 5 Mg Tab (Immediate Release)) 10 mg PO Q8H [facility] Stop: 05/14/21 01:01 Last Admin: 05/14/21 04:25 Dose: Not Given Documented by: [id number] Admin: 05/13/21 15:53 Dose: 10 mg Documented by: [id number] Admin: 05/13/21 09:06 Dose: 10 mg Documented by: [id number] Admin: 05/13/21 00:04 Dose: 10 mg Documented by: [id number] Admin: 05/12/21 16:25 Dose: 10 mg Documented by: [id number] Admin: 05/12/21 08:38 Dose: 10 mg Documented by: [id number] Oxycodone HCl (Oxycodone Hcl Ir 5 Mg Tab (Immediate Release)) 10 mg PO Q12H [facility] Stop: 05/15/21 21:01 Last Admin: 05/14/21 07:38 Dose: 10 mg Documented by: [id number] Oxycodone HCl (Oxycodone Hcl Ir 5 Mg Tab (Immediate Release)) 10 mg PO ONE ONE Stop: 05/14/21 04:31 Last Admin: 05/14/21 04:25 Dose: 10 mg Documented by: [id number] Pneumococcal Polyvalent Vaccine (Pneumococcal Polysaccharides 25 Mcg/0.5 Ml Vial/Syr) 25 mcg IM .ONCE ONE Stop: 04/23/21 06:39 Last Admin: 04/23/21 07:55 Dose: Not Given Documented by: [id number] Polyethylene Glycol (Polyethylene (Miralax) 17 Gm Pack) 17 gm PO DAILY [facility] Stop: 05/27/21 09:44 Last Admin: 05/05/21 08:37 Dose: 17 gm Documented by: [id number] Admin: 05/04/21 08:04 Dose: 17 gm Documented by: [id number] Admin: 05/03/21 08:07 Dose: 17 gm Documented by: [id number] Admin: 05/02/21 09:46 Dose: 17 gm Documented by: [id number] Admin: 05/01/21 09:26 Dose: 17 gm Documented by: [id number] Admin: 04/30/21 08:55 Dose: 17 gm Documented by: [id number] Admin: 04/29/21 07:48 Dose: 17 gm Documented by: [id number] Admin: 04/28/21 08:10 Dose: 17 gm Documented by: [id number] Admin: 04/27/21 12:21 Dose: 17 gm Documented by: [id number] Potassium Chloride (Potassium Chloride Pwd 20 Meq Pack) 60 meq NG NOW ONE Stop: 05/06/21 10:46 Last Admin: 05/06/21 11:35 Dose: 60 meq Documented by: [id number] Potassium Chloride (Potassium Chloride 20 Meq/15 Ml Udc) 60 meq NG TODAY@1200 [facility] Stop: 05/07/21 18:00 Last Admin: 05/07/21 12:26 Dose: 60 meq Documented by: [id number] Potassium Chloride (Potassium Chloride 20 Meq/15 Ml Udc) 40 meq PO NOW STA Stop: 05/10/21 06:17 Last Admin: 05/10/21 08:14 Dose: 40 meq Documented by: [id number] Potassium Chloride (Potassium Chloride 20 Meq/15 Ml Udc) 20 meq PO NOW STA Stop: 05/13/21 06:50 Last Admin: 05/13/21 11:35 Dose: 20 meq Documented by: [id number] Propofol (Propofol Iv Emulsion 10 Mg/Ml 100 Ml Vial) Confirm Administered Dose 1,000 mg IV .STK-MED ONE Stop: 04/24/21 09:50 Last Admin: 04/24/21 11:17 Dose: Not Given Documented by: [id number] Propofol (Propofol Bolus From Bag) 20 mg IV Q5M PRN PRN Reason: Sedation Stop: 05/07/21 11:00 Last Admin: 05/02/21 08:01 Dose: 20 mg Documented by: [id number] Cosigned by: [id number] Admin: 05/02/21 07:40 Dose: 20 mg Documented by: [id number] Cosigned by: [id number] Admin: 05/01/21 11:30 Dose: 20 mg Documented by: [id number] Cosigned by: [id number] Senna/Docusate Sodium (Docusate Sodium/Senna 50/8.6mg Tab) 1 tab PO QAM [facility] Stop: 05/27/21 09:44 Last Admin: 05/05/21 08:36 Dose: 1 tab Documented by: [id number] Admin: 05/04/21 08:04 Dose: 1 tab Documented by: [id number] Admin: 05/03/21 08:08 Dose: 1 tab Documented by: [id number] Admin: 05/02/21 09:46 Dose: 1 tab Documented by: [id number] Admin: 05/01/21 09:26 Dose: 1 tab Documented by: [id number] Admin: 04/30/21 08:55 Dose: 1 tab Documented by: [id number] Admin: 04/29/21 07:47 Dose: 1 tab Documented by: [id number] Admin: 04/28/21 08:09 Dose: 1 tab Documented by: [id number] Admin: 04/27/21 12:21 Dose: 1 tab Documented by: [id number] Senna/Docusate Sodium (Docusate Sodium/Senna 50/8.6mg Tab) 1 tab PO BID [facility] Stop: 06/04/21 20:59 Last Admin: 05/09/21 08:10 Dose: Not Given Documented by: [id number] Admin: 05/08/21 20:38 Dose: 1 tab Documented by: [id number] Admin: 05/08/21 09:33 Dose: 1 tab Documented by: [id number] Admin: 05/07/21 21:11 Dose: 1 tab Documented by: [id number] Admin: 05/07/21 08:26 Dose: 1 tab Documented by: [id number] Admin: 05/06/21 19:41 Dose: 1 tab Documented by: [id number] Admin: 05/06/21 09:06 Dose: 1 tab Documented by: [id number] Admin: 05/05/21 19:54 Dose: 1 tab Documented by: [id number] Vecuronium [place] (Vecuronium [place] 10 Mg Vial) Confirm Administered Dose 10 mg IV .STK-MED ONE Stop: 04/24/21 09:44 Last Admin: 04/24/21 10:00 Dose: 10 mg Documented by: [id number] Cosigned by: [id number] Vecuronium [place] (Vecuronium [place] 10 Mg Vial) Confirm Administered Dose 10 mg IV .STK-MED ONE Stop: 04/26/21 19:27 Last Admin: 04/26/21 19:32 Dose: 10 mg Documented by: [id number] Cosigned by: [id number] Vecuronium [place] (Vecuronium [place] 10 Mg Vial) 10 mg IV NOW STA Stop: 04/26/21 22:48 Last Admin: 04/26/21 23:09 Dose: 10 mg Documented by: [id number] Cosigned by: [id number] Vecuronium [place] (Vecuronium [place] 10 Mg Vial) 10 mg IV NOW STA Stop: 04/26/21 23:34 Last Admin: 04/26/21 23:37 Dose: 10 mg Documented by: [id number] Cosigned by: [id number] Vecuronium [place] (Vecuronium [place] 10 Mg Vial) Confirm Administered Dose 10 mg IV .STK-MED ONE Stop: 04/27/21 17:13 Last Admin: 04/27/21 17:57 Dose: 10 mg Documented by: [id number] Cosigned by: [id number] Vecuronium [place] (Vecuronium [place] 10 Mg Vial) 10 mg IV NOW STA Stop: 05/08/21 07:19 Last Admin: 05/08/21 08:28 Dose: 10 mg Documented by: [id number] Cosigned by: [id number] Vecuronium [place] (Vecuronium [place] 10 Mg Vial) Confirm Administered Dose 10 mg IV .STK-MED ONE Stop: 05/08/21 07:23 Last Admin: 05/08/21 08:28 Dose: Not Given Documented by: [id number] Vecuronium [place] (Vecuronium [place] 10 Mg Vial) Confirm Administered Dose 10 mg IV .Faveous-MED ONE Stop: 05/13/21 21:48 Last Admin: 05/13/21 22:16 Dose: Not Given Documented by: [id number] Vecuronium [place] (Vecuronium [place] 10 Mg Vial) 10 mg IV NOW STA Stop: 05/13/21 22:11 Last Admin: 05/13/21 22:16 Dose: 10 mg Documented by: [id number] Cosigned by: [id number] Description This is a 21 electrode EEG with a single channel dedicated to limited EKG. The electrodes were placed in accordance with the International 10-20 system. The background rhythm consists of poorly organized low amplitude polymorphic theta activity. There is admixed low amplitude beta activity as well. There are no triphasic waves, periodic discharges, or a burst suppression pattern. There are no epileptiform abnormalities. Interpretation Abnormal awake/drowsy EEG revealing a nonspecific encephalopathy of at least moderate severity. No epileptiform abnormalities. [facility] EEG Procedure Codes Indication for Procedure (1) Encephalopathy: Neurology Neurology: [id number] EEG include record awake & drowsy
[2021-05-14] MEDS: PEPTAMEN INTENSE VHP 1.0 CAL 1,000 ML BAG OG SCH (20:31)
--- NOTE | 2021-05-14 23:57 | Hospitalist Progress Note ---
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 Completed a 10-day course of dexamethasone 6mg IV daily Received tocilizumab 600 mg x1 dose on 04/24 -Appreciate stem maker management of ventilator-now status post tracheostomy on 05/08 -Transitioned to Precedex for sedation, and receiving scheduled oxycodone and Klonopin per NGT x3-day course and then weaning off palliative consulted to have ongoing discussion about goals of care will update family, will need to move toward LTACH CT chest 11/11: Interval increase in density of consolidative opacities within bilateral lungs predominantly affecting dependent portions of bilateral upper and lower lobes. Patchy groundglass attenuation is seen within the rest of lung parenchyma with no normal aerated lung parenchyma seen Zosyn added by ICU will discuss plan with Dr. White, family (2) Acute respiratory failure with hypoxia: Plan: As above Secondary to COVID-19 pneumonia severe ARDS, as above Continue diuresis as well with Lasix [address] chest today, no normal lung parenchyma, no normal aeration (3) ARDS (adult respiratory distress syndrome): Plan: As above (4) Leukocytosis: Plan: WBC trended upward to 20 K and now back down to 14, without any intervention Now with fever starting on 05/10, continues to have fever Has already had central lines removed. Has an A-line in place Valadez catheter was removed on 05/09 No antibiotics for now sputum culture with no growth blood cultures no growth CT head negative for acute process CT chest with scarring, fibrosis, dense ground glass opacities MRI brain with paranasal sinus disease - started on Zosyn by ICU (5) Hyperglycemia: Plan: With some hyperglycemia likely secondary to corticosteroids which is now resolved No insulin needed (6) Hyponatremia: Plan: normalized (7) Hypokalemia: Plan: secondary to loop diuretics Follow BMP as is receiving IV Lasix -Give potassium chloride per ICU replacement protocol (8) Pneumonia due to COVID-19 virus: Plan: As above (9) Transaminitis: Plan: Mildly elevated AST Likely secondary to Covid-19 LFTs not repeated since 04/27 (10) Fever: Plan: As above continues to spike fevers, started on Zosyn for paranasal sinus disease no bleeding on CT head, MRI brain (11) Hypertension: Plan: With hyper tension likely related to weaning off sedation amlodipine 10mg daily IV labetalol as needed Precedex and oxycodone, lorazepam and weaning off Plan: DVT prophylaxis- Lovenox SQ GI prophylaxis-IV Protonix, received methylnaltrexone x1 on 05/04 and 05/05, senna/docusate twice daily, MiraLAX twice daily-did have a bowel movement on 05/06 and again 05/09 FEN-continue tube feeds per ICU Dc Valadez on 05/09 and has [place] Catheter on Disposition- worsening prognosis, terrible looking CT chest today, still having fevers need to continue to discuss with family Admission and Anticipated Discharge Date Admission Date: April 23, 2021 Subjective EEG today, generalized slowing MRI brain today, no stroke, does show paranasal sinus disease CT chest today, report: Interval increase in density of consolidative opacities within bilateral lungs predominantly affecting dependent portions of bilateral upper and lower lobes. Patchy groundglass attenuation is seen within the rest of lung parenchyma with no normal aerated lung parenchyma seen continues to be unresponsive, fevers Review of Systems Review of Systems: Unobtainable due to cognitive status Physical Exam Constitutional: well developed, well nourished, + ill appearing and + mechanically ventilated (via tracheostomy) Neck: trachea midline, no thyromegaly + tracheostomy present Respiratory: + tachypneic and symmetric chest movement Auscultation: lungs clear to auscultation bilaterally Cardiovascular: RRR, no murmur, no edema Gastrointestinal (Abdomen): normal bowel sounds, soft, nontender, no hepatosplenomegaly Skin: no rashes, warm and dry Neurologic: CN's II-XI intact bilaterally and + confused; + does not move all extremities (weakness, 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) Results & Data Results & Data ([facility]) Vital Signs (Past 12 Hours) Vital Signs Temp Pulse Resp BP Pulse Ox 05/14/21 22:09 78 117/67 97 05/14/21 21:09 68 114/63 94 05/14/21 20:09 83 121/67 92 05/14/21 20:00 81 29 H 91 05/14/21 19:15 85 05/14/21 19:09 84 125/69 94 05/14/21 18:39 37.4 C 86 119/64 95 05/14/21 18:09 84 120/68 96 05/14/21 17:39 77 105/54 L 97 05/14/21 17:09 86 124/72 84 L 05/14/21 16:39 86 121/68 95 05/14/21 16:09 86 121/68 92 05/14/21 15:45 96 H 35 H 90 05/14/21 15:32 85 05/14/21 14:03 82 125/72 94 05/14/21 13:33 78 122/70 05/14/21 13:03 77 120/71 93 05/14/21 12:32 79 118/70 90 05/14/21 12:00 76 90 Laboratory Results Laboratory Results - last 24 hr 05/13/21 05/14/21 05/14/21 22:38 05:12 11:52 POC Hgb 12.2 L POC Hct 36 L Sample Site R Radial POC pH 7.35 POC pCO2 79 H POC pO2 69 L POC HCO3 44 H POC Total CO2 > 40 H* POC Base Excess 18.0 H ABG pH (Temp Correct) 7.330 L ABG pCO2 (Temp Corrct 85 H POC ABG pO2 at Pt Temp 78 POC ABG O2 Sat 91.0 Nikolas Test Pass O2 Delivery Device Ventilator POC O2 Rate 30 POC FiO2 85 Tidal Volume 380 PEEP 10 POC Sodium 151 H POC Potassium 4.2 POC Glucose 171 H Procalcitonin 0.39 Medications Administered Current Inpatient Medications Acetaminophen (Acetaminophen 325 Mg Tab) 650 mg PO Q4H PRN PRN Reason: pain/fever Stop: 05/23/21 06:24 Last Admin: 05/13/21 22:00 Dose: 650 mg Documented by: Albuterol (Albuterol Hfa 8 Gm Inhaler) 2 puffs INH Q4R PRN PRN Reason: sob Stop: 05/23/21 06:24 Amlodipine Besylate (Amlodipine Besylate 5 Mg Tab) 10 mg PO QAM [facility] Stop: 06/08/21 08:59 Last Admin: 05/14/21 07:37 Dose: 10 mg Documented by: Clonazepam (Clonazepam 0.5 Mg Tab) 0.5 mg PO Q8H [facility] Stop: 05/16/21 08:01 Last Admin: 05/14/21 15:42 Dose: 0.5 mg Documented by: Docusate Sodium (Docusate Sodium Syrup 100 Mg/10 Ml Udc) 50 mg PO BID [facility] Stop: 06/08/21 20:59 Last Admin: 05/14/21 20:00 Dose: 50 mg Documented by: Enoxaparin Sodium (Enoxaparin Inj 40 Mg/0.4 Ml Syr) 40 mg SQ QAM [facility] Stop: 05/29/21 08:59 Last Admin: 05/14/21 07:38 Dose: 40 mg Documented by: Furosemide 40 mg/ Syringe 4 mls @ 4 mls/min IV DAILY [facility] Stop: 06/09/21 08:59 Last Admin: 05/11/21 08:24 Dose: 4 mls/min Documented by: Piperacillin Sod/Tazobactam (Sod 4.5 gm/ Dextrose) 120 mls @ 28.75 mls/hr IV Q8H [facility]; Protocol Stop: 05/21/21 13:59 Last Admin: 05/14/21 21:38 Dose: 28.8 mls/hr Documented by: Lansoprazole (Lansoprazole 30 Mg Soltab) 30 mg NG DAILY [facility] Stop: 06/11/21 10:59 Last Admin: 05/14/21 07:38 Dose: 30 mg Documented by: Metoprolol Tartrate (Metoprolol Tartrate 1 Mg/Ml Vial) 2.5 mg IV Q6H PRN PRN Reason: systolic BP > 160 Stop: 06/10/21 10:10 Last Admin: 05/12/21 05:36 Dose: 2.5 mg Documented by: Metoprolol Tartrate (Metoprolol Tartrate 25 Mg Tab) 25 mg PO BID [facility] Stop: 06/11/21 10:29 Last Admin: 05/14/21 20:00 Dose: 25 mg Documented by: Miscellaneous Information (Piperacill/Tazobac Consult Active) 1 ea N/A UD PRN PRN Reason: Consult Stop: 06/13/21 07:57 Nutritional Formula (Peptamen Intense Vhp 1.0 Asad 1,000 Ml Bag) 1,000 ml OG UD [facility]; Protocol Stop: 05/24/21 13:14 Last Admin: 05/14/21 20:31 Dose: 1,000 ml Documented by: Ondansetron HCl (Ondansetron Inj 2 Mg/Ml 2 Ml Vial) 4 mg IV Q6H PRN PRN Reason: Nausea Stop: 05/23/21 06:24 Oxycodone HCl (Oxycodone Hcl Ir 5 Mg Tab (Immediate Release)) 10 mg PO Q12H [facility] Stop: 05/15/21 20:01 Last Admin: 05/14/21 20:01 Dose: 10 mg Documented by: Polyethylene Glycol (Polyethylene (Miralax) 17 Gm Pack) 17 gm PO BID [facility] Stop: 06/04/21 20:59 Last Admin: 05/14/21 19:59 Dose: 17 gm Documented by: Sennosides (Sennosides 8.8 Mg/5 Ml Udc) 8.8 mg PO BID [facility] Stop: 06/08/21 20:59 Last Admin: 05/14/21 20:00 Dose: 8.8 mg Documented by: Sterile Water (Tube Feeding Water Flush) 30 ml OG Q4H [facility] Stop: 05/24/21 13:14 Last Admin: 05/14/21 20:01 Dose: 30 ml Documented by: Sterile Water (Tube Feeding Water Flush) 200 ml OG Q6H [facility] Stop: 05/15/21 18:01 Last Admin: 05/14/21 17:24 Dose: 200 ml Documented by: PG Care Time/CCT Total # of Minutes Spent Total Time Spent with Patient: Total time spent is greater than 50% in coordination of care (as documented) at patient's floor/unit and/or counseling patient: Coding Level of Care Code 32571 Subseq Hosp Care Lvl 2 Diagnoses COVID-19 U07.1 Acute respiratory failure with hypoxia J96.01 ARDS (adult respiratory distress syndrome) J80 Leukocytosis D72.829 Hyperglycemia R73.9 Hyponatremia E87.1 Hypokalemia E87.6 Pneumonia due to COVID-19 virus U07.1; J12.82 Transaminitis R74.01 Fever R50.9 Hypertension I10
[2021-05-15] MEDS: TUBE FEEDING WATER FLUSH OG SCH ×9 (00:17→20:05)
[2021-05-15] MEDS: clonazePAM 0.5 MG TAB PO SCH ×3 (00:20→15:05)
[2021-05-15] MEDS ORDERED: fentaNYL citrate 100 MCG/2 ML VIAL IV ONE (02:08)
[2021-05-15 05:42] LABS: iSTAT Allen Test Pass; iSTAT Art Bld Gas pCO2 Correct 69 mmHg (35-46); iSTAT Arterial Blood Gas HCO3 45 meg/L (19-24); iSTAT Arterial Blood Gas pCO2 66 mmHg (35-46); iSTAT Arterial Blood Gas pH 7.44 (7.35-7.45); iSTAT Arterial Blood Gas pO2 53 mmHg (80-95); iSTAT Arterial Blood Gas pO2 C 56; iSTAT Carbon Dioxide > 40 mmol/L (24-31); iSTAT FiO2 60 %; iSTAT Hematocrit 35 % (42-52); iSTAT Hemoglobin 11.9 g/dl (14.0-18.0); iSTAT Potassium 3.3 mmol/L (3.3-5.0); iSTAT Site R Radial; iSTAT Sodium 151 mmol/L (135-144)
[2021-05-15 06:24] LABS: Albumin Level 1.8 gm/dl (3.4-5.0); BUN Creatinine Ratio 66.9 (10-20); Bilirubin,Total 0.3 mg/dl (0.2-1); Calcium 8.7 mg/dl (8.5-10.1); Creatinine Clr Calc Pharmacy 122.6 ml/min; Est GFR (African American) 121.4 ml/min; Est GFR (Non-African American) 104.8 ml/min; Magnesium 2.6 mg/dl (1.8-2.4); Phosphorus 1.8 mg/dl (2.5-4.9); Potassium 3.5 mmol/L (3.5-5.1); Total Protein 7.5 gm/dl (6.4-8.2)
[2021-05-15] MEDS: PIPERACILLIN/TAZOBACTAM 4.5 GM in DEXTROSE 5% 100 ML IV SCH ×3 (06:37→21:27)
[2021-05-15 07:21] LABS: Basophils # (auto) 0.05 K/uL (0-0.2); Basophils % (auto) 0.3 %; Eosinophils # (auto) 0.28 K/uL (0-0.5); Eosinophils % (auto) 1.9 %; Hematocrit (blood only) 38.5 % (42-52); Hemoglobin 11.5 g/dL (14.0-18.0); Immature Granulocytes # (auto) 0.34 K/uL (0.00-0.02); Immature Granulocytes % (auto) 2.3 %; Lymphocytes # (auto) 1.43 K/uL (1.2-3.4); Lymphocytes % (auto) 9.5 %; Mean Corpuscular Hemoglobin 31.9 pg (25-34); Mean Corpuscular Hgb Conc 29.9 g/dL (32-36); Mean Corpuscular Volume 106.9 fL (80-100); Mean Platelet Volume 10.4 fL (7.4-10.4); Monocytes # (auto) 0.65 K/uL (0.11-0.59); Monocytes % (auto) 4.3 %; Neutrophils # (auto) 12.27 K/uL (1.4-6.5); Neutrophils % (auto) 81.7 %; Platelet Count 266 K/uL (130-400); RDW Coefficient of Variation 14.1 % (11.5-14.5); RDW Standard Deviation 55.5 fL (36.4-46.3); White Blood Count 15.02 K/uL (4.8-10.8)
[2021-05-15] MEDS ORDERED: POTASSIUM PHOS 3 MMOL/1 ML INFUSION IV STA (08:36)
[2021-05-15] MEDS ORDERED: POTASSIUM PHOSPHATE 21 MMOL in SODIUM CHLORIDE 0.9% 500 ML IV ONE (09:00)
--- NOTE | 2021-05-15 09:25 | XRay Report ---
XR chest 1V portable HISTORY: Respiratory failure. Follow-up. Pneumonia. COMPARISON: Chest 05/14/2021 FINDINGS: Feeding tube terminates in the distal gastric antrum. Tracheostomy tube is unchanged in pos ition. There are trace bilateral pleural effusions. Near diffuse bilateral airspace opacities persist . The heart remains top normal in size. IMPRESSION: 1. Satisfactory support line placement. 2. No change in the near diffuse bilateral airspace opacities. ACT 112: Negative or not required by law. Electronically signed by: Anuj Chavira M.D. 05/15/2021 9:24 AM
[2021-05-15] MEDS: METOPROLOL TARTRATE 25 MG TAB PO SCH ×2 (10:01→20:05)
[2021-05-15] MEDS: oxyCODONE HCL IR 5 MG TAB (IMMEDIATE RELEASE) PO SCH ×2 (10:01→20:07)
[2021-05-15] MEDS: LANSOPRAZOLE 30 MG SOLTAB NG SCH (10:01)
[2021-05-15] MEDS: ENOXAPARIN INJ 40 MG/0.4 ML SYR SQ SCH (10:02)
[2021-05-15] MEDS: ACETAMINOPHEN 325 MG TAB PO PRN ×3 (10:02→21:28)
[2021-05-15] MEDS: amLODIPine BESYLATE 5 MG TAB PO SCH (10:02)
[2021-05-15] MEDS: DOCUSATE SODIUM SYRUP 100 MG/10 ML UDC PO SCH ×2 (10:14→20:04)
[2021-05-15] MEDS: SENNOSIDES 8.8 MG/5 ML UDC PO SCH (10:15)
[2021-05-15] MEDS: POLYETHYLENE (MIRALAX) 17 GM PACK PO SCH (10:15)
[2021-05-15] MEDS ORDERED: SENNOSIDES 8.8 MG/5 ML UDC PO PRN (11:30)
[2021-05-15] MEDS ORDERED: POLYETHYLENE (MIRALAX) 17 GM PACK PO PRN (11:30)
[2021-05-15] MEDS: PEPTAMEN INTENSE VHP 1.0 CAL 1,000 ML BAG OG SCH (11:37)
--- NOTE | 2021-05-15 14:05 | Palliative Care Progress Note ---
Date of Service May 15, 2021 Assessment & Plan (1) Palliative care encounter: Plan: I met with Mrs. Luu and her two daughters, along with Dr. Perdomo. We reviewed recent test results and discussed prognosis. Family is tearful and trying to decide plan of care moving forward. He had been healthy and active prior to hospitalization which makes processing his current illness even more difficult. They understand that his prognosis for meaningful recovery is poor and risk of further complications is significant. They have originally said that he would not want to be kept alive on machines. They did agree to tracheostomy with the hope that he would improve. It has been very important to them to know that they have given him every opportunity and sufficient time for possible recovery. They asked about spiritual support and Leia's professor of mathematics has been contacted and is on a zoom visit with Artur in the room at this time. Family was able to have window visit with Artur. They also expressed concern about his 10 yo grandson who he has been very close to. Information given on [employer] program to help with communication and bereavement for children. After their window visit, I spoke more with family. They are struggling with his poor prognosis and tell me that they will not give up hope. They also note that he would not want to be kept alive on machines. They are talking about how to cope after his and will need a lot of support moving forward. We will follow. (2) Acute respiratory failure with hypoxia: (3) ARDS (adult respiratory distress syndrome): (4) Pneumonia due to COVID-19 virus: Admission and Anticipated Discharge Date Admission Date: April 23, 2021 Subjective No response to voice or touch, off sedation. Remain on vent. Review of Systems Review of Systems: Unobtainable due to endotracheal tube and Unobtainable due to reduced consciousness [place] Symptom Assessment Scale Pain by observation 0/3 Dyspnea by observation 0/3 Palliative Performance Score 10% Physical Exam Constitutional: + lethargic Respiratory: Vent CPAP mode, FiO2 55%, PEEP 10 Cardiovascular: Rate/Rhythm: regular rate and regular rhythm Neurologic: + obtunded Results & Data ([facility]) Vital Signs (Past 12 Hours) Vital Signs Temp Pulse Resp BP Pulse Ox 05/15/21 13:09 98.8 F 75 113/64 88 L 05/15/21 12:09 99.0 F 63 106/56 L 92 05/15/21 11:10 61 26 H 94 05/15/21 11:09 99.5 F 59 L 106/65 96 05/15/21 10:09 78 150/81 H 97 05/15/21 09:09 76 156/73 H 96 05/15/21 08:15 81 35 H 94 05/15/21 08:09 99.9 F H 84 161/75 H 93 05/15/21 07:09 85 174/79 H 95 05/15/21 05:30 20 05/15/21 02:03 86 33 H 93 Diagnostic Findings EEG shows moderate encephalopathy. Chest CT with extensive ARDS and no normal aerated lung parenchyma PG Care Time/CCT Total # of Minutes Spent Total Time Spent: 97 Total Time Spent with Patient: Total time spent is greater than 50% in coordination of care (as documented) at patient's floor/unit and/or counseling patient: goals of care, family education and support, family meeting, coordination of care Coding Level of Care Code 73682 Subseq Hosp Care Lvl 3 Diagnoses Acute respiratory failure with hypoxia J96.01 ARDS (adult respiratory distress syndrome) J80 Pneumonia due to COVID-19 virus U07.1; J12.82 Palliative care encounter Z51.5 Time Spent (min) 97
--- NOTE | 2021-05-15 14:21 | Critical Care Progress Note ---
Date of Service May 15, 2021 Assessment & Plan (1) ARDS (adult respiratory distress syndrome): (2) COVID-19: (3) Admitted to intensive care unit: (4) Acute respiratory failure with hypoxia: (5) Bradycardia: Plan: Reason critically ill: 66 yo M with no significant PMHx admitted with acute respiratory failure with hypoxia secondary to COVID-19 pneumonia admitted to ICU requiring close monitoring given tenuous respiratory status. NEURO: Off Versed and fentanyl infusions. -On oxycodone -gradually decreasing the dose -Clonazepam 0.[address] head 05/12/2021: Negative for any acute changes MRI brain 05/14/2021: Negative for any abnormality EEG 05/14/2021: Abnormal awake/drowsy EEG revealing a nonspecific encephalopathy at least moderate severity. No epileptiform abnormalities CARDIAC/VASCULAR: --Episodes of bradycardia in the past Resolved --Hypertension Continue with amlodipine and metoprolol via NGT As needed IV metoprolol for SBP greater than 180 RESPIRATORY: Acute hypoxic respiratory distress secondary to COVID-19 pneumonia Intubated 04/24. Tracheostomy 05/08 Received tocilizumab therapy. Wean ventilator as possible GI/NUTRITION: Tube feedings Constipation: Resolved Continue docusate and senna and MiraLAX. Methylnaltrexone for probable opiate-induced constipation x1 Hypertriglyceridemia: Off propofol sedation RENAL/LYTES: - No significant issues. Replace electrolytes per protocol. --Hypernatremia Getting free water flushes through the OGT GENITOURINARY: No acute concerns. Strict Is/Os. ENDO: ICU hyperglycemia protocol. HEME: No significant issues at this time. ID: COVID-19 pneumonia Blood culture 05/11/2021 negative to date Sputum culture 05/12/2021 negative to date Further worsening infiltrates on the CT chest appreciated 05/14/2021 patient started on Zosyn --Overall prognosis is guarded --Prophylaxis VTE: Lovenox GI: Lansoprazole Lines: Peripherals, status post tracheostomy 05/08/2021 Diet: Tube feeds Plan: In/out: +1298, urine output 1542 AB.44/66/53 on 60% Patient sodium is 149 today. Free water deficit is 3.8 L Patient is getting 200 mL free water flushes every 6 hours right now I would increase it to 250 mL every 6 hours for 8 doses Continue with Zosyn. Hypophosphatemia being replaced Patient is having multiple bowel movements. He is on Colace senna and MiraLAX We will continue with Colace DC MiraLAX and senna We will also send for C. difficile Patient's Pauline Luu [phone] I have personally spent 37 minutes of critical care time in the direct management of this patient. This is a life/limb threatening event. This includes time spent evaluating patient, direct bedside care, chart review, placing orders, interpretation of diagnostic studies, discussion with consultants, patient, and family members, as well as other required patient management activities. This time is exclusive of all separately billable procedures, and teaching time and separate from and in addition to any other critical care service time. Please note the above document was generated using voice recognition software. It may contain grammatical, syntax or spelling errors. Admission and Anticipated Discharge Date Admission Date: April 23, 2021 Subjective Patient seen and examined at bedside. No acute distress Patient had another bout of hypoxia overnight which resolved after increasing the oxygen and gradually titrating it down Positive bowel movements Patient is not following any commands He is breathing over the vent He was saturating 92-93% on pressure support 24/10 getting tidal volumes in the 400s. Review of Systems Review of Systems: Unobtainable due to mental health condition Physical Exam Physical Exam: Constitutional: No acute distress HEENT: PERRLA, + Trach Respiratory system: Decreased air entry bilaterally, no wheeze, rhonchi, positive crackles bilateral lower lobes CVS: S1-S2 positive, no murmurs or gallops Abdomen: Soft, nontender, nondistended, positive bowel sounds x4 Extremities: +2 pulses bilaterally radialis/ dorsalis pedis, no cyanosis, No edema Neuro: Not following commands, breathing over the vent Psych: Unable to assess G/U: Condom Valadez Skin: no rashes, warm and dry Lymphatic: no cervical or axillary lymphadenopathy Results & Data Results & Data ([facility]) Vital Signs (Past 12 Hours) Vital Signs Temp Pulse Resp BP Pulse Ox 05/15/21 13:09 37.1 C 75 113/64 88 L 05/15/21 12:09 37.2 C 63 106/56 L 92 05/15/21 11:10 61 26 H 94 05/15/21 11:09 37.5 C 59 L 106/65 96 05/15/21 10:09 78 150/81 H 97 05/15/21 09:09 76 156/73 H 96 05/15/21 08:15 81 35 H 94 05/15/21 08:09 37.7 C H 84 161/75 H 93 05/15/21 07:09 85 174/79 H 95 05/15/21 05:30 20 05/15/21 07:03 05/15/21 05:36 Coding Level of Care Code Critical Care 1st 30-74 mins Diagnoses ARDS (adult respiratory distress syndrome) J80 COVID-19 U07.1 Admitted to intensive care unit Z78.9 Acute respiratory failure with hypoxia J96.01 Bradycardia R00.1 Time Spent (min) 37
--- NOTE | 2021-05-15 16:47 | Hospitalist Progress Note ---
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 plan to make comfort care tomorrow (2) COVID-19: Plan: 66yo C male presenting with worsening Covid-19 PNA Pulse ox could not be maintained above mid 70s on the morning of 04/24 and he was intubated, sedated, paralyzed and proned ventilator dependent respiratory failure, day 18 now on ventilator Discontinued Versed, Propofol, and off neuromuscular blockade since the morning of 05/05 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 Completed a 10-day course of dexamethasone 6mg IV daily Received tocilizumab 600 mg x1 dose on 04/24 -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 Patchy groundglass attenuation is seen within the rest of lung parenchyma with no normal aerated lung parenchyma seen Zosyn added by ICU will discuss plan with Dr. White, family (3) Acute respiratory failure with hypoxia: Plan: As above Secondary to COVID-19 pneumonia severe ARDS, as above Continue diuresis as well with Lasix [address] chest today, no normal lung parenchyma, no normal aeration (4) ARDS (adult respiratory distress syndrome): Plan: As above (5) Leukocytosis: Plan: WBC trended upward to 20 K and now back down to 14, without any intervention Now with fever starting on 05/10, continues to have fever Has already had central lines removed. Has an A-line in place Valadez catheter was removed on 05/09 No antibiotics for now sputum culture with no growth blood cultures no growth CT head negative for acute process CT chest with scarring, fibrosis, dense ground glass opacities MRI brain with paranasal sinus disease - started on Zosyn by ICU (6) Hyperglycemia: Plan: With some hyperglycemia likely secondary to corticosteroids which is now resolved No insulin needed (7) Hyponatremia: Plan: normalized (8) Hypokalemia: Plan: secondary to loop diuretics Follow BMP as is receiving IV Lasix -Give potassium chloride per ICU replacement protocol (9) Pneumonia due to COVID-19 virus: Plan: As above (10) Transaminitis: Plan: Mildly elevated AST Likely secondary to Covid-19 LFTs not repeated since 04/27 (11) Fever: Plan: As above continues to spike fevers, started on Zosyn for paranasal sinus disease no bleeding on CT head, MRI brain (12) Hypertension: Plan: With hyper tension likely related to weaning off sedation amlodipine 10mg daily IV labetalol as needed Precedex and oxycodone, lorazepam and weaning off Plan: DVT prophylaxis- Lovenox SQ GI prophylaxis-IV Protonix, received methylnaltrexone x1 on 05/04 and 05/05, senna/docusate twice daily, MiraLAX twice daily-did have a bowel movement on 05/06 and again 05/09 FEN-continue tube feeds per ICU Dc Valadez on 05/09 and has [place] Catheter on Disposition- worsening prognosis, terrible looking CT chest today, still having fevers plan to transition to WEB EDITOR tomorrow Admission and Anticipated Discharge Date Admission Date: April 23, 2021 Subjective patient continues to be unresponsive off sedation for 4 days, he will not open his eyes, will not follow commands he has a gag and cough reflex he remains on pressure support 10-12, 50% FiO2, over breathing the vent discussed with Dr. Villarreal this morning, asked her to call in the family for a discussion met family with Dr. Villarreal at 1pm in the lobby they are very tearful, were hoping so much that he would pull through discussed that he is not coming around as we would hope after the tracheostomy which at this point was 10 days ago he had an EEG with slowing but there are brain waves, he had an MRI with no stroke or bleed, his CT chest shows no significant aerated lung tissue I discussed with them that we had talked about what [place] would want they had told me prior to the tracheostomy that he would not want to be kept alive on machines that he was a proud, independent man who valued quality of life I told them that his prognosis for any significant recovery is very grim, he w ould be in an LTACH for months in bed he would be prone to bed sore, infections, lung damage such as pneumothorax they agree that it is time to make him comfortable, they are hoping to be in the room when he passes to hold his hand I told him we could work on arranging that tomorrow they were able to have their rn vascular face time in the room to say a prayer and blessing over the patient will plan to call them tomorrow Review of Systems Review of Systems: Unobtainable due to cognitive status Physical Exam Constitutional: well developed, well nourished, + ill appearing and + mechanically ventilated (via tracheostomy) Neck: trachea midline, no thyromegaly + tracheostomy present Respiratory: + tachypneic and symmetric chest movement Auscultation: + dimi nished lung sounds (throughout) Cardiovascular: RRR, no murmur, no edema Gastrointestinal (Abdomen): normal bowel sounds, soft, nontender, no hepatosplenomegaly Skin: no rashes, warm and dry Neurologic: + does not move all extremities (weakness, 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) Comatose Patient: + response to noxious stimuli absent (+ gag and cough reflex) Results & Data Results & Data ([facility]) Vital Signs (Past 12 Hours) Vital Signs Temp Pulse Resp BP Pulse Ox 05/15/21 15:03 37.2 C 61 110/70 94 05/15/21 14:09 37.3 C 97 H 122/68 92 05/15/21 13:09 37.1 C 75 113/64 88 L 05/15/21 12:09 37.2 C 63 106/56 L 92 05/15/21 11:10 61 26 H 94 05/15/21 11:09 37.5 C 59 L 106/65 96 05/15/21 10:09 78 150/81 H 97 05/15/21 09:09 76 156/73 H 96 05/15/21 08:15 81 35 H 94 05/15/21 08:09 37.7 C H 84 161/75 H 93 05/15/21 07:09 85 174/79 H 95 05/15/21 05:30 20 Laboratory Results Laboratory Results - last 24 hr 05/15/21 05/15/21 05/15/21 00:22 05:23 05:36 WBC Cancelled RBC Cancelled Hgb Cancelled POC Hgb 11.9 L Hct Cancelled POC Hct 35 L MCV Cancelled MCH Cancelled MCHC Cancelled RDW Std Deviation Cancelled RDW Coeff of Elvin Cancelled Plt Count Cancelled MPV Cancelled Immature Gran % (Auto) Cancelled Neut % (Auto) Cancelled Lymph % (Auto) Cancelled [place] % (Auto) Cancelled Eos % (Auto) Cancelled Baso % (Auto) Cancelled Neut # (Auto) Cancelled Lymph # (Auto) Cancelled [place] # (Auto) Cancelled Eos # (Auto) Cancelled Baso # (Auto) Cancelled Immature Gran # (Auto) Cancelled Absolute Nucleated RBC Cancelled Nucleated RBC % (auto) Cancelled Neutrophils % (Manual) Cancelled Band Neutrophils % Cancelled Lymphocytes % (Manual) Cancelled Prolymphocyte % Cancelled Reactive Lymphs % (Man) Cancelled Monocytes % (Manual) Cancelled Eosinophils % (Manual) Cancelled Basophils % (Manual) Cancelled Metamyelocytes % (Man) Cancelled Myelocytes % (Man) Cancelled Promyelocytes % (Man) Cancelled Blast Cells % (Manual) Cancelled Plasma Cell % (Manual) Cancelled Other Cells % Cancelled Nucleated RBC % Cancelled Neutrophils # (Manual) Cancelled Band Neutrophils # Cancelled Total Absolute Neuts Cancelled Lymphocytes # (Manual) Cancelled Prolymphocyte # Cancelled Reactive Lymphs # Cancelled Total Abs Lymphocytes Cancelled Monocytes # (Manual) Cancelled Eosinophils # (Manual) Cancelled Basophils # (Manual) Cancelled Metamyelocytes # (Man) Cancelled Myelocytes # (Manual) Cancelled Promyelocytes # (Man) Cancelled Blast Cells # (Man) Cancelled Plasma Cell # (Manual) Cancelled Other Cells # Cancelled Nucleated RBCs # (Man) Cancelled Hypersegmented Neuts Cancelled Hyposegmented Neuts Cancelled Hypogranular Neuts Cancelled Large Granular Lymphs Cancelled # Lrg Granular Lymphs Cancelled Hairy Cells Cancelled Smudge Cells Cancelled Toxic Granulation Cancelled Toxic Vacuolation Cancelled Dohle Bodies Cancelled Letha Rods Cancelled Platelet Estimate Cancelled Hypogranular Platelets Cancelled Clumped Platelets Cancelled Giant Platelets Cancelled Platelet Satelliting Cancelled RBC Morphology Cancelled Polychromasia Cancelled Hypochromasia Cancelled Poikilocytosis Cancelled Basophilic Stippling Cancelled Anisocytosis Cancelled Microcytosis Cancelled Macrocytosis Cancelled Spherocytes Cancelled Pappenheimer Bodies Cancelled Sickle Cells Cancelled Target Cells Cancelled Tear Drop Cells Cancelled Ovalocytes Cancelled Stomatocytes Cancelled [place] Bodies Cancelled Echinocytes Cancelled Acanthocytes (Spur) Cancelled Rouleaux Cancelled RBC Agglutinates Cancelled Schistocytes Cancelled RBC Morph Comment Cancelled Sezary Cell Cancelled Sample Site R Radial POC pH 7.44 POC pCO2 66 H POC pO2 53 L POC HCO3 45 H POC Total CO2 > 40 H* POC Base Excess 21.0 H ABG pH (Temp Correct) 7.430 ABG pCO2 (Temp Corrct 69 H POC ABG pO2 at Pt Temp 56 POC ABG O2 Sat 87.0 L Nikolas Test Pass O2 Delivery Device Ventilator POC FiO2 60 PEEP 10 POC Sodium 151 H Sodium POC Potassium 3.3 Potassium Chloride Carbon Dioxide Anion Gap BUN Creatinine Est Cr Clr Drug Dosing Est GFR ( Amer) Est GFR (Non-Af Amer) BUN/Creatinine Ratio Glucose POC Glucose 130 H Calcium Phosphorus Magnesium Total Bilirubin Direct Bilirubin AST ALT Alkaline Phosphatase Total Protein Albumin Specimen Hemolysis 05/15/21 05/15/21 05/15/21 05:36 06:12 07:03 WBC 15.02 H RBC 3.60 L Hgb 11.5 L POC Hgb Hct 38.5 L POC Hct MCV 106.9 H MCH 31.9 MCHC 29.9 L RDW Std Deviation 55.5 H RDW Coeff of Elvin 14.1 Plt Count 266 MPV 10.4 Immature Gran % (Auto) 2.3 Neut % (Auto) 81.7 Lymph % (Auto) 9.5 [place] % (Auto) 4.3 Eos % (Auto) 1.9 Baso % (Auto) 0.3 Neut # (Auto) 12.27 H Lymph # (Auto) 1.43 [place] # (Auto) 0.65 H Eos # (Auto) 0.28 Baso # (Auto) 0.05 Immature Gran # (Auto) 0.34 H Absolute Nucleated RBC Nucleated RBC % (auto) Neutrophils % (Manual) Band Neutrophils % Lymphocytes % (Manual) Prolymphocyte % Reactive Lymphs % (Man) Monocytes % (Manual) Eosinophils % (Manual) Basophils % (Manual) Metamyelocytes % (Man) Myelocytes % (Man) Promyelocytes % (Man) Blast Cells % (Manual) Plasma Cell % (Manual) Other Cells % Nucleated RBC % Neutrophils # (Manual) Band Neutrophils # Total Absolute Neuts Lymphocytes # (Manual) Prolymphocyte # Reactive Lymphs # Total Abs Lymphocytes Monocytes # (Manual) Eosinophils # (Manual) Basophils # (Manual) Metamyelocytes # (Man) Myelocytes # (Manual) Promyelocytes # (Man) Blast Cells # (Man) Plasma Cell # (Manual) Other Cells # Nucleated RBCs # (Man) Hypersegmented Neuts Hyposegmented Neuts Hypogranular Neuts Large Granular Lymphs # Lrg Granular Lymphs Hairy Cells Smudge Cells Toxic Granulation Toxic Vacuolation Dohle Bodies Letha Rods Platelet Estimate Hypogranular Platelets Clumped Platelets Giant Platelets Platelet Satelliting RBC Morphology Polychromasia Hypochromasia Poikilocytosis Basophilic Stippling Anisocytosis Microcytosis Macrocytosis Spherocytes Pappenheimer Bodies Sickle Cells Target Cells Tear Drop Cells Ovalocytes Stomatocytes [place] Bodies Echinocytes Acanthocytes (Spur) Rouleaux RBC Agglutinates Schistocytes RBC Morph Comment Sezary Cell Sample Site POC pH POC pCO2 POC pO2 POC HCO3 POC Total CO2 POC Base Excess ABG pH (Temp Correct) ABG pCO2 (Temp Corrct POC ABG pO2 at Pt Temp POC ABG O2 Sat Nikolas Test O2 Delivery Device POC FiO2 PEEP POC Sodium Sodium 149 H POC Potassium Potassium 3.5 Chloride 110 H Carbon Dioxide 39 H Anion Gap 0 L BUN 40 H Creatinine 0.60 Est Cr Clr Drug Dosing 122.6 Est GFR ( Amer) 121.4 Est GFR (Non-Af Amer) 104.8 BUN/Creatinine Ratio 66.9 H Glucose 128 H POC Glucose 111 H Calcium 8.7 Phosphorus 1.8 L Magnesium 2.6 H Total Bilirubin 0.3 Direct Bilirubin AST 30 ALT 48 Alkaline Phosphatase 102 Total Protein 7.5 Albumin 1.8 L Specimen Hemolysis 05/15/21 05/15/21 10:23 14:23 WBC RBC Hgb POC Hgb Hct POC Hct MCV MCH MCHC RDW Std Deviation RDW Coeff of Elvin Plt Count MPV Immature Gran % (Auto) Neut % (Auto) Lymph % (Auto) [place] % (Auto) Eos % (Auto) Baso % (Auto) Neut # (Auto) Lymph # (Auto) [place] # (Auto) Eos # (Auto) Baso # (Auto) Immature Gran # (Auto) Absolute Nucleated RBC Nucleated RBC % (auto) Neutrophils % (Manual) Band Neutrophils % Lymphocytes % (Manual) Prolymphocyte % Reactive Lymphs % (Man) Monocytes % (Manual) Eosinophils % (Manual) Basophils % (Manual) Metamyelocytes % (Man) Myelocytes % (Man) Promyelocytes % (Man) Blast Cells % (Manual) Plasma Cell % (Manual) Other Cells % Nucleated RBC % Neutrophils # (Manual) Band Neutrophils # Total Absolute Neuts Lymphocytes # (Manual) Prolymphocyte # Reactive Lymphs # Total Abs Lymphocytes Monocytes # (Manual) Eosinophils # (Manual) Basophils # (Manual) Metamyelocytes # (Man) Myelocytes # (Manual) Promyelocytes # (Man) Blast Cells # (Man) Plasma Cell # (Manual) Other Cells # Nucleated RBCs # (Man) Hypersegmented Neuts Hyposegmented Neuts Hypogranular Neuts Large Granular Lymphs # Lrg Granular Lymphs Hairy Cells Smudge Cells Toxic Granulation Toxic Vacuolation Dohle Bodies Letha Rods Platelet Estimate Hypogranular Platelets Clumped Platelets Giant Platelets Platelet Satelliting RBC Morphology Polychromasia Hypochromasia Poikilocytosis Basophilic Stippling Anisocytosis Microcytosis Macrocytosis Spherocytes Pappenheimer Bodies Sickle Cells Target Cells Tear Drop Cells Ovalocytes Stomatocytes [place] Bodies Echinocytes Acanthocytes (Spur) Rouleaux RBC Agglutinates Schistocytes RBC Morph Comment Sezary Cell Sample Site POC pH POC pCO2 POC pO2 POC HCO3 POC Total CO2 POC Base Excess ABG pH (Temp Correct) ABG pCO2 (Temp Corrct POC ABG pO2 at Pt Temp POC ABG O2 Sat Nikolas Test O2 Delivery Device POC FiO2 PEEP POC Sodium Sodium POC Potassium Potassium Chloride Carbon Dioxide Anion Gap BUN Creatinine Est Cr Clr Drug Dosing Est GFR ( Amer) Est GFR (Non-Af Amer) BUN/Creatinine Ratio Glucose POC Glucose 161 H 131 H Calcium Phosphorus Magnesium Total Bilirubin Direct Bilirubin AST ALT Alkaline Phosphatase Total Protein Albumin Specimen Hemolysis Medications Administered Current Inpatient Medications Acetaminophen (Acetaminophen 325 Mg Tab) 650 mg PO Q4H PRN PRN Reason: pain/fever Stop: 05/23/21 06:24 Last Admin: 05/15/21 15:05 Dose: 650 mg Documented by: Albuterol (Albuterol Hfa 8 Gm Inhaler) 2 puffs INH Q4R PRN PRN Reason: sob Stop: 05/23/21 06:24 Amlodipine Besylate (Amlodipine Besylate 5 Mg Tab) 10 mg PO QAM [facility] Stop: 06/08/21 08:59 Last Admin: 05/15/21 10:02 Dose: 10 mg Documented by: Clonazepam (Clonazepam 0.5 Mg Tab) 0.5 mg PO Q8H [facility] Stop: 05/16/21 08:01 Last Admin: 05/15/21 15:05 Dose: 0.5 mg Documented by: Clonazepam (Clonazepam 0.5 Mg Tab) 0.5 mg PO Q12H [facility] Stop: 05/19/21 08:01 Docusate Sodium (Docusate Sodium Syrup 100 Mg/10 Ml Udc) 50 mg PO BID [facility] Stop: 06/08/21 20:59 Last Admin: 05/15/21 10:14 Dose: 50 mg Documented by: Enoxaparin Sodium (Enoxaparin Inj 40 Mg/0.4 Ml Syr) 40 mg SQ QAM [facility] Stop: 05/29/21 08:59 Last Admin: 05/15/21 10:02 Dose: 40 mg Documented by: Furosemide 40 mg/ Syringe 4 mls @ 4 mls/min IV DAILY [facility] Stop: 06/09/21 08:59 Last Admin: 05/11/21 08:24 Dose: 4 mls/min Documented by: Piperacillin Sod/Tazobactam (Sod 4.5 gm/ Dextrose) 120 mls @ 28.75 mls/hr IV Q8H [facility]; Protocol Stop: 05/21/21 13:59 Last Admin: 05/15/21 14:04 Dose: 28.8 mls/hr Documented by: Lansoprazole (Lansoprazole 30 Mg Soltab) 30 mg NG DAILY [facility] Stop: 06/11/21 10:59 Last Admin: 05/15/21 10:01 Dose: 30 mg Documented by: Metoprolol Tartrate (Metoprolol Tartrate 1 Mg/Ml Vial) 2.5 mg IV Q6H PRN PRN Reason: systolic BP > 160 Stop: 06/10/21 10:10 Last Admin: 05/12/21 05:36 Dose: 2.5 mg Documented by: Metoprolol Tartrate (Metoprolol Tartrate 25 Mg Tab) 25 mg PO BID [facility] Stop: 06/11/21 10:29 Last Admin: 05/15/21 10:01 Dose: 25 mg Documented by: Miscellaneous Information (Piperacill/Tazobac Consult Active) 1 ea N/A UD PRN PRN Reason: Consult Stop: 06/13/21 07:57 Nutritional Formula (Peptamen Intense Vhp 1.0 Asad 1,000 Ml Bag) 1,000 ml OG UD [facility]; Protocol Stop: 05/24/21 13:14 Last Admin: 05/15/21 11:37 Dose: 1,000 ml Documented by: Ondansetron HCl (Ondansetron Inj 2 Mg/Ml 2 Ml Vial) 4 mg IV Q6H PRN PRN Reason: Nausea Stop: 05/23/21 06:24 Oxycodone HCl (Oxycodone Hcl Ir 5 Mg Tab (Immediate Release)) 10 mg PO Q12H [facility] Stop: 05/17/21 20:01 Last Admin: 05/15/21 10:01 Dose: 10 mg Documented by: Oxycodone HCl (Oxycodone Hcl Ir 5 Mg Tab (Immediate Release)) 5 mg PO Q12H [facility] Stop: 05/19/21 20:01 Polyethylene Glycol (Polyethylene (Miralax) 17 Gm Pack) 17 gm PO BID PRN PRN Reason: CONSTIPATION Stop: 06/04/21 20:59 Sennosides (Sennosides 8.8 Mg/5 Ml Udc) 8.8 mg PO HS PRN PRN Reason: CONSTIPATION Stop: 06/08/21 20:59 Sterile Water (Tube Feeding Water Flush) 250 ml OG Q6H [facility] Stop: 05/17/21 02:38 Last Admin: 05/15/21 14:04 Dose: 250 ml Documented by: PG Care Time/CCT Total # of Minutes Spent Total Time Spent: 45 Total Time Spent with Patient: Total time spent is greater than 50% in coordination of care (as documented) at patient's floor/unit and/or counseling patient: Coding Level of Care Code 68639 Subseq Hosp Care Lvl 3 (25 - SIGNIFICANT, SEPARATELY IDENTIFIABLE ) Diagnoses COVID-19 U07.1 Acute respiratory failure with hypoxia J96.01 ARDS (adult respiratory distress syndrome) J80 Leukocytosis D72.829 Hyperglycemia R73.9 Hyponatremia E87.1 Hypokalemia E87.6 Pneumonia due to COVID-19 virus U07.1; J12.82 Transaminitis R74.01 Fever R50.9 Hypertension I10 Goals of care, counseling/discussion Z71.89
[2021-05-16] MEDS: clonazePAM 0.5 MG TAB PO SCH ×3 (00:42→21:19)
[2021-05-16] MEDS: PEPTAMEN INTENSE VHP 1.0 CAL 1,000 ML BAG OG SCH ×2 (03:23→19:12)
[2021-05-16] MEDS: TUBE FEEDING WATER FLUSH OG SCH ×4 (03:50→21:16)
[2021-05-16 05:31] LABS: iSTAT Allen Test Pass; iSTAT Art Bld Gas pCO2 Correct 87 mmHg (35-46); iSTAT Art Bld Gas pH Corrected 7.316 (7.35-7.45); iSTAT Arterial Blood Gas HCO3 45 meg/L (19-24); iSTAT Arterial Blood Gas pCO2 87 mmHg (35-46); iSTAT Arterial Blood Gas pH 7.32 (7.35-7.45); iSTAT Arterial Blood Gas pO2 72 mmHg (80-95); iSTAT Arterial Blood Gas pO2 C 72; iSTAT Carbon Dioxide > 40 mmol/L (24-31); iSTAT FiO2 100 %; iSTAT Hematocrit 35 % (42-52); iSTAT Hemoglobin 11.9 g/dl (14.0-18.0); iSTAT Potassium 3.9 mmol/L (3.3-5.0); iSTAT Site R Radial; iSTAT Sodium 153 mmol/L (135-144)
[2021-05-16] MEDS: PIPERACILLIN/TAZOBACTAM 4.5 GM in DEXTROSE 5% 100 ML IV SCH ×3 (05:58→21:16)
[2021-05-16 06:07] LABS: BUN Creatinine Ratio 59.9 (10-20); Calcium 8.8 mg/dl (8.5-10.1); Est GFR (African American) 118.3 ml/min; Magnesium 2.8 mg/dl (1.8-2.4)
[2021-05-16 06:15] LABS: Basophils # (auto) 0.02 K/uL (0-0.2); Basophils % (auto) 0.2 %; Eosinophils # (auto) 0.33 K/uL (0-0.5); Eosinophils % (auto) 2.6 %; Hematocrit (blood only) 38.1 % (42-52); Hemoglobin 11.3 g/dL (14.0-18.0); Immature Granulocytes # (auto) 0.24 K/uL (0.00-0.02); Immature Granulocytes % (auto) 1.9 %; Lymphocytes # (auto) 0.95 K/uL (1.2-3.4); Lymphocytes % (auto) 7.4 %; Mean Corpuscular Hemoglobin 31.6 pg (25-34); Mean Corpuscular Hgb Conc 29.7 g/dL (32-36); Mean Corpuscular Volume 106.4 fL (80-100); Mean Platelet Volume 10.8 fL (7.4-10.4); Monocytes # (auto) 0.77 K/uL (0.11-0.59); Neutrophils # (auto) 10.54 K/uL (1.4-6.5); Neutrophils % (auto) 81.9 %; Platelet Count 287 K/uL (130-400); RDW Coefficient of Variation 14.3 % (11.5-14.5); RDW Standard Deviation 55.8 fL (36.4-46.3); Red Blood Count 3.58 M/uL (4.7-6.1); White Blood Count 12.85 K/uL (4.8-10.8)
--- NOTE | 2021-05-16 08:18 | Critical Care Progress Note ---
Date of Service May 16, 2021 Assessment & Plan (1) ARDS (adult respiratory distress syndrome): (2) COVID-19: (3) Admitted to intensive care unit: (4) Acute respiratory failure with hypoxia: (5) Bradycardia: Plan: Reason critically ill: 66 yo M with no significant PMHx admitted with acute respiratory failure with hypoxia secondary to COVID-19 pneumonia admitted to ICU requiring close monitoring given tenuous respiratory status. NEURO: Off Versed and fentanyl infusions. -On oxycodone -gradually decreasing the dose -Clonazepam 0.[address] head 05/12/2021: Negative for any acute changes MRI brain 05/14/2021: Negative for any abnormality EEG 05/14/2021: Abnormal awake/drowsy EEG revealing a nonspecific encephalopathy at least moderate severity. No epileptiform abnormalities CARDIAC/VASCULAR: --Episodes of bradycardia in the past Resolved --Hypertension Continue with amlodipine and metoprolol via NGT As needed IV metoprolol for SBP greater than 180 RESPIRATORY: Acute hypoxic respiratory distress secondary to COVID-19 pneumonia Intubated 04/24. Tracheostomy 05/08 Received tocilizumab therapy. Wean ventilator as possible GI/NUTRITION: Tube feedings Constipation: Resolved Continue docusate and senna and MiraLAX. Methylnaltrexone for probable opiate-induced constipation x1 Hypertriglyceridemia: Off propofol sedation RENAL/LYTES: - No significant issues. Replace electrolytes per protocol. --Hypernatremia Getting free water flushes through the OGT GENITOURINARY: No acute concerns. Strict Is/Os. ENDO: ICU hyperglycemia protocol. HEME: No significant issues at this time. ID: COVID-19 pneumonia Blood culture 05/11/2021 negative to date Sputum culture 05/12/2021 negative to date Further worsening infiltrates on the CT chest appreciated 05/14/2021 patient started on Zosyn --Overall prognosis is guarded --Prophylaxis VTE: Lovenox GI: Lansoprazole Lines: Peripherals, status post tracheostomy 05/08/2021 Diet: Tube feeds Plan: In/out: +2611, urine output 1351 Patient chest x-ray still shows diffuse bilateral opacities. Patient sodium is 148 today. Free water deficit is 3.6L Continue with 250 mL every 6 hours for 8 doses Continue with Zosyn. Patient's family is planning to come in tomorrow in view of disconnecting the patient from the wound and not reconnected Case was discussed with Dr. Perdomo. Patient has been having low-grade fevers in the last 24-48 hours Would only allow the family in the room with N95s Patient's Pauline Luu [phone] I have personally spent 35 minutes of critical care time in the direct management of this patient. This is a life/limb threatening event. This includes time spent evaluating patient, direct bedside care, chart review, placing orders, interpretation of diagnostic studies, discussion with consultants, patient, and family members, as well as other required patient management activities. This time is exclusive of all separately billable procedures, and teaching time and separate from and in addition to any other critical care service time. Please note the above document was generated using voice recognition software. It may contain grammatical, syntax or spelling errors. Admission and Anticipated Discharge Date Admission Date: April 23, 2021 Subjective Patient seen and examined at bedside. No acute distress No adverse events overnight On pressure support 07/06 at the time of examination, 80% saturating 90% Not following commands Review of Systems Review of Systems: Unobtainable due to mental health condition Physical Exam Physical Exam: Constitutional: No acute distress HEENT: PERRLA, + Trach Respiratory system: Decreased air entry bilaterally, no wheeze, rhonchi, positive crackles bilateral lower lobes CVS: S1-S2 positive, no murmurs or gallops Abdomen: Soft, nontender, nondistended, positive bowel sounds x4 Extremities: +2 pulses bilaterally radialis/ dorsalis pedis, no cyanosis, No edema Neuro: Not following commands, breathing over the vent Psych: Unable to assess G/U: Condom Valadez Skin: no rashes, warm and dry Lymphatic: no cervical or axillary lymphadenopathy Results & Data Results & Data ([place]) Vital Signs (Past 12 Hours) Vital Signs Temp Pulse Resp BP Pulse Ox 05/16/21 07:56 86 33 H 93 05/16/21 06:03 84 137/81 93 05/16/21 06:00 37.3 C 05/16/21 05:03 88 131/82 94 05/16/21 04:03 91 H 128/68 95 05/16/21 03:30 92 H 27 H 89 L 05/16/21 03:03 85 134/74 92 05/16/21 02:03 82 131/73 95 05/16/21 01:03 77 136/70 90 05/16/21 00:03 84 117/64 89 L 05/16/21 00:00 76 05/15/21 23:18 72 33 H 90 05/15/21 23:03 77 119/69 90 05/15/21 22:03 76 127/71 90 05/15/21 21:03 70 119/69 87 L 05/16/21 05:13 05/16/21 05:13 Coding Level of Care Code Critical Care 1st 30-74 mins Diagnoses ARDS (adult respiratory distress syndrome) J80 COVID-19 U07.1 Admitted to intensive care unit Z78.9 Acute respiratory failure with hypoxia J96.01 Bradycardia R00.1 Time Spent (min) 35
[2021-05-16] MEDS: ACETAMINOPHEN 325 MG TAB PO PRN (09:10)
[2021-05-16] MEDS: oxyCODONE HCL IR 5 MG TAB (IMMEDIATE RELEASE) PO SCH ×2 (09:10→21:19)
[2021-05-16] MEDS: amLODIPine BESYLATE 5 MG TAB PO SCH (09:10)
[2021-05-16] MEDS: LANSOPRAZOLE 30 MG SOLTAB NG SCH (09:10)
[2021-05-16] MEDS: METOPROLOL TARTRATE 25 MG TAB PO SCH ×2 (09:10→21:16)
[2021-05-16] MEDS: ENOXAPARIN INJ 40 MG/0.4 ML SYR SQ SCH (09:11)
[2021-05-16] MEDS: DOCUSATE SODIUM SYRUP 100 MG/10 ML UDC PO SCH ×2 (09:11→21:16)
--- NOTE | 2021-05-16 09:48 | XRay Report ---
XR chest 1V portable INDICATION: MN ^f/u . TECHNIQUE: Single frontal radiograph of the chest was obtained. Comparison: Comparison is made to chest one view 05/15/2021 FINDINGS: Tracheostomy tube and enteric tube are unchanged. The cardiomediastinal silhouette is normal. Redemon stration of diffuse airspace opacities. There is likely a trace right pleural effusion. IMPRESSION: Redemonstration of diffuse airspace opacities, unchanged from prior exam. ACT 112: Negative or not required by law. Electronically signed by: Tyrone Johnson M.D. 05/16/2021 9:47 AM
--- NOTE | 2021-05-16 11:50 | Hospitalist Progress Note ---
Date of Service May 16, 2021 Assessment & Plan (1) Goals of care, counseling/discussion: Plan: 45 minutes with family on 05/15, talked about very poor prognosis, little hope of any meaningful recovery they were hoping he would fully recover and eventually come home discussed that his brain is not responding, won't open his eyes they do not want him to be on tracheostomy with ventilator support supervisor intermediates plan to make comfort care on 05/17, family will come in and be at the bedside with N95 in place will call them tomorrow morning (2) COVID-19: Plan: 66yo C male presenting with worsening Covid-19 PNA Pulse ox could not be maintained above mid 70s on the morning of 04/24 and he was intubated, sedated, paralyzed and proned ventilator dependent respiratory failure, day now on ventilator Discontinued Versed, Propofol, and off neuromuscular blockade since the morning of 05/05 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 Completed a 10-day course of dexamethasone 6mg IV daily Received tocilizumab 600 mg x1 dose on 04/24 -Appreciate grain commodity manager management of ventilator-now status post tracheostomy on 05/08 -Transitioned to Precedex for sedation, and receiving scheduled oxycodone and Klonopin per NGT x3-day course and then weaning off palliative consulted to have ongoing discussion about goals of care will update family, will need to move toward LTACH CT chest 11/11: Interval increase in density of consolidative opacities within bilateral lungs predominantly affecting dependent portions of bilateral upper and lower lobes. Patchy groundglass attenuation is seen within the rest of lung parenchyma with no normal aerated lung parenchyma seen Zosyn added by ICU will likely be on tracheostomy with pressure support assisted, unsure if he will ever come off mental status is not improving, off sedation for 5 days family plans to withdrawal care tomorrow (3) Acute respiratory failure with hypoxia: Plan: As above Secondary to COVID-19 pneumonia severe ARDS, as above Continue diuresis as well with Lasix [address] chest 05/14, no normal lung parenchyma, no normal aeration (4) ARDS (adult respiratory distress syndrome): Plan: As above (5) Leukocytosis: Plan: WBC trended upward to 20 K and now back down to 14, without any intervention Now with fever starting on 05/10, continues to have fever Has already had central lines removed. Has an A-line in place Valadez catheter was removed on 05/09 No antibiotics for now sputum culture with no growth blood cultures no growth CT head negative for acute process CT chest with scarring, fibrosis, dense ground glass opacities MRI brain with paranasal sinus disease - started on Zosyn by ICU (6) Hyperglycemia: Plan: With some hyperglycemia likely secondary to corticosteroids which is now resolved No insulin needed (7) Hyponatremia: Plan: normalized (8) Hypokalemia: Plan: secondary to loop diuretics Follow BMP as is receiving IV Lasix -Give potassium chloride per ICU replacement protocol (9) Pneumonia due to COVID-19 virus: Plan: As above (10) Transaminitis: Plan: Likely secondary to Covid-19 resolved (11) Fever: Plan: As above started on Zosyn for paranasal sinus disease no bleeding on CT head, MRI brain no fever since morning of 05/14 (12) Hypertension: Plan: With hyper tension likely related to weaning off sedation amlodipine 10mg daily IV labetalol as needed off of Precedex Plan: DVT prophylaxis- Lovenox SQ GI prophylaxis-IV Protonix FEN-continue tube feeds per ICU Dc Valadez on 05/09 and has [place] Catheter on Disposition- worsening prognosis, terrible looking CT chest, not responding to stimuli despite being off sedation x 5 days plan to transition to CONVENTION WORKER tomorrow, 05/17 Admission and Anticipated Discharge Date Admission Date: April 23, 2021 Subjective patient's sodium going up, CO2 high on blood gas and BMP still no response, on pressure support called the family to plan for their visit today to withdrawal care, they want to wait until tomorrow will plan to proceed at that time with comfort measures Review of Systems Review of Systems: Unobtainable due to cognitive status Physical Exam Constitutional: well developed, well nourished, + ill appearing and + mechanically ventilated (via tracheostomy) Neck: trachea midline, no thyromegaly + tracheostomy present Respiratory: + tachypneic and symmetric chest movement Auscultation: + diminished lung sounds (throughout) Cardiovascular: RRR, no murmur, no edema Gastrointestinal (Abdomen): normal bowel sounds, soft, nontender, no hepatosplenomegaly Skin: no rashes, warm and dry Neurologic: + does not move all extremities (weakness, 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) Comatose Patient: + response to noxious stimuli absent (+ gag and cough reflex) Results & Data Results & Data ([facility]) Vital Signs (Past 12 Hours) Vital Signs Temp Pulse Resp BP Pulse Ox 05/16/21 10:58 85 32 H 89 L 05/16/21 07:56 86 33 H 93 05/16/21 06:03 84 137/81 93 05/16/21 06:00 37.3 C 05/16/21 05:03 88 131/82 94 05/16/21 04:03 91 H 128/68 95 05/16/21 03:30 92 H 27 H 89 L 05/16/21 03:03 85 134/74 92 05/16/21 02:03 82 131/73 95 05/16/21 01:03 77 136/70 90 05/16/21 00:03 84 117/64 89 L 05/16/21 00:00 76 Laboratory Results Laboratory Results - last 24 hr 05/15/21 05/16/21 05/16/21 14:23 00:28 05:11 WBC RBC Hgb POC Hgb 11.9 L Hct POC Hct 35 L MCV MCH MCHC RDW Std Deviation RDW Coeff of Elvin Plt Count MPV Immature Gran % (Auto) Neut % (Auto) Lymph % (Auto) [place] % (Auto) Eos % (Auto) Baso % (Auto) Neut # (Auto) Lymph # (Auto) [place] # (Auto) Eos # (Auto) Baso # (Auto) Immature Gran # (Auto) Sample Site R Radial POC pH 7.32 L POC pCO2 87 H POC pO2 72 L POC HCO3 45 H POC Total CO2 > 40 H* POC Base Excess 18.0 H ABG pH (Temp Correct) 7.316 L ABG pCO2 (Temp Corrct 87 H POC ABG pO2 at Pt Temp 72 POC ABG O2 Sat 91.0 Nikolas Test Pass O2 Delivery Device Ventilator POC FiO2 100 PEEP 10 POC Sodium 153 H Sodium POC Potassium 3.9 Potassium Chloride Carbon Dioxide Anion Gap BUN Creatinine Est Cr Clr Drug Dosing Est GFR ( Amer) Est GFR (Non-Af Amer) BUN/Creatinine Ratio Glucose POC Glucose 131 H 126 H Calcium Phosphorus Magnesium 05/16/21 05/16/21 05/16/21 05:13 05:13 06:02 WBC 12.85 H RBC 3.58 L Hgb 11.3 L POC Hgb Hct 38.1 L POC Hct MCV 106.4 H MCH 31.6 MCHC 29.7 L RDW Std Deviation 55.8 H RDW Coeff of Elvin 14.3 Plt Count 287 MPV 10.8 H Immature Gran % (Auto) 1.9 Neut % (Auto) 81.9 Lymph % (Auto) 7.4 [place] % (Auto) 6.0 Eos % (Auto) 2.6 Baso % (Auto) 0.2 Neut # (Auto) 10.54 H Lymph # (Auto) 0.95 L [place] # (Auto) 0.77 H Eos # (Auto) 0.33 Baso # (Auto) 0.02 Immature Gran # (Auto) 0.24 H Sample Site POC pH POC pCO2 POC pO2 POC HCO3 POC Total CO2 POC Base Excess ABG pH (Temp Correct) ABG pCO2 (Temp Corrct POC ABG pO2 at Pt Temp POC ABG O2 Sat Nikolas Test O2 Delivery Device POC FiO2 PEEP POC Sodium Sodium 148 H POC Potassium Potassium 4.0 Chloride 110 H Carbon Dioxide 40 H Anion Gap -2.0 L BUN 38 H Creatinine 0.64 Est Cr Clr Drug Dosing 115.0 Est GFR ( Amer) 118.3 Est GFR (Non-Af Amer) 102.0 BUN/Creatinine Ratio 59.9 H Glucose 126 H POC Glucose 115 H Calcium 8.8 Phosphorus 4.0 D Magnesium 2.8 H Medications Administered Current Inpatient Medications Acetaminophen (Acetaminophen 325 Mg Tab) 650 mg PO Q4H PRN PRN Reason: pain/fever Stop: 05/23/21 06:24 Last Admin: 05/16/21 09:10 Dose: 650 mg Documented by: Albuterol (Albuterol Hfa 8 Gm Inhaler) 2 puffs INH Q4R PRN PRN Reason: sob Stop: 05/23/21 06:24 Amlodipine Besylate (Amlodipine Besylate 5 Mg Tab) 10 mg PO QAM [facility] Stop: 06/08/21 08:59 Last Admin: 05/16/21 09:10 Dose: 10 mg Documented by: Clonazepam (Clonazepam 0.5 Mg Tab) 0.5 mg PO Q12H [facility] Stop: 05/19/21 08:01 Docusate Sodium (Docusate Sodium Syrup 100 Mg/10 Ml Udc) 50 mg PO BID [facility] Stop: 06/08/21 20:59 Last Admin: 05/16/21 09:11 Dose: Not Given Documented by: Enoxaparin Sodium (Enoxaparin Inj 40 Mg/0.4 Ml Syr) 40 mg SQ QAM [facility] Stop: 05/29/21 08:59 Last Admin: 05/16/21 09:11 Dose: 40 mg Documented by: Furosemide 40 mg/ Syringe 4 mls @ 4 mls/min IV DAILY [facility] Stop: 06/09/21 08:59 Last Admin: 05/11/21 08:24 Dose: 4 mls/min Documented by: Piperacillin Sod/Tazobactam (Sod 4.5 gm/ Dextrose) 120 mls @ 28.75 mls/hr IV Q8H [facility]; Protocol Stop: 05/21/21 13:59 Last Infusion: 05/16/21 10:44 Dose: Infused Documented by: Lansoprazole (Lansoprazole 30 Mg Soltab) 30 mg NG DAILY [facility] Stop: 06/11/21 10:59 Last Admin: 05/16/21 09:10 Dose: 30 mg Documented by: Metoprolol Tartrate (Metoprolol Tartrate 1 Mg/Ml Vial) 2.5 mg IV Q6H PRN PRN Reason: systolic BP > 160 Stop: 06/10/21 10:10 Last Admin: 05/12/21 05:36 Dose: 2.5 mg Documented by: Metoprolol Tartrate (Metoprolol Tartrate 25 Mg Tab) 25 mg PO BID [facility] Stop: 06/11/21 10:29 Last Admin: 05/16/21 09:10 Dose: 25 mg Documented by: Miscellaneous Information (Piperacill/Tazobac Consult Active) 1 ea N/A UD PRN PRN Reason: Consult Stop: 06/13/21 07:57 Nutritional Formula (Peptamen Intense Vhp 1.0 Asad 1,000 Ml Bag) 1,000 ml OG UD [facility]; Protocol Stop: 05/24/21 13:14 Last Admin: 05/16/21 03:23 Dose: 1,000 ml Documented by: Ondansetron HCl (Ondansetron Inj 2 Mg/Ml 2 Ml Vial) 4 mg IV Q6H PRN PRN Reason: Nausea Stop: 05/23/21 06:24 Oxycodone HCl (Oxycodone Hcl Ir 5 Mg Tab (Immediate Release)) 10 mg PO Q12H [facility] Stop: 05/17/21 20:01 Last Admin: 05/16/21 09:10 Dose: 10 mg Documented by: Oxycodone HCl (Oxycodone Hcl Ir 5 Mg Tab (Immediate Release)) 5 mg PO Q12H [facility] Stop: 05/19/21 20:01 Polyethylene Glycol (Polyethylene (Miralax) 17 Gm Pack) 17 gm PO BID PRN PRN Reason: CONSTIPATION Stop: 06/04/21 20:59 Sennosides (Sennosides 8.8 Mg/5 Ml Udc) 8.8 mg PO HS PRN PRN Reason: CONSTIPATION Stop: 06/08/21 20:59 Sterile Water (Tube Feeding Water Flush) 250 ml OG Q6H [facility] Stop: 05/17/21 02:38 Last Admin: 05/16/21 09:10 Dose: 250 ml Documented by: PG Care Time/CCT Total # of Minutes Spent Total Time Spent with Patient: Total time spent is greater than 50% in coordination of care (as documented) at patient's floor/unit and/or counseling patient: Coding Level of Care Code 06851 Subseq Hosp Care Lvl 2 Diagnoses Goals of care, counseling/discussion Z71.89 COVID-19 U07.1 Acute respiratory failure with hypoxia J96.01 ARDS (adult respiratory distress syndrome) J80 Leukocytosis D72.829 Hyperglycemia R73.9 Hyponatremia E87.1 Hypokalemia E87.6 Pneumonia due to COVID-19 virus U07.1; J12.82 Transaminitis R74.01 Fever R50.9 Hypertension I10
[2021-05-16] MEDS ORDERED: CHLOROTHIAZIDE SODIUM 500 MG in DEXTROSE 5% 50 ML IV ONE (12:30)
[2021-05-17] MEDS: TUBE FEEDING WATER FLUSH OG SCH (01:53)
[2021-05-17 05:57] LABS: iSTAT Allen Test Pass; iSTAT Art Bld Gas pCO2 Correct 115 mmHg (35-46); iSTAT Art Bld Gas pH Corrected 7.223 (7.35-7.45); iSTAT Arterial Blood Gas HCO3 47 meg/L (19-24); iSTAT Arterial Blood Gas pCO2 113 mmHg (35-46); iSTAT Arterial Blood Gas pH 7.23 (7.35-7.45); iSTAT Arterial Blood Gas pO2 64 mmHg (80-95); iSTAT Arterial Blood Gas pO2 C 66; iSTAT Carbon Dioxide > 50 mmol/L (24-31); iSTAT FiO2 80 %; iSTAT Hematocrit 39 % (42-52); iSTAT Hemoglobin 13.3 g/dl (14.0-18.0); iSTAT Potassium 4.4 mmol/L (3.3-5.0); iSTAT Site R Radial; iSTAT Sodium 152 mmol/L (135-144)
[2021-05-17 06:14] LABS: Hemoglobin 11.1 g/dL (14.0-18.0); Mean Corpuscular Hemoglobin 31.7 pg (25-34); Mean Corpuscular Hgb Conc 28.5 g/dL (32-36); Mean Corpuscular Volume 111.4 fL (80-100); Platelet Count 277 K/uL (130-400); RDW Coefficient of Variation 14.1 % (11.5-14.5); RDW Standard Deviation 57.7 fL (36.4-46.3); White Blood Count 13.17 K/uL (4.8-10.8)
[2021-05-17 06:16] LABS: ALC (manual) 0.92 K/uL (1.2-3.4); ANC (manual) 10.98 K/uL (1.4-6.5); Basophilic Stippling 1+; Basophils # (manual) 0.12 K/uL (0-0.2); Basophils % (manual) 0.9 %; Eosinophils # (manual) 0.22 K/uL (0-0.5); Eosinophils % (manual) 1.7 %; Lymphocytes # (manual) 0.92 K/uL (1.2-3.4); Macrocytosis Present; Metamyelocytes # (manual) 0.12 K/uL (0-0); Metamyelocytes % (manual) 0.9 %; Monocytes # (manual) 0.46 K/uL (0.11-0.59); Monocytes % (manual) 3.5 %; Myelocytes # (manual) 0.34 K/uL (0-0); Myelocytes % (manual) 2.6 %; Neutrophils # (manual) 10.98 K/uL (1.4-6.5); Neutrophils % (manual) 83.4 %
[2021-05-17] MEDS: PIPERACILLIN/TAZOBACTAM 4.5 GM in DEXTROSE 5% 100 ML IV SCH ×2 (06:20→14:00)
[2021-05-17 06:35] LABS: BUN Creatinine Ratio 60.5 (10-20); Calcium 8.8 mg/dl (8.5-10.1); Creatinine Clr Calc Pharmacy 96.8 ml/min; Est GFR (African American) 110.2 ml/min; Est GFR (Non-African American) 95.1 ml/min; Magnesium 2.9 mg/dl (1.8-2.4); Potassium 4.4 mmol/L (3.5-5.1)
[2021-05-17] MEDS: ENOXAPARIN INJ 40 MG/0.4 ML SYR SQ SCH (08:15)
[2021-05-17] MEDS: oxyCODONE HCL IR 5 MG TAB (IMMEDIATE RELEASE) PO SCH (08:15)
[2021-05-17] MEDS: METOPROLOL TARTRATE 25 MG TAB PO SCH (08:15)
[2021-05-17] MEDS: LANSOPRAZOLE 30 MG SOLTAB NG SCH (08:15)
[2021-05-17] MEDS: amLODIPine BESYLATE 5 MG TAB PO SCH (08:16)
[2021-05-17] MEDS: DOCUSATE SODIUM SYRUP 100 MG/10 ML UDC PO SCH (08:16)
[2021-05-17] MEDS: clonazePAM 0.5 MG TAB PO SCH (08:16)
[2021-05-17] MEDS: PEPTAMEN INTENSE VHP 1.0 CAL 1,000 ML BAG OG SCH (09:09)
--- NOTE | 2021-05-17 09:37 | XRay Report ---
XR chest 1V portable HISTORY: Covid pneumonia. Respiratory failure. COMPARISON: Chest 05/16/2021. FINDINGS: The tracheostomy tube and nasogastric tube are in good position. No pneumothorax. Near diff use bilateral airspace opacities and trace right pleural effusion persist. The heart remains borderli ne enlarged. IMPRESSION: 1. Satisfactory support line placement. 2. No change in the extensive bilateral airspace opacities. ACT 112: Negative or not required by law. Electronically signed by: Anuj Chavira M.D. 05/17/2021 9:36 AM
[2021-05-17] MEDS ORDERED: CHLOROTHIAZIDE SODIUM 500 MG in DEXTROSE 5% 50 ML IV ONE (09:45)
--- NOTE | 2021-05-17 10:58 | Critical Care Progress Note ---
Date of Service May 17, 2021 Assessment & Plan (1) ARDS (adult respiratory distress syndrome): (2) COVID-19: (3) Admitted to intensive care unit: (4) Acute respiratory failure with hypoxia: (5) Bradycardia: Plan: Reason critically ill: 66 yo M with no significant PMHx admitted with acute respiratory failure with hypoxia secondary to COVID-19 pneumonia admitted to ICU requiring close monitoring given tenuous respiratory status. NEURO: Off Versed and fentanyl infusions. -On oxycodone -gradually decreasing the dose -Clonazepam 0.[address] head 05/12/2021: Negative for any acute changes MRI brain 05/14/2021: Negative for any abnormality EEG 05/14/2021: Abnormal awake/drowsy EEG revealing a nonspecific encephalopathy at least moderate severity. No epileptiform abnormalities CARDIAC/VASCULAR: --Episodes of bradycardia in the past Resolved --Hypertension Continue with amlodipine and metoprolol via NGT As needed IV metoprolol for SBP greater than 180 RESPIRATORY: Acute hypoxic respiratory distress secondary to COVID-19 pneumonia Intubated 04/24. Tracheostomy 05/08 Received tocilizumab therapy. 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 Methylnaltrexone for probable opiate-induced constipation x1 Hypertriglyceridemia: Off propofol sedation RENAL/LYTES: - No significant issues. Replace electrolytes per protocol. --Hypernatremia Getting free water flushes through the OGT --Metabolic alkalosis Likely from underlying diuresis as well as compensation to chronic hypercapnia GENITOURINARY: No acute concerns. Strict Is/Os. ENDO: ICU hyperglycemia protocol. HEME: No significant issues at this time. ID: COVID-19 pneumonia Blood culture 05/11/2021 negative to date Sputum culture 05/12/2021 negative to date Further worsening infiltrates on the CT chest appreciated 05/14/2021 patient started on Zosyn --Overall prognosis is guarded --Prophylaxis VTE: Lovenox GI: Lansoprazole Lines: Peripherals, status post tracheostomy 05/08/2021 Diet: Tube feeds Plan: In/out: +1365, urine output 1603, +6 L from admission Continue with 250 mL every 6 hours for 8 doses Continue with Zosyn. We will give the patient 1 dose of chlorothiazide. May repeat 1 more dose in the evening given the patient is hypernatremic Patient does have significant trach leak. 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 Patient's Pauline Luu [phone] I have personally spent 36 minutes of critical care time in the direct managem ent of this patient. This is a life/limb threatening event. This includes time spent evaluating pat ient, direct bedside care, chart review, placing orders, interpretation of diagnostic studies, discussion with consultants, patient, and family members, as well as other required patient management activities. This time is exclusive of all separately billable procedures, and teaching time and separate from and in addition to any other critical care service time. Please note the above document was generated using voice recognition software. It may contain grammatical, syntax or spelling errors. Admission and Anticipated Discharge Date Admission Date: April 23, 2021 Subjective Patient seen and examined at bedside. No acute distress Early in the morning patient's ABG showed hypercapnia. Still has been spiking fever. Have been alternating between pressure support and VCAC on the ventilator Patient does have significant leak from the trach which is positional. Review of Systems Review of Systems: Unobtainable due to mental health condition Physical Exam Physical Exam: Constitutional: No acute distress HEENT: PERRLA, + Trach Respiratory system: Decreased air entry bilaterally, no wheeze, rhonchi, positive crackles bilateral lower lobes CVS: S1-S2 positive, no murmurs or gallops Abdomen: Soft, nontender, nondistended, positive bowel sounds x4 Extremities: +2 pulses bilaterally radialis/ dorsalis pedis, no cyanosis, No edema Neuro: Not following commands, breathing over the vent Psych: Unable to assess G/U: Condom Valadez Skin: no rashes, warm and dry Lymphatic: no cervical or axillary lymphadenopathy Results & Data Results & Data ([facility]) Vital Signs (Past 12 Hours) Vital Signs Temp Pulse Resp BP Pulse Ox 05/17/21 10:03 38.4 C H 74 20 105/54 L 89 L 05/17/21 09:03 87 128/65 92 05/17/21 08:03 90 126/63 91 05/17/21 08:00 74 32 H 92 05/17/21 07:03 89 131/66 92 05/17/21 06:03 81 108/62 91 05/17/21 05:50 83 33 H 91 05/17/21 05:03 37.4 C 85 110/67 91 05/17/21 04:03 37.2 C 83 110/65 92 05/17/21 03:03 37.1 C 83 116/62 91 05/17/21 02:45 81 30 H 91 05/17/21 02:03 36.8 C 83 109/59 L 90 05/17/21 01:03 37.0 C 86 112/58 L 93 05/17/21 00:03 37.4 C 86 109/66 93 05/17/21 00:00 77 05/16/21 23:03 37.7 C H 76 29 H 125/67 93 05/17/21 05:27 05/17/21 05:27 Coding Level of Care Code Critical Care 1st 30-74 mins Diagnoses ARDS (adult respiratory distress syndrome) J80 COVID-19 U07.1 Admitted to intensive care unit Z78.9 Acute respiratory failure with hypoxia J96.01 Bradycardia R00.1 Time Spent (min) 36
[2021-05-17] MEDS ORDERED: MoRPHine SULFATE 2 MG/ML CARP IV PRN (14:21)
[2021-05-17] MEDS ORDERED: LORazepam 0.5 MG/1 ML VIAL IV PRN (14:21)
[2021-05-17] MEDS ORDERED: ONDANSETRON INJ 2 MG/ML 2 ML VIAL IV PRN (14:21)
--- NOTE | 2021-05-17 16:24 | Death Pronouncement Note ---
Date of Service May 17, 2021 Pronouncement Note Admission Date Admission Date: April 23, 2021 Date and Time of Date of : 05/17/21 Time of : 15:38 PCOD Preliminary cause of : COVID-19 Contributing Factors (1) ARDS (adult respiratory distress syndrome): (2) COVID-19: (3) Admitted to intensive care unit: (4) Acute respiratory failure with hypoxia: (5) Bradycardia: Hospital Course Hospital Course: see discharge summary Additional Data Confirmation of : no pulse, no respirations, no heart sounds, pupils fixed and dilated and other (asystole on monitor) Family: at bedside Attending/PCP notified?: Yes Attending physician: Tyrone Perdomo, DO Was code activated?: No Autopsy requested?: No voucher examiner notified?: No Organ bank notified?: No Advance directives: No Coding Level of Care Code None Diagnoses ARDS (adult respiratory distress syndrome) J80 COVID-19 U07.1 Admitted to intensive care unit Z78.9 Acute respiratory failure with hypoxia J96.01 Bradycardia R00.1
--- NOTE | 2021-05-17 16:24 | Discharge Summary ---
Date of Service May 17, 2021 Admission HPI Per Admitting Provider Artur Luu is a 66-year-old male with no significant past medical or surgical history presenting with worsening COVID-19 infection. Patient was admitted to [facility] from 04/20 through 04/21/2021 with complaints of shortness of breath and hypoxia, saturations of 90% on room air at that time. He was admitted to the Covid unit and treated with dexamethasone IV. He was discharged home on 04/21/2021 with oral dexamethasone and supplemental oxygen, 2 L by nasal cannula to be worn at home. Patient states that he has been monitoring his oxygen with a home monitor. He has been wearing his oxygen as prescribed. He reports that his oxygen level got as low as 75% today. He reports persistent shortness of breath. No additional complaints at this time. Patient hypoxic on arrival. Was placed on 15 L nonrebreather and still saturating 86 to 91%. He was started on high flow nasal cannula and is now saturating 92% on 40 L/min, FiO2 =100% Principal Diagnosis COVID 19 pneumonia causing ARDS, acute respiratory failure Discharge Exam no pulse, not breathing, no heart sounds no breath sounds, pupils fixed, unresponsive Discharge Data Allergies Allergy/AdvReac Type Severity Reaction Status Date / Time No Known Allergies Allergy Verified 04/23/21 00:29 Consultations 04/23/21 02:04 ED Decision to Admit Stat 04/23/21 16:12 Consult Locksmith Routine 04/23/21 17:21 Consult Locksmith Routine 04/28/21 08:26 Consult Palliative Care Routine 05/17/21 14:21 Consult Palliative Care Routine Ordered Studies 04/27/21 15:32 CT angio chest PE protocol Stat 05/02/21 11:02 US point of care ultrasound Routine 05/12/21 09:00 CT head/brain wo con Routine 05/14/21 07:47 MR brain wo/w con Routine 05/14/21 08:02 CT chest diagnostic wo con Routine Hospital Course (1) COVID-19: Goals of care, counseling/discussion: 45 minutes with family on 05/15, talked about very poor prognosis, little hope of any meaningful recovery they were hoping he would fully recover and eventually come home discussed that his brain is not responding, won't open his eyes they do not want him to be on tracheostomy with ventilator support manager intermediate transitioned to SCRUM PRODUCT OWNER on 05/17 numerous family members came in to visit at the bedside and two daughters with the patient when tracheostomy was disconnected patient passed quickly without pressure support at 1538 on 05/17, I was at the bedside with the family, offered them empathy and comforted them spent 50 minutes with the patient's family today helping them in and out of PPE so they could visit 2 at a time (2) COVID-19: Plan: 66yo C male presenting with worsening Covid-19 PNA Pulse ox could not be maintained above mid 70s on the morning of 04/24 and he was intubated, sedated, paralyzed and proned ventilator dependent respiratory failure, day 18 now on ventilator Discontinued Versed, Propofol, and off neuromuscular blockade since the morning of 05/05 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 Completed a 10-day course of dexamethasone 6mg IV daily Received tocilizumab 600 mg x1 dose on 04/24 -Appreciate grinder dresser management of ventilator-now status post tracheostomy on 05/08 -Transitioned to Precedex for sedation, and receiving scheduled oxycodone and Klonopin per NGT x3-day course and then weaning off palliative consulted to have ongoing discussion about goals of care was considering LTACH but he is getting worse CT chest 11/11: Interval increase in density of consolidative opacities within bilateral lungs predominantly affecting dependent portions of bilateral upper and lower lobes. Patchy groundglass attenuation is seen within the rest of lung parenchyma with no normal aerated lung parenchyma seen Zosyn added by ICU now cannot ventilate, CO2 steadily rising, up to 120 on 05/17, essentially moving most of his air in and out of space (3) Acute respiratory failure with hypoxia: Plan: As above Secondary to COVID-19 pneumonia severe ARDS, as above Continue diuresis as well with Lasix [address] chest 05/14, no normal lung parenchyma, no normal aeration (4) ARDS (adult respiratory distress syndrome): Plan: As above (5) Leukocytosis: Plan: WBC trended upward to 20 K and now back down to 14, without any intervention Now with fever starting on 05/10, continues to have fever Has already had central lines removed. Has an A-line in place Valadez catheter was removed on 05/09 No antibiotics for now sputum culture with no growth blood cultures no growth CT head negative for acute process CT chest with scarring, fibrosis, dense ground glass opacities MRI brain with paranasal sinus disease - started on Zosyn by ICU (6) Hyperglycemia: Plan: With some hyperglycemia likely secondary to corticosteroids which is now resolved No insulin needed (7) Hyponatremia: Plan: normalized (8) Hypokalemia: Plan: secondary to loop diuretics Follow BMP as is receiving IV Lasix -Give potassium chloride per ICU replacement protocol (9) Pneumonia due to COVID-19 virus: Plan: As above (10) Transaminitis: Plan: Likely secondary to Covid-19 resolved (11) Fever: Plan: As above started on Zosyn for paranasal sinus disease no bleeding on CT head, MRI brain no fever since morning of 05/14 (12) Hypertension: Plan: With hyper tension likely related to weaning off sedation amlodipine 10mg daily IV labetalol as needed off of Precedex Plan: DVT prophylaxis- Lovenox SQ GI prophylaxis-IV Protonix FEN-continue tube feeds per ICU Dc Valadez on 05/09 and has [place] Catheter on disposition: SCRUM PRODUCT OWNER (2) ARDS (adult respiratory distress syndrome): As above (3) Acute respiratory failure with hypoxia: (4) Bradycardia: (5) Goals of care, counseling/discussion: (6) Encephalopathy: (7) Hypertension: (8) Fever: (9) Hyperglycemia: (10) Hyponatremia: Total Time Total Time Spent Total Time Spent (In Minutes): 60 Total Time Includes: Examination of the Patient, Discharge Planning (chart completion, certificate) and Other (50 minutes with family) Discharge Plan Discharge Items Patient Disposition: Other Date/Time: 05/17/21 18:36 Coding Level of Care Code D/C DAY MANAGEMENT >30 MINS Diagnoses ARDS (adult respiratory distress syndrome) J80 COVID-19 U07.1 Acute respiratory failure with hypoxia J96.01 Bradycardia R00.1 Goals of care, counseling/discussion Z71.89 Encephalopathy G93.40 Hypertension I10 Fever R50.9 Hyperglycemia R73.9 Hyponatremia E87.1
[2021-05-18] MEDS ORDERED: oxyCODONE HCL IR 5 MG TAB (IMMEDIATE RELEASE) PO SCH ×2 (08:00)
== END 2021-05-17 18:30 | disposition expired | DRG 4 ==
LOC: ED 23:33 → 2S 04-23 02:48 → SUATTDRO 04-23 02:48 → 2S 04-23 05:37 → 1E 04-23 16:57
DX: E83.39 Other disorders of phosphorus metabolism; R74.01 Elevation of levels of liver transaminase levels; U07.1 COVID-19; Z51.5 Encounter for palliative care; R00.1 Bradycardia, unspecified; J96.01 Acute respiratory failure with hypoxia; J12.82 Pneumonia due to coronavirus disease 2019; Z66 Do not resuscitate; G93.40 Encephalopathy, unspecified; R73.9 Hyperglycemia, unspecified; I10 Essential (primary) hypertension; Z99.11 Dependence on respirator [ventilator] status; E87.6 Hypokalemia; Z99.81 Dependence on supplemental oxygen; E87.1 Hypo-osmolality and hyponatremia